=== PATIENT | male | born 1945 | race Caucasian/White ===

== ENCOUNTER 2017-12-14 07:26 | Outpatient (RCR) | payer MEDICARE, SELFPAY ==
[2017-12-14 07:41] LABS: Prothrombin Time Fingerstick 21.5 SEC (11.9-14.4)
== END 2017-12-14 08:00 ==
LOC: LAB 07:26
PROVIDERS: Family Provider Family Medicine; PCP Family Medicine; Visit Provider Internal Medicine Cardiovascular Disease
DX: I48.91 Unspecified atrial fibrillation (principal)
CPT/HCPCS: 36416; 85610

== ENCOUNTER → 2017-12-18 09:00 | Outpatient (CLI) | payer MEDICARE, SELFPAY ==
[2017-11-29 11:27] VITALS: BMI 28.6
[2017-11-29 16:16] VITALS: BP 125/79
--- NOTE | 2017-12-18 09:03 | RAD_ITS ---
STUDY: X-RAY - ABDOMEN/PELVIS REASON FOR EXAM: Male, 72 years old. Calculus of the right kidney. TECHNIQUE: 2 AP images of the abdomen. COMPARISON: November 20, 2017 FINDINGS: Normal visualized lung bases. There is a moderate amount of stool throughout the colon securing anatomic detail. Within the expected region of the right kidney there is a curvilinear approximately 4 mm density noted. There are gallstones again visualized. There are phleboliths within the pelvis. There are degenerative changes of the hips and pubic symphysis. RAD/Abdomen Single View IMPRESSION: Moderate amount of stool throughout the colon. Possible residual right renal calculus. Cholelithiasis. Electronically Signed: Carline Escobedo MD at 23:55 EST Tel , Service support ,
== END ==
PROVIDERS: Family Provider Family Medicine; PCP Family Medicine; Visit Provider Urology
DX: N20.0 Calculus of kidney (principal)
CPT/HCPCS: 74018

== ENCOUNTER → 2017-12-25 08:08 | Outpatient (CLI) | payer MEDICARE, SELFPAY ==
[2017-12-25 09:05] LABS: International Normalized Ratio 2.6; Prothrombin Time (Protime)PT. 27.2 SECONDS (11.7-14.9)
[2017-12-25 09:27] LABS: Anion Gap 7 (5-15); BUN 26 mg/dL (7-18); BUN/Creat Ratio 27.5 RATIO (10-20); Calcium,Total 8.9 mg/dL (8.5-10.1); Chloride 107 mmol/L (98-107); Creatinine, Serum 0.94 mg/dL (0.70-1.30); EST Glomerular Filtration Rate 83 mL/min (>60); Est Glom Filt Rate - Afr Amer 101 mL/min (>60); Glucose 161 mg/dL (74-106); Potassium 4.1 mmol/L (3.5-5.1); Sodium Level 138 mmol/L (136-145)
== END ==
PROVIDERS: Family Provider Family Medicine; PCP Family Medicine; Visit Provider Urology
DX: N20.0 Calculus of kidney (principal); I48.0 Paroxysmal atrial fibrillation; Z79.899 Other long term (current) drug therapy
CPT/HCPCS: 36415; 80048; 85610

== ENCOUNTER 2018-01-15 08:11 | Outpatient (RCR) | payer MEDICARE, SELFPAY ==
[2018-01-15 08:36] LABS: Prothrombin Time Fingerstick 28.1 SEC (11.9-14.4)
== END 2018-01-15 09:00 | disposition home or self-care (01) ==
LOC: LAB 08:11
PROVIDERS: Family Provider Family Medicine; PCP Family Medicine; Visit Provider Internal Medicine Cardiovascular Disease
DX: I48.0 Paroxysmal atrial fibrillation (principal); Z79.899 Other long term (current) drug therapy
CPT/HCPCS: 36416; 85610

== ENCOUNTER 2018-02-15 08:10 | Outpatient (RCR) | payer MEDICARE, SELFPAY ==
[2018-02-15 08:20] LABS: Prothrombin Time Fingerstick 30.3 SEC (11.9-14.4)
== END 2018-02-15 09:00 | disposition home or self-care (01) ==
LOC: LAB 08:10
PROVIDERS: Family Provider Family Medicine; PCP Family Medicine; Visit Provider Internal Medicine Cardiovascular Disease
DX: I48.0 Paroxysmal atrial fibrillation (principal); Z79.899 Other long term (current) drug therapy
CPT/HCPCS: 36416; 85610

== ENCOUNTER 2018-03-16 08:00 | Outpatient (RCR) | payer MEDICARE, SELFPAY ==
[2018-03-16 08:11] LABS: Prothrombin Time Fingerstick 25.1 SEC (11.9-14.4)
== END 2018-03-16 09:00 | disposition home or self-care (01) ==
LOC: LAB 08:00
PROVIDERS: Family Provider Family Medicine; PCP Family Medicine; Visit Provider Internal Medicine Cardiovascular Disease
DX: I48.0 Paroxysmal atrial fibrillation (principal); Z79.899 Other long term (current) drug therapy
CPT/HCPCS: 36416; 85610

== ENCOUNTER 2018-05-11 07:56 | Outpatient (RCR) | payer MEDICARE, SELFPAY ==
[2018-04-27 08:40] LABS: Prothrombin Time Fingerstick 24.6 SEC (11.9-14.4)
[2018-05-11 08:11] LABS: Prothrombin Time Fingerstick 28.6 SEC (11.9-14.4)
== END 2018-05-11 08:00 | disposition home or self-care (01) ==
LOC: LAB 07:56
PROVIDERS: Family Provider Family Medicine; PCP Family Medicine; Visit Provider Internal Medicine Cardiovascular Disease
DX: I48.0 Paroxysmal atrial fibrillation (principal); Z79.899 Other long term (current) drug therapy
CPT/HCPCS: 36416; 85610

== ENCOUNTER 2018-06-08 07:50 | Outpatient (RCR) | payer MEDICARE, SELFPAY | END 2018-06-08 09:00 | disposition home or self-care (01) | LOC: LAB 07:50 | PROVIDERS: Family Provider Family Medicine; PCP Family Medicine; Visit Provider Internal Medicine Cardiovascular Disease | DX: I48.0 Paroxysmal atrial fibrillation (principal); Z79.899 Other long term (current) drug therapy; E78.5 Hyperlipidemia, unspecified; I10 Essential (primary) hypertension; I25.10 Atherosclerotic heart disease of native coronary artery without angina pectoris | CPT/HCPCS: 36416; 85610 ==

== ENCOUNTER 2018-07-05 10:37 | Outpatient (RCR) | payer MEDICARE, SELFPAY ==
[2018-07-05 10:51] LABS: Prothrombin Time Fingerstick 28.7 SEC (11.9-14.4)
== END 2018-07-05 12:00 | disposition home or self-care (01) ==
LOC: LAB 10:37
PROVIDERS: Family Provider Family Medicine; PCP Family Medicine; Visit Provider Internal Medicine Cardiovascular Disease
DX: I48.0 Paroxysmal atrial fibrillation (principal); E78.5 Hyperlipidemia, unspecified; I25.10 Atherosclerotic heart disease of native coronary artery without angina pectoris; I10 Essential (primary) hypertension; Z79.01 Long term (current) use of anticoagulants
CPT/HCPCS: 36416; 85610

== ENCOUNTER → 2018-07-05 12:26 | Outpatient (CLI) | payer MEDICARE, SELFPAY | PROVIDERS: Family Provider Family Medicine; PCP Family Medicine; Visit Provider Family Medicine | DX: M54.5 Low back pain (principal); I48.0 Paroxysmal atrial fibrillation; I10 Essential (primary) hypertension; I25.10 Atherosclerotic heart disease of native coronary artery without angina pectoris; E78.5 Hyperlipidemia, unspecified; Z79.899 Other long term (current) drug therapy | CPT/HCPCS: 36416; 72110; 85610 ==

== ENCOUNTER 2018-08-09 07:47 | Outpatient (RCR) | payer MEDICARE, SELFPAY ==
[2018-08-01 08:21] LABS: Prothrombin Time Fingerstick 38.6 SEC (11.9-14.4)
[2018-08-09 08:11] LABS: Prothrombin Time Fingerstick 29.9 SEC (11.9-14.4)
== END 2018-08-09 09:00 | disposition home or self-care (01) ==
LOC: LAB 07:47
PROVIDERS: Family Provider Family Medicine; PCP Family Medicine; Visit Provider Internal Medicine Cardiovascular Disease
DX: I48.0 Paroxysmal atrial fibrillation (principal); E78.5 Hyperlipidemia, unspecified; I25.10 Atherosclerotic heart disease of native coronary artery without angina pectoris; I10 Essential (primary) hypertension; Z79.01 Long term (current) use of anticoagulants; M54.9 Dorsalgia, unspecified
CPT/HCPCS: 36416; 85610; 97110

== ENCOUNTER 2018-08-14 15:30 | Outpatient (RCR) | payer MEDICARE, SELFPAY ==
--- NOTE | 2018-07-12 11:27 | HP.PTEVAL_ITS ---
Patient's Visit Information MICHAELA MARTIN is a 73 year old M referred to Physical Therapy by Seth Aguila with a diagnosis of BACK PAIN. Date of Evaluation: 07/12/18 Physical Therapist: Moy Ford PT, - Visit Plan Frequency: 2x /Week Duration: 4 Weeks Plan: modalities for pain releive,DLS,flexion ex's,postural ex's - Subjective Subjective: This 73 y/o male presents to physical therapy with back pain for about month. Patient located aross lumbar symmtrical to right posterior hip and radicular hams-calf. Symptoms worse with walking ,standing,lifting. Symtoms better sitting,resting. Seen DR recommended PT and did x-rays. Tried chirpractor didn't help. Patient has h/o back pain with radicular symptoms right lower leg. Coughing/sneezing can increase symtoms. Bowel/bladder good. No trauma/accidents. Difficulty to elevate from chair. Denies parathesia/tingling. Patient pain affect QOL and job demands /housework tasks. SOCIAL: . VOCATION: retired, but works [employer] - Pain Right Hip Pain Intensity (Out of 10): 4 Pain Intensity Range: 10 Right Lower Extremity Pain Intensity (Out of 10): 4 Pain Intensity Range: 10 Bilateral Back Pain Intensity (Out of 10): 0 Pain Intensity Range: 10 - Objective POSTURE: mild foward posture. GAIT: ambulates with foward posture antalgic gait. NEURO: denies parathesia/tingling,reflexes L3-4,L4-5,L5-S1. SYMMRTIES: align. FLEXABLITY: hams mod tight,piriformis mod tight. MMT: QUADS/HAMS 4/5, HIP FLEXION 4/5,ANKLE 4/5. LUMBAR ROM: flexion mod loss,extension mod loss, side glides min/mod loss - Special Tests L/S Slump test left side: Negative L/S Slump test right side: Negative L/S Left Straight Leg Raise: Negative L/S Right Straight Leg Raise: Negative Lumbar Standing: Flexion - Mechanical Response: No effect Lumbar Standing: Flexion - Symptoms During Testing: No effect Lumbar Standing: Flexion - Symptoms After Testing: No effect Lumbar Standing: Extension - Mechanical Response: No effect Lumbar Standing: Extension - Symptoms During Testing: No effect Lumbar Standing: Extension - Symptoms After Testing: No effect Lumbar Standing: Right Side Glides - Mechanical Response: No effect Lumbar Standing: Right Side [place] - Symptoms During Testing: No effect Lumbar Standing: Right Side [place] - Symptoms After Testing: No effect Lumbar Standing: Left Side [place] - Symptoms During Testing: No effect Lumbar Standing: Left Side [place] - Symptoms After Testing: No effect Lumbar Lying: Flexion - Mechanical Response: No effect Lumbar Lying: Flexion - Symptoms During Testing: Increases Lumbar Lying: Flexion - Symptoms After Testing: No worse Comments:: LEGS TO RTURN - Goals Goal 1:: Independant with HEP Goal Time Frame: 4-6 Weeks Goal 2:: Independant with posture/body mechanics Goal Time Frame: 4-6 Weeks Goal 3:: Patient to decrease lumbar pain and radicular symptoms by 50 % with walking and standing Goal Time Frame: 4-6 Weeks Goal 4:: Patient improve lumbar ROM for function of recovery. Goal Time Frame: 4-6 Weeks Goal 5:: Patient be able to walk and perform ADL'S and job demands with min limiations Goal Time Frame: 4-6 Weeks Goal 6:: Patient to improve BACK owestary sore by 5 points to improve QOL. Goal Time Frame: 4-6 Weeks - Rehabilitation Potential Physical Therapy Diagnosis: This patient appears to have possiple stenosis vs derranagement symptoms worse with walking standing in leg better with sitting impairs ablility to perform housework tasks ADL'S Rehabilitation Potential: Good - Anticipated Interventions Patient/Client Instruction: Educate patient on: Condition, Plan of Care For the Purpose of:: To decrease pain, To increase ROM, To improve muscle performance and motor function, To increase tolerance to activity/condition/ position, To decrease level of supervision to perform tasks, To improve health of tissue, To decrease soft tissue restriction, To increase flexibility/ROM, To improve balance, To reduce risk of recurrence, To improve ability to perform tasks related to life management Therapeutic Exercise to Include: Strength training, Postural training, Flexibilty training, Dynamic Lumbar Stabilization For the Purpose of:: To decrease pain, To increase ROM, To improve muscle performance and motor function, To increase tolerance to activity/condition/ position, To improve ability of physical actions for home/community/work/leisure , To improve health of tissue, To decrease soft tissue restriction, To increase flexibility/ROM, To improve ability to perform tasks related to life management TENS: Yes IF ES: Yes Cryotherapy (ice pack, ice massage): Yes Thermo therapy (hot pack): Yes Ultrasound (thermal/non thermal): Yes For the Purpose of:: To decrease pain, To decrease swelling/inflammation, To improve nutrient delivery to tissue, To increase oxygenation perfusion, To improve health of tissue, To decrease soft tissue restriction Thank you for the opportunity to evaluate your patient. For Medicare and Medicare HMO plans, please review the plan of care and approve it. It will need to be FAXED BACK to us at [phone] for Medicare purposes. Please let me know if there are questions or concerns regarding this plan of care. Physician Signature: Date:
--- NOTE | 2018-08-14 16:15 | HP.PTEVAL_ITS ---
Patient's Visit Information MICHAELA MARTIN is a 73 year old M referred to Physical Therapy by Seth Aguila with a diagnosis of BACK PAIN. Date of Evaluation: 07/12/18 Physical Therapist: Moy Ford PT, - Visit Plan Frequency: 2x /Week Duration: 4 Weeks Plan: D/C TO HEP - Subjective Subjective: This 73 y/o male presents to physical therapy with back pain for about month. Patient located aross lumbar symmtrical to right posterior hip and radicular hams-calf. Symptoms worse with walking ,standing,lifting. Symtoms better sitting,resting. Seen DR abdirashid PT and did x-rays. Tried chirpractor didn't help. Patient has h/o back pain with radicular symptoms right lower leg. Coughing/sneezing can increase symtoms. Bowel/bladder good. No trauma/accidents. Difficulty to elevate from chair. Denies parathesia/tingling. Patient pain affect QOL and job demands /housework tasks. SOCIAL: . VOCATION: retired, but works [employer] - Pain Right Hip Pain Intensity (Out of 10): 1 Pain Intensity Range: 10 Right Lower Extremity Pain Intensity (Out of 10): 0 Pain Intensity Range: 10 Comment: calf Bilateral Back Pain Intensity (Out of 10): 0 Pain Intensity Range: 10 - Objective POSTURE: mild foward posture. GAIT: ambulates with foward posture antalgic gait. NEURO: denies parathesia/tingling,reflexes L3-4,L4-5,L5-S1. SYMMRTIES: align. FLEXABLITY: hams mod tight,piriformis mod tight. MMT: QUADS/HAMS 4/5,HIP FLEXION 4/5,ANKLE 4/5. LUMBAR ROM: flexion mod loss,extension mod loss,side glides min/mod loss - Special Tests L/S Slump test left side: Negative L/S Slump test right side: Negative L/S Left Straight Leg Raise: Negative L/S Right Straight Leg Raise: Negative Lumbar Standing: Flexion - Mechanical Response: No effect Lumbar Standing: Flexion - Symptoms During Testing: No effect Lumbar Standing: Flexion - Symptoms After Testing: No effect Lumbar Standing: Extension - Mechanical Response: No effect Lumbar Standing: Extension - Symptoms During Testing: No effect Lumbar Standing: Extension - Symptoms After Testing: No effect Lumbar Standing: Right Side Glides - Mechanical Response: No effect Lumbar Standing: Right Side [place] - Symptoms During Testing: No effect Lumbar Standing: Right Side [place] - Symptoms After Testing: No effect Lumbar Standing: Left Side [place] - Symptoms During Testing: No effect Lumbar Standing: Left Side [place] - Symptoms After Testing: No effect Lumbar Lying: Flexion - Mechanical Response: No effect Lumbar Lying: Flexion - Symptoms During Testing: Increases Lumbar Lying: Flexion - Symptoms After Testing: No worse Comments:: LEGS TO RTURN - Goals Goal 1:: Independant with HEP Goal Time Frame: 4-6 Weeks Goal 2:: Independant with posture/body mechanics Goal Time Frame: 4-6 Weeks Goal 3:: Patient to decrease lumbar pain and radicular symptoms by 50 % with walking and standing Goal Time Frame: 4-6 Weeks Goal 4:: Patient improve lumbar ROM for function of recovery. Goal Time Frame: 4-6 Weeks Goal 5:: Patient be able to walk and perform ADL'S and job demands with min limi ations Goal Time Frame: 4-6 Weeks Goal 6:: Patient to improve BACK owestary sore by 5 points to improve QOL. Goal Time Frame: 4-6 Weeks - Rehabilitation Potential Physical Therapy Diagnosis: This patient appears to have possiple stenosis vs derranagement symptoms worse with walking standing in leg better with sitting impairs ablility to perform housework tasks ADL'S Rehabilitation Potential: Good - Anticipated Interventions Patient/Client Instruction: Educate patient on: Condition, Plan of Care For the Purpose of:: To decrease pain, To increase ROM, To improve muscle performance and motor function, To increase tolerance to activity/condition/position, To decrease level of supervision to perform tasks, To improve health of tissue, To decrease soft tissue restriction, To increase flexibility/ROM, To improve balance, To reduce risk of recurrence, To improve ability to perform tasks related to life management Therapeutic Exercise to Include: Strength training, Postural training, Flexibilty training, Dynamic Lumbar Stabilization For the Purpose of:: To decrease pain, To increase ROM, To improve muscle performance and motor function, To increase tolerance to activity/condition/position, To improve ability of physical actions for home/community/work/leisure, To improve health of tissue, To decrease soft tissue restriction, To increase flexibility/ROM, To improve ability to perform tasks related to life management TENS: Yes IF ES: Yes Cryotherapy (ice pack, ice massage): Yes Thermo therapy (hot pack): Yes Ultrasound (thermal/non thermal): Yes For the Purpose of:: To decrease pain, To decrease swelling/inflammation, To improve nutrient delivery to tissue, To increase oxygenation perfusion, To improve health of tissue, To decrease soft tissue restriction Thank you for the opportunity to evaluate your patient. For Medicare and Medicare HMO plans, please review the plan of care and approve it. It will need to be FAXED BACK to us at [phone] for Medicare purposes. Please let me know if there are questions or concerns regarding this plan of care. Physician Signature: Da te:
--- NOTE | 2018-08-15 09:50 | HP.PTDCSUM ---
HP - PT D/C Summary It has been my pleasure to treat MICHAELA MARTIN under orders from Seth Aguila, for the diagnosis of BACK PAIN for a total of 7 visit(s). Discharge Date: Please see the following information for a summary of their discharge status. - Subjective Subjective: Doing good no back pain. Able to do all activities at home - Pain Right Hip Pain Intensity (Out of 10): 1 Right Lower Extremity Pain Intensity (Out of 10): 0 Bilateral Back Pain Intensity (Out of 10): 0 - Overall Improvement % Improvement: 80 - Objective Objective/Function: POSTURE: mild foward posture. GAIT: normal [place]. MMT: quads/hams 4/5 ,hip flexion 4-/5. LUMBAR ROM: lumbar ROM min loss,extension min loss extension mi/mod. -SLR - Goals Goal 1:: Independant with HEP Goal Progress: Goal Met Goal 2:: Independant with posture/body mechanics Goal Progress: Goal Met Goal 3:: Patient to decrease lumbar pain and radicular symptoms by 50 % with walking and standing Goal Progress: Goal Met Goal 4:: Patient improve lumbar ROM for function of recovery. Goal Progress: Goal Met Goal 5:: Patient be able to walk and perform ADL'S and job demands with min limiations Goal Progress: Goal Met Goal 6:: Patient to improve BACK owestary sore by 5 points to improve QOL. Goal Progress: Goal Met - Plan Plan: D/C TO HEP - D/C Information If there are questions or concerns regarding this patient's physical therapy, please feel free to call me at [phone]. Thank you for the referral of this patient. Sincerely, Moy Ford, PT,
== END 2018-08-14 19:00 | disposition home or self-care (01) ==
LOC: PT 15:30
PROVIDERS: Family Provider Family Medicine; PCP Family Medicine; Visit Provider Family Medicine
DX: M54.9 Dorsalgia, unspecified (principal)
CPT/HCPCS: 97110; 97162; 97530

== ENCOUNTER 2018-08-24 07:59 | Outpatient (RCR) | payer MEDICARE, SELFPAY ==
[2018-08-24 08:45] LABS: AST(SGOT) 16 U/L (15-37); Alanine Aminotransfer ALT/SGPT 16 U/L (16-61); Albumin, Serum 3.6 g/dL (3.2-5.0); Alkaline Phosphatase 75 U/L (45-117); Globulin 3.2 g/dL (2.2-4.2); International Normalized Ratio 2.1; Protein, Total 6.8 g/dL (6.4-8.2); Prothrombin Time (Protime)PT. 23.2 SECONDS (11.7-14.9)
[2018-08-24 08:48] LABS: ALB/GLOB Ratio 1.1 RATIO (0.9-2.4); AST(SGOT) 16 U/L (15-37); Alanine Aminotransfer ALT/SGPT 15 U/L (16-61); Albumin, Serum 3.5 g/dL (3.2-5.0); Alkaline Phosphatase 74 U/L (45-117); Anion Gap 6 (5-15); BUN 26 mg/dL (7-18); BUN/Creat Ratio 23.2 RATIO (10-20); Calcium,Total 8.6 mg/dL (8.5-10.1); Chloride 108 mmol/L (98-107); Cholesterol 107 mg/dL (200); Creatinine, Serum 1.12 mg/dL (0.70-1.30); EST Glomerular Filtration Rate 69 mL/min (>60); Est Glom Filt Rate - Afr Amer 83 mL/min (>60); Globulin 3.3 g/dL (2.2-4.2); Glucose 160 mg/dL (74-106); High Density Lipoprotein 37 mg/dL; Potassium 4.2 mmol/L (3.5-5.1); Protein, Total 6.8 g/dL (6.4-8.2); Sodium Level 140 mmol/L (136-145); Thyroid Stim Hormone (TSH) 1.15 uIU/mL (0.358-3.74); Triglycerides 126 mg/dL; Very Low Density Lipoprotein 25 mg/dL (5-40)
== END 2018-08-24 09:00 | disposition home or self-care (01) ==
LOC: LAB 07:59
PROVIDERS: Family Provider Family Medicine; PCP Family Medicine; Referring Provider Internal Medicine Cardiovascular Disease; Visit Provider Internal Medicine Cardiovascular Disease
DX: I48.0 Paroxysmal atrial fibrillation (principal); E11.9 Type 2 diabetes mellitus without complications; E78.5 Hyperlipidemia, unspecified; I10 Essential (primary) hypertension; I25.10 Atherosclerotic heart disease of native coronary artery without angina pectoris; Z79.899 Other long term (current) drug therapy; Z79.01 Long term (current) use of anticoagulants
CPT/HCPCS: 36415; 80053; 80061; 80076; 84443; 85610

== ENCOUNTER 2018-10-09 08:08 | Outpatient (RCR) | payer MEDICARE, SELFPAY ==
[2018-09-28 07:56] LABS: Prothrombin Time Fingerstick 19.6 SEC (11.9-14.4)
[2018-10-09 08:20] LABS: Prothrombin Time Fingerstick 27.4 SEC (11.9-14.4)
== END 2018-10-15 10:53 | disposition home or self-care (01) ==
LOC: LAB 08:08
PROVIDERS: Family Provider Family Medicine; PCP Family Medicine; Referring Provider Internal Medicine Cardiovascular Disease; Visit Provider Internal Medicine Cardiovascular Disease
DX: I48.0 Paroxysmal atrial fibrillation (principal); E78.5 Hyperlipidemia, unspecified; I10 Essential (primary) hypertension; I25.10 Atherosclerotic heart disease of native coronary artery without angina pectoris; Z79.01 Long term (current) use of anticoagulants
CPT/HCPCS: 36416; 85610

== ENCOUNTER 2018-11-02 07:24 | Outpatient (RCR) | payer MEDICARE, SELFPAY ==
[2018-11-02 07:41] LABS: Prothrombin Time Fingerstick 22.6 SEC (11.9-14.4)
== END 2018-11-02 08:00 | disposition home or self-care (01) ==
LOC: LAB 07:24
PROVIDERS: Family Provider Family Medicine; PCP Family Medicine; Referring Provider Internal Medicine Cardiovascular Disease; Visit Provider Internal Medicine Cardiovascular Disease
DX: I48.0 Paroxysmal atrial fibrillation (principal); E78.5 Hyperlipidemia, unspecified; I10 Essential (primary) hypertension; I25.10 Atherosclerotic heart disease of native coronary artery without angina pectoris; Z79.01 Long term (current) use of anticoagulants
CPT/HCPCS: 36416; 85610

== ENCOUNTER 2018-11-29 07:46 | Outpatient (RCR) | payer MEDICARE, SELFPAY ==
[2018-11-29 08:00] LABS: Prothrombin Time Fingerstick 23.4 SEC (11.9-14.4)
--- OUTSIDE RECORDS SUMMARY | 2019-02-02 20:05 | XMS RPT_ITS ---
:1945 Author Organization OHIP Support Name Relationship Address Phone MARCY MARTINBIE Unavailable [address] + [place] [address] R Unavailable Unavailable Unavailable FORDENWALT, JUAN ALBERTO Unavailable [address] + [place] [address] R Unavailable Unavailable Unavailable FORDENWALT, JUAN ALBERTO Unavailable [address] + [place] [address] R Unavailable Unavailable Unavailable FORDENWALT, JUAN ALBERTO Unavailable [address] + [place] [address] R Unavailable Unavailable Unavailable FORDENWALT, JUAN ALBERTO Unavailable [address] + [place] [address] R Unavailable Unavailable Unavailable FORDENWALT, JUAN ALBERTO Unavailable [address] + [place] [address] R Unavailable Unavailable Unavailable FORDENWALT, JUAN ALBERTO Unavailable [address] + [place] [address] R Unavailable Unavailable Unavailable FORDENWALT, JUAN ALBERTO Unavailable [address] + [place] [address] R Unavailable Unavailable Unavailable FORDENWALT, JUAN ALBERTO Unavailable [address] + [place] [address] R Unavailable Unavailable Unavailable FORDENWALT, JUAN ALBERTO Unavailable [address] + [place] [address] R Unavailable Unavailable Unavailable FORDENWALT, JUAN ALBERTO Unavailable [address] + [place] [address] R Unavailable Unavailable Unavailable FORDENWALT, JUAN ALBERTO Unavailable [address] + [place] [address] R Unavailable Unavailable Unavailable R Unavailable Unavailable Unavailable BEBOUT, DENISE Unavailable [address] + [place] [address] FORDENWALT, JAUN ALBERTO Unavailable [address] + [place] [address] R Unavailable Unavailable Unavailable BEBOUT, DENISE Unavailable [address] + [place] [address] FORDENWALT, JUAN ALBERTO Unavailable [address] + [place] [address] R Unavailable Unavailable Unavailable BEBOUT, DENISE Unavailable [address] + [place] [address] FORDENWALT, JUAN ALBERTO Unavailable [address] + [place] [address] R Unavailable Unavailable Unavailable BEBOUT, DENISE Unavailable [address] + [place] [address] FORDENWALT, JUAN ALBERTO Unavailable [address] + [place] [address] R Unavailable Unavailable Unavailable FORDENWALT, JUAN ALBERTO Unavailable [address] + [place] [address] R Unavailable Unavailable Unavailable R Unavailable Unavailable Unavailable BEBOUT, DENISE Unavailable [address] + [place] [address] FORDENWALT, JUAN ALBERTO Unavailable [address] + [place] [address] R Unavailable Unavailable Unavailable BEBOUT, DENISE Unavailable [address] + [place] [address] FORDENWALT, JUAN ALBERTO Unavailable [address] + [place] [address] R Unavailable Unavailable Unavailable BEBOUT, DENISE Unavailable [address] + [place] [address] FORDENWALT, JUAN ALBERTO Unavailable [address] + [place] [address] R Unavailable Unavailable Unavailable Care Team Providers Name Role Phone Jerman Zarate Attending Unavailable Jerman Zarate Referring Unavailable Seth Aguila Primary Care Unavailable Moodisjudah, Jerman Attending Unavailable Ranney, Hewitt Primary Care Unavailable Moodisjudah, Jerman Referring Unavailable Moodispaw, Jerman Attending Unavailable Moodispaw, Jerman Referring [facility] Unavailable Moodispamia, Jerman Attending Unavailable Ranney, Hewitt Primary Care Unavailable Clementine, Regan España Attending Unavailable Clementine, Regan España Referring Unavailable [facility] Unavailable MoodJerman ojeda Consulting Unavailable Moodispamia, Jerman Attending Unavailable [facility] Referring Unavailable Clementine, Regan España Attending Unavailable Clementine, Regan España Referring Unavailable Ransherrill, Hewitt Primary Care Unavailable Moodispamia, Jerman Attending Unavailable Ranney, Hewitt Primary Care Unavailable Moodisjudah, Jerman Attending Unavailable Moodispamia, Jerman Referring Unavailable Ranney, Hewitt Primary Care Unavailable Moodisjudah, Jerman Attending Unavailable MoodispaJerman bellamy Referring Unavailable [facility] Unavailable Ransherrill, Seth Attending Unavailable [facility] Unavailable Ransherrill, Hewitt Referring Unavailable Ranney, Seth Attending Unavailable Ransherrill, Hewitt Referring Unavailable [facility], Hewitt Primary Care Unavailable Moodisjudah, Jerman Attending Unavailable Moodisjudah, Jerman Referring Unavailable Ransherrill, Hewitt Primary Care Unavailable Moodisjudah, Jerman Attending Unavailable Moodispamia, Jerman Referring [facility]available [facility] Unavailable Moodrusty, Jerman Attending Unavailable MoodisJerman so Referring Unavailable [facility] Primary Care Unavailable Sushila Mckeon Attending Unavailable Ransherrill, Hewitt Referring Unavailable [facility] Primary Care Unavailable Malini Kurtz Attending Unavailable Aury Berry Attending Unavailable MoodispaJerman bellamy Attending Unavailable MoodisJerman so Referring Unavailable [facility] Unavailable Jerman Zarate Attending Unavailable AdeolaisJerman so Referring Unavailable [facility] Primary Care Unavailable PROBLEMS PROBLEMS DATE TYPE CONDITION / CODE ATTENDING STATUS SOURCE 11/12/2018 Unknown I48.0 - Paroxysmal Jerman Zarate Active [facility] atrial fibrillation Community / I48.0(ICD-10) Hospital Repository 09/13/2018 Unknown 250.00 - Diabetes Jerman Zarate Active [facility] mellitus without Community mention of Hospital complication, type Repository II or unspecified type, not stated as uncontrolled / 250.00(ICD-9) 09/13/2018 Unknown E11.9 - Type 2 Jerman Zarate diabetes mellitus Community without Hospital complications / Repository E11.9(ICD-10) 09/13/2018 Unknown E78.5 - Jerman Zarate Active [facility] Hyperlipidemia, Community unspecified / Hospital E78.5(ICD-10) Repository 09/13/2018 Unknown Z79.899 - Other long MoodisJerman so Active [facility] term (current) drug Community therapy / Hospital Z79.899(ICD-10) Repository 09/13/2018 Unknown I10 - Essential MoodisJerman so Active [place] (primary) [facility] hypertension / Hospital I10(ICD-10) Repository 09/13/2018 Unknown 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 / I25.10(ICD-10) 09/13/2018 Unknown Z79.01 - custodial Jerman Zarate Active [facility] (current) use of [facility] anticoagulants / Hospital Z79.01(ICD-10) Repository 08/23/2018 Unknown M54.9 - Dorsalgia, Ranselma, Active [facility] unspecified / [facility] M54.9(ICD-10) Hospital Repository 07/05/2018 Unknown M54.5 - Low back Ranselma, Active [facility] pain / M54.5(ICD-10) [facility] Hospital Repository 12/18/2017 Unknown N20.0 - Calculus of Clementine, Regan Active [facility] kidney / [facility] N20.0(ICD-10) Hospital Repository 02/12/2018 Unknown I48.91 - Unspecified MoodisJerman so Active [facility] atrial fibrillation [facility] / I48.91(ICD-10) Hospital Repository PROCEDURES PROCEDURES No Procedure Records FoundRESULTS RESULTS PROTIME W/INR Collected: 11/29/2018 Status: F Source: [place] 7:56 AM [facility] REPOSITORY TYPE CODE TESTS RESULT OUT OF REFERENCE UNITS RANGE LAB L9200.1001 11.9-14.4 SEC High PROTIME ISTAT 23.4 Result Comment: Reference Range 11.9 - 14.4 LAB L9200.2000 Normal INR ISTAT 2.00 Result Comment: Critical Value > 3.5 Performed By: #### L9200.0000 #### [facility] Point of Care [address] [place] [address] PROTIME W/INR Collected: 11/02/2018 Status: F Source: [place] 7:34 AM [facility] REPOSITORY TYPE CODE TESTS RESULT OUT OF REFERENCE UNITS RANGE LAB L9200.1001 11.9-14.4 SEC High PROTIME ISTAT 22.6 Result Comment: Reference Range 11.9 - 14.4 LAB L9200.2000 Normal INR ISTAT 1.90 Result Comment: Critical Value > 3.5 Performed By: #### L9200.0000 #### [facility] Point of Care [address] [place] [address] PROTIME W/INR Collected: 10/09/2018 Status: F Source: [place] 8:13 AM [facility] REPOSITORY TYPE CODE TESTS RESULT OUT OF REFERENCE UNITS RANGE LAB L9200.1001 11.9-14.4 SEC High PROTIME ISTAT 27.4 Result Comment: Reference Range 11.9 - 14.4 LAB L9200.2000 Normal INR ISTAT 2.40 Result Comment: Critical Value > 3.5 Performed By: #### L9200.0000 #### [facility] Point of Care [address] [place] [address] PROTIME W/INR Collected: 09/28/2018 Status: F Source: [place] 7:32 AM [facility] REPOSITORY TYPE CODE TESTS RESULT OUT OF REFERENCE UNITS RANGE LAB L9200.1001 11.9-14.4 SEC High PROTIME ISTAT 19.6 Result Comment: Reference Range 11.9 - 14.4 LAB L9200.2000 Normal INR ISTAT 1.70 Result Comment: Critical Value > 3.5 Performed By: #### L9200.0000 #### [facility] Point of Care [address] [place], [place] [id number] LIVER PROFILE Collected: 08/24/2018 Status: F Source: [place] 8:08 AM [facility] REPOSITORY TYPE CODE TESTS RESULT OUT OF RANGE REFERENCE UNITS LAB L501.1500 6.4-8.2 g/dL Normal T PROT 6.8 LAB L501.1800 3.2-5.0 g/dL Normal ALB 3.6 LAB L501.1950 2.2-4.2 g/dL Normal GLOB 3.2 LAB L501.4100 15-37 U/L Normal AST 16 LAB L501.4305 45-117 U/L Normal ALK P 75 LAB L501.4405 16-61 U/L Normal ALT 16 LAB L501.4600 0.20-1.00 mg/dL Normal T BILI 0.70 LAB L501.4700 0.00-0.30 mg/dL Normal D BILI 0.20 Performed By: #### L500.3400 #### [facility] [address] [place], [address] PROTHROMBIN TIME W/INR Collected: 08/24/2018 Status: F Source: [place] 8:08 AM [facility] REPOSITORY Order Comment: Comments: STANDING ORDER/FINGER STICK Comments: STANDING ORDER/FINGER STICK TYPE CODE TESTS RESULT OUT OF RANGE REFERENCE UNITS LAB L300.4150 11.7-14.9 SECONDS High PROTIME 23.2 LAB L300.4200 Normal INR 2.1 Performed By: #### L300.3900 #### [facility] [address] [place], [address] COMPREHENSIVE METABOLIC Collected: 08/24/2018 Status: F Source: [place] [facility] 8:07 AM [facility] REPOSITORY Order Comment: Order Date: 02/19/18 Order Info: [id number] - CMP Order Info: [id number] - LIPID Order Info: 3016-3 - TSH SEND RESULT OF LIPID TO ALSO. TYPE CODE TESTS RESULT OUT OF RANGE REFERENCE UNITS LAB L501.0100 74-106 mg/dL High GLU 160 Result Comment: Fasting Glucose result greater than or equal to 126 mg/dL suggests DIABETES MELLITUS per A.D.A. criteria. Please note revised GLUCOSE reference range effective 2017. LAB L501.1000 7-18 mg/dL High BUN 26 LAB L501.1100 0.70-1.30 mg/dL Normal CREAT,SERUM 1.12 Result Comment: The validity of the calculated GFR AND GFRAA in patients over 70 years has not been determined. Clinical correlation is essential. LAB L501.1110 >60 mL/min Normal EST GFR 69 Result Comment: Non- GFR Calc LAB L501.1115 >60 mL/min Normal EST GFR - AA 83 Result Comment: GFR Calc LAB L501.1300 10-20 RATIO High BUN/CRE 23.2 LAB L501.1500 6.4-8.2 g/dL T Normal PROT 6.8 LAB L501.1800 3.2-5.0 g/dL Normal ALB 3.5 LAB L501.1950 2.2-4.2 g/dL Normal GLOB 3.3 LAB L501.2000 0.9-2.4 RATIO Normal A/G 1.1 LAB L501.2200 8.5-10.1 mg/dL CA Normal 8.6 LAB L501.4100 15-37 U/L Normal AST 16 LAB L501.4305 45-117 U/L Normal ALK P 74 LAB L501.4405 16-61 U/L Low ALT 15 LAB L501.4600 0.20-1.00 mg/dL T Normal BILI 0.70 LAB L501.5300 136-145 mmol/L NA Normal 140 LAB L501.5600 3.5-5.1 mmol/L K Normal 4.2 LAB L501.5900 98-107 mmol/L High CL 108 LAB L501.6100 21.0-32.0 mmol/L Normal CO2 26.0 LAB L501.6200 5-15 Normal GAP 6 Performed By: #### L500.4050, L500.4100, L501.9520 #### [facility] [address] [place], [place], [address] LIPID PROFILE Collected: 08/24/2018 Status: F Source: [place] 8:07 AM [facility] REPOSITORY Order Comment: Order Date: 02/19/18 Order Info: [id number] - CMP Order Info: [id number] - LIPID Order Info: [id number] - TSH SEND RESULT OF LIPID TO ALSO. TYPE CODE TESTS RESULT OUT OF RANGE REFERENCE UNITS LAB L501.4900 200 mg/dL Normal CHOL 107 Result Comment: <200 mg/dL Desirable 200-240 mg/dL Borderline >240 mg/dL High Risk LAB L501.5000 mg/dL Normal TRIG 126 Result Comment: The drugs N-Acetylcysteine and Metamizole may falsely depress this assay. Serum Triglycerides Reference Interval Normal <150 mg/dL Borderline high 150 - 199 mg/dL High 200 - 499 mg/dL Very High > or = 500 mg/dL LAB L501.6400 mg/dL Low HDL 37 Result Comment: The drugs N-Acetylcysteine and Metamizole may falsely depress this assay. Reference Range HDL <40 mg/dL Low HDL Cholesterol HDL >or= 60 mg/dL High HDL Cholesterol LAB L501.6500 0-130 mg/dL Normal LDL 45 LAB L501.6600 5-40 mg/dL Normal VLDL 25 Performed By: #### L500.4050, L500.4100, L501.9520 #### [facility] [address] [place], [address] THYROID STIM HORMONE Collected: 08/24/2018 Status: F Source: [place] (TSH) 8:07 AM [facility] REPOSITORY Order Comment: Order Date: 02/19/18 Order Info: [id number] - CMP Order Info: [id number] - LIPID Order Info: [id number] - TSH SEND RESULT OF LIPID TO ALSO. TYPE CODE TESTS RESULT OUT OF RANGE REFERENCE UNITS LAB L501.9520 0.358-3.74 uIU/mL Normal TSH 1.15 Performed By: #### L500.4050, L500.4100, L501.9520 #### [facility] [address] [place], [address] PT D/C SUMMARY (1) Observed: 08/17/2018 Status: F Source: [place] 7:58 AM [facility] REPOSITORY [facility] [address] [place] [address]. [address] [place] [address] Fax REHABILITATION SERVICES DISCHARGE SUMMARY MR#: [id number] Acct: [id number] Name: MICHAELA MARTIN Rep #: [id number] : 1945 73 From: Cert. ZELDA Barrientos PT, OCS Referring Dr.: Seth Aguila MD Status: REG RCR Insurance: [employer] MEDICARE PPO SELF PAY INSURANCE HP - PT D/C Summary It has been my pleasure to treat MICHAELA MARTIN under orders from Seth Aguila, for the diagnosis of BACK PAIN for a total of 7 visit(s). Discharge Date: Please see the following information for a summary of their discharge status. - Subjective Subjective: Doing good no back pain. Able to do all activities at home - Pain Right Hip Pain Intensity (Out of 10): 1 Right Lower Extremity Pain Intensity (Out of 10): 0 Bilateral Back Pain Intensity (Out of 10): 0 - Overall Improvement % Improvement: 80 - Objective Objective/Function: POSTURE: mild foward posture. GAIT: normal carol. MMT: quads/hams 4/5 ,hip flexion 4-/5. LUMBAR ROM: lumbar ROM min loss,extension min loss extension mi/mod. -SLR - Goals Goal 1:: Independant with HEP Goal Progress: Goal Met Goal 2:: Independant with posture/body mechanics Goal Progress: Goal Met Goal 3:: Patient to decrease lumbar pain and radicular symptoms by 50 % with walking and standing Goal Progress: Goal Met Goal 4:: Patient improve lumbar ROM for function of recovery. Goal Progress: Goal Met Goal 5:: Patient be able to walk and perform ADL'S and job demands with min limiations Goal Progress: Goal Met Goal 6:: Patient to improve BACK owestary sore by 5 points to improve QOL. Goal Progress: Goal Met - Plan Plan: D/C TO HEP - D/C Information If there are questions or concerns regarding this patient's physical therapy, please feel free to call me at [phone]. Thank you for the referral of this patient. Sincerely, Moy Ford PT, <Electronically signed by Moy Ford PT Cert. ZELDA, OCS> 08/17/18 0758 CC: Seth Aguila MD JLA Signed PROTIME W/INR Collected: 08/09/2018 Status: F Source: [place] 8:03 AM [facility] REPOSITORY TYPE CODE TESTS RESULT OUT OF REFERENCE UNITS RANGE LAB L9200.1001 11.9-14.4 SEC High PROTIME ISTAT 29.9 Result Comment: Reference Range 11.9 - 14.4 LAB L9200.2000 Normal INR ISTAT 2.60 Result Comment: Critical Value > 3.5 Performed By: #### L9200.0000 #### [facility] Point of Care [address] [place] [address] PROTIME W/INR Collected: 08/01/2018 Status: F Source: [place] 8:10 AM [facility] REPOSITORY TYPE CODE TESTS RESULT OUT OF REFERENCE UNITS RANGE LAB L9200.1001 11.9-14.4 SEC High PROTIME ISTAT 38.6 Result Comment: Reference Range 11.9 - 14.4 LAB L9200.2000 Normal INR ISTAT 3.40 Result Comment: Critical Value > 3.5 Performed By: #### L9200.0000 #### [facility] Point of Care [address] [place] [address] INITAL EVALUATION (1) Observed: 07/13/2018 Status: F Source: [place] - PT 7:24 AM [facility] REPOSITORY [facility] [address] [place] [address]. [address] [place] [address] Fax REHABILITATION SERVICES INITIAL EVALUATION MR#: [id number] Acct: [id number] Name: MICHAELA MARTIN Rep #: [id number] : 1945 73 From: Moy Ford PT, Cert. MDT, OCS Referring Dr.: Seth Aguila MD Status: REG RCR Insurance: [employer] MEDICARE PPO SELF PAY INSURANCE Patient's Visit Information MICHAELA MARTIN is a 73 year old M referred to Physical Therapy by Seth Aguila with a diagnosis of BACK PAIN. Date of Evaluation: 07/12/18 Physical Therapist: Moy Ford PT, - Visit Plan Frequency: 2x /Week Duration: 4 Weeks Plan: modalities for pain releive,DLS,flexion ex's,postural ex's - Subjective Subjective: This 73 y/o male presents to physical therapy with back pain for about month. Patient located aross lumbar symmtrical to right posterior hip and radicular hams-calf. Symptoms worse with walking ,standing,lifting. Symtoms better sitting,resting. Seen DR recommended PT and did x-rays. Tried chirpractor didn't help. Patient has h/o back pain with radicular symptoms right lower leg. Coughing/sneezing can increase symtoms. Bowel/bladder good. No trauma/accidents. Difficulty to elevate from chair. Denies parathesia/tingling. Patient pain affect QOL and job demands /housework tasks. SOCIAL: . VOCATION: retired, but works [employer] - Pain Right Hip Pain Intensity (Out of 10): 4 Pain Intensity Range: 10 Right Lower Extremity Pain Intensity (Out of 10): 4 Pain Intensity Range: 10 Bilateral Back Pain Intensity (Out of 10): 0 Pain Intensity Range: 10 - Objective POSTURE: mild foward posture. GAIT: ambulates with foward posture antalgic gait. NEURO: denies parathesia/tingling,reflexes L3-4,L4-5,L5-S1. SYMMRTIES: align. FLEXABLITY: hams mod tight,piriformis mod tight. MMT: QUADS/HAMS 4/5,HIP FLEXION 4/5,ANKLE 4/5. LUMBAR ROM: flexion mod loss,extension mod loss,side glides min/mod loss - Special Tests L/S Slump test left side: Negative L/S Slump test right side: Negative L/S Left Straight Leg Raise: Negative L/S Right Straight Leg Raise: Negative Lumbar Standing: Flexion - Mechanical Response: No effect Lumbar Standing: Flexion - Symptoms During Testing: No effect Lumbar Standing: Flexion - Symptoms After Testing: No effect Lumbar Standing: Extension - Mechanical Response: No effect Lumbar Standing: Extension - Symptoms During Testing: No effect Lumbar Standing: Extension - Symptoms After Testing: No effect Lumbar Standing: Right Side Glides - Mechanical Response: No effect Lumbar Standing: Right Side Republic - Symptoms During Testing: No effect Lumbar Standing: Right Side Republic - Symptoms After Testing: No effect Lumbar Standing: Left Side Republic - Symptoms During Testing: No effect Lumbar Standing: Left Side Republic - Symptoms After Testing: No effect Lumbar Lying: Flexion - Mechanical Response: No effect Lumbar Lying: Flexion - Symptoms During Testing: Increases Lumbar Lying: Flexion - Symptoms After Testing: No worse Comments:: LEGS TO RTURN - Goals Goal 1:: Independant with HEP Goal Time Frame: 4-6 Weeks Goal 2:: Independant with posture/body mechanics Goal Time Frame: 4-6 Weeks Goal 3:: Patient to decrease lumbar pain and radicular symptoms by 50 % with walking and standing Goal Time Frame: 4-6 Weeks Goal 4:: Patient improve lumbar ROM for function of recovery. Goal Time Frame: 4-6 Weeks Goal 5:: Patient be able to walk and perform ADL'S and job demands with min limiations Goal Time Frame: 4-6 Weeks Goal 6:: Patient to improve BACK owestary sore by 5 points to improve QOL. Goal Time Frame: 4-6 Weeks - Rehabilitation Potential Physical Therapy Diagnosis: This patient appears to have possiple stenosis vs derranagement symptoms worse with walking standing in leg better with sitting impairs ablility to perform housework tasks ADL'S Rehabilitation Potential: Good - Anticipated Interventions Patient/Client Instruction: Educate patient on: Condition, Plan of Care For the Purpose of:: To decrease pain, To increase ROM, To improve muscle performance and motor function, To increase tolerance to activity/condition/position, To decrease level of supervision to perform tasks, To improve health of tissue, To decrease soft tissue restriction, To increase flexibility/ROM, To improve balance, To reduce risk of recurrence, To improve ability to perform tasks related to life management Therapeutic Exercise to Include: Strength training, Postural training, Flexibilty training, Dynamic Lumbar Stabilization For the Purpose of:: To decrease pain, To increase ROM, To improve muscle performance and motor function, To increase tolerance to activity/condition/position, To improve ability of physical actions for home/community/work/leisure, To improve health of tissue, To decrease soft tissue restriction, To increase flexibility/ROM, To improve ability to perform tasks related to life management TENS: Yes IF ES: Yes Cryotherapy (ice pack, ice massage): Yes Thermo therapy (hot pack): Yes Ultrasound (thermal/non thermal): Yes For the Purpose of:: To decrease pain, To decrease swelling/inflammation, To improve nutrient delivery to tissue, To increase oxygenation perfusion, To improve health of tissue, To decrease soft tissue restriction Thank you for the opportunity to evaluate your patient. For Medicare and Medicare HMO plans, please review the plan of care and approve it. It will need to be FAXED BACK to us at [phone] for Medicare purposes. Please let me know if there are questions or concerns regarding this plan of care. Physician Signature: Date: <Electronically signed by Moy Ford PT, Cert. T, OCS> 07/13/18 0724 CC: Seth Aguila MD JLA Signed For Medicare only, by signing this I certify the plan of care. Physicians Signature Date L/S SPINE MIN 4 Observed: 07/05/2018 Status: F Source: [place] VIEWS 12:29 PM [facility] REPOSITORY [facility] Services [address] [place] [address] L/S Spine Min 4 Views MR#: [id number] Acct: [id number] Name: MICHAELA MARTIN Rep #: [id number] : 1945 M 73 From: Steffany Langley MD PCP: Seth Aguila MD Status: REG CLI Study: L/S Spine Min 4 Views Date of Exam: 07/05/18 Exam# [id number] Ordering Dr: Sal Aguila MD STUDY: X-RAY - LUMBAR SPINE REASON FOR EXAM: Male, 73 years old. Hip pain, no known injury TECHNIQUE: 5 view(s) of the lumbar spine were obtained. COMPARISON: Prior abdominal examination 12/[address] abdomen pelvis 10/2017 are not available for direct visual comparison but were requested. Once they become available an addendum report will be generated. FINDINGS: Normal lumbar lordosis. There is no substantial scoliosis. There is a normal alignment of the vertebrae. Sclerosis of endplates with minor mostly anterior small spurring. Mild depression of the sclerosed L1 superior endplate. Mild decreased disc space heights T12-L1, L1-L2 and L5-S1. Mild facet arthropathy L3-S1. Mild narrowing of the neural foramina L3-4, L4-5, L5-S1. Degenerative changes of the bilateral sacroiliac joints. The soft tissue structures are unremarkable. RAD/L/S Spine Min 4 Views IMPRESSION: Degenerative changes as above. Depression superior endplate L1 vertebral body of unclear age Electronically Signed: Steffany Langley MD at 5:09 EDT , Service support , CC: Seth Aguila MD Net Front End Developer: Signed PROTIME W/INR Collected: 07/05/2018 Status: F Source: [place] FINGERSTICK 10:44 AM [facility] REPOSITORY TYPE CODE TESTS RESULT OUT OF REFERENCE UNITS RANGE LAB L9200.1001 11.9-14.4 SEC High PROTIME ISTAT 28.7 Result Comment: Reference Range 11.9 - 14.4 LAB L9200.2000 Normal INR ISTAT 2.50 Result Comment: Critical Value > 3.5 Performed By: #### L9200.0000 #### [facility] Point of Care [address] [place], [place] [address] PROTIME W/INR Collected: 06/08/2018 Status: F Source: [employer] FINGERSTICK 7:56 AM [facility] REPOSITORY TYPE CODE TESTS RESULT OUT OF REFERENCE UNITS RANGE LAB L9200.1001 11.9-14.4 SEC High PROTIME ISTAT 29.0 Result Comment: Reference Range 11.9 - 14.4 LAB L9200.2000 Normal INR ISTAT 2.50 Result Comment: Critical Value > 3.5 Performed By: #### L9200.0000 #### [facility] Point of Care [address] [address] [place] [address] PROTIME W/INR Collected: 05/11/2018 Status: F Source: MIGUEL FINGERSTICK 8:03 AM [facility] REPOSITORY TYPE CODE TESTS RESULT OUT OF REFERENCE UNITS RANGE LAB L9200.1001 11.9-14.4 SEC High PROTIME ISTAT 28.6 Result Comment: Reference Range 11.9 - 14.4 LAB L9200.2000 Normal INR ISTAT 2.50 Result Comment: Critical Value > 3.5 Performed By: #### L9200.0000 #### [facility] Point of Care [address] [place] [address] PROTIME W/INR Collected: 04/27/2018 Status: F Source: MIGUEL FINGERSTICK 8:34 AM [facility] REPOSITORY TYPE CODE TESTS RESULT OUT OF REFERENCE UNITS RANGE LAB L9200.1001 11.9-14.4 SEC High PROTIME ISTAT 24.6 Result Comment: Reference Range 11.9 - 14.4 LAB L9200.2000 Normal INR ISTAT 2.10 Result Comment: Critical Value > 3.5 Performed By: #### L9200.0000 #### [facility] Point of Care [address] [place] [address] PROTIME W/INR Collected: 04/13/2018 Status: F Source: MIGUEL FINGERSTICK 7:59 AM [facility] REPOSITORY TYPE CODE TESTS RESULT OUT OF REFERENCE UNITS RANGE LAB L9200.1001 11.9-14.4 SEC High PROTIME ISTAT 36.0 Result Comment: Reference Range 11.9 - 14.4 LAB L9200.2000 Normal INR ISTAT 3.20 Result Comment: Critical Value > 3.5 Performed By: #### L9200.0000 #### [facility] Point of Care [address] [place] [address] PROTIME W/INR Collected: 03/16/2018 Status: F Source: MIGUEL FINGERSTICK 8:05 AM [facility] REPOSITORY TYPE CODE TESTS RESULT OUT OF REFERENCE UNITS RANGE LAB L9200.1001 11.9-14.4 SEC High PROTIME ISTAT 25.1 Result Comment: Reference Range 11.9 - 14.4 LAB L9200.2000 Normal INR ISTAT 2.20 Result Comment: Critical Value > 3.5 Performed By: #### L9200.0000 #### [facility] Point [place] [address] CARDIOLOGY VISIT Observed: 02/17/2018 Status: F Source: [place] REPORT 3:44 PM [facility] REPOSITORY [facility] [address] [place] [address] OFFICE VISIT Date of Service: 02/15/18 MR#: [id number] Acct: [id number] Name: MICHAELA MARTIN Rep #: [id number] : 1945 Provider: Sushila Mckeon Age/Sex: 72/M Location[place] [facility] [place]: Signed HPI HPI Details: MICHAELA MARTIN, is a 72 M who presents to the office today for A cardiovascular follow-up. He has a history of paroxysmal atrial fibrillation with pulmonary vein isolation that was complicated by a microperforation. He also has a history of mild diffuse coronary artery disease, hypertension and hyperlipidemia. He recently underwent surgery for kidney stones. He did not have any difficulty with this. From a cardiac standpoint, patient is doing well. He does not have any chest discomfort/heaviness/tightness. His exercise tolerance is stable for his age. He does not have any worsening symptoms of shortness of breath. He denies any PND. He does not have any orthopnea. He does not have any symptoms of congestive heart failure. He does not have any palpitations that he is aware of. He does not have any lightheadedness or dizziness. He does not have any near-syncope or syncope. He does not have any lower extremity edema. He does not have any symptoms of claudication. 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 Accompanied by: None Is patient in pain?: No Allergies dabigatran etexilate [From Pradaxa] Adverse Reaction (Severe, Verified 02/15/18 11:05) GI Bleed niacin [From Niaspan Extended-Release] Adverse Reaction (Severe, Verified 02/15/18 11:05) Hot flashes Iodinated Contrast- Oral and IV Dye [CT] Adverse Reaction (Verified 02/15/18 11:05) Nausea Medications Aspirin [Aspirin, Baby] 81 mg PO DAILY@0800 10/18/13 [History Confirmed 02/15/18] Atorvastatin Calcium [Lipitor] 40 mg PO QHS 10/18/13 [History Confirmed 02/15/18] Lisinopril [Lisinopril] 20 mg PO DAILY 10/18/13 [History Confirmed 02/15/18] Metformin HCl [Glucophage Xr] 750 mg PO DAILY 10/18/13 [History Confirmed 02/15/18] Metoprolol Tartrate [Lopressor] 50 mg PO BID 10/18/13 [History Confirmed 02/15/18] Terazosin HCl [Hytrin] 5 mg PO DAILY 10/18/13 [History Confirmed 02/15/18] Warfarin [Coumadin] 5 mg PO DAILY 10/18/13 [History Confirmed 02/15/18] warfarin 1 mg tablet 1 mg PO .COMPLEX 12/14/17 [History Confirmed 02/15/18] amlodipine 10 mg tablet 10 mg PO QDAY 02/13/18 [History Confirmed 02/13/18] nitroglycerin 0.4 mg sublingual tablet 0.4 mg SUBLINGUAL Q5M PRN 02/13/18 [History Confirmed 02/15/18] Ejection fraction %: 55 to 59 PFSH Medical History Hyperlipidemia (Chronic) Hypertension (Chronic) Coronary arteriosclerosis in [place] artery (Chronic) 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) Paroxysmal atrial fibrillation (Chronic) Surgical History History of tonsillectomy (Resolved) H/O release of tendon (Resolved) History of esophagogastroduodenoscopy (EGD) (Resolved) History of endoscopy (Resolved) History of cardiac radiofrequency ablation (RFA) (Resolved) History of left heart catheterization (Resolved) Family History Father Myocardial infarction Hypertension Mother Hina Gehrigs disease Brother MVA (motor vehicle accident) Hypertension Kidney stones Hypercholesterolemia Social History Smoking Status: Never smoker alcohol intake: never substance use type: does not use caffeine: Yes Type: coffee, tea, carbonated beverages what type of physical activity do you participate in: none seatbelt use: always do you feel safe at home: Yes ROS Const Const: Negative for weakness, fatigue, fever(s) or headache(s) Eyes Eyes: Negative for blind spots, loss of peripheral vision or transient loss of vision ENT ENT: Negative for headache(s), dizziness, tinnitus or Nosebleed/epistaxis Cardio Chest Pain: No Palpitations: No Edema: None Muscle aches with walking: None Resp Respiratory: Negative for SOB with activity, SOB at rest, SOB orthopnea\SOB lying down or Cough GI GI: Negative nausea, vomiting, heartburn or vomiting blood/hematemesis : Negative for hematuria Musc Musc: Negative for muscle aches/ myalgia Neuro Neuro: Negative for weakness, headache(s), dizziness, near syncope, syncope, lightheadedness or orthostatic symptoms Steven Hematologic/Lymphatic: Negative for easy bleeding Endo Endo: Negative for fatigue Cardiology Exam Const Appearance: cooperative, no acute distress and well developed Orientation: alert, awake and oriented x3 Head Head: normocephalic and atraumatic Mouth: moist mucous membranes Eyes General: appearance normal, both eyes and all related structures Conjunctivae: conjunctivae normal Pupils: PERRL EOM: EOM intact bilaterally Neck Neck: normal visual inspection, no lymphadenopathy and no JVD Carotids: Negative bruit Neck Mass: Negative Neck mass Chest Chest inspection: normal inspection of the chest and symmetric chest movement Auscultation: Bilateral: Clear to Auscultation Cardio Palpation: normal PMI Rate: regular rate Rhythm: regular rhythm Heart sounds: S1 normal and S2 normal; negative rub, gallop or murmur GI GI: normal to inspection, soft, no hepatosplenomegaly and bowel sounds present; negative tender Neuro General: alert, awake, oriented x3, CN's II-XI intact bilaterally and moves all extremities Extremities Pulses: Normal: Right Posterior Tibial Pulse, Left Posterior Tibial Pulse, Right Radial Pulse, Left Radial Pulse Lower Extremity Edema: None: Bilateral Psych Psychological: normal affect Supplemental Info Echocardiogram in 2011 demonstrates moderate concentric LVH with an estimated ejection fraction of 55%. Left atrium mildly enlarged. Trivial mitral tricuspid and pulmonic insufficiency. Mild aortic insufficiency. Assessment AND Plan 1. Paroxysmal atrial fibrillation I48.0 Plan - CHARIS Lainez Patient does not have any paroxysms of atrial fibrillation that he is aware of. His rate is controlled. He is anticoagulated with therapeutic INR goal of 2-3. 2. Essential hypertension I10 Plan - CHARIS Lainez Blood pressure is well controlled on current medications, we do not recommend any changes at this time. 3. Pure hypercholesterolemia E78.00; E78.0 Plan - CHARSI Lainez Recent lipid profile demonstrates total cholesterol 127, HDL 47, LDL 60. Will not make any adjustments. Plan Detail Additional Comments - CHARIS Lainez The above patient was discussed with Dr. Noriega in Dr. Zarate's absence, he agrees with plan of care. Thank you for allowing us to participate in patient's plan of care, if you have any questions please do not hesitate to call. This note was generated using a voice recognition system and there may be incorrect words, spelling or punctuation errors that were not noted when reviewing the office note prior to saving. Follow Up 9 Months (PFM) Coding Level of Care Code Off vis,est,level 3 Diagnoses Paroxysmal atrial fibrillation I48.0 Essential hypertension I10 Hypertension type: essential hypertension Pure hypercholesterolemia E78.00; E78.0 Hyperlipidemia type: pure hypercholesterolemia Coding Level of Care Code Off vis,est,level 3 Diagnoses Paroxysmal atrial fibrillation I48.0 Essential hypertension I10 Hypertension type: essential hypertension Pure hypercholesterolemia E78.00; E78.0 Hyperlipidemia type: pure hypercholesterolemia 02/15/18 1131 <Electronically signed by Sushila VIZCAINO> Date Sushila VIZCAINO 02/17/18 1544<Electronically signed by Erick Noriega MD> Cosigner Signature: Date (if applicable) Erick Noriega MD CC: Seth Aguila MD PROTIME W/INR Collected: 02/15/2018 Status: F Source: MIGUEL FINGERSTICK 8:14 AM [facility] REPOSITORY TYPE CODE TESTS RESULT OUT OF REFERENCE UNITS RANGE LAB L9200.1001 11.9-14.4 SEC High PROTIME ISTAT 30.3 Result Comment: Reference Range 11.9 - 14.4 LAB L9200.2000 Normal INR ISTAT 2.60 Result Comment: Critical Value > 3.5 Performed By: #### L9200.0000 #### [facility] Point of Care [address] [place] [address] PROTIME W/INR Collected: 01/15/2018 Status: F Source: MIGUEL FINGERSTICK 8:23 AM [facility] REPOSITORY TYPE CODE TESTS RESULT OUT OF REFERENCE UNITS RANGE LAB L9200.1001 11.9-14.4 SEC High PROTIME ISTAT 28.1 Result Comment: Reference Range 11.9 - 14.4 LAB L9200.2000 Normal INR ISTAT 2.40 Result Comment: Critical Value > 3.5 Performed By: #### L9200.0000 #### [facility] Point of Care [address] [place] [address] PROTHROMBIN TIME W/INR Collected: 12/25/2017 Status: F Source: MIGUEL 8:17 AM [facility] REPOSITORY Order Comment: INR FOR DR ZARATE TYPE CODE TESTS RESULT OUT OF RANGE REFERENCE UNITS LAB L300.4150 11.7-14.9 SECONDS High PROTIME 27.2 LAB L300.4200 Normal INR 2.6 Performed By: #### L300.3900 #### [facility] [address] [place], [address] BASIC METABOLIC Collected: 12/25/2017 Status: F Source: MIGUEL PROFILE (BMP) 8:15 AM [facility] REPOSITORY TYPE CODE TESTS RESULT OUT OF RANGE REFERENCE UNITS LAB L501.0100 74-106 mg/dL High GLU 161 Result Comment: Fasting Glucose result greater than or equal to 126 mg/dL suggests DIABETES MELLITUS per A.D.A. criteria. Please note revised GLUCOSE reference range effective 2017. LAB L501.1000 7-18 mg/dL High BUN 26 LAB L501.1100 0.70-1.30 mg/dL Normal CREAT,SERUM 0.94 Result Comment: The validity of the calculated GFR AND GFRAA in patients over 70 years has not been determined. Clinical correlation is essential. LAB L501.1110 >60 mL/min Normal EST GFR 83 Result Comment: Non- GFR Calc LAB L501.1115 >60 mL/min Normal EST GFR - AA 101 Result Comment: GFR Calc LAB L501.1300 10-20 RATIO High BUN/CRE 27.5 LAB L501.2200 8.5-10.1 mg/dL CA Normal 8.9 LAB L501.5300 136-145 mmol/L NA Normal 138 LAB L501.5600 3.5-5.1 mmol/L K Normal 4.1 LAB L501.5900 98-107 mmol/L CL Normal 107 LAB L501.6100 21.0-32.0 mmol/L Normal CO2 24.0 LAB L501.6200 5-15 Normal GAP 7 Performed By: #### L500.2500 #### [facility] [address] [place], [address] ABDOMEN SINGLE VIEW Observed: 12/18/2017 Status: F Source: [place] 9:03 AM [facility] REPOSITORY [facility] Imaging Services [address] [place] [address] Abdomen Single View MR#: [id number] Acct: [id number] Name: MICHAELA MARTIN Rep #: [id number] : 1945 M 72 From: Carline Escobedo MD PCP: Seth Aguila MD Status: REG CLI Study: Abdomen Single View Date of Exam: 12/18/17 Exam# [id number] Ordering Dr: Regan Spring MD STUDY: X-RAY - ABDOMEN/PELVIS REASON FOR EXAM: Male, 72 years old. Calculus of the right kidney. TECHNIQUE: 2 AP images of the abdomen. COMPARISON: November 20, 2017 FINDINGS: Normal visualized lung bases. There is a moderate amount of stool throughout the colon securing anatomic detail. Within the expected region of the right kidney there is a curvilinear approximately 4 mm density noted. There are gallstones again visualized. There are phleboliths within the pelvis. There are degenerative changes of the hips and pubic symphysis. RAD/Abdomen Single View IMPRESSION: Moderate amount of stool throughout the colon. Possible residual right renal calculus. Cholelithiasis. Electronically Signed: Carline Escobedo MD at 23:55 EST Tel , Service support , CC: Seth Aguila MD; Regan Spring MD Net Front End Developer: Signed PROTIME W/INR Collected: 12/14/2017 Status: F Source: [place] FINGERSTICK 7:34 AM [facility] REPOSITORY TYPE CODE TESTS RESULT OUT OF REFERENCE UNITS RANGE LAB L9200.1001 11.9-14.4 SEC High PROTIME ISTAT 21.5 Result Comment: Reference Range 11.9 - 14.4 LAB L9200.2000 Normal INR ISTAT 1.80 Result Comment: Critical Value > 3.5 Performed By: #### L9200.0000 #### [facility] Point of Care [address] [place] [address] ALLERGIES ALLERGIES DATE TYPE / CODE NAME / CODE REACTION SEVERITY SOURCE 02/15/2018 Drug Iodinated Nausea Unknown [place] Allergy/416 Contrast- Oral Community 085819([facility] ED CT) Dye/[id number](RX Repository NORM) 02/15/2018 Drug niacin/[id number] HOT FLASHES SV [place] Allergy/416 (RXNORM) Community 602595([facility] ED [facility]) Repository 02/15/2018 Drug dabigatran GI BLEED SV [place] Allergy/416 etexilate/L588072 Community 464927([facility] 668(RXNORM) [facility] ED CT) Repository ENCOUNTERS ENCOUNTERS ADMIT/DISCHARGE ACCOUNT ADMITTING ENCOUNTER LOCATION SOURCE NUMBER CLASS 11/29/2018 [id number] Ambulatory [place] 0 [facility] ing:LAB Repository 11/02/2018/ [id number] Ambulatory [place] 8 6 [facility] ing:LAB Repository 10/09/2018/ [id number] Ambulatory [place] 8 5 [facility] ing:LAB Repository 08/24/2018/ [id number] Ambulatory [place] 8 0 [facility] ing:LAB Repository 08/14/2018/ [id number] Ambulatory [place] 8 7 [facility] ing:PT Repository 08/09/2018/ [id number] Ambulatory [place] 8 9 [facility] ing:LAB Repository 07/05/2018 [id number] Ambulatory [place] 9 [facility] ing:MTRAD Repository 07/05/2018/ [id number] Ambulatory [place] 8 7 [facility] ing:LAB Repository 06/08/2018/ [id number] Ambulatory [place] 8 8 [facility] ing:LAB Repository 05/11/2018/ [id number] Ambulatory [place] 8 4 [facility] ing:LAB Repository 03/16/2018/ [id number] Ambulatory [place] 8 3 [facility] ing:LAB Repository 02/15/2018/ [id number] Ambulatory BMSBuilding:B [place] 8 7 [facility] Repository 02/15/2018/ [id number] Ambulatory [place] 8 5 [facility] ing:LAB Repository 02/14/2018 [id number] Ambulatory B[facility]:B [place] 7 [facility] Repository 02/13/2018 [id number] Ambulatory BMS [place] 8 [facility] Repository 02/05/2018 [id number] Ambulatory BMSBuilding:B [place] 0 [place] Repository 01/15/2018/ [id number] Ambulatory [place] 8 0 [facility] ing:LAB Repository 12/25/2017 [id number] Ambulatory [place] 7 [facility] ing:LAB Repository 12/18/2017 [id number] Ambulatory [place] 8 [facility] ing:RAD Repository 12/14/2017/ [id number] Ambulatory [place] 8 8 [facility] ing:LAB Repository PAYERS PAYERS ENCOUNTER GUARANTOR PAYER SUBSCRIBER SOURCE 11/29/2018 MICHAELA W Primary MICHAELA W [place] [id number] Insurance:HUMANA FORDENWALTDOB: Community [place] [employer] [place]olicy [id number] Number: Repository [address]Xtm: 330 [id number] [phone] () Date:4724-96-17GX [address] [place] [address]NO: 11/29/2018 Secondary NOT GIVENUNK [place] Insurance:SELF PAY [facility] Number: Effective Repository Date:2018-11-12 11/02/2018 MICHAELA W Primary MICHAELA W [place] [id number] Insurance:HUMANA FORDENWALTDOB: Community [place] [employer] PPOPolicy [id number] Number: Repository [address]Svn: 330 [id number] [phone] (HP) Date:9240-44-28CR [address] [place] [address]YM: 11/02/2018 Secondary NOT GIVENUNK [place] Insurance:SELF PAY [facility] Number: Effective Repository Date:2018-10-15 10/09/2018 MICHAELA W Primary MICHAELA W [place] [id number] Insurance:HUMANA FORDENWALTDOB: Community [place] [employer] PPOPolicy [id number] Number: Repository [address]Bzz: 330 [id number] [phone] (HP) Date:3327-06-37QG [address] [place] [address]HC: 10/09/2018 Secondary NOT GIVENUNK [place] Insurance:SELF PAY [facility] Number: Effective Repository Date:2018-09-13 08/24/2018 MICHAELA W Primary MICHAELA W [place] [id number] Insurance:HUMANA FORDENWALTDOB: Community [place] [employer] PPOPolicy [id number] Number: Repository [address]Dgv: 330 [id number] [phone] () Date:6511-26-00CE [address] [address]DL: 08/24/2018 Secondary NOT GIVENUNK [place] Insurance:SELF PAY [facility] Number: Effective Repository Date:2018-08-15 08/14/2018 MICHAELA W Primary MICHAELA W [place] [id number] Insurance:HUMANA FORDENWALTDOB: Community [place] [employer] PP[place]olicy [id number] [facility] [place] Number: Repository [address]Iqe: (330 [id number] [phone] () Date:8021-56-88LX [address] [address]PA: 08/14/2018 Secondary NOT GIVENUNK [place] Insurance:SELF PAY [facility] Number: Effective Repository Date:2018-07-09 08/09/2018 MICHAELA W Primary MICHAELA W [place] [id number] Insurance:HUMANA FORDENWALTDOB: Community [place] [employer] PPOPolicy [id number] [place] Number: Repository [address]Kem: (330 [id number] [phone] () Date:5690-67-94LH [address] [address]VT: 08/09/2018 Secondary NOT GIVENUNK [place] Insurance:SELF PAY [facility] Number: Effective Repository Date:2018-07-17 07/05/2018 MICHAELA W Primary MICHAELA W [place] [id number] Insurance:HUMANA FORDENWALTDOB: Community [place] [employer] PPOPolicy [id number], [place] Number: Repository [address]Xuz: (330 [id number] [phone] (HP) Date:6139-90-65AA [address] [address]UQ: 07/05/2018 Secondary NOT GIVENUNK [place] Insurance:SELF PAY [facility] Number: Effective Repository Date:2018-07-05 07/05/2018 MICHAELA W Primary MICHAELA W [place] [id number] Insurance:HUMANA FORDENWALTDOB: Community [place] [employer] [facility] [id number] Jewish Health [place] Number: Repository [address]Xqz: (330) [id number] [phone] (HP) Date:9789-88-77EP [address] [address]CA: 07/05/2018 Secondary NOT GIVENUNK [place] Insurance:SELF PAY [facility] Number: Effective Repository Date:2018-06-14 06/08/2018 MICHAELA W Primary MICHAELA W [place] [id number] Insurance:HUMANA FORDENWALTDOB: Community [place] [employer] PP[place]olicy [id number] Number: Repository [address]Bhf: (330) [id number] [phone] (HP) Date:8676-83-29KZ [address] [address]YX: 06/08/2018 Secondary NOT GIVENUNK [place] Insurance:SELF PAY [facility] Number: Effective Repository Date:2018-05-11 05/11/2018 MICHAELA W Primary MICHAELA W [place] [id number] Insurance:HUMANA FORDENWALTDOB: Community [place] [employer] PP[place]icy [id number] [facility] Health [place] Number: Repository [address]Cgt: (330) [id number] [phone] (HP) Date:0387-21-83OJ [address] [address]BR: 05/11/2018 Secondary NOT GIVENUNK [place] Insurance:SELF PAY [facility] Number: Effective Repository Date:2018-04-12 03/16/2018 MICHAELA W Primary MICHAELA W [place] [id number] Insurance:HUMANA FORDENWALTDOB: Community [place] [employer] PPOPolicy [id number] [facility] Health [place] Number: Repository [address]Oax: 330 [id number] [phone] (HP) Date:7667-91-53SB [address]46[address]WP: 03/16/2018 Secondary NOT GIVENUNK [place] Insurance:SELF PAY [facility] Number: Effective Repository Date:2018-03-13 02/15/2018 MICHAELA W Primary MICHAELA W [place] [id number] Insurance:HUMANA FORDENWALTDOB: Community [place] [employer] PPOPolicy [id number] Jewish Health [place] Number: Repository [address]Wno: 330 [id number] [phone] (HP) Date:5601-39-13LH [address]46[address]WP: 02/15/2018 Secondary NOT GIVENUNK [place] Insurance:SELF PAY [facility] Number: Effective Repository Date:2018-02-15 02/15/2018 MICHAELA W Primary MICHAELA W [place] [id number] Insurance:HUMANA FORDENWALTDOB: Community [place] [employer] PPOPolicy [id number] [place], [place] Number: Repository [address]Ytt: (330 [id number] [phone] (HP) Date:2643-94-25SC [address] [address]OA: 02/15/2018 Secondary NOT GIVENUNK [place] Insurance:SELF PAY [facility] Number: Effective Repository Date:2018-02-12 02/14/2018 MICHAELA W Primary MICHAELA W [place] [id number] Insurance:HUMANA FORDENWALTDOB: Community [place] [employer] PPOPolicy [id number] [place], [place] Number: Repository [address]Hkf: (330 [id number] [phone] (HP) Date:7513-22-10QJ [address] [address]SC: 02/14/2018 Secondary NOT GIVENUNK [place] Insurance:SELF PAY [facility] Number: Effective Repository Date:2018-02-14 02/13/2018 MICHAELA W Primary MICHAELA W [place] [id number] Insurance:HUMANA FORDENWALTDOB: Community [place] [employer] PPOPolicy [id number] Jewish Health [place] Number: Repository [address]Wvo: (330 [id number] [phone] (HP) Date:6578-18-66JE [address] [address]HG: 02/13/2018 Secondary NOT GIVENUNK [place] Insurance:SELF PAY [facility] Number: Effective Repository Date:2018-02-13 02/05/2018 MICHAELA W Primary MICHAELA W Miguel [id number] Insurance:HUMANA FORDENWALTDOB: Community [place] [employer] PPOPolicy [id number] [place] Number: Repository [id number]: (330 [id number] [phone] (HP) Date:7021-92-16LE [address] [address]CQ: 02/05/2018 Secondary NOT GIVENUNK Miguel Insurance:SELF PAY [facility] Number: Effective Repository Date:2017-10-25 01/15/2018 MICHAELA W Primary MICHAELA W Miguel [id number] Insurance:HUMANA FORDENWALTDOB: Community [place] [employer] PPOPolicy [id number] [facility] [place] Number: Repository [id number]: ([phone] [id number] [phone] (HP) Date:0634-87-80AO [address] [address]DX: 01/15/2018 Secondary NOT GIVENUNK Miguel Insurance:SELF PAY [facility] Number: Effective Repository Date:2018-01-15 12/25/2017 MICHAELA W Primary MICHAELA W [place] [id number] Insurance:HUMANA FORDENWALTDOB: Community [place] [employer] PPOPolicy [id number] [place] Number: Repository [id number]: [phone] [id number] [phone] (HP) Date:[id number] [address] [address]XP: 12/25/2017 Secondary NOT GIVENUNK Miguel Insurance:SELF PAY [facility] Number: Effective Repository Date:2017-12-25 12/18/2017 MICHAELA W Primary MICHAELA W Miguel [id number] Insurance:HUMANA FORDENWALTDOB: Community [place] [employer] PPOPolicy [id number] [place] Number: Repository [id number]: ([phone] [id number] [phone] (HP) Date:0785-82-69MR [address] [address]QX: 12/18/2017 Secondary NOT GIVENUNK Miguel Insurance:SELF PAY [facility] Number: Effective Repository Date:2017-12-15 12/14/2017 MICHAELA W Primary MICHAELA W Miguel [id number] Insurance:HUMANA FORDENWALTDOB: Community [place] PP[place]olicy [id number] Number[place] Repository [id number]: 330 [id number] [phone] (HP) Date:[id number] [address] [address]FB: 12/14/2017 Secondary NOT GIVENUNK Miguel Insurance:SELF PAY [facility] Number: Effective Repository Date:2017-10-15
== END 2018-11-29 08:00 | disposition home or self-care (01) ==
LOC: LAB 07:46
PROVIDERS: Family Provider Family Medicine; PCP Family Medicine; Referring Provider Internal Medicine Cardiovascular Disease; Visit Provider Internal Medicine Cardiovascular Disease
DX: I48.0 Paroxysmal atrial fibrillation (principal); E78.5 Hyperlipidemia, unspecified; I10 Essential (primary) hypertension; I25.10 Atherosclerotic heart disease of native coronary artery without angina pectoris; Z79.01 Long term (current) use of anticoagulants
CPT/HCPCS: 36416; 85610

== ENCOUNTER 2019-01-04 06:54 | Outpatient (RCR) | payer MEDICARE, SELFPAY ==
[2019-01-04 07:10] LABS: Prothrombin Time Fingerstick 29.9 SEC (11.9-14.4)
== END 2019-01-10 14:37 | disposition home or self-care (01) ==
LOC: LAB 06:54
PROVIDERS: Family Provider Family Medicine; PCP Family Medicine; Referring Provider Internal Medicine Cardiovascular Disease; Visit Provider Internal Medicine Cardiovascular Disease
DX: I48.0 Paroxysmal atrial fibrillation (principal); E78.5 Hyperlipidemia, unspecified; I10 Essential (primary) hypertension; I25.10 Atherosclerotic heart disease of native coronary artery without angina pectoris; Z79.01 Long term (current) use of anticoagulants
CPT/HCPCS: 36416; 85610

== ENCOUNTER → 2019-01-28 15:46 | Outpatient (CLI) | payer MEDICARE, SELFPAY ==
[2019-01-28 17:32] LABS: Absolute Lymphocyte Count 2.18 X10^3/ul (0.83-4.51); Absolute Neutrophil Count 4.8 X10^3/uL (2.0-7.7); Basophil# 0.02 X10^3/uL; Basophil% 0.3 % (0-1); Eosinophil# 0.07 X10^3/uL; Eosinophils% 0.9 % (0-5); Hematocrit 43.1 % (40-54); Hemoglobin 14.2 g/dl (13.0-16.5); Lymphocyte # 2.18 X10^3/ul (4.0); Lymphocyte % 28.6 % (19-41); Mean Corp Hgb Conc 32.9 g/gl (32-36); Mean Corpuscular Hgb 29.3 pg (27.0-32.0); Mean Platelet Vol. 11.3 fl (6.2-12.0); Monocyte# 0.52 X10^3/uL; Monocyte% 6.8 % (0-10); Neutrophil # 4.81 X10^3/uL (2.7-7.7); Neutrophil % 63.3 % (47-70); Platelet Count 196 K/mm3 (150-450); Red Blood Count 4.84 M/mm3 (4.6-6.2); White Blood Count 7.6 K/mm3 (4.4-11.0)
[2019-01-28 17:33] LABS: POSITIVE COUNT NO; POSITIVE DIFFERENTIAL NO; POSITIVE MORPHOLOGY NO
[2019-01-28 18:17] LABS: ALB/GLOB Ratio 1.1 RATIO (0.9-2.4); AST(SGOT) 15 U/L (15-37); Alanine Aminotransfer ALT/SGPT 21 U/L (16-61); Albumin, Serum 4.1 g/dL (3.2-5.0); Alkaline Phosphatase 75 U/L (45-117); Anion Gap 9 (5-15); BUN 40 mg/dL (7-18); BUN/Creat Ratio 32.3 RATIO (10-20); Chloride 108 mmol/L (98-107); Cholesterol 127 mg/dL (200); Creatinine, Serum 1.24 mg/dL (0.70-1.30); EST Glomerular Filtration Rate 61 mL/min (>60); Est Glom Filt Rate - Afr Amer 74 mL/min (>60); Globulin 3.9 g/dL (2.2-4.2); Glucose 119 mg/dL (74-106); High Density Lipoprotein 40 mg/dL; Potassium 4.4 mmol/L (3.5-5.1); Sodium Level 138 mmol/L (136-145); Thyroid Stim Hormone (TSH) 1.09 uIU/mL (0.358-3.74); Triglycerides 121 mg/dL; Very Low Density Lipoprotein 24 mg/dL (5-40)
[2019-01-28 18:51] LABS: Bilirubin, Direct 0.29 mg/dL (0.00-0.30)
== END ==
PROVIDERS: Internal Medicine Cardiovascular Disease; Nurse Practitioner Adult Health; Family Provider Family Medicine; PCP Family Medicine; Visit Provider Family Medicine
DX: E11.9 Type 2 diabetes mellitus without complications (principal); A08.4 Viral intestinal infection, unspecified
CPT/HCPCS: 80053; 80061; 80076; 82248; 84443; 85025

== ENCOUNTER 2019-02-08 06:48 | Outpatient (RCR) | payer MEDICARE, SELFPAY ==
[2019-02-04 09:23] VITALS: BMI 30.2
[2019-02-08 07:10] LABS: Prothrombin Time Fingerstick 29.5 SEC (11.9-14.4)
== END 2019-02-08 07:45 | disposition home or self-care (01) ==
LOC: LAB 06:48
PROVIDERS: Family Provider Family Medicine; PCP Family Medicine; Referring Provider Internal Medicine Cardiovascular Disease; Visit Provider Internal Medicine Cardiovascular Disease
DX: I48.0 Paroxysmal atrial fibrillation (principal); E78.5 Hyperlipidemia, unspecified; I10 Essential (primary) hypertension; I25.10 Atherosclerotic heart disease of native coronary artery without angina pectoris; Z79.01 Long term (current) use of anticoagulants
CPT/HCPCS: 36416; 85610

== ENCOUNTER 2019-04-01 08:04 | Outpatient (RCR) | payer MEDICARE, SELFPAY ==
[2019-02-04 09:23] VITALS: BMI 30.2
[2019-04-01 08:21] LABS: Prothrombin Time Fingerstick 28.3 SEC (11.9-14.4)
== END 2019-04-01 09:04 | disposition home or self-care (01) ==
LOC: LAB 08:04
PROVIDERS: Family Provider Family Medicine; PCP Family Medicine; Referring Provider Internal Medicine Cardiovascular Disease; Visit Provider Internal Medicine Cardiovascular Disease
DX: I48.0 Paroxysmal atrial fibrillation (principal); E78.5 Hyperlipidemia, unspecified; I10 Essential (primary) hypertension; I25.10 Atherosclerotic heart disease of native coronary artery without angina pectoris; Z79.01 Long term (current) use of anticoagulants
CPT/HCPCS: 36416; 85610

== ENCOUNTER 2019-05-02 08:35 | Outpatient (RCR) | payer MEDICARE, SELFPAY ==
[2019-02-04 09:23] VITALS: BMI 30.2
[2019-05-02 08:51] LABS: Prothrombin Time Fingerstick 26.9 SEC (11.9-14.4)
== END 2019-05-02 09:00 | disposition home or self-care (01) ==
LOC: LAB 08:35
PROVIDERS: Family Provider Family Medicine; PCP Family Medicine; Referring Provider Internal Medicine Cardiovascular Disease; Visit Provider Internal Medicine Cardiovascular Disease
DX: I48.0 Paroxysmal atrial fibrillation (principal); E78.5 Hyperlipidemia, unspecified; I10 Essential (primary) hypertension; I25.10 Atherosclerotic heart disease of native coronary artery without angina pectoris; Z79.01 Long term (current) use of anticoagulants
CPT/HCPCS: 36416; 85610

== ENCOUNTER 2019-06-06 06:49 | Outpatient (RCR) | payer MEDICARE, SELFPAY ==
[2019-02-04 09:23] VITALS: BMI 30.2
[2019-06-06 07:00] LABS: Prothrombin Time Fingerstick 25.6 SEC (11.9-14.4)
== END 2019-06-12 16:01 | disposition home or self-care (01) ==
LOC: LAB 06:49
PROVIDERS: Family Provider Family Medicine; PCP Family Medicine; Referring Provider Internal Medicine Cardiovascular Disease; Visit Provider Internal Medicine Cardiovascular Disease
DX: I48.0 Paroxysmal atrial fibrillation (principal); Z79.01 Long term (current) use of anticoagulants
CPT/HCPCS: 36416; 85610

== ENCOUNTER 2019-07-09 07:54 | Outpatient (RCR) | payer MEDICARE, SELFPAY ==
[2019-02-04 09:23] VITALS: BMI 30.2
[2019-07-09 11:40] LABS: Prothrombin Time Fingerstick 28.3 SEC (11.9-14.4)
== END 2019-07-09 10:00 | disposition home or self-care (01) ==
LOC: LAB 07:54
PROVIDERS: Family Provider Family Medicine; PCP Family Medicine; Referring Provider Internal Medicine Cardiovascular Disease; Visit Provider Internal Medicine Cardiovascular Disease
DX: I48.0 Paroxysmal atrial fibrillation (principal); Z79.01 Long term (current) use of anticoagulants
CPT/HCPCS: 36416; 85610

== ENCOUNTER 2019-08-21 01:58 | Inpatient (IN) | payer MEDICARE, SELFPAY ==
[2019-02-04 09:23] VITALS: BMI 30.2
[2019-08-21] VITALS (52 sets, daily range): BP systolic 95–160; BP diastolic 51–110; PULSE 62–134; RESP 13–25; TEMP 36–37.4; O2SAT 94–100; BMI 31.4
--- NOTE | 2019-08-21 01:59 | ED.RN ---
CALLED FOR EKG PER RN REQUEST, PULLED OLD EKGS FOR
--- NOTE | 2019-08-21 02:07 | RAD_ITS ---
STUDY: X-RAY CHEST REASON FOR EXAM: Male, 74 years old. Chest pain TECHNIQUE: Single AP portable view of the chest. COMPARISON: None. FINDINGS: The lungs are clear and expanded. There is no demonstrated pleural abnormality. There is mild cardiac enlargement. Normal mediastinum and igor. Normal visualized pulmonary arteries. There is atherosclerotic calcification of the aortic arch . There are diffuse degenerative changes of the visualized thoracic spine. Normal visualized ribs, clavicles, and shoulders. There is no demonstrated abnormality of the visualized soft tissue structures of the upper abdomen. RAD/Chest 1 View (Portable) IMPRESSION: No acute cardiopulmonary disease Electronically Signed: Rico Mullins MD at 3:38 EDT Tel , Service support ,
--- NOTE | 2019-08-21 02:07 | ED.VIS.GEN ---
History of Present Illness Chief Complaint: Chest Pain Narrative: This patient is a 74-year-old male who presents with chest pain. It began about 1-1/2 hours ago. He describes it as a feeling of indigestion or pressure. It is not really painful. He would rate this as a 2 out of 10. He denies associated symptoms such as nausea, diaphoresis, shortness of breath. No radiation to the neck or arms. No history of prior similar symptoms. He does not have a history of coronary disease. He is treated for diabetes, hypertension, hyperlipidemia, atrial fibrillation on warfarin. He denies any recent illness and has been in his usual state of health recently. Past Medical History - Allergies and Home Meds Allergies/Adverse Reactions: Allergies dabigatran etexilate [From Pradaxa] Adverse Reaction (Severe, Verified 02/04/19 09:23) GI Bleed niacin [From Niaspan Extended-Release] Adverse Reaction (Severe, Verified 02/04/19 09:23) Hot flashes Iodinated Contrast Media [CT] Adverse Reaction (Verified 02/04/19 09:23) Nausea Primary Care Physician: Sal Aguila MD [Primary Care Provider] - Past Medical History: - - Diabetes, hypertension, hyperlipidemia, atrial fibrillation Smoking Status: Never smoker Review of Systems All systems negative except as indicated Cardiovascular: Reports: Chest pain Respiratory: Denies: Dyspnea Gastrointestinal: Denies: Nausea, Vomiting, Diarrhea Physical Exam Vital Signs/Narrative: Vital Signs Temp Pulse Resp BP Pulse Ox 08/21/19 02:02 129 H 15 156/93 H 97 08/21/19 01:59 98.1 F 134 H 18 160/110 H 97 Inital Vital Signs reviewed: Yes General: - - Ill appearance Eyes: EOMI ENT: Moist mucous membranes Neck: Supple Cardiovascular: - - Heart is regular tachycardia I do not appreciate murmur, gallop, rub Respiratory: No distress, CTA bilaterally, Chest nontender. Negative for: Chest tenderness Abdomen: Soft, Nontender Extremities: Nontender, No edema Skin: Pallor Neurological: Alert Psychological: Normal affect Diagnostic/Tx/Re-eval 08/21/19 02:07 Chest 1 View (Portable) [RAD] Stat Laboratory Results 08/21/19 08/21/19 08/21/19 02:00 02:00 02:00 WBC 8.1 RBC 4.21 L Hgb 11.9 L Hct 37.1 L MCV 88.1 MCH 28.3 MCHC 32.1 RDW Std Deviation 43.0 RDW Coeff of Katarzyna 13.2 Plt Count 158 MPV 9.9 Immature Gran % (Auto) 0.200 Neut % (Auto) 61.1 Lymph % (Auto) 30.4 [place] % (Auto) 6.3 Eos % (Auto) 1.6 Baso % (Auto) 0.4 Absolute Neuts (auto) 4.9 Absolute Lymphs (auto) 2.45 Nucleated RBC % 0 PT 22.3 H INR 2.0 Sodium 140 Potassium 3.4 L Chloride 108 H Carbon Dioxide 25.0 Anion Gap 7 BUN 22 H Creatinine 1.06 Estim Creat Clear Calc 62.07 Est GFR (MDRD) Af Amer 88 Est GFR (MDRD) Non-Af 73 BUN/Creatinine Ratio 20.8 H Glucose 142 H Calcium 8.7 Troponin I 0.043 - Medical Decision Making I was called immediately to the room on the patient's arrival. While I was taking a history the patient's symptoms actually resolved. EKG shows sinus tachycardia at a rate of [address] abnormalities there is T wave flattening in leads II and aVF as well as inversions in lead III. There is subtle elevation in lead III alone. There is ST depression in [address] segment changes are new. Repeat EKG obtained about 20 minutes later shows improvement with resolution of ST segment changes in 1 and aVL. There is subtle depression in leads II and aVF. Labs returned as notable for INR 2.0 and troponin of 0.04, upper limit of normal. Chest x-ray on my review shows no acute process although radiology read is pending. Patient's presentation is concerning for acute coronary syndrome. Patient was given aspirin here. I discussed the case with cardiology on-call Dr. Aviles. Cardiology recommended Brilinta and keeping the patient n.p.o. for possible cardiac catheterization today. He also requested that we recheck the troponin and INR 4 hours after the initial. Patient was discussed with the hospitalist who agrees to admit. - Critical Care Time Critical care time (excluding procedures): 30-74 minutes, Discussing w/Patient &/or Family/Material Processor, Discussing w/Consultants ED Disposition - Plan for ED Patient: Disposition: Acute Care Hospital [facility] Diagnosis: Acute coronary syndrome Referrals: Sal Aguila MD [Primary Care Provider] -
[2019-08-21] MEDS: Aspirin 81 MG TAB.CHEW 324 MG PO (02:11)
[2019-08-21 02:16] LABS: Absolute Lymphocyte Count 2.45 X10^3/uL (0.83-4.51); Absolute Neutrophil Count 4.9 X10^3/uL (2.0-7.7); Basophil# 0.03 X10^3/uL; Basophil% 0.4 % (0-1); Eosinophil# 0.13 X10^3/uL; Eosinophils% 1.6 % (0-5); Hematocrit 37.1 % (40-54); Hemoglobin 11.9 g/dL (13.0-16.5); Lymphocyte # 2.45 X10^3/ul (4.0); Lymphocyte % 30.4 % (19-41); Mean Corp Hgb Conc 32.1 g/dL (32-36); Mean Corpuscular Hgb 28.3 pg (27.0-32.0); Mean Corpuscular Volume 88.1 fL (80-94); Mean Platelet Vol. 9.9 fl (6.2-12.0); Monocyte# 0.51 X10^3/uL; Monocyte% 6.3 % (0-10); NRBC Flagged by Analyzer 0 % (0-5); Neutrophil # 4.91 X10^3/uL (2.7-7.7); Neutrophil % 61.1 % (47-70); Platelet Count 158 K/mm3 (150-450); RBC Distribution Width CV 13.2 % (11.6-14.6); Red Blood Count 4.21 M/mm3 (4.6-6.2); White Blood Count 8.1 K/mm3 (4.4-11.0)
[2019-08-21 02:20] LABS: Prothrombin Time (Protime)PT. 22.3 SECONDS (11.7-14.9)
[2019-08-21 02:31] LABS: Anion Gap 7 (5-15); BUN 22 mg/dL (7-18); BUN/Creat Ratio 20.8 RATIO (10-20); Calcium,Total 8.7 mg/dL (8.5-10.1); Chloride 108 mmol/L (98-107); Creatinine, Serum 1.06 mg/dL (0.70-1.30); EST Glomerular Filtration Rate 73 mL/min (>60); Est Glom Filt Rate - Afr Amer 88 mL/min (>60); Estimated Creatinine Clearance 62.07 ml/min; Glucose 142 mg/dL (74-106); Potassium 3.4 mmol/L (3.5-5.1); Sodium Level 140 mmol/L (136-145)
[2019-08-21] MEDS: TICAGRELOR 90 MG TABLET 180 MG PO (03:07)
[2019-08-21] MEDS: Metoprolol Tartrate 5 MG/5 ML Vial IV (04:01)
--- NOTE | 2019-08-21 04:44 | PCM.HP.STD ---
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 fib on Coumadin, diabetes mellitus type 2 came to ED with chest pain. Patient felt like indigestion/chest pressure about 12:30 AM on day of admission and but felt improved/almost resolved by the time he came to ER. Chest pressure described as localized, started at rest without associated symptom of shortness of breath, diaphoresis, palpitation with no aggravating or relieving factor. He noticed mild weakness/tiredness for last 1 week. He denies previous history of coronary artery disease/NE/heart cath. He follows Dr. Aviles In ED, first EKG shows sinus tachycardia at 132 bpm with subtle 0.[address] elevation in lead III with T inversion and slight depression with upright T waves in lead I, aVL, V5, and V6. Second EKG after 20 minutes did not show the change. While I was interviewing the patient, he felt similar pressure but denies palpitation. On the monitor his heart rate went up from 120s sinus tachycardia to PSVT and then paroxysmal A. fib with heart rate about 250s. This lasted for about 1 or 2 minutes and by the time EKG was done and shows transition back to sinus tachycardia. Metoprolol 5 mg IV ordered. This was discussed with Dr. Aviles and advised to start on amiodarone infusion after 150 mg bolus. First troponin negative. Past Medical History Past Medical History (Chronic Problems): Chronic Problems (Last Reviewed 02/04/19 @ 09:24 by Sushila Maldonado) Atherosclerotic heart disease of [place] coronary artery without angina pectoris (Chronic) MILD Pure hypercholesterolemia (Chronic) Essential hypertension (Chronic) [facility] current use of anticoagulant (Chronic) Paroxysmal atrial fibrillation (Chronic) Medical History: Medical History (Last Reviewed 02/04/19 @ 09:24 by Sushila Maldonado) Atherosclerotic heart disease of [place] coronary artery without angina pectoris (Chronic) I25.10 MILD Pure hypercholesterolemia (Chronic) E78.00 Essential hypertension (Chronic) I10 [facility] current use of anticoagulant (Chronic) Z79.01 Paroxysmal atrial fibrillation (Chronic) I48.0 Coronary arteriosclerosis in [place] artery (Inactive) I25.10 Hyperlipidemia (Inactive) E78.5 Hypertension (Inactive) I10 Allergies dabigatran etexilate [From Pradaxa] Adverse Reaction (Severe, Verified 08/21/19 04:32) GI Bleed niacin [From Niaspan Extended-Release] Adverse Reaction (Severe, Verified 08/21/19 04:32) Hot flashes Iodinated Contrast Media [CT] Adverse Reaction (Verified 08/21/19 04:32) Nausea Home Medications: Ambulatory Orders Medication Instructions Recorded Aspirin [Aspirin, Baby] 81 mg PO DAILY@0800 10/18/13 Lisinopril 20 mg PO DAILY 10/18/13 Metformin HCl [Glucophage Xr] 750 mg PO DAILY 10/18/13 Terazosin HCl [Hytrin] 5 mg PO DAILY 10/18/13 Atorvastatin Calcium [Lipitor] 40 mg PO QHS 08/21/19 Glimepiride 2 mg PO DAILY 08/21/19 Metoprolol Tartrate [Lopressor 50 mg PO BID 08/21/19 (beta destiny)] Warfarin Sodium 5 mg PO DAILY 08/21/19 Surgical History: Surgical History (Last Reviewed 02/04/19 @ 09:24 by Sushila Maldonado) History of cardiac radiofrequency ablation (RFA) Onset Date: ~09/21/11 Z98.890 1997, 09/21/11 followed by pericardial effusion History of endoscopy Z98.890 History of esophagogastroduodenoscopy (EGD) Z98.890 History of left heart catheterization Onset Date: ~1997 Z98.890 left 08/1998 History of release of tendon Z98.890 History of tonsillectomy Z90.89 Smoking Status: Never smoker - *Family History Paternal Family History: Family History (Last Reviewed 02/04/19 @ 09:24 by Sushila Maldonado) Father Myocardial infarction Hypertension Mother Hina Gehrigs disease Brother MVA (motor vehicle accident) Hypertension Kidney stones Hypercholesterolemia History Items: Heart Disease - NE/coronary artery disease, first NE at age of 59 Review of Systems Constitutional: Reports: Malaise, Weakness. Denies: Chills, Fever, Weight Change HEENT: Denies: Head Aches, Sinus Congestion, Sinus Drainage Cardiovascular: Reports: Chest Pain, Chest Pressure. Denies: Claudication, Edema, Palpitations Respiratory: Denies: Cough, Shortness of breath at rest, Sputum production Gastrointestinal: Denies: Abdominal Pain, Nausea, Vomiting Genitourinary: Denies: Dysuria Musculoskeletal: Denies: Joint Pain, Joint Tenderness Skin: Denies: Rash, Wounds Neurological: Denies: Numbness, Tingling, Focal weakness Psychiatric: Denies: Anxiety, Depression, Homicidal Ideations, Suicidal Ideations Hematologic/ Lymphatic: Denies: Easy Bruising, Easy Bleeding VTE Information - Inpt Only VTE Present on Admission: No VTE Mechan Device Prophylaxis: None VTE Pharm Prophylaxis ordered?: No Reason prophylaxis not ordered:: Procedure Not Indicated - Already on Coumadin, INR therapeutic Patient Problems: Active and Suspected Problems (Last Reviewed 02/04/19 @ 09:24 by Sushila Maldonado) Acute coronary syndrome (Acute) Diabetes mellitus type 2 in obese (Acute) Chest pain (Acute) PSVT (paroxysmal supraventricular tachycardia) (Acute) - Physical Exam General: Alert, Oriented x3, Cooperative HEENT: Atraumatic, PERRLA, EOMI, Normocephalic Neck: Supple, No JVD, Negative Carotid Bruits Lungs: Clear to auscultation, Normal air movement, No rhonchi, No wheeze, No rales Cardiovascular: Normal S1, Normal S2, No murmurs, Irregular Rate - EKG shows supraventricular complexes. Sinus tachycardia, Tachycardic Abdomen: Bowel Sounds Present, Soft, Non Tender, Non-Distended Extremities: No edema, Capillary Refill Less than 3 Seconds Skin: No rashes, No breakdown Musculoskeletal: No Tenderness to Palpation of Joints or Extremities, Arthritic Changes Neurological: Cranial nerves II-XII grossly intact, Deep Tendon Reflexes 2+/4 and Symmetrical, Neuro grossly intact Psych/Mental Status: Normal Affect, Appropriate Vital Signs Temp Pulse Resp BP Pulse Ox 98.5 F 125 H 16 111/80 97 08/21/19 04:40 08/21/19 04:40 08/21/19 04:40 08/21/19 04:40 08/21/19 04:40 Oxygen Flow Rate (L/min) 2 Oxygen Delivery Method Room Air Weight: 203 lb 11.314 oz Body Mass Index (BMI) 30.0 Laboratory Tests Past 24 Hrs 08/21/19 08/21/19 08/21/19 02:00 02:00 02:00 WBC 8.1 RBC 4.21 L Hgb 11.9 L Hct 37.1 L MCV 88.1 MCH 28.3 MCHC 32.1 RDW Std Deviation 43.0 RDW Coeff of Katarzyna 13.2 Plt Count 158 MPV 9.9 Immature Gran % (Auto) 0.200 Neut % (Auto) 61.1 Lymph % (Auto) 30.4 [place] % (Auto) 6.3 Eos % (Auto) 1.6 Baso % (Auto) 0.4 Absolute Neuts (auto) 4.9 Absolute Lymphs (auto) 2.45 Nucleated RBC % 0 PT 22.3 H INR 2.0 Sodium 140 Potassium 3.4 L Chloride 108 H Carbon Dioxide 25.0 Anion Gap 7 BUN 22 H Creatinine 1.06 Estim Creat Clear Calc 62.07 Est GFR (MDRD) Af Amer 88 Est GFR (MDRD) Non-Af 73 BUN/Creatinine Ratio 20.8 H Glucose 142 H Calcium 8.7 Troponin I 0.043 Assessment/Plan All Active Problems (Last Reviewed 02/04/19 @ 09:24 by Sushila Maldonado) Acute coronary syndrome (Acute) Diabetes mellitus type 2 in obese (Acute) Chest pain (Acute) PSVT (paroxysmal supraventricular tachycardia) (Acute) Kidney stone on right side (Acute) The patient is a 74 year old M with history of paroxysmal A. fib on Coumadin, diabetes mellitus type 2 came to ED with chest pain. In ED further developed arrhythmia with EKG rhythm showing sinus tachycardia with supraventricular complexes, PSVT and PAF In ED, first EKG shows sinus tachycardia at 132 bpm with subtle 0.[address] elevation in lead III with T inversion and slight depression with upright T waves in lead I, aVL, V5, and V6. Second EKG after 20 minutes did not show the change. First troponin negative. 1. Atypical chest pain with subtle EKG change and arrhythmia suggestive of acute coronary syndrome: Patient is being admitted in PCU. After initial metoprolol 5 mg IV started on amiodarone drip. Alarm Operator Traci has been consulted. Serial troponin enzymes, next one at 6 AM. 2D echo ordered. 2. Arrhythmia: Sinus tachycardia with supraventricular complexes, paroxysmal A. fib on Coumadin/PSVT: Patient had narrow complex tachycardia. Started on amiodarone drip after 150 mg IV bolus. Continue patient home dose of metoprolol. Hold the Coumadin if patient needs cardiac cath and repeat INR about 6 AM. Magnesium and phosphorus ordered. Mild hypokalemia, K3.4. 1 dose K. Dur 40 M EQ ordered. On IV fluid half-normal saline with 20 mEq of KCl at 100 mL/h for 1 L. 3. Hypertension, dyslipidemia and diabetes mellitus type 2: Glucose 142. Continue glimepiride but hold metformin. Accu-Chek before meals and at bedtime and cover with Humalog sliding scale. Atorvastatin 40 mg nightly daily. Fasting profile a.m. Continue home medication of lisinopril and metoprolol. DVT prophylaxis: Patient is on Coumadin. INR 2.0 therapeutic. Coumadin on hold. Code Visit Inpatient E&M: 77891 Init Hosp L3
--- NOTE | 2019-08-21 04:51 | EKG12_ITS ---
Test Reason : CP REPEAT Blood Pressure : / mmHG Vent. Rate : 126 BPM Atrial Rate : 129 BPM P-R Int : 152 ms QRS Dur : 090 ms QT Int : 328 ms P-R-T Axes : 000 -22 037 degrees QTc Int : 475 ms Sinus tachycardia Nonspecific ST abnormality Abnormal ECG Confirmed by BALDEMAR FIELDS ([id number]), greeting card editor JOSÉ MANUEL FRY ([id number]) on 08/26/2019 3:33:27 PM Referred By: Jerman Aviles Confirmed By:BALDEMAR FIELDS
--- NOTE | 2019-08-21 04:53 | EKG12_ITS ---
Test Reason : SVT Blood Pressure : / mmHG Vent. Rate : 131 BPM Atrial Rate : 131 BPM P-R Int : 136 ms QRS Dur : 088 ms QT Int : 302 ms P-R-T Axes : -03 -29 065 degrees QTc Int : 445 ms Sinus tachycardia with Premature supraventricular complexes Nonspecific ST and T wave abnormality Abnormal ECG Confirmed by BALDEMAR FIELDS ([id number]), features editor JOSÉ MANUEL FRY ([id number]) on 08/26/2019 3:32:30 PM Referred By: Jerman Aviles Confirmed By:BALDEMAR FIELDS
--- NOTE | 2019-08-21 05:55 | ECHOD_ITS ---
Reason For Study: ARRYTHYMIA Procedure This was a 2D Doppler, Color Flow transthoracic echocardiogram. The study was technically difficult. Exam performed portable in patient room. Left Ventricle Normal LV size. Severe concentric left ventricular hypertrophy. Left ventricular systolic function is normal. The estimated ejection fraction is 55 %. No regional wall motion abnormalities noted. Right Ventricle Normal RV size. Normal systolic function. Atria The left atrium is mildly enlarged. The right atrium is mildly enlarged. No doppler evidence for ASD. Mitral Valve There is no mitral annular calcification. Normal mitral valve. Trivial mitral valve insufficiency. Tricuspid Valve Normal tricuspid valve. Trivial tricuspid valve insufficiency. Right ventricular systolic pressure estimated to be 31 mmHg. Aortic Valve Trisinus/trileaflet aortic valve. Mild diffuse aortic valve thickening. Trivial aortic valve insufficiency. Pulmonic Valve The pulmonic valve is not well visualized. Great Vessels Normal sized aortic root. Pericardium/Pleural No pericardial effusion. MMode/2D Measurements & Calculations LVIDd: 4.0 cm IVSd: 1.8 cm Ao root diam: 3.5 cm LVIDs: 2.8 cm LVPWd: 1.8 cm RVDd: 4.3 cm FS: 29.0 % LAV(MOD-bp): 60.0 ml LVAd ap4: 33.2 cm2 SV(MOD-sp4): 55.1 ml LAV(MOD-bp) Indexed: 28.8 ml/m2 EDV(MOD-sp4): 101.6 ml LAV(MOD-sp2): 67.4 ml EDV(sp4-el): 107.2 ml LAV(MOD-sp4): 53.7 ml LVAs ap4: 21.2 cm2 ESV(MOD-sp4): 46.5 ml ESV(sp4-el): 47.3 ml EF(MOD-sp4): 54.2 % EF(sp4-el): 55.9 % SV(sp4-el): 60.0 ml LA A4 area: 20.1 cm2 LA dimension(2D): 4.5 cm RA A4 area: 18.6 cm2 Time Measurements MV dec time: 0.26 sec Doppler Measurements & Calculations MV E max derrick: 76.4 cm/sec Lat Peak E' Derrick: 5.9 cm/sec Med Peak E' Derrick: 5.2 cm/sec MV A max derrick: 44.7 cm/sec E/E' lat: 12.9 E/E' med: 14.8 MV E/A: 1.7 Ao V2 max: 126.9 cm/sec LV V1 max: 91.5 cm/sec PA V2 max: 86.3 cm/sec Ao max P.4 mmHg LV V1 max P.3 mmHg TR max derrcik: 265.0 cm/sec TR max P.3 mmHg Interpretation Summary The study was technically difficult. Left ventricular systolic function is normal. The estimated ejection fraction is 55 %. Severe concentric left ventricular hypertrophy. The left atrium is mildly enlarged. The right atrium is mildly enlarged. Trivial mitral valve insufficiency. Trivial tricuspid valve insufficiency. Mild diffuse aortic valve thickening. Trivial aortic valve insufficiency. Right ventricular systolic pressure estimated to be 31 mmHg. Transmitral diastolic flow velocities suggest diastolic dysfunction (pseudonormal pattern). Ordering Physician: Byron De Leon Referring Physician: JULIETTE DE SANTIAGO Performed By: Shereen Aguilera RDCS
[2019-08-21 06:18] LABS: International Normalized Ratio 2.1; Prothrombin Time (Protime)PT. 23.2 SECONDS (11.7-14.9)
[2019-08-21 06:53] LABS: Anion Gap 8 (5-15); BUN 22 mg/dL (7-18); BUN/Creat Ratio 23.5 RATIO (10-20); Calcium,Total 8.4 mg/dL (8.5-10.1); Chloride 110 mmol/L (98-107); Cholesterol 89 mg/dL (200); Creatinine, Serum 0.94 mg/dL (0.70-1.30); EST Glomerular Filtration Rate 84 mL/min (>60); Est Glom Filt Rate - Afr Amer 102 mL/min (>60); Estimated Creatinine Clearance 69.99 ml/min; Glucose 163 mg/dL (74-106); High Density Lipoprotein 30 mg/dL; Magnesium 1.8 mg/dL (1.6-2.6); Phosphorus 1.7 mg/dL (2.5-4.9); Potassium 4.2 mmol/L (3.5-5.1); Sodium Level 140 mmol/L (136-145); Thyroid Stim Hormone (TSH) 1.61 uIU/mL (0.358-3.74); Triglycerides 82 mg/dL; Very Low Density Lipoprotein 16 mg/dL (5-40)
[2019-08-21 07:12] LABS: Bedside Glucose 170 mg/dL (70-110)
[2019-08-21] MEDS: Metoprolol Tartrate 50 MG Tablet PO ×2 (08:15→21:57)
[2019-08-21] MEDS: Lisinopril 20 MG Tablet PO (08:15)
[2019-08-21] MEDS: Aspirin E.C. 81 MG Tablet PO (08:15)
[2019-08-21] MEDS: TICAGRELOR 90 MG TABLET PO (08:15)
[2019-08-21] MEDS: Doxazosin 4 MG Tablet PO (08:16)
--- NOTE | 2019-08-21 08:34 | CON.PCM_ITS ---
Problem List (1) Chest pain Status: Acute (2) Acute coronary syndrome Status: Acute (3) CAD (coronary artery disease) Status: Chronic (4) Atrial fibrillation and flutter Status: Chronic (5) H/O prior ablation treatment Status: Chronic (6) Pure hypercholesterolemia Status: Chronic (7) Essential hypertension Status: Chronic (8) Diabetes mellitus type 2 in obese Status: Acute (9) [facility] current use of anticoagulant Status: Chronic Reason for Consult Date of Consultation: 08/21/19 History of Present Illness: The patient is a 74 year old white male with a past medical history which is included hyperlipidemia, hypertension, diabetes mellitus, cardiac dysrhythmia status post ablation, CAD, who presents for evaluation of chest discomfort concerning for unstable angina pectoris and an abnormal ECG concerning for an underlying atrial flutter (atypical) and abnormal ST/T wave changes. The patient states he had been doing well, other than feeling more tired and fatigued recently, until yesterday evening/night. He developed indigestion and gas . He states that he could not get relief in any position. He eventually presented to the emergency department for further evaluation. He denied additional concerns of shortness of breath/dyspnea, nausea, or emesis. However he states he was very sweaty . He was described as being diaphoretic and mottled appearing. He underwent evaluation with an initial troponin I level with that was negative. His initial ECG was obtained and reported by the emergency department staff is demonstrating concerns of an underlying sinus rhythm with ST segment abnormalities concerning for the possibility of an acute coronary syndrome/early STEMI-inferior. During the patient's emergency department evaluation he abruptly stated that he had relief of his symptoms. He was reassessed. A follow-up ECG was performed. His aforementioned electrocardiographic changes with respect to the ST changes appeared to be resolved toward baseline. He was subsequently recommended for further inpatient evaluation care including diagnostic cardiac catheterization. During his e valuation by internal medicine he was reported to have evidence of an underlying narrow complex tachycardia concerning for atrial fibrillation. He had spontaneous improvement. He eventually received additional medical management with IV beta-blockers and IV amiodarone. He was admitted to the ICU for further evaluation and care. He has remained without recurrent symptoms. His follow-up troponin I level has remained negative. His follow-up cardiac rhythm continues to demonstrate a narrow complex tachycardia. Based upon his follow-up ECG is there is still concern of an underlying atypical flutter. His aforementioned electrocardiographic changes with respect to the ST segments have subsequently demonstrated the appearance of subtle ST segment depression/T wave abnormality- especially laterally. He has denied any orthopnea or PND or peripheral pitting edema. He has denied any near syncope. He states he has been taking his medications appropriately. His INR level was reported at 2.0 on admission. [] Past Medical History Allergies/Adverse Reactions: Allergies dabigatran etexilate [From Pradaxa] Adverse Reaction (Severe, Verified 08/21/19 04:32) GI Bleed niacin [From Niaspan Extended-Release] Adverse Reaction (Severe, Verified 08/21/19 04:32) Hot flashes Iodinated Contrast Media [CT] Adverse Reaction (Verified 08/21/19 04:32) Nausea Home Medications: Ambulatory Orders Medication Instructions Recorded Aspirin [Aspirin, Baby] 81 mg PO DAILY@0800 10/18/13 Lisinopril 20 mg PO DAILY 10/18/13 Metformin HCl [Glucophage Xr] 750 mg PO DAILY 10/18/13 Terazosin HCl [Hytrin] 5 mg PO DAILY 10/18/13 Atorvastatin Calcium [Lipitor] 40 mg PO QHS 08/21/19 Glimepiride 2 mg PO DAILY 08/21/19 Metoprolol Tartrate [Lopressor 50 mg PO BID 08/21/19 (beta destiny)] Warfarin Sodium 5 mg PO DAILY 08/21/19 Past Medical History (Chronic Problems): Chronic Problems (Last Reviewed 02/04/19 @ 09:24 by Sushila Maldonado) CAD (coronary artery disease) (Chronic) Atrial fibrillation and flutter (Chronic) H/O prior ablation treatment (Chronic) Atherosclerotic heart disease of [place] coronary artery without angina pectoris (Chronic) MILD Pure hypercholesterolemia (Chronic) Essential hypertension (Chronic) [facility] current use of anticoagulant (Chronic) Paroxysmal atrial fibrillation (Chronic) - *Family History Paternal Family History: Family History (Last Reviewed 02/04/19 @ 09:24 by Sushila Maldonado) Father Myocardial infarction Hypertension Mother Hina Gehrigs disease Brother MVA (motor vehicle accident) Hypertension Kidney stones Hypercholesterolemia History Items: Heart Disease - ID/coronary artery disease, first ID at age of 59 Lives: Spouse/ Significant Other Smoking Status: Never smoker Alcohol: None Drugs: None Review of Systems - Review of Systems General: Denies: Fever, Night Sweats, Fatigue Cardiovascular: Reports: Chest Discomfort, Chest Discomfort at Rest, - - Diaphoresis. Denies: Shortness of Breath, Orthopnea, PND, Peripheral Edema, Palpitations, Lightheadedness, Dizziness, Near Syncope, Syncope Respiratory: Reports: Shortness of Breath Gastrointestinal: Reports: Indigestion Genitourinary: Denies: Dysuria, Hematuria Skin: Denies: Rash Subjectve: This is a 74-year-old white male who appears to be resting reasonably comfortably at the moment in no acute distress. Objective: Vital Signs Temp Pulse Resp BP Pulse Ox 98.5 F 124 H 23 H 123/74 H 94 08/21/19 06:30 08/21/19 08:15 08/21/19 07:05 08/21/19 08:15 08/21/19 07:20 Oxygen Flow Rate (L/min) 2 Oxygen Delivery Method Room Air Weight: 203 lb 11.314 oz Body Mass Index (BMI) 30.0 Intake and Output for Last 24 Hours 08/19/19 08/20/19 08/21/19 23:59 23:59 23:59 Intake Total 139.63 / 139.63 Balance 139.63 / 139.63 General: Awake, Alert, Oriented x 3, Cooperative HEENT: Atraumatic, Normocephalic, PERRL, EOMI, Sclera Non Icteric Oral: Moist Mucosa Neck: Supple, Good ROM, No JVD Lungs: Clear to auscultation Cardiovascular: Irregular Rhythm, Normal S1, Normal S2 Vascular: No Carotid Bruits Abdomen: Bowel Sounds Present, Soft, Non Tender Extremities: No Cyanosis, No Clubbing, No edema Neurological: No Focal Motor or Sensory Deficit Psych/Mental Status: Appropriate 08/21/19 02:00: WBC 8.1, RBC 4.21 L, Hgb 11.9 L, Hct 37.1 L, MCV 88.1, MCH 28.3, MCHC 32.1, Plt Count 158, MPV 9.9, Immature Gran % (Auto) 0.200, Neut % (Auto) 61.1, Lymph % (Auto) 30.4, [place] % (Auto) 6.3, Eos % (Auto) 1.6, Baso % (Auto) 0.4, Absolute Neuts (auto) 4.9, Nucleated RBC % 0 10/09/19 02:00: Sodium 140, Potassium 3.4 L, Chloride 108 H, Carbon Dioxide 25.0, Anion Gap 7, BUN 22 H, Creatinine 1.06, Est GFR (MDRD) Af Amer 88, Est GFR (MDRD) Non-Af 73, BUN/Creatinine Ratio 20.8 H, Glucose 142 H, Calcium 8.7, Troponin I 0.043 08/21/19 02:00: PT 22.3 H, INR 2.0 08/21/19 06:00: PT 23.2 H, INR 2.1 08/21/19 06:00: Troponin I 0.045 08/21/19 06:00: Sodium 140, Potassium 4.2, Chloride 110 H, Carbon Dioxide 22.0, Anion Gap 8, BUN 22 H, Creatinine 0.94, Est GFR (MDRD) Af Amer 102, Est GFR (MDRD) Non-Af 84, BUN/Creatinine Ratio 23.5 H, Glucose 163 H, Calcium 8.4 L, Phosphorus 1.7 L, Magnesium 1.8, Triglycerides 82, Cholesterol 89, LDL Cholesterol 43, VLDL Cholesterol 16, HDL Cholesterol 30 L Rhythm: Narrow complex tachycardia appearing compatible with an underlying atypical atrial flutter EKG: As noted above ECHO: Transthoracic echocardiogram: 11?16?11 Interpretation Summary Moderate concentric left ventricular hypertrophy. Left ventricular systolic function is normal. The estimated ejection fraction is 55 %. No pericardial effusion. There is no pericardial constriction. The left atrium is mildly enlarged. Trivial mitral valve insufficiency. Trivial tricuspid valve insufficiency. Mild (1+) aortic valve insufficiency. Trivial pulmomc valve insufficiency. Right ventricular systolic pressure estimated to be 30 mmHg. Stress test: 9?7?11 CONCLUSION I Moderate exercise tolerance achieving a work load of 7 METs limited by leg fatigue. 2. No chest discomfort to suggest angina. 3. Resting electrocardiogram demonstrating sinus bradycardia otherwise normal. 4, Electrocardiogram with stress demonstrating sinus tachycardia. no arrhythmias or ST changes to suggest ischemia at the heart rate and level of exercise achieved Cardiac catheterization: 12-09-2010 CONCLUSION 1. Normal left ventricular systolic function, ejection fraction 55%. 2. I.eft anterior descending with 20-30%: proximal stenosis, long tubular 30-40% mid slenosis. 3. First diagonal small with 40-50% ostial stenosis. 4. Second diagonal with 10-20% ostial stenosis. 5. Circumflex coronary with 10.20% proximal stenosis, 20-30% distal stenosis. 6. First obtuse marginal with 10-20% ostial stenosis. 7. Left posterior descending with 20-30% proximal stenosis and 40-50% terminal stenosis. 8. Right coronary artery with 20-30% serial proximal and proximal to mid stenosi s. Electrophysiology study: 11-21-10 Conclusion 1. Baseline SR with occasional PACs arid runs on non-sustained atrial tachycardia. 2. Transeptal puncture x 2 via ICE guidance: Thin effusion noted at baseline. 3. Initial attempt at PV isolation with cryp balloon successfully isolated the left superior PV. However, there was a gas line obstruction that did not resolve with changing the balloon catheter and we switched to CARTO guided WACA with irrigated catheter and LASSO approach. 4. Encircling lesions created around all four PVs with resolution of bursting atrial tachycardia which represented RSPV activity. 5. No inducible AF with isuprel challenge. 6. Catheters withdrawn to RAIRV where he had sinus rhythm with normal intracardiac intervals. 7. Normal sinus and AV node conduction. 8. No dual physiology or AP evident. 9. Decremental VA conduction is present. 10 No other inducible PSVT, VT evident. 11. Shortly after completion of procedure and extubation, patient complained of pleuritic chest pain arid reduced blood pressure to 69 mm Hg observed. Fluoroscopy showed no pericardial movement and percutaneous drain placed with recovery of blood pressure. Patient given IVF, epinephrine and protamine. 620cc effusion drained. 2 units of FFP ordered. Recommendations: 1. Resume warfarin anti-coagulation in one week. 2. Follow-up with Dr Diggs for echo in one week.. 3. Follow-up with Dr Hernandez per AF ablation protocol. Consent CXR: Preliminary evaluation: No acute cardiopulmonary disease process appreciated Assessment/Plan 1. Chest pain The patient presents with chest pain. The concern is that this may be related to underlying progression of CAD and myocardial ischemia based upon his presentation, his appearance, and his initial elective cardiographic changes. However, at the same time, contribution from his cardiac dysrhythmia and/or noncardiovascular issues such as potential gastrointestinal issues cannot neces sarily be excluded. From a cardiac standpoint based on the aforementioned concerns the patient has been undergoing evaluation with cardiac enzymes and follow-up ECG. It would not be unreasonable to consider the patient for further evaluation with diagnostic cardiac catheterization to evaluate for progression of CAD leading to his symptoms and elective cardiographic findings. The procedure and risks were discussed with the patient, especially noting the patient is on anticoagulant therapy, and the patient grants consent. In the meantime he will continue medical management as deemed appropriate. 2. Acute coronary syndrome Again there is concern the patient has demonstrated an acute coronary syndrome based upon his history, physical appearance at the time of presentation, and his initial echocardiographic changes despite lack of abrupt cardiac enzyme changes. The patient does have an underlying history of CAD previously described as noted above. He has not required previous revascularization therapy. At the present time he will continue his monitoring. He will continue medical management. He will proceed with further evaluation and care as noted above. If the patient is not found to have angiographically significant CAD to explain his clinical course and he may need to be considered for other etiologies of his presentation. 3. CAD Again the patient does have a history of CAD. He has been treated with risk factor evaluation care in the past. Based on his clinical presentation he will undergo further evaluation as described above. 4. Cardiac dysrhythmia with history of atrial fibrillation/flutter status post previous EPS/RFA The patient has been on medical management. He has undergone previous EPS/RFA as described above. His underlying rhythm at this time, status post evaluation of his elective cardiographic findings, appears compatible with an underlying atypical atrial flutter. At the moment the patient will continue rate control therapy and antiarrhythmic therapy. He has been on anticoagulant therapy. Following his evaluation for the possibility of his chest discomfort being related to an acute coronary syndrome related to his underlying CAD he will need to be considered for further evaluation care of his cardiac dysrhythmia. If his cardiac dysrhythmia does not respond to medical management he may need to be considered for future attempt at synchronized biphasic DC cardioversion as deemed appropriate. 5. Hyperlipidemia He will continue medical management and follow-up. 6. Hypertension He will continue medical management with adjustment as needed. 7. Diabetes mellitus He will continue under the care of internal medicine for this. 8. Anticoagulant therapy He has been on his anticoagulant therapy. Again, based upon his overall presentation there is concern about the possibility of unstable angina pectoris and an acute coronary syndrome. Thus, it was felt appropriate that the patient be further evaluated in the cardiac catheterization laboratory. Based upon his clinical presentation it was felt that this should be proceed with sooner than later. His anticoagulation history was reviewed. His case was discussed with interventional cardiology. It was felt at this time the patient could proceed with diagnostic cardiac catheterization with close follow-up. Again the procedure and risks and benefits, especially in his state of anticoagulation, was discussed with the patient with his family members present. The patient and his family members were agreeable to this approach. Comment: The above case has also been previously discussed and reviewed with the [facility] emergency department staff and the [facility] staff. This note was generated using a voice recognition system and there may be incorrect words, spelling or punctuation that were not noted when reviewing the office note prior to saving.
[2019-08-21] MEDS: Digoxin 250 MCG/ML Ampul 500 MCG IV (08:48)
--- NOTE | 2019-08-21 09:06 | CASEMGMT ---
[facility], the following are in-network tertiary facilties: [facility], [place], [facility], [facility], [facility], [facility], [place], [facility], and . [facility] CM
--- NOTE | 2019-08-21 09:50 | EKG12_ITS ---
Test Reason : SVT Blood Pressure : / mmHG Vent. Rate : 129 BPM Atrial Rate : 129 BPM P-R Int : 136 ms QRS Dur : 086 ms QT Int : 318 ms P-R-T Axes : 000 -29 070 degrees QTc Int : 465 ms Sinus tachycardia Nonspecific ST and T wave abnormality Abnormal ECG Confirmed by BALDEMAR FIELDS ([id number]), news copy editor JOSÉ MANUEL FRY ([id number]) on 08/26/2019 3:32:51 PM Referred By: Jerman Aviles Confirmed By:BALDEMAR FIELDS
--- NOTE | 2019-08-21 09:51 | US_ITS ---
STUDY: ABDOMINAL ULTRASOUND REASON FOR EXAM: Male, 74 years old. Abdominal pain TECHNIQUE: Transabdominal ultrasound was performed with real-time and static valdes scale imaging. TECHNICAL QUALITY: Adequate. COMPARISON: Previous abdomen x-ray obtained on 12/18/2017 FINDINGS: The liver is normal in size measuring 15.4 cm in size. Hepatopedal portal venous flow is identified which is normal. No intrahepatic biliary ductal dilatation is seen. The left lobe of the liver was difficult to visualize due to overlying intestinal bowel gas. Cholelithiasis is identified. The common bile duct measures 6.8 mm in size. The spleen is mildly enlarged measuring 13.4 x 7.6 x 5.4 cm in size. Because is overlying intestinal bowel gas the pancreas cannot be seen. The right and left kidneys were examined and have the following measurements: Right Kidney: 10.1 cm. x 5.2 cm. x 5.6 cm. in size with a cortex measuring 1.5 cm in thickness. A small 1.5 cm cyst seen in the right kidney. Left Kidney: 10.5 cm. x 5.7 cm. x 5.8 cm. in size with a cortex measuring 1.6 cm in thickness. No fluid is noted in Morison's pouch. Only a small portion of the abdominal aorta and inferior vena cava was identified. The limited views of these vascular structures is normal. US/Abdomen Complete IMPRESSION: Cholelithiasis Electronically Signed: Devon Jiménez, at 12:32 EDT Tel , Service support ,
--- NOTE | 2019-08-21 10:02 | CL.D_ITS ---
Patient Name: MICHAELA MARTIN Study Date: 08/21/2019 Performing: Jerman Aviles MD Ht: 69 inches 175 cm : 1945 Wt: 203.1 lbs 92 kg Age: 74 Gender: male BSA: 2.08 PROCEDURE(S) PERFORMED EI89-EIC/COR/LV CLINICAL PROFILE AND INDICATIONS Indications: Worsening Angina, Cardiac Arrythmia, ACS <= 24 hrs Heart Failure: None Stress/Imaging Stress/Image Study Performed: No Angina Classification Anginal Classification w/in 2 Weeks: CCS III CAD Presentations: Unstable angina. CONCLUSIONS Normal Left Ventricular End Diastolic Pressure Normal LV size, wall motion,and systolic function LVEF: by LV gram 55 % [place] Multivessel CAD RECOMMENDATIONS Risk factor modification Medical therapy DESCRIPTION OF PROCEDURE The patient arrived to the procedure lab. The risks and benefits of the procedure as well as a full d escription of our services here and current unavailability of surgical backup were fully explained to the patient and/or their significant other prior to the catheterization. The Timeout was completed, verifying the correct patient and procedure. The patient's procedural site was prepped and draped in the usual fashion. Local anesthetic was given subcutaneously to right radial region with Lidocaine 2% . Using a modified Seldinger technique, arterial access was obtained via the right radial artery, a 6 Fr sheath was inserted. Left Coronary Artery selective angiography was performed in multiple views u sing a 5 Fr. 4.0 [place] catheter. Right Coronary Artery selective angiography was then performed in mu ltiple views using a 5 Fr. 4.0 [place] catheter.The arterial sheath was pulled and a TR Band was applie d for hemostasis CORONARY ANGIOGRAPHY DOMINANCE: Left Dominant LEFT HEART ASSESSMENT Left Ventricular Ejection Fraction: by LV Gram 55 % Normal LV wall motion Normal Left Ventricular End Diastolic Pressure LVEDP: 6 mmHg LEFT MAIN: Angiographically normal LEFT ANTERIOR DESCENDING ARTERY: Mild luminal irregularities MID LAD: s/p DX: conentric: 25 % Stenosis DIAGONAL 1: Proximal - Mild luminal irregularities CIRCUMFLEX ARTERY: Mild luminal irregularities OM 1: Proximal - Mild luminal irregularities 1ST LEFT PLV: diffuse: 10 - 25 % Stenosis RIGHT CORONARY ARTERY: PROX RCA: eccentric: 25 % Stenosis VALVE FINDINGS: Normal Aortic Valve function Normal Mitral Valve function AORTIC ROOT: Angiographically normal COMPLICATIONS No Complications PROCEDURE MEDICATIONS Versed 1 mg IV Fentanyl 50 mcg IV Oxygen: 2 L/min via nasal cannula Benadryl 50 mg IV @ 08/21/2019 09:16:13 Heparin given IA 08/21/2019 09:21:58 Pepcid 20 mg IV 08/21/2019 09:18:50 Solu-medrol 125 mg IV 08/21/2019 09:18:39 Verapamil 2.5mg, Ntg 100mcgs, 2000 units of Heparin given IA 08/21/2019 09:21:58 SUMMARY OF HEMODYNAMIC DATA Time AIR REST AO 88/70 (79) SA 09:25:39 LV 124/-4, 9 09:32:16 LV 120/-9, 6 09:32:23 LV 118/-6, 14 09:33:15 LV 113/-6, 7 09:33:22 LVp 114/-7, 5 09:33:27 AOp 120/38 (88) 09:33:32 AO 118/72 (90) 09:33:48 ECG 09:34:09 Signed By Jerman Aviles MD On 08/21/2019 10:02:03 Jerman Aviles MD
--- NOTE | 2019-08-21 10:17 | CASEMGMT ---
MADHAVI FLORENTINO assessment: Face to Face with patient for initial transition planning/care coordination assessment. MADHAVI FLORENTINO introduced self and role at [facility], pt voices understanding and consents to assessment at this time. Pt is lying in bed in no distress at this time. Pt is A/Ox4 at this time and answers all questions appropriately at this time. Pt's family at bedside at this time. Care providers, pharmacy, and demographics verified at this time. PCP: Ayla Specialists: Traci, cardio; Rachel Mahajan ortho for hand [facility] Prescription Benefit[facility] Living Will/HPOA: Pt states does not have LW/HPOA and declines info at this time. Pt is aware that AD's can be completed by [facility] SW. LNOK: Juli Lopes, Living Arrangements: Pt states lives with in tri-level home and states no concerns at home at this time. Pt states is independent with ADL's. Transportation: Pt states drives self and states no transportation concerns at this time. DME/HHC: Pt states no current DME or need for any at this time. Pt states no hx of HHC or SNF in the past. Pt states no concerns with going home at time of discharge. Pt states is retired. Pt states does not smoke or drink ETOH. Pt states no further concerns/needs at this time. CM to follow for any further discharge planning/needs. Advised pt to ask for CM if any further questions/concerns/needs arise, voices understanding. Pt Goal: Home [place] MADHAVI FLORENTINO
[2019-08-21] MEDS: Famotidine 20mg IV Push Syringe Q24 300 MG IV (10:26)
--- NOTE | 2019-08-21 10:40 | EKG12_ITS ---
Test Reason : CP Blood Pressure : / mmHG Vent. Rate : 132 BPM Atrial Rate : 132 BPM P-R Int : 120 ms QRS Dur : 088 ms QT Int : 312 ms P-R-T Axes : 000 085 007 degrees QTc Int : 462 ms Sinus tachycardia Nonspecific ST abnormality Abnormal ECG Confirmed by BALDEMAR FIELDS ([id number]), editor city JOSÉ MANUEL FRY ([id number]) on 08/26/2019 3:33:41 PM Referred By: Jerman Aviles Confirmed By:BALDEMAR FIELDS
[2019-08-21] MEDS: 0.9% Normal Saline 1,000 ML 75 ML IV (11:46)
[2019-08-21 12:26] LABS: Bedside Glucose 165 mg/dL (70-110)
[2019-08-21] MEDS: Propofol 200 MG/20 ML Vial 100 MG IV BOLUS (12:28)
--- NOTE | 2019-08-21 12:39 | PCM.OP.PRO ---
Procedure Report Date of Procedure: 08/21/19 CONSCIOUS SEDATION REPORT DATE OF SERVICE: August 21, 2019 BRIEF HISTORY OF PRESENT ILLNESS: The patient is a 74-year-old male who initially presented to the emergency department on August 21 with complaints of chest pain. The patient was noted to be in atrial flutter on EKG. He was subsequently evaluated by cardiology and underwent a catheterization earlier today. The patient does have a known history of cardiac dysrhythmia for which he is status post ablation. The patient denies any previous anesthetic complications. He has no known history of COPD, asthma or obstructive sleep apnea. He had an approximate ejection fraction of 55% on cardiac catheterization. PHYSICAL EXAMINATION: VITAL SIGNS: Reviewed and were acceptable. GENERAL: The patient is a male, in no apparent distress, speaking in full sentences. HEENT: Normocephalic, atraumatic. Mucous membranes are moist and pink. Good mouth opening noted. Trachea is midline. Good neck mobility. CHEST: S1, S2 irregularly irregular. No murmurs, rubs or gallops were noted. LUNGS: Clear to auscultation bilaterally without appreciable wheezes, rales or rhonchi. ABDOMEN: Soft, nontender, nondistended. Positive bowel sounds. EXTREMITIES: There is no clubbing, cyanosis or edema. ASA Class: II DESCRIPTION OF PROCEDURE: After confirmation of informed consent, the patient's anesthesia plan was reviewed in detail. Propofol was chosen. Risks and benefits were reviewed and the patient agreed to proceed. At 1230, the patient was given 60 mg of propofol. The patient achieved an appropriate level of sedation and was given a 200 joule synchronized cardioversion by Dr. Aviles at the bedside. This was successful in achieving normal sinus rhythm. The patient was monitored until 1241, at which time he reached his baseline mental status and function. The patient tolerated the procedure well. COMPLICATIONS: None ESTIMATED BLOOD LOSS: None RECOMMENDATIONS: Okay to recover in usual fashion. Code Visit [id number]: Other Procedure See Report - [id number]
--- NOTE | 2019-08-21 13:07 | EKG12_ITS ---
Test Reason : POST MED GIVEN Blood Pressure : / mmHG Vent. Rate : 111 BPM Atrial Rate : 111 BPM P-R Int : 168 ms QRS Dur : 088 ms QT Int : 336 ms P-R-T Axes : 000 -24 -12 degrees QTc Int : 456 ms Sinus tachycardia Otherwise normal ECG When compared with ECG of 21-AUG-2019 03:56, MANUAL COMPARISON REQUIRED, DATA IS UNCONFIRMED Confirmed by HILARIO JANG, JAILENE ([id number]), features editor JOSÉ MANUEL FRY ([id number]) on 08/28/2019 10:29:08 AM Referred By: Jerman Aviles Confirmed By:MARVEL RICH MD
--- NOTE | 2019-08-21 13:08 | CARDIOVERS_ITS ---
Cardioversion Cardioversion: Date: 08-21-19 Procedure: Synchronized Biphasic DC Cardioversion Indications: Atrial flutter Consent: Per the Patient Anesthesia: per Dr. Bliss of pulmonology and critical care medicine with performed 60 mg IV push total Procedure: Synchronized Biphasic DC Cardioversion: 200 J x1: Result: Sinus rhythm Complications: no apparent complications This note was generated with [employer] software. It may contain incorrect words, spelling, and punctuation that were not noted in checking the note before signing.
[2019-08-21 14:42] LABS: AST(SGOT) 15 U/L (15-37); Alanine Aminotransfer ALT/SGPT 15 U/L (16-61); Albumin, Serum 3.1 g/dL (3.2-5.0); Alkaline Phosphatase 79 U/L (45-117); Globulin 3.3 g/dL (2.2-4.2); Protein, Total 6.4 g/dL (6.4-8.2)
[2019-08-21] MEDS: Insulin Lispro 100 UNIT/ML INSULN.PEN SC ×2 (17:06→21:58)
[2019-08-21 17:15] LABS: Bedside Glucose 267 mg/dL (70-110)
[2019-08-21] MEDS: Atorvastatin Calcium 40 MG Tablet PO (21:58)
[2019-08-21 22:00] LABS: Bedside Glucose 196 mg/dL (70-110)
[2019-08-22] VITALS (23 sets, daily range): BP systolic 86–132; BP diastolic 37–82; PULSE 59–105; RESP 12–23; TEMP 36.1–37.6; O2SAT 94–100
[2019-08-22] MEDS: 0.9% Normal Saline 1,000 ML 75 ML IV ×2 (00:08→13:49)
--- NOTE | 2019-08-22 05:55 | EKG12_ITS ---
Test Reason : AM EKG Blood Pressure : / mmHG Vent. Rate : 063 BPM Atrial Rate : 063 BPM P-R Int : 170 ms QRS Dur : 094 ms QT Int : 450 ms P-R-T Axes : 042 -17 167 degrees QTc Int : 460 ms Normal sinus rhythm Nonspecific T wave abnormality Prolonged QT Abnormal ECG When compared with ECG of 21-AUG-2019 10:38, MANUAL COMPARISON REQUIRED, DATA IS UNCONFIRMED Confirmed by HILARIO JANG, JAILENE ([id number]), production editor JOSÉ MANUEL FRY ([id number]) on 08/28/2019 10:12:09 AM Referred By: Jerman Aviles Confirmed By:MARVEL RICH MD
[2019-08-22 06:06] LABS: Hematocrit 33.3 % (40-54); Hemoglobin 10.8 g/dL (13.0-16.5)
[2019-08-22 06:19] LABS: Anion Gap 8 (5-15); BUN 23 mg/dL (7-18); BUN/Creat Ratio 23.4 RATIO (10-20); Calcium,Total 8.1 mg/dL (8.5-10.1); Chloride 113 mmol/L (98-107); Creatinine, Serum 0.98 mg/dL (0.70-1.30); EST Glomerular Filtration Rate 79 mL/min (>60); Est Glom Filt Rate - Afr Amer 96 mL/min (>60); Estimated Creatinine Clearance 67.13 ml/min; Glucose 153 mg/dL (74-106); International Normalized Ratio 2.1; Potassium 4.2 mmol/L (3.5-5.1); Prothrombin Time (Protime)PT. 23.7 SECONDS (11.7-14.9); Sodium Level 143 mmol/L (136-145)
[2019-08-22 06:40] LABS: Bedside Glucose 146 mg/dL (70-110)
[2019-08-22] MEDS: Doxazosin 4 MG Tablet PO (08:50)
[2019-08-22] MEDS: Metoprolol Tartrate 50 MG Tablet PO (08:50)
[2019-08-22] MEDS: Lisinopril 20 MG Tablet PO (08:51)
[2019-08-22] MEDS: Glimepiride 2 MG Tablet PO (08:51)
[2019-08-22] MEDS: Aspirin E.C. 81 MG Tablet PO (08:51)
--- NOTE | 2019-08-22 08:51 | PCM.PROGNOTE ---
Patient Problems: Active and Suspected Problems (Last Updated 08/22/19 @ 15:57 by Kiana Law, DO) Sleep-disordered breathing (Acute) Atrial fibrillation with RVR (Acute) Chest pain (Acute) PSVT (paroxysmal supraventricular tachycardia) (Acute) Subjective: All events the past 24 hours of been reviewed Patient has remained in normal sinus rhythm since cardioversion on 08/21/2019. There were many alarms for low respiratory rate overnight. He has never had a sleep study. When he had surgery on his right hand the anesthesiologist told him that he thinks he might have sleep apnea because he stops breathing. He is agreeable to a sleep study as an outpatient. He denies RLS, feels rested in the AM when he gets up, denies daytime somnolence. He does complain of cramps in his legs at night that awaken him and he has to stand up. He has had this since he was young. He is still working every day. Afebrile since admission Vital signs are stable. He is maintaining an oxygen saturation of 97-98% on room air while awake He has a N/N anemia? Hemoglobin is 10.8 today, down from 11.9 at admission. Hemoglobin has been intermittently low since 2017. Pt had no complaints this AM. About 1 PM he developed a mildly runny nose and a dry cough. He seems very distressed about this. He is c/o severe fatigue. CXR shows no infiltrates. He is AF and the WBC is normal. He is afraid to go home and I agreed to let him stay tonight. He feels tired and his is making him anxious.....she is saying he is confused and I find him to be appropriate and oriented X 3. He just wants to go to sleep. - Physical Exam General: Alert, Oriented x3, Cooperative HEENT: PERRLA, EOMI, - - no pharyngeal exudate, posterior pharynx is a little erythematous Oral: Dry Mucosa Neck: Supple, No JVD, No Nodes, Trachea Midline Lungs: Clear to auscultation, No rhonchi, No wheeze, No rales Cardiovascular: Regular rate, Regular Rhythm, Normal S1, Normal S2, No Gallop, - - telemetry is showing NSR with frequent PAC's and some PVC's and couplets Abdomen: Bowel Sounds Present, Soft, Non Tender, Non-Distended Extremities: No edema Skin: No rashes, - - his face is a little erythematous Neurological: Cranial nerves II-XII grossly intact, Neuro grossly intact Psych/Mental Status: Normal Affect, Appropriate Vital Signs Temp Pulse Resp BP Pulse Ox 98.5 F 61 12 113/75 97 08/22/19 07:00 08/22/19 07:13 08/22/19 07:00 08/22/19 07:00 08/22/19 07:00 Oxygen Flow Rate (L/min) 2 Oxygen Delivery Method Room Air Weight: 203 lb 11.314 oz Body Mass Index (BMI) 30.0 Intake and Output for Last 24 Hours 08/20/19 08/21/19 08/22/19 23:59 23:59 23:59 Intake Total 1469.67 / 1909.67 1723.85 / 1723.85 Output Total 1825 / 2125 1225 / 1225 Balance -355.33 / -215.33 498.85 / 498.85 Laboratory Tests Past 24 Hrs 08/21/19 08/21/19 08/22/19 10:08 10:08 05:25 Hgb 10.8 L Hct 33.3 L PT INR Sodium Potassium Chloride Carbon Dioxide Anion Gap BUN Creatinine Estim Creat Clear Calc Est GFR (MDRD) Af Amer Est GFR (MDRD) Non-Af BUN/Creatinine Ratio Glucose Calcium Total Bilirubin 0.80 Direct Bilirubin 0.20 AST 15 ALT 15 L Alkaline Phosphatase 79 Troponin I 0.059 H Total Protein 6.4 Albumin 3.1 L Globulin 3.3 08/22/19 08/22/19 05:25 05:25 Hgb Hct PT 23.7 H INR 2.1 Sodium 143 Potassium 4.2 Chloride 113 H Carbon Dioxide 22.0 Anion Gap 8 BUN 23 H Creatinine 0.98 Estim Creat Clear Calc 67.13 Est GFR (MDRD) Af Amer 96 Est GFR (MDRD) Non-Af 79 BUN/Creatinine Ratio 23.4 H Glucose 153 H Calcium 8.1 L Total Bilirubin Direct Bilirubin AST ALT Alkaline Phosphatase Troponin I Total Protein Albumin Globulin POC Glucose 08/22/19 08/21/19 08/21/19 06:29 21:54 17:04 POC Glucose 146 H 196 H 267 H 08/21/19 11:50 POC Glucose 165 H Medical Necessity - Tobacco Use Smoking Status: Never smoker Assessment/Plan All Active Problems (Last Updated 08/22/19 @ 15:57 by Kiana Law DO) Sleep-disordered breathing (Acute) Atrial fibrillation with RVR (Acute) Acute coronary syndrome (Ruled-out) Chest pain (Acute) PSVT (paroxysmal supraventricular tachycardia) (Acute) Kidney stone on right side (Resolved) Impressions 1. AF with RVR and atypical CP in a 74 YO with known CAD - ACS ruled out. Cath with no need for any intervention. Echocardiogram shows severe concentric left ventricular hypertrophy, mild biatrial enlargement, no significant valvular heart disease and a right ventricular systolic pressure estimated to be approximately 31. Transmitral diastolic flow velocities suggest diastolic dysfunction. Cardioversion was performed on 08/21/2019 and he is remained in sinus rhythm. Amiodarone has been converted to oral. 2. New cough associated with extreme fatigue, slight rhinorrhea - CXR without infiltrates. Lungs are CTA. No fever but, he looks flushed and he is coughing and he looks distressed. Will keep in the hospital tonight and check lab in the AM and re-evaluate. Cough suppressant ordered for dry cough. 3. N/N anemia - heme negative. Why anemic? 4. Chronic conditions-diabetes mellitus type 2/chronic anticoagulation with warfarin/lithiasis/hyperlipidemia/hypertension/PAF Code Visit Inpatient E&M: 25718 Subs Hosp L2
--- NOTE | 2019-08-22 09:09 | PCM.PN.CARD ---
Subjectve: The patient states he is feeling well. He denies any ongoing chest discomfort or difficulty breathing at this time. There has been no sensation of ongoing palpitations. Objective: Vital Signs Temp Pulse Resp BP Pulse Ox 98.5 F 75 14 118/80 100 08/22/19 09:00 08/22/19 09:00 08/22/19 09:00 08/22/19 09:00 08/22/19 09:00 Oxygen Flow Rate (L/min) 2 Oxygen Delivery Method Room Air Weight: 203 lb 11.314 oz Body Mass Index (BMI) 30.0 Intake and Output for Last 24 Hours 08/20/19 08/21/19 08/22/19 23:59 23:59 23:59 Intake Total 1469.67 / 1909.67 1757.25 / 1757.25 Output Total 1825 / 2125 1225 / 1225 Balance -355.33 / -215.33 532.25 / 532.25 General: Awake, Alert, Oriented x 3, Cooperative, No Acute Distress HEENT: Atraumatic, Normocephalic, PERRL, EOMI, Sclera Non Icteric Oral: Moist Mucosa Neck: Supple, Good ROM, No JVD Lungs: Clear to auscultation Cardiovascular: Regular Rhythm, Normal S1, Normal S2 Vascular: Normal Radial Pulses Abdomen: Bowel Sounds Present, Soft, Non Tender Extremities: No edema Neurological: No Focal Motor or Sensory Deficit Psych/Mental Status: Appropriate 08/21/19 10:08: Troponin I 0.059 H 08/21/19 10:08: Total Bilirubin 0.80, Direct Bilirubin 0.20 08/22/19 05:25: Hgb 10.8 L, Hct 33.3 L 08/22/19 05:25: Sodium 143, Potassium 4.2, Chloride 113 H, Carbon Dioxide 22.0, Anion Gap 8, BUN 23 H, Creatinine 0.98, Est GFR (MDRD) Af Amer 96, Est GFR (MDRD) Non-Af 79, BUN/Creatinine Ratio 23.4 H, Glucose 153 H, Calcium 8.1 L 08/22/19 05:25: PT 23.7 H, INR 2.1 Rhythm: Sinus rhythm EKG: This rhythm; nonspecific T wave abnormality ECHO: Interpretation Summary The study was technically difficult. Left ventricular systolic function is normal. The estimated ejection fraction is 55 %. Severe concentric left ventricular hypertrophy. The left atrium is mildly enlarged. The right atrium is mildly enlarged. Trivial mitral valve insufficiency. Trivial tricuspid valve insufficiency. Mild diffuse aortic valve thickening. Trivial aortic valve insufficiency. Right ventricular systolic pressure estimated to be 31 mmHg. Transmitral diastolic flow velocities suggest diastolic dysfunction (pseudonormal pattern). Cardiac Cath: CORONARY ANGIOGRAPHY DOMINANCE: Left Dominant LEFT HEART ASSESSMENT Left Ventricular Ejection Fraction: by LV Gram 55 % Normal LV wall motion Normal Left Ventricular End Diastolic Pressure LVEDP: 6 mmHg LEFT MAIN: Angiographically normal LEFT ANTERIOR DESCENDING ARTERY: Mild luminal irregularities MID LAD: s/p DX: conentric: 25 % Stenosis DIAGONAL 1: Proximal - Mild luminal irregularities CIRCUMFLEX ARTERY: Mild luminal irregularities OM 1: Proximal - Mild luminal irregularities 1ST LEFT PLV: diffuse: 10 - 25 % Stenosis RIGHT CORONARY ARTERY: PROX RCA: eccentric: 25 % Stenosis VALVE FINDINGS: Normal Aortic Valve function Normal Mitral Valve function AORTIC ROOT: Angiographically normal Cardioversion: Date: 08-21-19 Procedure: Synchronized Biphasic DC Cardioversion Indications: Atrial flutter Consent: Per the Patient Anesthesia: per Dr. Bliss of pulmonology and critical care medicine with performed 60 mg IV push total Procedure: Synchronized Biphasic DC Cardioversion: 200 J x1: Result: Sinus rhythm Complications: no apparent complications Medical Necessity - Tobacco Use Smoking Status: Never smoker Assessment/Plan 1. Chest pain The patient has undergone extensive cardiovascular evaluation for his chest discomfort. At the present time it does not appear to be related to progression of CAD requiring revascularization therapy. He has also undergone noncardiovascular evaluation with abdominal ultrasound. He has been found to have cholelithiasis. This need to be considered as a potential etiology for his chest discomfort. He will need to have continued evaluation and care by his PCP and/or other physicians as deemed appropriate. 2. Acute coronary syndrome The patient underwent extensive cardiovascular evaluation including diagnostic cardiac catheterization. He did not have progression of CAD requiring revascularization therapy. His symptoms and elective cardiographic changes appear not to be related to progression of underlying CAD. Thus consideration will have to be given to noncardiovascular issues that may be contributing to his symptoms and findings consideration to his underlying noncardiac issues such as his gallbladder disease. 3. CAD He will need to continue risk factor evaluation care as deemed appropriate. 4. Cardiac dysrhythmia with history of atrial fibrillation/flutter status post previous EPS/RFA He subsequent he underwent synchronized biphasic DC cardioversion based upon his findings of ongoing atrial flutter-atypical not responding to medical management. He returned to sinus rhythm. He will continue rate control therapy, antiarrhythmic therapy, and anticoagulant therapy. 5. Hyperlipidemia He will continue medical management and follow-up. 6. Hypertension He will continue medical management with adjustment as needed. 7. Diabetes mellitus He will continue under the care of internal medicine for this. 8. Anticoagulant therapy He will need to continue anticoagulant therapy based on his underlying cardiac dysrhythmia. He will need continued outpatient cardiovascular follow-up to monitor his cardiovascular disease process. We will continue to follow with his PCP and other physicians as deemed appropriate for his noncardiovascular issues. Comment: The above case has also been previously discussed and reviewed with patient. This note was generated using a voice recognition system and there may be incorrect words, spelling or punctuation that were not noted when reviewing the office note prior to saving.
[2019-08-22] MEDS: Amiodarone 200 MG Tablet PO ×2 (10:04→23:32)
[2019-08-22] MEDS: 0.9% NaCl Peripheral Flush Adult/Peds IV (10:05)
[2019-08-22 12:16] LABS: Bedside Glucose 146 mg/dL (70-110)
--- NOTE | 2019-08-22 15:53 | PCM.DC ---
- Discharge Diagnoses Current Active Problems: Current Active and Chronic Problems (Last Updated 08/21/19 @ 16:08 by Sushila Maldonado) Acute coronary syndrome (Acute) Diabetes mellitus type 2 in obese (Acute) Chest pain (Acute) PSVT (paroxysmal supraventricular tachycardia) (Acute) CAD (coronary artery disease) (Chronic) Atrial fibrillation and flutter (Chronic) H/O prior ablation treatment (Chronic) You will use the following diet at home:: Calorie/Carbohydrate Controlled (specify 1200, 1400, etc), Cardiac Your food should be the consistency of: Regular Your liquids should be the consistency of: Regular/Thin, Honey Thick Discharge Activity: Return to Normal Activity May resume sexual activity in: No Restrictions Call your doctor if your incision/area has: Continuous Slow Oozing, Sudden Increased Bleeding, Increased Pain/ Swelling, Increased Redness, Foul Smelling Discharge, Swelling at the incision site Call your doctor if you observe: Fever of 101 or Higher, Shortness of breath, Dizziness, Fainting spells, Swelling in the ankles, Chest pain Instructions: Visiting a Sleep Clinic, What Are Snoring and Sleep Apnea? Additional Instructions: I think you may have sleep apnea. People with untreated sleep apnea tend to have AF more frequently than the general population. Your respiratory rate decreased many times throughout the night while you were sleeping. It keep triggering the heart monitor. I am referring you to the pulmonary dept so you can be scheduled for a sleep study. Don't not take any over the counter cold preparations that continue decongestants....they can put you into AFIB because they are stimulants. If you are unsure about a medication ask the pharmacist. Limit caffeine intake....caffeine is a stimulant and can causes early beats and put you into AFIB. I am giving you a prescription for Folic acid to see if this helps with the leg cramps you have at night. Folic acid is a B vitamin and it helps to prevent cramps. Tonic water also helps because it contains quinine......drink a glass at bedtime. Allergies/Adverse Reactions: Allergies dabigatran etexilate [From Pradaxa] Adverse Reaction (Severe, Verified 08/21/19 04:32) GI Bleed niacin [From Niaspan Extended-Release] Adverse Reaction (Severe, Verified 08/21/19 04:32) Hot flashes Iodinated Contrast Media [CT] Adverse Reaction (Verified 08/21/19 04:32) Nausea Medications to take at Discharge Aspirin [Aspirin, Baby] 81 mg PO DAILY@0800 10/18/13 Lisinopril 20 mg PO DAILY 10/18/13 Metformin HCl [Glucophage Xr] 750 mg PO DAILY 10/18/13 Terazosin HCl [Hytrin] 5 mg PO DAILY 10/18/13 Atorvastatin Calcium [Lipitor] 40 mg PO QHS 08/21/19 Glimepiride 2 mg PO DAILY 08/21/19 Metoprolol Tartrate [Lopressor (beta destiny)] 50 mg PO BID 08/21/19 Warfarin Sodium 5 mg PO DAILY 08/21/19 Amiodarone HCl 200 mg PO DAILY #30 tab 08/22/19 Amiodarone HCl [Cordarone] 200 mg PO TID #72 tab 08/22/19 Folic Acid 2 mg PO QHS #30 tab 08/22/19 The following prescriptions were given: Amiodarone HCl 200 mg PO DAILY #30 tab Prescription Printed Amiodarone HCl [Cordarone] 200 mg PO TID #72 tab Transmission Status: Pending to [facility] Folic Acid 2 mg PO QHS #30 tab Transmission Status: Pending to [facility] Primary Care Physician: Sal Aguila MD [Primary Care Provider] - Please follow up with your Primary Care Physician in: 1 week Test Results: Test results from this visit will be discussed in further detail at your follow-up appointment, if applicable. Please Follow Up With: Pulmonary clinic When: with Jesenia Nickerson in 2 weeks to arrange for a sleep study Please Follow Up With: Jerman Aviles MD When: call the office for an appointment Proposed Discharge Date: 08/22/19
--- NOTE | 2019-08-22 16:09 | PCM.DC.SUM ---
Discharge Date and Diagnosis - Problem List Patient Problems: Active and Suspected Problems (Last Updated 08/22/19 @ 15:57 by Kiana Law DO) URI (upper respiratory infection) (Suspected) FUO (fever of unknown origin) (Acute) Encounter for cardioversion procedure (Acute) Chest pain (Acute) PSVT (paroxysmal supraventricular tachycardia) (Acute) Date of Admission: 08/21/19 Date of Discharge: 08/24/19 - Primary Discharge Diagnosis Active and Suspected Problems (Last Updated 08/21/19 @ 16:05 by Sushila Maldonado) Atrial fibrillation with RVR (Acute) Chest pain (Acute) - not due to ACS PSVT (paroxysmal supraventricular tachycardia) (Acute) S/P cardioversion FUO - suspect URI Sleep-disordered breathing Heme + stool - Secondary Discharge Diagnosis Chronic Problems (Last Updated 08/21/19 @ 16:05 by Sushila Maldonado) Leg cramps, sleep related (Chronic) Diabetes mellitus type 2 in obese (Chronic) CAD (coronary artery disease) (Chronic) H/O prior ablation treatment (Chronic) Pure hypercholesterolemia (Chronic) Essential hypertension (Chronic) intermediate frame tender current use of anticoagulant (Chronic) Paroxysmal atrial fibrillation (Chronic) Cholelithiasis - asymptomatic N/N anemia - unknown certain of etiology Hospital Course and Treatment Imaging Results: Clinical Impression(s) from Imaging Studies Chest X-Ray 08/21/19 02:07 IMPRESSION: No acute cardiopulmonary disease Electronically Signed: Rico Mullins MD at 3:38 EDT Tel , Service support , Abdomen Ultrasound 08/21/19 09:51 IMPRESSION: Cholelithiasis Electronically Signed: Devon Jiménez at 12:32 EDT Tel , Service support , Laboratory Results - last 24 hr 08/21/19 08/21/19 08/22/19 17:04 21:54 05:25 Hgb 10.8 L Hct 33.3 L PT INR Sodium Potassium Chloride Carbon Dioxide Anion Gap BUN Creatinine Estim Creat Clear Calc Est GFR (MDRD) Af Amer Est GFR (MDRD) Non-Af BUN/Creatinine Ratio Glucose Calcium POC Glucose 267 H 196 H 08/22/19 08/22/19 08/22/19 05:25 05:25 06:29 Hgb Hct PT 23.7 H INR 2.1 Sodium 143 Potassium 4.2 Chloride 113 H Carbon Dioxide 22.0 Anion Gap 8 BUN 23 H Creatinine 0.98 Estim Creat Clear Calc 67.13 Est GFR (MDRD) Af Amer 96 Est GFR (MDRD) Non-Af 79 BUN/Creatinine Ratio 23.4 H Glucose 153 H Calcium 8.1 L POC Glucose 146 H 08/22/19 12:11 Hgb Hct PT INR Sodium Potassium Chloride Carbon Dioxide Anion Gap BUN Creatinine Estim Creat Clear Calc Est GFR (MDRD) Af Amer Est GFR (MDRD) Non-Af BUN/Creatinine Ratio Glucose Calcium POC Glucose 146 H Microbiology 08/22/19 11:30 Stool Stool Occult Blood (HERB) - Final negative Clinical Impression(s) from Imaging Studies Chest X-Ray 08/21/19 02:07 IMPRESSION: No acute cardiopulmonary disease Electronically Signed: Rico Mullins MD at 3:38 EDT Tel , Service support , Abdomen Ultrasound 08/21/19 09:51 IMPRESSION: Cholelithiasis Electronically Signed: Devon Jiménez, at 12:32 EDT Tel , Service support , Chest X-Ray 08/22/19 17:25 IMPRESSION: Congestion with features described above. Electronically Signed: James Hemphill, at 17:40 EDT Tel , Service support , Microbiology 08/23/19 07:25 Urine, Random Urine Culture - Preliminary Culture exhibits no growth. 08/23/19 07:25 Urine, Random Legionella Antigen - Final 08/23/19 07:25 Urine, Random Streptococcus pneumoniae Antigen (M - Final 08/22/19 23:30 Mucosa - Nasopharyngeal Respiratory Panel (PCR) - Final 08/22/19 11:30 Stool Stool Occult Blood (HERB) - Final Dr. Jerman Aviles-[facility] Dr. Mark Bliss- for conscious sedation for cardioversion Operations: None Procedures: Cardiac catheterization - LEFT HEART ASSESSMENT Left Ventricular Ejection Fraction: by LV Gram 55 % Normal LV wall motion Normal Left Ventricular End Diastolic Pressure LVEDP: 6 mmHg LEFT MAIN: Angiographically normal LEFT ANTERIOR DESCENDING ARTERY: Mild luminal irregularities MID LAD: s/p DX: conentric: 25 % Stenosis DIAGONAL 1: Proximal - Mild luminal irregularities CIRCUMFLEX ARTERY: Mild luminal irregularities OM 1: Proximal - Mild luminal irregularities 1ST LEFT PLV: diffuse: 10 - 25 % Stenosis RIGHT CORONARY ARTERY: PROX RCA: eccentric: 25 % Stenosis VALVE FINDINGS: Normal Aortic Valve function Normal Mitral Valve function AORTIC ROOT: Angiographically normal, Cardioversion Summary of Care Provided: The pt is a 74 YOM with a PMH of CAD, diabetes mellitus type 2, hypertension, paroxysmal atrial fibrillation, nephrolithiasis, long-term anticoagulation with warfarin and HLD who presented to the Ed at [facility] on 08/21/19 c/o indigestion/chest pressure with no diaphoresis, shortness of breath or palpitations. He stated that he had felt more tired than usual over the preceding week. Vital signs at presentation to the emergency room were temperature 98.1, pulse rate 134, blood pressure 160/110, respiratory rate 18 and he was 97% saturated on room air. CBC was remarkable for a decreased hemoglobin at 11.9 with normochromic normocytic indices and a normal RDW. BMP was remarkable for a decreased potassium at 3.4 and a BUN of 22 with a creatinine of 1.06. Random glucose was 142. Troponin was 0.043 and the third troponin increased to 0.059. INR was therapeutic at 2.0. Chest x-ray showed no infiltrates, pleural effusions or pulmonary vascular congestion. The initial EKG showed sinus tachycardia at [address] and T wave changes. He later transition to atrial fibrillation with rapid ventricular response. He was given IV metoprolol in the emergency department and admitted to a monitored bed on PCU. Dr. Aviles was consulted and an amiodarone infusion was begun. Dr. Aviles recommended cardiac catheterization and the patient was agreeable. Cardiac cath was done on 08/21/2019 and showed mild multivessel coronary artery disease with a 25% stenosis in the mid LAD, mild luminal irregularities in the diagonal #1, mild luminal irregularities of the circumflex and mild luminal irregularities of the OM1. The first left PLV had 10 to 25% stenosis and was diffusely diseased. The proximal RCA had a 25% stenosis. Left ventriculogram showed a 55% left ventricular ejection fraction with normal wall motion. No intervention was indicated. Since he was adequately anticoagulated the decision was made to cardiovert and this was successfully performed on 08/21/2019. He had no recurrent atrial fibrillation but with fever had frequent PACs. On 08/22/2019 he had sudden onset of mild rhinorrhea and a harsh dry cough associated with extreme fatigue and sweats. He was afebrile and the white blood cell count was within normal limits. A chest x-ray was obtained which revealed no infiltrates, effusions or pulmonary vascular congestion. The posterior pharynx was mildly erythematous. He felt too sick to go home and he was kept overnight. He developed a temperature to 102.5 and sputum culture, blood cultures and a urine culture were ordered. He was started on vancomycin and Zosyn and vancomycin was discontinued when the nasal swab was negative for MRSA. Legionella and streptococcal antigens in the urine were negative. The urine culture had no growth. Respiratory panel was negative. At the time of discharge blood cultures were negative for approximately 36 hours. On 08/24/2019 he was afebrile with stable vital signs. Pulse ox was 96 to 97% on room air. Telemetry revealed normal sinus rhythm with occasional PACs. He told me he felt much better and other than feeling tired he was back to baseline. White blood cell count was 7.2 with 75% neutrophils. Hemoglobin is stable at 10.4 and platelets were normal. BMP was remarkable for an elevated BUN at 23 with a creatinine of 0.98. He was discharged home with a prescription for Augmentin to finish 7 days of antibiotics. He was instructed to f/U with Dr. Aguila in about 1 week and he will follow up with Jesenia Nickerson in the pulmonary clinic to arrange for a sleep study since he has a very low RR at times while he is sleeping and he also has PAF which is more common in people with untreated sleep apnea. He will follow up with Dr. Aviles in 2-4 weeks. He was given RX's for amiodarone 200 mg 3 times daily x2 weeks, 200 mg twice daily x2 weeks and then 200 mg daily. He was also given a prescription for Augmentin and Robitussin with codeine cough syrup to be used for a dry cough. He has a N/N anemia and we have no prior labs to compare. A Hemoccult stool was obtained in the hospital and was positive for blood. If he has not had endoscopy in the recent past he may need to be referred for endoscopy to determine the source of the bleed. UA had only 0-5 RBCs per high-power field. PHYSICAL EXAM: GENERAL: alert, oriented X 3, Cooperative, NAD ORAL: moist mucosa, no mucosal lesions NECK: No JVD, supple, trachea midline LUNGS: CTA, symmetric chest expansion, not tachypnea, no conversational dyspnea, no accessory muscle use HEART: RRR, Normal S1 and S2, no rub, no gallop ABDOMEN: soft, NT, ND, BS present, no guarding with palpation EXTREMITIES: no edema, no cyanosis, no calf tenderness SKIN: No rashes, no breakdown NEUROLOGIC: no focal neurologic deficits PSYCH: appropriate, normal affect, pleasant This note was generated with [employer] dictation software. It may contain incorrect words, spelling, and punctuation that were not noted in checking the note before signing. Patient Problems: Active and Suspected Problems (Last Updated 08/22/19 @ 15:57 by Kiana Law DO) URI (upper respiratory infection) (Suspected) FUO (fever of unknown origin) (Acute) Encounter for cardioversion procedure (Acute) Chest pain (Acute) PSVT (paroxysmal supraventricular tachycardia) (Acute) - Physical Exam Vital Signs Temp Pulse Resp BP Pulse Ox 98.3 F 96 14 117/82 H 98 08/22/19 10:05 08/22/19 15:31 08/22/19 10:05 08/22/19 10:05 08/22/19 10:05 Oxygen Flow Rate (L/min) 2 Oxygen Delivery Method Room Air Weight: 212 lb 11.937 oz Body Mass Index (BMI) 30.0 Intake and Output for Last 24 Hours 08/20/19 08/21/19 08/22/19 23:59 23:59 23:59 Intake Total 1469.67 / 1909.67 3015.06 / 3015.06 Output Total 1825 / 2125 1225 / 1225 Balance -355.33 / -215.33 1790.06 / 1790.06 Microbiology Past 72 Hours 08/22/19 11:30 Stool Occult Blood (HERB) - Final Stool Laboratory Tests Past 24 Hrs 08/22/19 08/22/19 08/22/19 05:25 05:25 05:25 Hgb 10.8 L Hct 33.3 L PT 23.7 H INR 2.1 Sodium 143 Potassium 4.2 Chloride 113 H Carbon Dioxide 22.0 Anion Gap 8 BUN 23 H Creatinine 0.98 Estim Creat Clear Calc 67.13 Est GFR (MDRD) Af Amer 96 Est GFR (MDRD) Non-Af 79 BUN/Creatinine Ratio 23.4 H Glucose 153 H Calcium 8.1 L POC Glucose 08/22/19 08/22/19 08/21/19 12:11 06:29 21:54 POC Glucose 146 H 146 H 196 H 08/21/19 17:04 POC Glucose 267 H Discharge Activity: Return to Normal Activity May resume sexual activity in: No Restrictions Call your doctor if you observe: Fever of 101 or Higher, Shortness of breath, Dizziness, Fainting spells, Swelling in the ankles, Chest pain Home Medications: Medications to take at Discharge Aspirin [Aspirin, Baby] 81 mg PO DAILY@0800 10/18/13 Lisinopril 20 mg PO DAILY 10/18/13 Metformin HCl [Glucophage Xr] 750 mg PO DAILY 10/18/13 Terazosin HCl [Hytrin] 5 mg PO DAILY 10/18/13 Atorvastatin Calcium [Lipitor] 40 mg PO QHS 08/21/19 Glimepiride 2 mg PO DAILY 08/21/19 Metoprolol Tartrate [Lopressor (beta destiny)] 50 mg PO BID 08/21/19 Warfarin Sodium 5 mg PO DAILY 08/21/19 Amiodarone HCl 200 mg PO DAILY #30 tab 08/22/19 Amiodarone HCl [Cordarone] 200 mg PO TID #72 tab 08/22/19 Amox/Clavulanate Tablet [Augmentin Tablet] 875 mg PO Q12H #12 tab 08/24/19 Folic Acid 2 mg PO QHS #60 tab 08/24/19 Guaifenesin/Codeine [Robitussin AC] 10 ml PO Q6H PRN PRN 7 Days #100 ml 08/24/19 Following Prescrptions Were Given to Patient: Amiodarone HCl 200 mg PO DAILY #30 tab Prescription Printed Amox/Clavulanate Tablet [Augmentin Tablet] 875 mg PO Q12H #12 tab Transmission Status: Pending to [facility] Amiodarone HCl [Cordarone] 200 mg PO TID #72 tab Transmission Status: Received by [facility] Folic Acid 2 mg PO QHS #60 tab Transmission Status: Pending to [facility] Guaifenesin/Codeine [Robitussin AC] 10 ml PO Q6H PRN PRN 7 Days #100 ml PRN Reason: COUGH Transmission Status: Sent to [facility] Primary Care Physician: Sal Aguila MD [Primary Care Provider] - Please follow up with your Primary Care Physician in: 1 week Please Follow Up With: Pulmonary clinic When: with Jesenia Nickerson in 2 weeks to arrange for a sleep study Please Follow Up With: Jerman Aviles MD When: call the office for an appointment Patient Instructions: What Are Snoring and Sleep Apnea?, Visiting a Sleep Clinic Disposition: Home Minutes spent on discharge:: 30 Patient Condition:: Good Medical Necessity - Tobacco Use Smoking Status: Never smoker Tobacco Use: Non-smoker Meaningful Use Info Meaningful Use Diagnoses (Choose all that apply): None applicable Code Visit Inpatient E&M: 32492 [facility] Hosp
[2019-08-22] MEDS: BENZOCAINE/MENTHOL 1 LOZENGE 2 LOZENGE MUCOUS MEM (16:23)
[2019-08-22 17:25] LABS: Bedside Glucose 115 mg/dL (70-110)
--- NOTE | 2019-08-22 17:25 | RAD_ITS ---
STUDY: X-RAY CHEST REASON FOR EXAM: Male, 74 years old. Chest pain TECHNIQUE: PA and lateral views of the chest COMPARISON: X-ray chest August 21, 2019 FINDINGS: There is mild bilateral perihilar edema. There is no consolidation. There are no pleural effusions. There is no pneumothorax. The heart is enlarged. The visualized osseous structures are within normal limits. RAD/Chest PA and Lateral IMPRESSION: Congestion with features described above. Electronically Signed: James Hemphill, at 17:40 EDT Tel , Service support ,
[2019-08-22] MEDS: guaiFENesin/Codeine 5 ML UDC 10 ML PO (19:43)
[2019-08-22] MEDS: Acetaminophen 325 MG Tablet 650 MG PO (19:43)
[2019-08-22] MEDS: Atorvastatin Calcium 40 MG Tablet PO (21:27)
[2019-08-22] MEDS: Folic Acid 1 MG Tablet 2 MG PO (21:27)
[2019-08-23] VITALS (17 sets, daily range): BP systolic 92–127; BP diastolic 37–71; PULSE 59–117; RESP 16–18; TEMP 36.8–39.2; O2SAT 91–98
[2019-08-23 00:46] LABS: Bedside Glucose 127 mg/dL (70-110)
[2019-08-23] MEDS: guaiFENesin/Codeine 5 ML UDC 10 ML PO ×2 (03:31→21:14)
[2019-08-23] MEDS: Acetaminophen 325 MG Tablet 650 MG PO ×2 (03:39→20:00)
[2019-08-23 04:46] LABS: Hematocrit 31.7 % (40-54); Hemoglobin 10.3 g/dL (13.0-16.5); Mean Corp Hgb Conc 32.5 g/dL (32-36); Mean Corpuscular Hgb 28.9 pg (27.0-32.0); Mean Corpuscular Volume 88.8 fL (80-94); Mean Platelet Vol. 9.7 fl (6.2-12.0); Platelet Count 157 K/mm3 (150-450); RBC Distribution Width CV 13.4 % (11.6-14.6); RBC Distribution Width SD 43.6 fl (35.1-43.9); Red Blood Count 3.57 M/mm3 (4.6-6.2); White Blood Count 10.6 K/mm3 (4.4-11.0)
[2019-08-23 04:55] LABS: International Normalized Ratio 2.4; Prothrombin Time (Protime)PT. 26.2 SECONDS (11.7-14.9)
[2019-08-23 04:56] LABS: Partial Thromboplast Time 41.8 Seconds (24.1-36.2)
[2019-08-23 05:02] LABS: AST(SGOT) 16 U/L (15-37); Alanine Aminotransfer ALT/SGPT 15 U/L (16-61); Albumin, Serum 3.1 g/dL (3.2-5.0); Alkaline Phosphatase 61 U/L (45-117); Anion Gap 7 (5-15); BUN 26 mg/dL (7-18); Calcium,Total 7.8 mg/dL (8.5-10.1); Chloride 107 mmol/L (98-107); Creatinine, Serum 1.13 mg/dL (0.70-1.30); EST Glomerular Filtration Rate 68 mL/min (>60); Est Glom Filt Rate - Afr Amer 82 mL/min (>60); Estimated Creatinine Clearance 58.22 ml/min; Glucose 115 mg/dL (74-106); Potassium 3.4 mmol/L (3.5-5.1); Protein, Total 6.1 g/dL (6.4-8.2); Sodium Level 139 mmol/L (136-145)
[2019-08-23] MEDS: Amiodarone 200 MG Tablet PO ×3 (05:06→21:13)
[2019-08-23 05:09] LABS: Lactic Acid 0.9 mmol/L (0.4-2.0)
[2019-08-23 06:45] LABS: Bedside Glucose 118 mg/dL (70-110)
--- NOTE | 2019-08-23 07:46 | PCM.PROGNOTE ---
Patient Problems: Active and Suspected Problems (Last Updated 08/22/19 @ 15:57 by Kiana Law DO) Sleep-disordered breathing (Acute) Atrial fibrillation with RVR (Acute) Chest pain (Acute) PSVT (paroxysmal supraventricular tachycardia) (Acute) Subjective: Day # 1 Zosyn and VAnco All events of the past 24 hours of been reviewed. Temperature spiked to 102.5 at approximately 3:30 AM. Blood cultures x2 were drawn and a UA with culture has been ordered. Respiratory panel is negative. Tells me that he is feeling better today. He slept well last night. Cough has improved and he denies rhinorrhea, sore throat, CP. He gets a GUSMAN when he coughs.Tells me that he is very thirsty. Pulse ox this a.m. was 91-93 while he was sleeping and he was placed on 2 L nasal cannula with a pulse ox of 96 to 98%. BP was mildly decreased last night at bedtime but today the pressure is 120/69. White blood cell count is high normal today at 10.6, differential is pending. Hemoglobin is 10.3 and once again with normochromic normocytic indices. Platelets are within normal limits. INR is 2.4 today. Potassium is low at 3.4 and the BUN is 26 with a creatinine of 1.13, up from 0.98 on 08/22/2019. Total bili is mildly increased at 1.1 but the transaminases and alkaline phosphatase are within normal limits. Blood sugars are well controlled. - Physical Exam General: Alert, Oriented x3, Cooperative, No apparent distress, - - he was sleeping when I entered the room. When he was awake he was calm and not coughing. He looked better than last night when I left. He is a little diaphoretic. with wet sheets and gown in the back. HEENT: Normocephalic Oral: Dry Mucosa Neck: Supple, No JVD, No Nodes, Trachea Midline Lungs: Clear to auscultation, - - Tachypneic, no conversational dyspnea, no accessory muscle use Cardiovascular: Regular rate, Regular Rhythm, Normal S1, Normal S2, No rub noted, No Gallop, - - Telemetry shows normal sinus rhythm with increased PACs today and occasional PVCs with occasional couplet. No atrial fibrillation. Abdomen: Bowel Sounds Present, Soft, Non Tender, Non-Distended Extremities: No edema Skin: No rashes Neurological: Cranial nerves II-XII grossly intact, Neuro grossly intact Psych/Mental Status: Normal Affect, Appropriate Vital Signs Temp Pulse Resp BP Pulse Ox 99.3 F H 117 H 18 120/69 98 08/23/19 06:15 08/23/19 07:22 08/23/19 06:15 08/23/19 06:15 08/23/19 06:15 Oxygen Flow Rate (L/min) 2 Oxygen Delivery Method Nasal Cannula Weight: 212 lb 11.937 oz Body Mass Index (BMI) 30.0 Intake and Output for Last 24 Hours 08/21/19 08/22/19 08/23/19 23:59 23:59 23:59 Intake Total 1469.67 / 1909.67 3970.06 / 3970.06 860 / 860 Output Total 1825 / 2125 1450 / 1450 275 / 275 Balance -355.33 / -215.33 2520.06 / 2520.06 585 / 585 Microbiology Past 72 Hours 08/22/19 23:30 Respiratory Panel (PCR) - Final Mucosa - Nasopharyngeal 08/22/19 11:30 Stool Occult Blood (HERB) - Final Stool Laboratory Tests Past 24 Hrs 08/23/19 08/23/19 08/23/19 04:28 04:28 04:28 WBC 10.6 RBC 3.57 L Hgb 10.3 L Hct 31.7 L MCV 88.8 MCH 28.9 MCHC 32.5 RDW Std Deviation 43.6 RDW Coeff of Katarzyna 13.4 Plt Count 157 MPV 9.7 PT 26.2 H INR 2.4 APTT 41.8 H Sodium 139 Potassium 3.4 L Chloride 107 Carbon Dioxide 25.0 Anion Gap 7 BUN 26 H Creatinine 1.13 Estim Creat Clear Calc 58.22 Est GFR (MDRD) Af Amer 82 Est GFR (MDRD) Non-Af 68 BUN/Creatinine Ratio 23.0 H Glucose 115 H Lactic Acid Calcium 7.8 L Total Bilirubin 1.10 H AST 16 ALT 15 L Alkaline Phosphatase 61 Total Protein 6.1 L Albumin 3.1 L Globulin 3.0 Albumin/Globulin Ratio 1.0 08/23/19 04:28 WBC RBC Hgb Hct MCV MCH MCHC RDW Std Deviation RDW Coeff of Ktaarzyna Plt Count MPV PT INR APTT Sodium Potassium Chloride Carbon Dioxide Anion Gap BUN Creatinine Estim Creat Clear Calc Est GFR (MDRD) Af Amer Est GFR (MDRD) Non-Af BUN/Creatinine Ratio Glucose Lactic Acid 0.9 Calcium Total Bilirubin AST ALT Alkaline Phosphatase Total Protein Albumin Globulin Albumin/Globulin Ratio POC Glucose 08/23/19 08/22/19 08/22/19 06:29 21:29 16:38 POC Glucose 118 H 127 H 115 H 08/22/19 12:11 POC Glucose 146 H Medical Necessity - Tobacco Use Smoking Status: Never smoker Assessment/Plan All Active Problems (Last Updated 08/22/19 @ 15:57 by Kiana Law, DO) Sleep-disordered breathing (Acute) Atrial fibrillation with RVR (Acute) Acute coronary syndrome (Ruled-out) Chest pain (Acute) PSVT (paroxysmal supraventricular tachycardia) (Acute) Kidney stone on right side (Resolved) Impressions 1. AF with RVR and atypical CP in a 74 YO with known CAD - ACS ruled out. Cath with no need for any intervention. Echocardiogram shows severe concentric left ventricular hypertrophy, mild biatrial enlargement, no significant valvular heart disease and a right ventricular systolic pressure estimated to be approximately 31. Transmitral diastolic flow velocities suggest diastolic dysfunction. Cardioversion was performed on 08/21/2019 and he is remained in sinus rhythm. Amiodarone has been converted to oral. 2. New cough associated with extreme fatigue, slight rhinorrhea - CXR without infiltrates. Lungs are CTA. No fever but, he looks flushed and he is coughing and he looks distressed. Will keep in the hospital tonight and check lab in the AM and re-evaluate. Cough suppressant ordered for dry cough. 3. N/N anemia - heme negative. Why anemic? 4. FUO with SIRS and with cough. With the cough and rhinorrhea yesterday I suspect a pulmonary source/possible PNA. Has been in the hospital for 3 days now. Will start empiric broad spectrum antibiotics and await the results of the cultures. Check an MRSA swab and if it is negative will DC the Vacno. 5. Chronic conditions-diabetes mellitus type 2/chronic anticoagulation with warfarin/lithiasis/hyperlipidemia/hypertension/PAF Code Visit Inpatient E&M: 14590 Subs Hosp L3
[2019-08-23 08:03] LABS: Mucous, Urine 0 SEEN /hpf (<or=2+)
[2019-08-23 08:07] LABS: Color, Urine Yellow (Yellow); Glucose, Dipstick Normal (Normal); Ketone-Dipstick Negative (Negative); Leukocyte Esterase-Dipstick 25 /ul (Negative); Nitrite-Dipstick Negative (Negative); Occult Blood-Urine 10 /ul (Negative); Protein-Dipstick 30 mg/dl (Negative); Urine Bilirubin Dipstick Negative (Negative); Urine Clarity Sl. Cloudy (Clear); Urine Urobilinogen Normal (Normal)
--- NOTE | 2019-08-23 08:07 | PCM.RX.CS ---
Consult Pharmacy has been consulted to manage selected antiobiotic: Vancomycin Type of Consult: New start Suspected Infection: Other Prior Doses of Antibiotics Received/Current Regimen: NONE Labs: Sodium 139 mmol/L (136-145) 08/23/19 04:28 Potassium 3.4 mmol/L (3.5-5.1) L 08/23/19 04:28 Chloride 107 mmol/L (98-107) 08/23/19 04:28 Carbon Dioxide 25.0 mmol/L (21.0-32.0) 08/23/19 04:28 Anion Gap 7 (5-15) 08/23/19 04:28 BUN 26 mg/dL (7-18) H 08/23/19 04:28 Creatinine 1.13 mg/dL (0.70-1.30) 08/23/19 04:28 Est GFR (MDRD) Af Amer 82 mL/min (>60) 08/23/19 04:28 Est GFR (MDRD) Non-Af 68 mL/min (>60) 08/23/19 04:28 BUN/Creatinine Ratio 23.0 RATIO (10-20) H 08/23/19 04:28 Glucose 115 mg/dL (74-106) H 08/23/19 04:28 Microbiology: Microbiology 08/22/19 23:30 Mucosa - Nasopharyngeal Respiratory Panel (PCR) - Final 08/22/19 11:30 Stool Stool Occult Blood (HERB) - Final Weight used for dosin.5 kg Estimated Creatinine Clearance: 58 ML/MIN Goal Trough: 15-20 mcg/mL Pharmacy Plan for Drug Dosing: PLAN/RECOMMENDATIONS 1. Vancomycin 1500mg IV x1 08/23/19 @0900 2. Vancomycin 1000mg IV Q12hrs to start 08/23/19 @2100 3. Trough scheduled prior to 4th total dose per protocol 08/24/19 @2030 4. Pharmacy Service will continue to monitor and adjust dosing as required.
[2019-08-23 08:08] LABS: Magnesium 1.6 mg/dL (1.6-2.6)
[2019-08-23 08:14] LABS: Bacteria 1+ /hpf (None Seen); Red Blood Cells-Urine 0-5 SEEN /hpf (0-5); Squamous Epithelial Cells - UA 0-5 SEEN /hpf (0-5); White Blood Cells 0-5 SEEN /hpf (0-5)
[2019-08-23 08:14] LABS: Absolute Lymphocyte Count 0.72 X10^3/uL (0.83-4.51); Absolute Neutrophil Count 9.2 X10^3/uL (2.0-7.7); Basophil# 0.05 X10^3/uL; Basophil% 0.5 % (0-1); Eosinophil# 0.25 X10^3/uL; Eosinophils% 2.3 % (0-5); Lymphocyte # 0.72 X10^3/ul (4.0); Lymphocyte % 6.6 % (19-41); Monocyte# 0.62 X10^3/uL; Monocyte% 5.7 % (0-10); NRBC Flagged by Analyzer 0 % (0-5); Neutrophil # 9.21 X10^3/uL (2.7-7.7); Neutrophil % 84.5 % (47-70)
[2019-08-23] MEDS: 0.9% Normal Saline 1,000 ML 150 ML IV ×2 (08:34→15:30)
[2019-08-23] MEDS: Doxazosin 4 MG Tablet PO (10:32)
[2019-08-23] MEDS: Glimepiride 2 MG Tablet PO (10:32)
[2019-08-23] MEDS: Aspirin E.C. 81 MG Tablet PO (10:32)
[2019-08-23] MEDS: guaiFENesin 600 MG Tablet PO (10:37)
[2019-08-23] MEDS: Metoprolol Tartrate 50 MG Tablet PO (10:38)
[2019-08-23 11:50] LABS: Bedside Glucose 104 mg/dL (70-110)
[2019-08-23 15:46] LABS: Bedside Glucose 98 mg/dL (70-110)
[2019-08-23] MEDS: Vancomycin IV 1,000 MG/200 ML BAG 200 MG IV (21:03)
[2019-08-23] MEDS: Folic Acid 1 MG Tablet 2 MG PO (21:13)
[2019-08-23] MEDS: Atorvastatin Calcium 40 MG Tablet PO (21:13)
[2019-08-23 21:45] LABS: Bedside Glucose 87 mg/dL (70-110)
[2019-08-24 03:00] VITALS: PULSE 67
[2019-08-24 03:05] VITALS: BP 108/54; PULSE 78; RESP 18; TEMP 37.2; O2SAT 97
[2019-08-24 05:24] LABS: M R Staph aureus DNA By PCR Negative (Negative); Probe Check PASS; Specimen Processing Control PASS
[2019-08-24 06:23] LABS: Absolute Lymphocyte Count 1.14 X10^3/uL (0.83-4.51); Absolute Neutrophil Count 5.4 X10^3/uL (2.0-7.7); Basophil# 0.04 X10^3/uL; Basophil% 0.6 % (0-1); Eosinophils% 1.4 % (0-5); Hematocrit 32.6 % (40-54); Hemoglobin 10.4 g/dL (13.0-16.5); Lymphocyte # 1.14 X10^3/ul (4.0); Lymphocyte % 15.9 % (19-41); Mean Corp Hgb Conc 31.9 g/dL (32-36); Mean Corpuscular Hgb 28.5 pg (27.0-32.0); Mean Corpuscular Volume 89.3 fL (80-94); Mean Platelet Vol. 9.9 fl (6.2-12.0); Monocyte# 0.47 X10^3/uL; Monocyte% 6.6 % (0-10); NRBC Flagged by Analyzer 0 % (0-5); Neutrophil # 5.39 X10^3/uL (2.7-7.7); Neutrophil % 75.1 % (47-70); POSITIVE MORPHOLOGY YES; Platelet Count 154 K/mm3 (150-450); RBC Distribution Width CV 13.4 % (11.6-14.6); RBC Distribution Width SD 43.9 fl (35.1-43.9); Red Blood Count 3.65 M/mm3 (4.6-6.2); White Blood Count 7.2 K/mm3 (4.4-11.0)
[2019-08-24 06:29] LABS: Differential Indicated SCAN CRITERIA MET
[2019-08-24] MEDS: Amiodarone 200 MG Tablet PO (06:39)
[2019-08-24 06:43] LABS: Anion Gap 8 (5-15); BUN 22 mg/dL (7-18); BUN/Creat Ratio 22.2 RATIO (10-20); Calcium,Total 7.8 mg/dL (8.5-10.1); Chloride 111 mmol/L (98-107); Creatinine, Serum 0.99 mg/dL (0.70-1.30); EST Glomerular Filtration Rate 78 mL/min (>60); Est Glom Filt Rate - Afr Amer 95 mL/min (>60); Estimated Creatinine Clearance 66.45 ml/min; Glucose 83 mg/dL (74-106); Magnesium 1.9 mg/dL (1.6-2.6); Potassium 3.7 mmol/L (3.5-5.1); Sodium Level 142 mmol/L (136-145)
[2019-08-24 06:46] LABS: Bedside Glucose 91 mg/dL (70-110)
[2019-08-24 07:10] VITALS: PULSE 69
[2019-08-24 08:04] VITALS: O2SAT 96
[2019-08-24 08:10] VITALS: BP 134/79; PULSE 84; RESP 16; TEMP 36.9; O2SAT 97
[2019-08-24] MEDS: Vancomycin IV 1,000 MG/200 ML BAG 200 MG IV (08:56)
[2019-08-24] MEDS: Aspirin E.C. 81 MG Tablet PO (08:57)
[2019-08-24] MEDS: Glimepiride 2 MG Tablet PO (08:57)
[2019-08-24] MEDS: Lisinopril 10 MG Tablet PO (09:08)
[2019-08-24 09:10] VITALS: BP 134/79; PULSE 84
[2019-08-24] MEDS: Metoprolol Tartrate 50 MG Tablet PO (09:10)
[2019-08-24] MEDS: guaiFENesin 600 MG Tablet PO (09:11)
[2019-08-24] MEDS: Doxazosin 4 MG Tablet PO (09:11)
--- NOTE | 2019-08-24 11:13 | NURSING ---
Attempted to start IV in right forearm d/t failure of IV in right AC d/t occlusion. New IV successfully placed in right hand. IV started d/t Vancomycin and Zosyn incompatibility.
--- NOTE | 2019-08-24 12:27 | DCINST_ITS ---
- Discharge Diagnoses Current Active Problems: Current Active and Chronic Problems (Last Updated 08/21/19 @ 16:08 by Sushila Maldonado) Diabetes mellitus type 2 in obese (Chronic) Chest pain (Acute) PSVT (paroxysmal supraventricular tachycardia) (Acute) CAD (coronary artery disease) (Chronic) H/O prior ablation treatment (Chronic) You will use the following diet at home:: Other - Resume previous diet Your food should be the consistency of: Regular Your liquids should be the consistency of: Regular/Thin Discharge Activity: - - Take it easy for a few days....allow your body to heal. May resume sexual activity in: No Restrictions Call your doctor if you observe: Fever of 101 or Higher, Shortness of breath, Dizziness, Fainting spells, Swelling in the ankles, Chest pain, - - Call your PCP if severe diarrhea ( > 5 stools a day), painful sores in the mouth, painful swallowing, rash or itching. Taking a probiotic such as Lactobacillus or Kefir can help with loose stools while taking antibiotics. Instructions: What Are Snoring and Sleep Apnea?, Visiting a Sleep Clinic Additional Instructions: I do not know what caused the fever and the chills and the cough. Your symptoms were impressive so I am sending you home on an antibiotic called Augmentin. It is a penicillin. you will take it twice a day until it is all gone. Augmentin can cause some loose stool and some stomach upset so take it with food. I gave you a prescription for folic acid to help with the leg cramps at night. There are some other things that could be tried if the Folic acid does not work. You could also try drinking a glass of tonic water at bedtime...this helps a lot of people. Take care of yourself....it was a pleasure taking care of you and meeting you. Allergies/Adverse Reactions: Allergies dabigatran etexilate [From Pradaxa] Adverse Reaction (Severe, Verified 08/21/19 04:32) GI Bleed niacin [From Niaspan Extended-Release] Adverse Reaction (Severe, Verified 08/21/19 04:32) Hot flashes Iodinated Contrast Media [CT] Adverse Reaction (Verified 08/21/19 04:32) Nausea Medications to take at Discharge Aspirin [Aspirin, Baby] 81 mg PO DAILY@0800 10/18/13 Lisinopril 20 mg PO DAILY 10/18/13 Metformin HCl [Glucophage Xr] 750 mg PO DAILY 10/18/13 Terazosin HCl [Hytrin] 5 mg PO DAILY 10/18/13 Atorvastatin Calcium [Lipitor] 40 mg PO QHS 08/21/19 Glimepiride 2 mg PO DAILY 08/21/19 Metoprolol Tartrate [Lopressor (beta destiny)] 50 mg PO BID 08/21/19 Warfarin Sodium 5 mg PO DAILY 08/21/19 Amiodarone HCl 200 mg PO DAILY #30 tab 08/22/19 Amiodarone HCl [Cordarone] 200 mg PO TID #72 tab 08/22/19 Amox/Clavulanate Tablet [Augmentin Tablet] 875 mg PO Q12H #12 tab 08/24/19 Folic Acid 2 mg PO QHS #60 tab 08/24/19 Guaifenesin/Codeine [Robitussin AC] 10 ml PO Q6H PRN PRN 7 Days #100 ml 08/24/19 The following prescriptions were given: Amiodarone HCl 200 mg PO DAILY #30 tab Prescription Printed Amox/Clavulanate Tablet [Augmentin Tablet] 875 mg PO Q12H #12 tab Transmission Status: Pending to [facility] Amiodarone HCl [Cordarone] 200 mg PO TID #72 tab Transmission Status: Received by [facility] Folic Acid 2 mg PO QHS #60 tab Transmission Status: Pending to [facility] Guaifenesin/Codeine [Robitussin AC] 10 ml PO Q6H PRN PRN 7 Days #100 ml PRN Reason: COUGH Transmission Status: Sent to [facility] Primary Care Physician: Sal Aguila MD [Primary Care Provider] - Please follow up with your Primary Care Physician in: 1 week Test Results: Test results from this visit will be discussed in further detail at your follow- up appointment, if applicable. Please Follow Up With: Pulmonary clinic When: with Jesenia Nickerson in 2 weeks to arrange for a sleep study Please Follow Up With: Jerman Aviles MD When: call the office for an appointment Proposed Discharge Date: 08/22/19
[2019-08-24] MEDS: Insulin Lispro 100 UNIT/ML INSULN.PEN SC (12:36)
[2019-08-25 07:00] LABS: Bedside Glucose 207 mg/dL (70-110)
[2019-08-25 07:00] LABS: Bedside Glucose 220 mg/dL (70-110)
== END 2019-08-24 13:06 | disposition home or self-care (01) | DRG 287 ==
LOC: ED 03:14 → PCU 03:33
PROVIDERS: Admitting Provider Internal Medicine; Emergency Provider Emergency Medicine; Family Provider Family Medicine; PCP Family Medicine; Referring Provider Internal Medicine Cardiovascular Disease; Visit Provider Internal Medicine
DX: I48.4 Atypical atrial flutter (principal); I25.110 Atherosclerotic heart disease of native coronary artery with unstable angina pectoris; I47.1 Supraventricular tachycardia; R50.9 Fever, unspecified; R07.9 Chest pain, unspecified; I48.0 Paroxysmal atrial fibrillation; Z79.01 Long term (current) use of anticoagulants; E78.5 Hyperlipidemia, unspecified; E11.9 Type 2 diabetes mellitus without complications; I10 Essential (primary) hypertension; Z79.84 Long term (current) use of oral hypoglycemic drugs; Z79.899 Other long term (current) drug therapy; E66.9 Obesity, unspecified; Z68.30 Body mass index [BMI] 30.0-30.9, adult; E87.6 Hypokalemia; D64.9 Anemia, unspecified; K80.20 Calculus of gallbladder without cholecystitis without obstruction; R05 Cough; R53.83 Other fatigue; Z87.442 Personal history of urinary calculi; R19.5 Other fecal abnormalities
CPT/HCPCS: 36415; 71045; 71046; 76700; 80048; 80053; 80061; 80076; 81001; 82274; 82962; 83605; 83735; 84100; 84443; 84484; 85014; 85018; 85025; 85610; 85730; 87040; 87086; 87449; 87633; 87641; 92960; 93005; 93306; 93458; 94762; 97110; 97161; 97166; 97530; 99152; 99153; 99285; J7030; J7040; Q9957; Q9967; A4216; C1769; C1894; J0153; J3490

== ENCOUNTER 2019-09-09 07:48 | Emergency (ER) | payer MEDICARE, SELFPAY ==
[2019-09-09 07:49] VITALS: BP 162/80; PULSE 65; RESP 20; TEMP 36.3; O2SAT 98; BMI 32.8
--- NOTE | 2019-09-09 07:57 | CT_ITS ---
STUDY: CT BRAIN WITHOUT CONTRAST REASON FOR EXAM: Male, 74 years old. Dizziness. Nausea and vomiting. RADIATION DOSAGE (If Supplied By Facility): CTDIvol = ( 44.99 ) mGy, DLP = ( 779.24 ) mGycm TECHNIQUE: Transaxial CT imaging of the brain was performed without administration of intravenous contrast material. Individualized dose optimization techniques were used for this CT. COMPARISON: No relevant priors. FINDINGS: Normal soft tissue structures. Normal calvarium. There is mild cerebral atrophy with widening of the extra-axial spaces and ventricular dilatation. Normal white matter tracts of the cerebral hemispheres. Old tiny lacunae within the basal ganglia bilaterally slightly more prominent on the left side. Normal brainstem. Normal cerebellum. There is no intracranial hemorrhage. There are no findings of an acute ischemic infarction. Partial opacification of the right maxillary sinus and mucosal thickening of the ethmoid sinuses. CT/Brain/Head without Contrast IMPRESSION: Chronic involutional changes of the brain. Electronically Signed: Efrain Bardales, at 9:21 EDT , Service support ,
--- NOTE | 2019-09-09 07:57 | EKG12_ITS ---
Test Reason : DIZZINESS Blood Pressure : / mmHG Vent. Rate : 061 BPM Atrial Rate : 061 BPM P-R Int : 204 ms QRS Dur : 098 ms QT Int : 482 ms P-R-T Axes : 061 -21 030 degrees QTc Int : 485 ms Normal sinus rhythm Prolonged QT Abnormal ECG Confirmed by SALBADOR JANG, LEATHA ([id number]), production editor DANNY SOLO ([id number]) on 09/10/2019 10:59:55 AM Referred By: ELIDA Confirmed By:LEATHA SIU MD
--- NOTE | 2019-09-09 08:04 | ED.DCSUM_ITS ---
History of Present Illness Chief Complaint: Dizziness Onset: Today Maximum Severity: Mild Narrative: Patient has a history of A. fib recently admitted for A. fib RVR switched amiodarone he has had a cardiac catheter that time everything was stable, he is on Coumadin, he did well over the weekend, he was not ill in any way, went to bed feeling fine, then around 3:00 in the morning he sat up in bed and felt this intense sense of spinning sensation he tried to go back to bed he woke this morning with the same sense of spinning sensation he came to the emergency department. He is had vertigo with spinning sensations in the past, he has no history of PR PE or DVT. He has the A. fib again has been stable, he indicates he is Coumadin therapy INRs have been within normal range, he has had no headache, no nausea vomiting fever cough he did not injure his body anyway, he prefers to sit in the bed with his eyes closed as it helps a spinning sensation Past Medical History - Allergies and Home Meds Allergies/Adverse Reactions: Allergies dabigatran etexilate [From Pradaxa] Adverse Reaction (Severe, Verified 09/09/19 07:48) GI Bleed niacin [From Niaspan Extended-Release] Adverse Reaction (Severe, Verified 09/09/19 07:48) Hot flashes Iodinated Contrast Media [CT] Adverse Reaction (Verified 09/09/19 07:48) Nausea Primary Care Physician: Sal Aguila MD [Primary Care Provider] - Past Medical History: - - As above Smoking Status: Never smoker - Family History Paternal Family History: Family History (Last Reviewed 02/04/19 @ 09:24 by Sushila Maldonado) Father Myocardial infarction Hypertension Mother Hina Gehrigs disease Brother MVA (motor vehicle accident) Hypertension Kidney stones Hypercholesterolemia Family History: Reports: Heart Disease - PR/coronary artery disease, first PR at age of 58 Review of Systems General: Reports: - - Generalized spinning sensation otherwise negative. Denies: Chills, Fever, Sweats Eyes: Denies: Visual changes - bilaterally, Diplopia ENT: Denies: Rhinorrhea, Sore throat Cardiovascular: Denies: Chest pain, Palpitations Respiratory: Denies: Dyspnea, Cough, Dyspnea on exertion Gastrointestinal: Denies: Abdominal pain, Nausea, Vomiting, Diarrhea, Melena, Hematochezia Genitourinary: Denies: Dysuria, Hematuria, Frequency Musculoskeletal: Denies: Back pain, Extremity Pain Skin: Denies: Rash, Wounds Neurological: Denies: Headache, Weakness, Numbness Physical Exam Vital Signs/Narrative: Vital Signs Temp Pulse Resp BP Pulse Ox 09/09/19 07:49 97.3 F L 65 20 H 162/80 H 98 General: Well nourished, Well developed, No Acute Distress Head: Normocephalic, Atraumatic Eyes: Perrl, EOMI ENT: Moist mucous membranes, No rhinorrhea, - - No nystagmus indicates his vision is normal his cranial nerves are normal normal, motor Neck: Supple, Nontender Cardiovascular: Regular rate, Regular rhythm, No murmurs Respiratory: No distress, CTA bilaterally, Chest nontender Abdomen: Soft, Nontender, Nondistended, Normal bowel sounds Back: Nontender, Normal Inspection Extremities: Nontender, No edema Skin: Normal color, No rash Neurological: Alert, Oriented x3, Cranial nerves II-XII grossly intact, Normal Strength, Normal Sensation Psychological: Normal affect, Normal Mood Diagnostic/Tx/Re-eval - Medical Decision Making Given all the above evaluation and differential extensive including IV fluids screening labs EKG head CT INR Antivert Ativan Reevaluation patient is resting company the bed, screening labs are all generally unremarkable as is head CT showed nothing acute, chest x-ray shows pulmonary congestion, EKG shows a sinus rhythm rate 60 no acute injury pattern intervals appropriate INR did return around 9 indicates he has not taken his Coumadin yet he has had no bleeding he has had recent frequent checks of INR the been therapeutic States his symptoms are resolved we discussed inpatient versus outpatient management, we discussed differential, indicates he is feeling better he does not wish to be admitted he wants to go home I have asked him to hold the INR until he has a repeated on Monday and to discuss resuming Coumadin with his image archivist office after INR check on Monday he will be discharged on Antivert and he will follow with his outpatient providers for further management of this intermittent dizzy sensation He feels back to baseline wants to go home Home stable declined admission Impression final Transient dizziness spinning sensation resolved, elevated INR ED Disposition - Plan for ED Patient: Diagnosis: Paroxysmal atrial fibrillation, Dizziness Instructions: DIZZINESS, Unk Cause Prescriptions: Meclizine HCl [Antivert] 25 mg PO BID PRN PRN #10 tab PRN Reason: Dizziness Prescription Printed Referrals: Sal Aguila MD [Primary Care Provider] - Additional Instructions: Have your INR checked on Monday and then discuss when to resume Coumadin with your image archivist, follow-up with your outpatient providers for your symptoms
--- NOTE | 2019-09-09 08:14 | RAD_ITS ---
STUDY: X-RAY CHEST REASON FOR EXAM: Male, 74 years old. Chest pain. TECHNIQUE: Single AP portable view of the chest. COMPARISON: Comparison is made with prior study August 22, 2019. FINDINGS: Vascular congestion and CHF. There is no demonstrated pleural abnormality. There is borderline cardiomegaly. Normal mediastinum and igor. Normal visualized pulmonary arteries. There is atherosclerotic calcification of the aortic arch with tortuosity. Normal visualized thoracic spine. Normal visualized ribs, clavicles, and shoulders. There is no demonstrated abnormality of the visualized soft tissue structures of the upper abdomen. RAD/Chest 1 View (Portable) IMPRESSION: Vascular congestion and CHF. Electronically Signed: Efrain Bardales, at 8:31 EDT , Service support ,
[2019-09-09 08:23] VITALS: O2SAT 94
[2019-09-09] MEDS: Meclizine HCl 25 MG Tablet PO (08:23)
[2019-09-09] MEDS: LORazepam 0.5 MG Tablet PO (08:24)
[2019-09-09 08:25] LABS: Absolute Lymphocyte Count 1.32 X10^3/uL (0.83-4.51); Absolute Neutrophil Count 4.5 X10^3/uL (2.0-7.7); Basophil# 0.04 X10^3/uL; Basophil% 0.6 % (0-1); Eosinophil# 0.04 X10^3/uL; Eosinophils% 0.6 % (0-5); Hematocrit 34.2 % (40-54); Hemoglobin 10.9 g/dL (13.0-16.5); Lymphocyte # 1.32 X10^3/ul (4.0); Lymphocyte % 21.3 % (19-41); Mean Corp Hgb Conc 31.9 g/dL (32-36); Mean Corpuscular Hgb 28.3 pg (27.0-32.0); Mean Corpuscular Volume 88.8 fL (80-94); Monocyte# 0.31 X10^3/uL; NRBC Flagged by Analyzer 0 % (0-5); Neutrophil # 4.47 X10^3/uL (2.7-7.7); Neutrophil % 72.2 % (47-70); Platelet Count 167 K/mm3 (150-450); RBC Distribution Width CV 13.9 % (11.6-14.6); RBC Distribution Width SD 44.2 fl (35.1-43.9); Red Blood Count 3.85 M/mm3 (4.6-6.2); White Blood Count 6.2 K/mm3 (4.4-11.0)
[2019-09-09 08:31] LABS: Prothrombin Time (Protime)PT. 80.5 SECONDS (11.7-14.9)
[2019-09-09 08:38] LABS: Anion Gap 5 (5-15); BUN 21 mg/dL (7-18); BUN/Creat Ratio 18.4 RATIO (10-20); Calcium,Total 8.5 mg/dL (8.5-10.1); Chloride 108 mmol/L (98-107); Creatinine, Serum 1.14 mg/dL (0.70-1.30); EST Glomerular Filtration Rate 67 mL/min (>60); Est Glom Filt Rate - Afr Amer 81 mL/min (>60); Estimated Creatinine Clearance 53.96 ml/min; Glucose 191 mg/dL (74-106); Potassium 3.8 mmol/L (3.5-5.1); Sodium Level 138 mmol/L (136-145)
[2019-09-09 08:39] LABS: International Normalized Ratio 9.8
--- NOTE | 2019-09-09 08:39 | ED.RN ---
INR 9.8. AWARE.
[2019-09-09 09:09] VITALS: BP 128/77; PULSE 59; RESP 14; O2SAT 95
[2019-09-09 10:51] VITALS: BP 137/81; PULSE 56; RESP 14
== END 2019-09-09 11:01 | disposition home or self-care (01) ==
PROVIDERS: Emergency Provider Emergency Medicine; Family Provider Family Medicine; PCP Family Medicine
DX: R42 Dizziness and giddiness (principal); I48.0 Paroxysmal atrial fibrillation; Z79.899 Other long term (current) drug therapy; Z79.01 Long term (current) use of anticoagulants
CPT/HCPCS: 70450; 71045; 80048; 84484; 85025; 85610; 93005; 99284; A4216

== ENCOUNTER 2019-09-11 14:07 | Outpatient (RCR) | payer MEDICARE, SELFPAY ==
[2019-02-04 09:23] VITALS: BMI 30.2
[2019-08-15 08:34] LABS: International Normalized Ratio 2.4; Prothrombin Time (Protime)PT. 26.5 SECONDS (11.7-14.9)
[2019-08-15 09:07] LABS: ALB/GLOB Ratio 1.1 RATIO (0.9-2.4); AST(SGOT) 18 U/L (15-37); Alanine Aminotransfer ALT/SGPT 20 U/L (16-61); Albumin, Serum 3.5 g/dL (3.2-5.0); Alkaline Phosphatase 65 U/L (45-117); Anion Gap 7 (5-15); BUN 25 mg/dL (7-18); BUN/Creat Ratio 25.5 RATIO (10-20); Calcium,Total 8.3 mg/dL (8.5-10.1); Chloride 112 mmol/L (98-107); Cholesterol 99 mg/dL (200); Creatinine, Serum 0.98 mg/dL (0.70-1.30); EST Glomerular Filtration Rate 80 mL/min (>60); Est Glom Filt Rate - Afr Amer 96 mL/min (>60); Globulin 3.2 g/dL (2.2-4.2); Glucose 117 mg/dL (74-106); High Density Lipoprotein 37 mg/dL; Potassium 3.9 mmol/L (3.5-5.1); Protein, Total 6.7 g/dL (6.4-8.2); Sodium Level 143 mmol/L (136-145); Thyroid Stim Hormone (TSH) 1.19 uIU/mL (0.358-3.74); Triglycerides 79 mg/dL; Very Low Density Lipoprotein 16 mg/dL (5-40)
[2019-09-11 15:01] LABS: Absolute Lymphocyte Count 2.15 X10^3/uL (0.83-4.51); Absolute Neutrophil Count 3.1 X10^3/uL (2.0-7.7); Basophil# 0.05 X10^3/uL; Basophil% 0.9 % (0-1); Eosinophil# 0.09 X10^3/uL; Eosinophils% 1.6 % (0-5); Hematocrit 35.6 % (40-54); Hemoglobin 11.3 g/dL (13.0-16.5); Lymphocyte # 2.15 X10^3/ul (4.0); Lymphocyte % 37.1 % (19-41); Mean Corp Hgb Conc 31.7 g/dL (32-36); Mean Corpuscular Hgb 28.3 pg (27.0-32.0); Mean Platelet Vol. 10.3 fl (6.2-12.0); Monocyte# 0.44 X10^3/uL; Monocyte% 7.6 % (0-10); NRBC Flagged by Analyzer 0 % (0-5); Neutrophil # 3.06 X10^3/uL (2.7-7.7); Neutrophil % 52.6 % (47-70); Platelet Count 189 K/mm3 (150-450); RBC Distribution Width CV 14.2 % (11.6-14.6); RBC Distribution Width SD 45.8 fl (35.1-43.9); White Blood Count 5.8 K/mm3 (4.4-11.0)
[2019-09-11 15:09] LABS: Prothrombin Time (Protime)PT. 46.3 SECONDS (11.7-14.9)
[2019-09-11 15:23] LABS: International Normalized Ratio 4.9
[2019-09-11 15:30] LABS: Vitamin B12 377 pg/mL (211-911)
[2019-09-11 16:09] LABS: Ferritin 40 ng/mL (26-388); Iron 39 ug/dL (65-175); Iron Binding Capacity,Total 280 ug/dL (250-450); PERCENT IRON SATURATION 13.9 % (15.0-55.0); Thyroid Stim Hormone (TSH) 2.94 uIU/mL (0.358-3.74)
== END 2019-09-11 18:00 | disposition home or self-care (01) ==
LOC: LAB 14:07
PROVIDERS: Nurse Practitioner Family; Family Provider Family Medicine; PCP Family Medicine; Referring Provider Internal Medicine Cardiovascular Disease; Visit Provider Internal Medicine Cardiovascular Disease
DX: I48.0 Paroxysmal atrial fibrillation (principal); Z79.01 Long term (current) use of anticoagulants; E11.9 Type 2 diabetes mellitus without complications
CPT/HCPCS: 36415; 80053; 80061; 82607; 82728; 82746; 83540; 83550; 84443; 85025; 85610

== ENCOUNTER 2019-10-02 08:13 | Outpatient (RCR) | payer MEDICARE, SELFPAY ==
[2019-09-11 13:12] VITALS: BMI 31.1
[2019-09-16 09:29] LABS: International Normalized Ratio 1.8; Prothrombin Time (Protime)PT. 20.3 SECONDS (11.7-14.9)
[2019-09-23 10:21] LABS: Prothrombin Time Fingerstick 19.6 SEC (11.9-14.4)
[2019-10-02 08:26] LABS: Prothrombin Time Fingerstick 28.9 SEC (11.9-14.4)
== END 2019-10-02 18:00 | disposition home or self-care (01) ==
LOC: LAB 08:13
PROVIDERS: Family Provider Family Medicine; PCP Family Medicine; Referring Provider Internal Medicine Cardiovascular Disease; Visit Provider Internal Medicine Cardiovascular Disease
DX: I48.0 Paroxysmal atrial fibrillation (principal); Z79.01 Long term (current) use of anticoagulants
CPT/HCPCS: 36415; 36416; 85610

== ENCOUNTER → 2019-10-23 10:32 | Outpatient (CLI) | payer MEDICARE, SELFPAY ==
[2019-09-11 13:12] VITALS: BMI 31.1
--- NOTE | 2019-10-23 10:35 | ART_ITS ---
Reason For Study: Claudication Procedure A bilateral lower extremity continuous wave Doppler with analog waveform analysis,segmental pressures,and ankle brachial indexes with exercise. Left Segmental Pressures Left brachial= 126mmHg. Left posterior tibial artery = 182mmHg. Left dorsalis pedis artery = 187mmHg. Left digit = 105 mmHg. The left posterior tibial artery waveforms are triphasic. The left dorsalis pedis waveforms are triphasic. Right Segmental Pressures Right brachial= 121mmHg. Right posterior tibial artery = 194mmHg. Right dorsalis pedis artery = 192mmHg. Right digit = 124 mmHg. The right posterior tibial artery waveforms are triphasic. The right dorsalis pedis waveforms are triphasic. Indices The right ankle brachial index by the posterior tibial artery is 1.54. The right ankle brachial index by the dorsalis pedis is 1.52. The right digital-brachial index is 0.98. The right post exercise ankle brachial index is 1.26. The left ankle brachial index by the posterior tibial artery is 1.44. The left ankle brachial index by the dorsalis pedis is 1.48. The left digital-brachial index is 0.83. The left post exercise ankle brachial index is 1.37. Interpretation Summary Triphasic Doppler waveforms are noted at ankle level bilaterally. Pulse-volume recordings appear satisfactory at ankle and digital level bilaterally. Resting ankle-brachial indices are supra-normal bilaterally. Digital-brachial indices are normal bilaterally. Following a period of exercise, abbreviated due to shortness of breath, ankle pressures are noted to augment bilaterally. Arterial flow appears to be normal at ankle and digital level bilaterally. There is no evidence of arterial occlusive disease on either side. However, there is evidence of arterial calcification at ankle level bilaterally. Ordering Physician: Sal Aguila Referring Physician: Sal Aguila Performed By: Nany Green RDCS/RVT
== END ==
PROVIDERS: Family Provider Family Medicine; PCP Family Medicine; Referring Provider Family Medicine; Visit Provider Family Medicine
DX: I73.9 Peripheral vascular disease, unspecified (principal); I48.91 Unspecified atrial fibrillation; Z79.01 Long term (current) use of anticoagulants
CPT/HCPCS: 36416; 85610; 93924

== ENCOUNTER 2019-10-31 08:06 | Outpatient (RCR) | payer MEDICARE, SELFPAY ==
[2019-09-11 13:12] VITALS: BMI 31.1
[2019-10-23 11:10] LABS: Prothrombin Time Fingerstick 19.8 SEC (11.9-14.4)
[2019-10-31 10:56] LABS: Prothrombin Time Fingerstick 28.9 SEC (11.9-14.4)
== END 2019-10-31 18:00 | disposition home or self-care (01) ==
LOC: LAB 08:06
PROVIDERS: Family Provider Family Medicine; PCP Family Medicine; Referring Provider Internal Medicine Cardiovascular Disease; Visit Provider Internal Medicine Cardiovascular Disease
DX: I48.91 Unspecified atrial fibrillation (principal); Z79.01 Long term (current) use of anticoagulants
CPT/HCPCS: 36416; 85610

== ENCOUNTER 2019-12-19 08:11 | Outpatient (RCR) | payer MEDICARE, SELFPAY ==
[2019-09-11 13:12] VITALS: BMI 31.1
[2019-12-19 08:25] LABS: Prothrombin Time Fingerstick 27.7 SEC (11.9-14.4)
== END 2019-12-19 18:00 | disposition home or self-care (01) ==
LOC: LAB 08:11
PROVIDERS: Family Provider Family Medicine; PCP Family Medicine; Referring Provider Internal Medicine Cardiovascular Disease; Visit Provider Internal Medicine Cardiovascular Disease
DX: I48.91 Unspecified atrial fibrillation (principal); Z79.01 Long term (current) use of anticoagulants
CPT/HCPCS: 36416; 85610

== ENCOUNTER 2019-12-29 07:36 | Observation (INO) | payer MEDICARE, SELFPAY ==
[2019-09-11 13:12] VITALS: BMI 31.1
[2019-12-29] VITALS (9 sets, daily range): BP systolic 113–158; BP diastolic 62–90; PULSE 75–92; RESP 16–24; TEMP 37–37.9; O2SAT 93–99; BMI 31.0; BMI 30.1
--- NOTE | 2019-12-29 07:55 | CT_ITS ---
STUDY: CT BRAIN WITHOUT CONTRAST REASON FOR EXAM: Male, 74 years old. NUMBNESS AND ATAXIA RADIATION DOSAGE (If Supplied By Facility): CTDIvol = ( 44.99 ) mGy, DLP = ( 829.85 ) mGycm TECHNIQUE: Transaxial CT imaging of the brain was performed without administration of intravenous contrast material. Individualized dose optimization techniques were used for this CT. COMPARISON: 01/[address] head FINDINGS: Normal soft tissue structures. Normal calvarium. There is mild cerebral atrophy with widening of the extra-axial spaces and ventricular dilatation. There are minimal areas of decreased attenuation within the white matter tracts of the supratentorial brain, consistent with microvascular disease changes. Normal basal ganglia and thalami. Normal brainstem. There is mild cerebellar atrophy. There is no intracranial hemorrhage. There are no findings of an acute ischemic infarction. There is persistent mucosal thickening of the right maxillary sinus. There is mild ethmoid sinus mucosal thickening. The mastoid air cells are clear. CT/Brain/Head without Contrast IMPRESSION: Atrophy no evidence of acute hemorrhage infarct or edema. Electronically Signed: Misty Luna MD at 8:53 EST Tel , Service support ,
--- NOTE | 2019-12-29 07:55 | EKG12_ITS ---
Test Reason : GEN ILLNESS Blood Pressure : / mmHG Vent. Rate : 090 BPM Atrial Rate : 090 BPM P-R Int : 238 ms QRS Dur : 104 ms QT Int : 388 ms P-R-T Axes : 075 -31 042 degrees QTc Int : 474 ms Sinus rhythm with 1st degree A-V block Left axis deviation Poor R wave progression Abnormal ECG Confirmed by TESSA JANG, CAMERON ([id number]), food editor DANNY SOLO ([id number]) on 01/01/2020 8:56:57 AM Referred By: LAYNE Confirmed By:CAMERON ZARATE MD
[2019-12-29] MEDS: Ondansetron 4 MG/2 ML Vial IV (08:02)
[2019-12-29 08:04] LABS: Absolute Lymphocyte Count 1.53 X10^3/uL (0.83-4.51); Absolute Neutrophil Count 14.3 X10^3/uL (2.0-7.7); Basophil# 0.03 X10^3/uL; Basophil% 0.2 % (0-1); Eosinophil# 0.02 X10^3/uL; Eosinophils% 0.1 % (0-5); Hematocrit 38.5 % (40-54); Hemoglobin 12.4 g/dL (13.0-16.5); Lymphocyte # 1.53 X10^3/ul (4.0); Lymphocyte % 9.3 % (19-41); Mean Corp Hgb Conc 32.2 g/dL (32-36); Mean Corpuscular Hgb 27.9 pg (27.0-32.0); Mean Corpuscular Volume 86.7 fL (80-94); Monocyte# 0.46 X10^3/uL; Monocyte% 2.8 % (0-10); NRBC Flagged by Analyzer 0 % (0-5); Neutrophil # 14.29 X10^3/uL (2.7-7.7); Neutrophil % 86.9 % (47-70); Platelet Count 161 K/mm3 (150-450); RBC Distribution Width CV 14.6 % (11.6-14.6); RBC Distribution Width SD 46.7 fl (35.1-43.9); Red Blood Count 4.44 M/mm3 (4.6-6.2); White Blood Count 16.5 K/mm3 (4.4-11.0)
--- NOTE | 2019-12-29 08:11 | ED.DCSUM_ITS ---
- ER Visit Summary Date of Service: 12/29/19 Chief Complaint: Off balance History of Present Illness: The patient is a 74 M presenting stating that he just does not feel right. He states he woke up around 1 AM to use the bathroom and felt unsteady and staggering when he tried to walk to the bathroom. Denies fall. He has had urinary frequency and mild dysuria. He has nausea with no vomiting. He denies headache. Denies chest pain or shortness of breath. Denies dizziness or syncope. Denies fever or recent illness. He states that he just does not feel right. Physical Examination: Vitals are stable. Patient is afebrile. Alert no acute distress. HEENT exam is unremarkable. Neck is supple. Lungs are clear and equal bilaterally. Heart is regular rate and rhythm. Abdomen is soft nontender nondistended. Extremities are unremarkable. Skin is warm and dry. No focal neurologic deficit. NIH 0 Remainder of exam is unremarkable. Emergency Department Course and Treatment: Patient was given IV fluids, Zofran. EKG is sinus rate of 90 with no acute ischemic changes. CBC shows white count 16.5. Chemistries show glucose 188, BUN 31, creatinine 1.35. INR 3.8. Troponin 0.022. CT head shows atrophy no evidence of acute hemorrhage infarct or edema. Chest xray shows moderate cardiac enlargement. Minimal lower lobe atelectasis. Urinalysis shows over 100 white blood cells. Urine culture was sent. He was given Rocephin IV. Discussed with the hospitalist for admission. Disposition: Admission Impression: UTI, unsteady gait This note was generated with [employer] dictation software. It may contain incorrect words, spelling, and punctuation that were not noted in review of the chart prior to signing ED Disposition - Plan for ED Patient: Disposition: Acute Care Hospital [facility]
[2019-12-29 08:13] LABS: International Normalized Ratio 3.8; Prothrombin Time (Protime)PT. 37.6 SECONDS (11.7-14.9)
[2019-12-29 08:25] LABS: Anion Gap 8 (5-15); BUN 31 mg/dL (7-18); Chloride 107 mmol/L (98-107); Creatinine, Serum 1.35 mg/dL (0.70-1.30); EST Glomerular Filtration Rate 55 mL/min (>60); Est Glom Filt Rate - Afr Amer 67 mL/min (>60); Estimated Creatinine Clearance 48.73 ml/min; Glucose 188 mg/dL (74-106); Potassium 4.2 mmol/L (3.5-5.1); Sodium Level 137 mmol/L (136-145)
--- NOTE | 2019-12-29 08:35 | RAD_ITS ---
STUDY: X-RAY CHEST REASON FOR EXAM: Male, 74 years old. SOB -- DIFFICULTY BALANCING TECHNIQUE: Single AP portable view of the chest. COMPARISON: September 09, 2019 chest x-ray FINDINGS: The lungs are underexpanded. There is elevation of the right hemidiaphragm. There is no demonstrated pleural abnormality. There is moderate cardiac enlargement. Normal mediastinum and igor. Normal visualized pulmonary arteries. There is atherosclerotic tortuosity of the aortic arch and descending thoracic aorta. There are diffuse degenerative changes of the visualized thoracic spine. Normal visualized ribs, clavicles, and shoulders. There is no demonstrated abnormality of the visualized soft tissue structures of the upper abdomen. RAD/Chest 1 View (Portable) IMPRESSION: Moderate cardiac enlargement. Minimal lower lobe atelectasis. Electronically Signed: Misty Luna MD at 9:20 EST Tel , Service support ,
[2019-12-29 09:33] LABS: Bacteria 0 SEEN /hpf (None Seen); Mucous, Urine 0 SEEN /hpf (<or=2+)
[2019-12-29 09:35] LABS: Color, Urine Straw (Yellow); Glucose, Dipstick Normal (Normal); Ketone-Dipstick 5 mg/dl (Negative); Leukocyte Esterase-Dipstick 500 /ul (Negative); Nitrite-Dipstick Positive (Negative); Occult Blood-Urine 150 /ul (Negative); Protein-Dipstick 30 mg/dl (Negative); Specific Gravity, Urine 1.025 (1.002-1.030); Urine Bilirubin Dipstick Negative (Negative); Urine Clarity Sl. Cloudy (Clear); Urine Urobilinogen Normal (Normal)
[2019-12-29 09:41] LABS: Red Blood Cells-Urine 0-5 SEEN /hpf (0-5); Squamous Epithelial Cells - UA 0-5 SEEN /hpf (0-5); White Blood Cells >100 SEEN /hpf (0-5)
--- NOTE | 2019-12-29 10:00 | HP.PCM_ITS ---
History of Present Illness Date of Admission: 12/29/19 Chief Complaint: Frequency of urination, generalized malaise. The patient is a 74 year old M with a past medical history as outlined. He was admitted through the ED on 12/29/2019 with a complaint of generalized malaise and frequency of urination. He says he thinks symptoms have been going on for a while but could not say exactly how long. Symptoms however worsened on day of admission when he started feeling weak and unsteady on his feet. He denied any headache or blurred vision, fever or chills, any focal weakness, any chest pain, he admitted to nausea but denied any vomiting and he denied any diarrhea. Review systems was otherwise negative. In the ED, vitals were significant for respiratory rate of 23. Chemistry showed creatinine of 1.35 but was otherwise unremarkable. CBC showed WBC of 16.5 and hemoglobin of 12.4 and initial troponin was negative. CT of the brain showed atrophy, and no evidence of acute hemorrhage or infarct or edema. Chest x-ray showed moderate cardiac enlargement with minimal lower lobe atelectasis. He has been admitted to be managed for sepsis due to UTI. [] Past Medical History Past Medical History (Chronic Problems): Chronic Problems (Last Updated 08/22/19 @ 15:57 by Kiana Law DO) Leg cramps, sleep related (Chronic) Diabetes mellitus type 2 in obese (Chronic) CAD (coronary artery disease) (Chronic) H/O prior ablation treatment (Chronic) Pure hypercholesterolemia (Chronic) Essential hypertension (Chronic) correction current use of anticoagulant (Chronic) Paroxysmal atrial fibrillation (Chronic) DCCV on 08/21/2019; Medical History: Medical History (Last Updated 08/22/19 @ 15:57 by Kiana Law DO) Pure hypercholesterolemia (Chronic) E78.00 Essential hypertension (Chronic) I10 correction current use of anticoagulant (Chronic) Z79.01 Paroxysmal atrial fibrillation (Chronic) I48.0 DCCV on 08/21/2019; History of cardioversion Onset Date: ~08/21/19 Z98.890 Coronary arteriosclerosis in nondal[place] artery (Inactive) I25.10 Hyperlipidemia (Inactive) E78.5 Hypertension (Inactive) I10 Allergies dabigatran etexilate [From Pradaxa] Adverse Reaction (Severe, Verified 12/29/19 07:38) GI Bleed niacin [From Niaspan Extended-Release] Adverse Reaction (Severe, Verified 12/29/19 07:38) Hot flashes Iodinated Contrast Media [CT] Adverse Reaction (Verified 12/29/19 07:38) Nausea Home Medications: Ambulatory Orders Medication Instructions Recorded Aspirin [Aspirin, Baby] 81 mg PO DAILY@0800 10/18/13 Lisinopril 20 mg PO DAILY 10/18/13 Metformin HCl [Glucophage Xr] 750 mg PO DAILY 10/18/13 Terazosin HCl [Hytrin] 5 mg PO DAILY 10/18/13 Atorvastatin Calcium [Lipitor] 40 mg PO QHS 08/21/19 Glimepiride 2 mg PO DAILY 08/21/19 Metoprolol Tartrate [Lopressor 50 mg PO BID 08/21/19 (beta destiny)] Warfarin Sodium 5 mg PO MOWE 08/21/19 Folic Acid 2 mg PO QHS #60 tab 08/24/19 Meclizine HCl [Antivert] 25 mg PO BID PRN PRN #10 tab 09/09/19 amiodarone 200 mg tablet 200 mg PO DAILY #90 tab 10/16/19 Warfarin [Coumadin (PBKC)] 2.5 mg PO SUTUTHFRSA 12/29/19 Surgical History: Surgical History (Last Updated 08/21/19 @ 16:08 by Sushila Maldonado) History of cardiac radiofrequency ablation (RFA) Onset Date: ~09/21/11 Z98.1997, 09/21/11 followed by pericardial effusion History of endoscopy Z98. History of esophagogastroduodenoscopy (EGD) Z98. History of left heart catheterization Onset Date: ~08/21/19 Z98.89 left 08/1998; LEFT MAIN: Angiographically normal; LEFT ANTERIOR DESCENDING ARTERY: Mild luminal irregularities MID LAD: s/p DX: conentric: 25 % Stenosis, DIAGONAL 1: Proximal - Mild luminal irregularities; CIRCUMFLEX ARTERY: Mild luminal irregularities; OM 1: Proximal - Mild luminal irregularities; 1ST LEFT PLV: diffuse: 10 - 25 % Stenosis per cath 08/21/19 RIGHT CORONARY ARTERY: PROX RCA: eccentric: 25 % Stenosis History of release of tendon Z. History of tonsillectomy Z. Lives: Spouse/ Significant Other Smoking Status: Never smoker Tobacco Use: Non-smoker - *Family History Paternal Family History: Family History (Last Reviewed 02/04/19 @ 09:24 by Sushila Maldonado) Father Myocardial infarction Hypertension Mother Hina Gehrigs disease Brother MVA (motor vehicle accident) Hypertension Kidney stones Hypercholesterolemia History Items: Heart Disease - [place]/coronary artery disease, first [place] at age of 59 Review of Systems Constitutional: Reports: Malaise, Weakness, Fatigue. Denies: Anorexia, Chills, Fever Eyes: Denies: Blurred vision HEENT: Denies: Head Aches, Sinus Congestion, Sinus Drainage Cardiovascular: Denies: Chest Pain, Palpitations Respiratory: Denies: Cough, Shortness of Breath, Shortness of breath at rest, Shortness of breath upon exertion, Sputum production Gastrointestinal: Reports: Nausea. Denies: Abdominal Pain, Hematemesis, Vomiting Genitourinary: Reports: Frequency. Denies: Dysuria, Incontinence, Nocturia, Urgency Musculoskeletal: Denies: Joint Pain, Joint Tenderness Skin: Denies: Rash, Wounds Neurological: Denies: Numbness, Tingling, Focal weakness Psychiatric: Denies: Anxiety, Depression, Homicidal Ideations, Suicidal Ideations Hematologic/ Lymphatic: Denies: Easy Bruising, Easy Bleeding VTE Information - Inpt Only VTE Present on Admission: No VTE Pharm Prophylaxis ordered?: Yes - Physical Exam Vitals/I&O's: Vital Signs Temp Pulse Resp BP Pulse Ox 98.7 F 89 24 H 130/63 H 93 12/29/19 08:52 12/29/19 08:52 12/29/19 08:52 12/29/19 08:52 12/29/19 08:52 Oxygen Delivery Method Room Air Weight: 210 lb Body Mass Index (BMI) 31.0 Intake and Output for Last 24 Hours 12/27/19 12/28/19 12/29/19 23:59 23:59 23:59 Intake Total 500 / 500 Balance 500 / 500 General: Alert, Oriented x3, Cooperative, No apparent distress HEENT: Atraumatic, PERRLA, EOMI, Normocephalic Oral: Dry Mucosa Neck: Supple, No JVD, Negative Carotid Bruits Lungs: Clear to auscultation, Normal air movement, No rhonchi, No wheeze, Tachypneic Cardiovascular: Regular rate, Regular Rhythm, Normal S1, Normal S2, No murmurs Abdomen: Bowel Sounds Present, Soft, Non Tender, Non-Distended, No Hepato- splenomegaly, Passing Flatus Extremities: No clubbing, No cyanosis, No edema, Capillary Refill Less than 3 Seconds Skin: No rashes, No breakdown Musculoskeletal: No Tenderness to Palpation of Joints or Extremities Lymphatic: No Cervical, Supraclavicular, or Inguinal Adenopathy Neurological: Cranial nerves II-XII grossly intact, Neuro grossly intact, Motor Exam 5/5 strength throughout Psych/Mental Status: Normal Affect, Appropriate, Alert and oriented to time, place, person, mood and affect Laboratory Results 12/29/19 07:48: WBC 16.5 H, RBC 4.44 L, Hgb 12.4 L, Hct 38.5 L, MCV 86.7, MCH 27.9, MCHC 32.2, RDW Std Deviation 46.7 H, RDW Coeff of Katarzyna 14.6, Plt Count 161, MPV 10.0, Immature Gran % (Auto) 0.700, Neut % (Auto) 86.9 H, Lymph % (Auto) 9.3 L, [place] % (Auto) 2.8, Eos % (Auto) 0.1, Baso % (Auto) 0.2, Absolute Neuts (auto) 14.3 H, Absolute Lymphs (auto) 1.53, Nucleated RBC % 0 12/29/19 07:48: PT 37.6 H, INR 3.8 H* 12/29/19 07:48: Sodium 137, Potassium 4.2, Chloride 107, Carbon Dioxide 22.0, Anion Gap 8, BUN 31 H, Creatinine 1.35 H, Estim Creat Clear Calc 48.73, Est GFR (MDRD) Af Amer 67, Est GFR (MDRD) Non-Af 55 L, BUN/Creatinine Ratio 23.0 H, Glucose 188 H, Calcium 9.0, Troponin I 0.022 12/29/19 09:29: Urine Color Straw, Urine Clarity Sl. Cloudy, Urine pH 5.0, Ur Specific [place] 1.025, Urine Protein 30 H, Urine Glucose (UA) Normal, Urine Ketones 5 H, Urine Occult Blood 150 H, Urine Nitrite Positive H, Urine Bilirubin Negative, Urine Urobilinogen Normal, Ur Leukocyte Esterase 500 H, Urine RBC 0-5 SEEN, Urine WBC >100 SEEN, Ur Squamous Epith Cells 0-5 SEEN, Urine Bacteria 0 SEEN, Urine Mucus 0 SEEN Diagnostic Data Brain CT 12/29/19 07:55 IMPRESSION: Atrophy no evidence of acute hemorrhage infarct or edema. Electronically Signed: Misty Luna MD at 8:53 EST Tel , Service support , Chest X-Ray 12/29/19 08:35 IMPRESSION: Moderate cardiac enlargement. Minimal lower lobe atelectasis. Electronically Signed: Misty Luna MD at 9:20 EST Tel , Service support , Current Medications Ceftriaxone Sodium (Rocephin) 1 gm in 50 mls @ 100 mls/hr IV X1 ONE Stop: 12/29/19 10:20 Assessment/Plan All Active Problems (Last Updated 08/22/19 @ 15:57 by Kiana Law DO) FUO (fever of unknown origin) (Acute) Encounter for cardioversion procedure (Acute) Sleep-disordered breathing (Acute) Atrial fibrillation with RVR (Acute) Acute coronary syndrome (Ruled-out) Chest pain (Acute) PSVT (paroxysmal supraventricular tachycardia) (Acute) Kidney stone on right side (Resolved) 74 y/o male admitted with a complaint of generalised malaise and weakness 1. UTI * SIRS criteria is 2/4- tachypnea and leucocytosis * will admit to Med surg * UA showed >500 wbc, though no bacteria * get blood and urine cultures. * started on IV ceftriazone in the ED; will continue * previous urine cultures grew Enterobacter and Strep agalactiae, both sensitive to ceftriaxone * hydrate gently with IVF NS @ 125cc/hr * 2. Afib: rate controlled. had DC cardioversion on 10/21/2019. On amiodarone and metoprolol. on coumadin. INR is 3. Type 2 diabetes mellitus: on metformin. ISS. Accuchecks ACHS 4. Hypertension: on lisinopril and metoprolol 5. CAD: on aspirin and statin as well as metoprolol DVT prophylaxis: on coumadin; INR is 3.8. Will hold coumadin for tonight Code status; full code * Patient counseled extensively about different types of CODE STATUS including full code, DNR CCA and DNR CCA. Patient elects to be full code. * Total [id number] time 16 minutes. Code Visit OBSV E&M: 30846 Initial observation care L3 Procedures: 73644 Advncd Care Plan 30 Min
[2019-12-29] MEDS: Ceftriaxone 1 GM/50 ML BAG IV (10:12)
[2019-12-29] MEDS: 0.9% Normal Saline 1,000 ML 125 ML IV ×2 (11:30→21:07)
[2019-12-29 12:35] LABS: Bedside Glucose 135 mg/dL (70-110)
[2019-12-29] MEDS: Acetaminophen 325 MG Tablet 650 MG PO (14:55)
[2019-12-29 16:16] LABS: Bedside Glucose 121 mg/dL (70-110)
[2019-12-29] MEDS: Atorvastatin Calcium 40 MG Tablet PO (21:06)
[2019-12-29] MEDS: Metoprolol Tartrate 50 MG Tablet PO (21:07)
[2019-12-29] MEDS: Folic Acid 1 MG Tablet 2 MG PO (21:07)
[2019-12-29 21:21] LABS: Bedside Glucose 118 mg/dL (70-110)
[2019-12-30] VITALS (10 sets, daily range): BP systolic 101–138; BP diastolic 58–84; PULSE 66–81; RESP 16–18; TEMP 36.3–37.8; O2SAT 94–99
[2019-12-30 06:30] LABS: Anion Gap 3 (5-15); BUN 22 mg/dL (7-18); Calcium,Total 8.2 mg/dL (8.5-10.1); Chloride 111 mmol/L (98-107); EST Glomerular Filtration Rate 70 mL/min (>60); Est Glom Filt Rate - Afr Amer 84 mL/min (>60); Estimated Creatinine Clearance 59.81 ml/min; Glucose 87 mg/dL (74-106); Potassium 3.9 mmol/L (3.5-5.1); Sodium Level 139 mmol/L (136-145)
[2019-12-30 06:50] LABS: Bedside Glucose 87 mg/dL (70-110)
[2019-12-30 06:57] LABS: Absolute Lymphocyte Count 1.79 X10^3/uL (0.83-4.51); Absolute Neutrophil Count 12.2 X10^3/uL (2.0-7.7); Basophil# 0.04 X10^3/uL; Basophil% 0.3 % (0-1); Eosinophil# 0.03 X10^3/uL; Eosinophils% 0.2 % (0-5); Hemoglobin 10.4 g/dL (13.0-16.5); Lymphocyte # 1.79 X10^3/ul (4.0); Lymphocyte % 11.8 % (19-41); Mean Corp Hgb Conc 31.5 g/dL (32-36); Mean Corpuscular Hgb 27.2 pg (27.0-32.0); Mean Corpuscular Volume 86.2 fL (80-94); Mean Platelet Vol. 10.4 fl (6.2-12.0); Monocyte# 1.02 X10^3/uL; Monocyte% 6.8 % (0-10); NRBC Flagged by Analyzer 0 % (0-5); Neutrophil # 12.15 X10^3/uL (2.7-7.7); Neutrophil % 80.4 % (47-70); Platelet Count 132 K/mm3 (150-450); RBC Distribution Width CV 15.2 % (11.6-14.6); RBC Distribution Width SD 48.2 fl (35.1-43.9); Red Blood Count 3.83 M/mm3 (4.6-6.2); White Blood Count 15.1 K/mm3 (4.4-11.0)
[2019-12-30] MEDS: Amiodarone 200 MG Tablet PO (08:29)
[2019-12-30] MEDS: Doxazosin 4 MG Tablet PO (08:29)
[2019-12-30] MEDS: Metoprolol Tartrate 50 MG Tablet PO ×2 (08:29→21:42)
[2019-12-30] MEDS: Aspirin 81 MG TAB.CHEW PO (08:29)
[2019-12-30] MEDS: Lisinopril 20 MG Tablet PO (08:29)
[2019-12-30] MEDS: Glimepiride 2 MG Tablet PO (08:34)
[2019-12-30] MEDS: Ceftriaxone 1 GM/50 ML BAG IV (10:14)
[2019-12-30] MEDS: METFORMIN HCL 750 MG TAB.ER.24H PO (10:15)
--- NOTE | 2019-12-30 10:22 | PN_ITS ---
Reason for Visit: Follow-up on UTI Subjective: Patient was seen and examined. No acute events overnight. Denied any new complaint. He states that he feels improved. No fevers or chills. T-max was 100.3F Objective: Physical exam: Vitals/I&O's: Vital Signs Temp Pulse Resp BP Pulse Ox 100.0 F H 66 16 101/58 L 94 12/30/19 02:20 12/30/19 08:29 12/30/19 02:20 12/30/19 02:20 12/30/19 02:20 Oxygen Delivery Method Room Air Weight: 92.306 kg Body Mass Index (BMI) 30.0 Intake and Output for Last 24 Hours 12/28/19 12/29/19 12/30/19 23:59 23:59 23:59 Intake Total 1800 / 2100 500 / 500 Output Total 650 / 900 650 / 650 Balance 1150 / 1200 -150 / -150 General: Alert, Oriented x3, Cooperative, No apparent distress HEENT: Atraumatic, PERRLA, EOMI, Normocephalic Oral: Moist Mucosa Neck: Supple Lungs: Clear to auscultation, Normal air movement Cardiovascular: Regular rate, Regular Rhythm, Normal S1, Normal S2, No murmurs Abdomen: Bowel Sounds Present, Soft, Non Tender, Non-Distended, No Hepato- splenomegaly Extremities: No edema Skin: No rashes Musculoskeletal: No Tenderness to Palpation of Joints or Extremities Lymphatic: No Cervical, Supraclavicular, or Inguinal Adenopathy Neurological: Cranial nerves II-XII grossly intact, Neuro grossly intact Psych/Mental Status: Normal Affect, Appropriate Laboratory Results 12/29/19 12:26: POC Glucose 135 H 12/29/19 16:13: POC Glucose 121 H 12/29/19 21:09: POC Glucose 118 H 12/30/19 05:20: WBC 15.1 H, RBC 3.83 L, Hgb 10.4 L, Hct 33.0 L, MCV 86.2, MCH 27.2, MCHC 31.5 L, RDW Std Deviation 48.2 H, RDW Coeff of Katarzyna 15.2 H, Plt Count 132 L, MPV 10.4, Immature Gran % (Auto) 0.500, Neut % (Auto) 80.4 H, Lymph % (Auto) 11.8 L, [place] % (Auto) 6.8, Eos % (Auto) 0.2, Baso % (Auto) 0.3, Absolute Neuts (auto) 12.2 H, Absolute Lymphs (auto) 1.79, Nucleated RBC % 0 12/30/19 05:20: Sodium 139, Potassium 3.9, Chloride 111 H, Carbon Dioxide 25.0, Anion Gap 3 L, BUN 22 H, Creatinine 1.10, Estim Creat Clear Calc 59.81, Est GFR (MDRD) Af Amer 84, Est GFR (MDRD) Non-Af 70, BUN/Creatinine Ratio 20.0, Glucose 87, Calcium 8.2 L 12/30/19 06:27: POC Glucose 87 Current Medications Acetaminophen (Tylenol) 650 mg PO Q6H PRN PRN PRN Reason: Pain Score 1-10/Temp > 100.7 F Last Admin: 12/29/19 14:55 Dose: 650 mg Documented by: Amiodarone HCl (Cordarone) 200 mg PO DAILY [facility] Last Admin: 12/30/19 08:29 Dose: 200 mg Documented by: Aspirin (Aspirin, Baby) 81 mg PO DAILY@0800 [facility] Last Admin: 12/30/19 08:29 Dose: 81 mg Documented by: Atorvastatin Calcium (Lipitor) 40 mg PO QHS [facility] Last Admin: 12/29/19 21:06 Dose: 40 mg Documented by: Doxazosin Mesylate (Cardura) 4 mg PO DAILY [facility] Last Admin: 12/30/19 08:29 Dose: 4 mg Documented by: Folic Acid (Folic Acid) 2 mg PO QHS [facility] Last Admin: 12/29/19 21:07 Dose: 2 mg Documented by: Glimepiride (Amaryl) 2 mg PO DAILY@0800 [facility] Last Admin: 12/30/19 08:34 Dose: 2 mg Documented by: Glucagon () 1 mg IM .X1 PRN PRN Reason: Hypoglycemia Ceftriaxone Sodium (Rocephin) 1 gm in 50 mls @ 100 mls/hr IV Q24 [facility] Last Admin: 12/30/19 10:14 Dose: 100 mls/hr Documented by: Sodium Chloride () 250 mls @ 15 mls/hr IV .[id number] PRN PRN Reason: Saline Flush Sodium Chloride () 250 mls @ 15 mls/hr IV .[id number] PRN PRN Reason: Additional IVPB Infusion Dextrose (Dextrose 10%-Water) 250 mls @ 999 mls/hr IV .Q16M PRN; Protocol PRN Reason: HYPOGLYCEMIA Insulin Human Lispro (Humalog Kwikpen (Bkc)) 0 unit SC ACHS [facility]; Protocol Last Admin: 12/30/19 06:44 Dose: Not Given Documented by: Lisinopril (Zestril) 20 mg PO DAILY [facility] Last Admin: 12/30/19 08:29 Dose: 20 mg Documented by: Meclizine HCl (Antivert) 25 mg PO BID PRN PRN PRN Reason: DIZZINESS Metformin HCl (Glucophage Xr) 750 mg PO DAILYCM [facility] Last Admin: 12/30/19 10:15 Dose: 750 mg Documented by: Metoprolol Tartrate (Lopressor (Beta [place])) 50 mg PO BID [facility] Last Admin: 12/30/19 08:29 Dose: 50 mg Documented by: Ondansetron HCl (Zofran) 4 mg IV Q8H PRN PRN PRN Reason: NAUSEA/VOMITING Sodium Chloride () 10 - 40 ml IV UD PRN PRN Reason: SALINE FLUSH STROKE Vital Signs/Narrative: Vital Signs Pulse 12/30/19 08:29 67 Medical Necessity - Tobacco Use Smoking Status: Never smoker Tobacco Use: Non-smoker Assessment/Plan All Active Problems (Last Updated 08/22/19 @ 15:57 by Kiana Law DO) FUO (fever of unknown origin) (Acute) Encounter for cardioversion procedure (Acute) Sleep-disordered breathing (Acute) Atrial fibrillation with RVR (Acute) Acute coronary syndrome (Ruled-out) Chest pain (Acute) PSVT (paroxysmal supraventricular tachycardia) (Acute) Kidney stone on right side (Resolved) 74-year-old male with past medical history of chronic atrial fibrillation who presents with generalized malaise and weakness and has been managed as acute UTI 1. Acute GNR UTI, unclear etiology, history of nephrolithiasis Leukocytosis improved, patient clinically improved On IV ceftriaxone, will continue on same antibiotics Ultrasound of the kidneys and bladder 2. Type II DM, blood sugars are controlled, continue on metformin, glimepiride with insulin sliding scale with blood glucose checks 3. Hypertension, controlled, continue on lisinopril, metoprolol, doxazosin 4. Paroxysmal atrial fibrillation, normal sinus rhythm, rate controlled, continue on amiodarone, metoprolol, Coumadin, INR is therapeutic at 3.4 5. DVT prophylaxis -INR was supratherapeutic, currently 3.4 from 3.8 Would hold Coumadin tonight, repeat INR in a.m., may likely resume Coumadin Code Visit Inpatient E&M: 81276 Subs Hosp L2
[2019-12-30 10:46] LABS: International Normalized Ratio 3.4; Prothrombin Time (Protime)PT. 34.4 SECONDS (11.7-14.9)
--- NOTE | 2019-12-30 11:44 | CASEMGMT ---
Intro role of CM to patient and BECK form explained re: Observation status for treatment of UTI. Explained hospitalization will be paid per insurance policy for Outpatient billing and condition will continue to be evaluated for Inpt necessity. Also let pt know that [facility] sends paper in the billing packet with their phone number if questions arise. Discussed Pharmacy section of BECK form and self administered medication guideline. Pt verbalizes understanding and does not have further questions. Form signed and placed in chart, copy to pt. ARTHUR HENDRICKSON BSN CM
[2019-12-30 11:46] LABS: Bedside Glucose 139 mg/dL (70-110)
--- NOTE | 2019-12-30 15:20 | US_ITS ---
STUDY: RENAL ULTRASOUND - COMPLETE REASON FOR EXAM: Male, 74 years old. UTI TECHNIQUE: Ultrasound evaluation of the kidneys was performed with real-time and static herbert-scale imaging. COMPARISON: None. FINDINGS: RIGHT KIDNEY: Normal location of the right kidney, which is normal in size. The right kidney measures 12.6 x 5.7 x 6.1 cm. There is a normal cortex of the right kidney. The renal cortex measures 1.8 cm. There is no right renal mass or cyst. There is a nonobstructing 5 mm stone. There is no right hydronephrosis. DISTAL RIGHT URETER: There is non-visualization of the distal right ureter. There is no demonstrated right ureterovesical junction calculus. There is a visualized right ureteral jet. LEFT KIDNEY: Normal location of the left kidney, which is normal in size. The left kidney measures 11.3 x 5.6 x 5.8 cm. There is a normal cortex of the left kidney. The renal cortex measures 1.6 cm. There is no left renal mass or cyst. There are no left renal calculi. There is no left hydronephrosis. DISTAL LEFT URETER: There is non-visualization of the distal left ureter. There is no demonstrated left ureterovesical junction calculus. There is a visualized left ureteral jet. AORTA: There is no elongation or tortuosity of the abdominal aorta. I.V.C.: The IVC is patent. BLADDER: The bladder is sonographically normal US/Kidney and Bladder IMPRESSION: Nonobstructing right nephrolithiasis, otherwise unremarkable study Electronically Signed: Av Velazquez MD at 19:49 EST , Service support ,
[2019-12-30 16:30] LABS: Bedside Glucose 108 mg/dL (70-110)
[2019-12-30] MEDS: Folic Acid 1 MG Tablet 2 MG PO (21:42)
[2019-12-30] MEDS: Atorvastatin Calcium 40 MG Tablet PO (21:43)
[2019-12-30 22:30] LABS: Bedside Glucose 81 mg/dL (70-110)
[2019-12-31 02:25] VITALS: BP 117/71; PULSE 72; RESP 16; TEMP 37.1; O2SAT 96
[2019-12-31 03:40] VITALS: PULSE 61
[2019-12-31 05:26] LABS: Absolute Lymphocyte Count 1.59 X10^3/uL (0.83-4.51); Absolute Neutrophil Count 8.4 X10^3/uL (2.0-7.7); Basophil# 0.04 X10^3/uL; Basophil% 0.4 % (0-1); Eosinophil# 0.09 X10^3/uL; Eosinophils% 0.8 % (0-5); Hematocrit 33.7 % (40-54); Hemoglobin 10.7 g/dL (13.0-16.5); Lymphocyte # 1.59 X10^3/ul (4.0); Lymphocyte % 14.7 % (19-41); Mean Corp Hgb Conc 31.8 g/dL (32-36); Mean Corpuscular Hgb 27.4 pg (27.0-32.0); Mean Corpuscular Volume 86.2 fL (80-94); Mean Platelet Vol. 10.3 fl (6.2-12.0); Monocyte# 0.69 X10^3/uL; Monocyte% 6.4 % (0-10); NRBC Flagged by Analyzer 0 % (0-5); Neutrophil # 8.35 X10^3/uL (2.7-7.7); Neutrophil % 77.5 % (47-70); Platelet Count 139 K/mm3 (150-450); RBC Distribution Width CV 15.1 % (11.6-14.6); RBC Distribution Width SD 47.6 fl (35.1-43.9); Red Blood Count 3.91 M/mm3 (4.6-6.2); White Blood Count 10.8 K/mm3 (4.4-11.0)
[2019-12-31 05:30] LABS: International Normalized Ratio 2.6; Prothrombin Time (Protime)PT. 27.5 SECONDS (11.7-14.9)
[2019-12-31 05:45] LABS: ALB/GLOB Ratio 0.7 RATIO (0.9-2.4); AST(SGOT) 22 U/L (15-37); Alanine Aminotransfer ALT/SGPT 33 U/L (16-61); Albumin, Serum 2.9 g/dL (3.2-5.0); Alkaline Phosphatase 60 U/L (45-117); Anion Gap 6 (5-15); BUN 20 mg/dL (7-18); BUN/Creat Ratio 18.3 RATIO (10-20); Calcium,Total 8.4 mg/dL (8.5-10.1); Chloride 109 mmol/L (98-107); Creatinine, Serum 1.09 mg/dL (0.70-1.30); EST Glomerular Filtration Rate 70 mL/min (>60); Est Glom Filt Rate - Afr Amer 85 mL/min (>60); Estimated Creatinine Clearance 60.36 ml/min; Globulin 3.9 g/dL (2.2-4.2); Glucose 104 mg/dL (74-106); Protein, Total 6.8 g/dL (6.4-8.2); Sodium Level 139 mmol/L (136-145)
[2019-12-31] MEDS: 0.9% Saline Lock 10 ML Syringe IV ×2 (06:31→09:53)
[2019-12-31 06:41] LABS: Bedside Glucose 104 mg/dL (70-110)
[2019-12-31 07:27] VITALS: BP 124/79; PULSE 65; RESP 16; TEMP 36.7; O2SAT 96
[2019-12-31 07:37] VITALS: PULSE 63
[2019-12-31] MEDS: Aspirin 81 MG TAB.CHEW PO (08:24)
[2019-12-31] MEDS: METFORMIN HCL 750 MG TAB.ER.24H PO (08:24)
[2019-12-31 08:25] VITALS: PULSE 63
[2019-12-31] MEDS: Doxazosin 4 MG Tablet PO (08:25)
[2019-12-31] MEDS: Amiodarone 200 MG Tablet PO (08:25)
[2019-12-31] MEDS: Lisinopril 20 MG Tablet PO (08:25)
[2019-12-31] MEDS: Metoprolol Tartrate 50 MG Tablet PO (08:25)
[2019-12-31] MEDS: Glimepiride 2 MG Tablet PO (08:25)
--- NOTE | 2019-12-31 09:42 | DCINST_ITS ---
- Discharge Diagnoses Reason(s) for Visit for Discharge Instructions: generalised weakness You will use the following diet at home:: Calorie/Carbohydrate Controlled (specify 1200, 1400, etc), Cardiac Your food should be the consistency of: Regular Your liquids should be the consistency of: Regular/Thin Discharge Activity: Return to Normal Activity Call your doctor if you observe: Fever of 101 or Higher Instructions: Understanding Urinary Tract Infections (UTIs) Additional Instructions: Continue to take all your medications as prescribed. Complete your antibiotics. Apply the nystatin powder as directed. Keep ypurself hydrated Allergies/Adverse Reactions: Allergies dabigatran etexilate [From Pradaxa] Adverse Reaction (Severe, Verified 12/29/19 07:38) GI Bleed niacin [From Niaspan Extended-Release] Adverse Reaction (Severe, Verified 12/29/19 07:38) Hot flashes Iodinated Contrast Media [CT] Adverse Reaction (Verified 12/29/19 07:38) Nausea Medications to take at Discharge Aspirin [Aspirin, Baby] 81 mg PO DAILY 10/18/13 Lisinopril 20 mg PO DAILY 10/18/13 Metformin HCl [Glucophage Xr] 750 mg PO DAILY 10/18/13 Terazosin HCl [Hytrin] 5 mg PO DAILY 10/18/13 Atorvastatin Calcium [Lipitor] 40 mg PO QHS 08/21/19 Glimepiride 2 mg PO DAILY 08/21/19 Metoprolol Tartrate [Lopressor (beta destiny)] 50 mg PO BID 08/21/19 Warfarin Sodium 5 mg PO MOWE 08/21/19 Folic Acid 2 mg PO QHS #60 tab 08/24/19 Meclizine HCl [Antivert] 25 mg PO BID PRN PRN #10 tab 09/09/19 amiodarone 200 mg tablet 200 mg PO DAILY #90 tab 10/16/19 Warfarin [Coumadin] 2.5 mg PO SUTUTHFRSA 12/29/19 Acetaminophen [Tylenol Tablet] 650 mg PO Q6H PRN PRN tab 12/31/19 Cefdinir [Omnicef [equiv]] 300 mg PO Q12H 5 Days #10 cap 12/31/19 Nystatin Powder [Mycostatin Powder] 1 applic TOPICAL TID bottle 12/31/19 The following prescriptions were given: Cefdinir [Omnicef [equiv]] 300 mg PO Q12H 5 Days #10 cap Transmission Status: Pending to [facility] Primary Care Physician: Sal Aguila MD [Primary Care Provider] - Please follow up with your Primary Care Physician in: within 1-2 weeks Test Results: Test results from this visit will be discussed in further detail at your follow- up appointment, if applicable. Proposed Discharge Date: 12/31/19
[2019-12-31] MEDS: Ceftriaxone 1 GM/50 ML BAG IV (09:53)
--- NOTE | 2019-12-31 18:18 | PCM.DC.SUM ---
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 Electronically Signed: Misty Luna MD at 8:53 EST Tel , Service support , Chest X-Ray 12/29/19 08:35 IMPRESSION: Moderate cardiac enlargement. Minimal lower lobe atelectasis. Electronically Signed: Misty Luna MD at 9:20 EST Tel , Service support , Renal Ultrasound 12/30/19 15:20 IMPRESSION: Nonobstructing right nephrolithiasis, otherwise unremarkable study Electronically Signed: Av Velazquez MD at 19:49 EST , Service support , None Operations: None Procedures: None Summary of Care Provided: The patient is a 74 year old M past medical history of type II DM, hypertension, who comes in with frequency of urination, generalized malaise and was diagnosed with the secondary to acute UTI. His admitting white cell count was 16.5, chest x-ray was unremarkable. He was started on IV ceftriaxone. Urine cultures came back with Klebsiella oxytoca. Ultrasound of the kidney and bladder showed chronic right nonobstructing calculi. Patient was discharged home on cefdinir to complete 1 week treatment. Subjective: On the day of discharge, patient was seen and examined. He felt much improved. Objective: Physical exam: General: Alert, Oriented x3, Cooperative, No apparent distress HEENT: Atraumatic, PERRLA, EOMI, Normocephalic Oral: Moist Mucosa Neck: Supple Lungs: Clear to auscultation, Normal air movement Cardiovascular: Regular rate, Regular Rhythm, Normal S1, Normal S2, No murmurs Abdomen: Bowel Sounds Present, Soft, Non Tender, Non-Distended, No Hepato-splenomegaly Extremities: No edema Skin: No rashes Musculoskeletal: No Tenderness to Palpation of Joints or Extremities Lymphatic: No Cervical, Supraclavicular, or Inguinal Adenopathy Neurological: Cranial nerves II-XII grossly intact, Neuro grossly intact Psych/Mental Status: Normal Affect, Appropriate - Physical Exam Vitals/I&O's: Vital Signs Temp Pulse Resp BP Pulse Ox 98.1 F 63 16 124/79 H 96 12/31/19 07:27 12/31/19 08:25 12/31/19 07:27 12/31/19 07:27 12/31/19 07:27 Oxygen Delivery Method Room Air Weight: 92.306 kg Body Mass Index (BMI) 30.0 Intake and Output for Last 24 Hours 12/29/19 12/30/19 12/31/19 23:59 23:59 23:59 Intake Total 1800 / 2100 2250 / 2450 350 / 350 Output Total 650 / 900 1300 / 1300 Balance 1150 / 1200 950 / 1150 350 / 350 Microbiology Past 72 Hours 12/29/19 09:25 Urine, Clean Catch Urine Culture - Final Klebsiella oxytoca Laboratory Results 12/30/19 21:41: POC Glucose 81 12/31/19 04:56: PT 27.5 H, INR 2.6 12/31/19 04:56: WBC 10.8, RBC 3.91 L, Hgb 10.7 L, Hct 33.7 L, MCV 86.2, MCH 27.4, MCHC 31.8 L, RDW Std Deviation 47.6 H, RDW Coeff of Katarzyna 15.1 H, Plt Count 139 L, MPV 10.3, Immature Gran % (Auto) 0.200, Neut % (Auto) 77.5 H, Lymph % (Auto) 14.7 L, [place] % (Auto) 6.4, Eos % (Auto) 0.8, Baso % (Auto) 0.4, Absolute Neuts (auto) 8.4 H, Absolute Lymphs (auto) 1.59, Nucleated RBC % 0 12/31/19 04:56: Sodium 139, Potassium 4.0, Chloride 109 H, Carbon Dioxide 24.0, Anion Gap 6, BUN 20 H, Creatinine 1.09, Estim Creat Clear Calc 60.36, Est GFR (MDRD) Af Amer 85, Est GFR (MDRD) Non-Af 70, BUN/Creatinine Ratio 18.3, Glucose 104, Calcium 8.4 L, Total Bilirubin 0.70, AST 22, ALT 33, Alkaline Phosphatase 60, Total Protein 6.8, Albumin 2.9 L, Globulin 3.9, Albumin/Globulin Ratio 0.7 L 12/31/19 06:30: POC Glucose 104 Discharge Diet: Low fat/ Low Cholesterol, 2000 mg Sodium Diet, Carb Control Diet Discharge Activity: Return to Normal Activity Call your doctor if you observe: Fever of 101 or Higher Home Medications: Medications to take at Discharge Aspirin [Aspirin, Baby] 81 mg PO DAILY 10/18/13 Lisinopril 20 mg PO DAILY 10/18/13 Metformin HCl [Glucophage Xr] 750 mg PO DAILY 10/18/13 Terazosin HCl [Hytrin] 5 mg PO DAILY 10/18/13 Atorvastatin Calcium [Lipitor] 40 mg PO QHS 08/21/19 Glimepiride 2 mg PO DAILY 08/21/19 Metoprolol Tartrate [Lopressor (beta destiny)] 50 mg PO BID 08/21/19 Warfarin Sodium 5 mg PO MOWE 08/21/19 Folic Acid 2 mg PO QHS #60 tab 08/24/19 Meclizine HCl [Antivert] 25 mg PO BID PRN PRN #10 tab 09/09/19 amiodarone 200 mg tablet 200 mg PO DAILY #90 tab 10/16/19 Warfarin [Coumadin] 2.5 mg PO SUTUTHFRSA 12/29/19 Acetaminophen [Tylenol Tablet] 650 mg PO Q6H PRN PRN tab 12/31/19 Cefdinir [Omnicef [equiv]] 300 mg PO Q12H 5 Days #10 cap 12/31/19 Nystatin Powder [Mycostatin Powder] 1 applic TOPICAL TID bottle 12/31/19 Following Prescrptions Were Given to Patient: Cefdinir [Omnicef [equiv]] 300 mg PO Q12H 5 Days #10 cap Transmission Status: Received by [id number] [place] Primary Care Physician: Sal Aguila MD [Primary Care Provider] - Please follow up with your Primary Care Physician in: within 1-2 weeks Patient Instructions: Understanding Urinary Tract Infections (UTIs) Disposition: Home Minutes spent on discharge:: 40 Patient Condition:: Stable Medical Necessity - Tobacco Use Smoking Status: Never smoker Tobacco Use: Non-smoker Meaningful Use Info Meaningful Use Diagnoses (Choose all that apply): None applicable Code Visit OBSV E&M: 86450 Observation care discharge
== END 2019-12-31 10:56 | disposition home or self-care (01) ==
LOC: ED 08:38 → MS3 10:28
PROVIDERS: Admitting Provider Student in an Organized Health Care Education/Training Program; Emergency Provider Emergency Medicine; PCP Family Medicine; Visit Provider Internal Medicine
DX: N39.0 Urinary tract infection, site not specified (principal); B96.89 Other specified bacterial agents as the cause of diseases classified elsewhere; E11.9 Type 2 diabetes mellitus without complications; I10 Essential (primary) hypertension; I48.0 Paroxysmal atrial fibrillation; I48.20 Chronic atrial fibrillation, unspecified; E78.00 Pure hypercholesterolemia, unspecified; I25.10 Atherosclerotic heart disease of native coronary artery without angina pectoris; Z79.899 Other long term (current) drug therapy; Z79.84 Long term (current) use of oral hypoglycemic drugs; Z79.82 Long term (current) use of aspirin; Z79.01 Long term (current) use of anticoagulants
CPT/HCPCS: 36415; 70450; 71045; 76770; 80048; 80053; 81001; 82962; 84484; 85025; 85610; 87077; 87086; 87088; 87186; 93005; 96361; 96365; 96366; 96375; 97161; 97165; 99218; 99285; J7030; A4216; G0378; J2405

== ENCOUNTER 2020-01-20 08:09 | Outpatient (RCR) | payer MEDICARE, SELFPAY ==
[2020-01-20 11:15] LABS: Prothrombin Time Fingerstick 27.1 SEC (11.9-14.4)
== END 2020-01-20 18:00 | disposition home or self-care (01) ==
LOC: LAB 08:09
PROVIDERS: Family Provider Family Medicine; PCP Family Medicine; Referring Provider Internal Medicine Cardiovascular Disease; Visit Provider Internal Medicine Cardiovascular Disease
DX: I48.0 Paroxysmal atrial fibrillation (principal); Z79.01 Long term (current) use of anticoagulants
CPT/HCPCS: 36416; 85610

== ENCOUNTER → 2020-03-19 | Outpatient (CLI) | payer MEDICARE, SELFPAY ==
[2020-03-10 15:09] VITALS: BMI 31.3
[2020-03-19 07:21] LABS: AST(SGOT) 21 U/L (15-37); Alanine Aminotransfer ALT/SGPT 28 U/L (16-61); Albumin, Serum 3.6 g/dL (3.2-5.0); Alkaline Phosphatase 69 U/L (45-117); Bilirubin, Direct 0.25 mg/dL (0.00-0.30); Cholesterol 127 mg/dL (200); Globulin 3.3 g/dL (2.2-4.2); High Density Lipoprotein 50 mg/dL; Protein, Total 6.9 g/dL (6.4-8.2); Triglycerides 108 mg/dL; Very Low Density Lipoprotein 22 mg/dL (5-40)
[2020-03-19 07:32] LABS: Prothrombin Time (Protime)PT. 57.4 SECONDS (11.7-14.9)
[2020-03-19 08:56] LABS: International Normalized Ratio 6.5
--- NOTE | 2020-03-20 11:24 | PFT ---
INTRODUCTION: The patient is a 74-year-old male that presents for pulmonary function studies secondary to a diagnosis of high risk medication use. Respiratory therapy reports good patient effort. Bronchodilators were used during testing. INTERPRETATION: Forced expiration spirometry demonstrates no evidence of a large airways obstructive ventilatory defect. There was no significant response to aerosolized bronchodilators. Spirograms are of good quality and plateau normally. Body plethysmography was performed and reveals lung volumes to be within normal limits. Diffusing capacity by single breath CO is also within normal limits. IMPRESSION: Grossly normal pulmonary function studies.
== END | disposition home or self-care (01) ==
PROVIDERS: PCP Family Medicine; Referring Provider Internal Medicine Cardiovascular Disease; Visit Provider Internal Medicine Cardiovascular Disease
DX: E78.00 Pure hypercholesterolemia, unspecified (principal); I48.0 Paroxysmal atrial fibrillation; I10 Essential (primary) hypertension; I25.10 Atherosclerotic heart disease of native coronary artery without angina pectoris; R00.1 Bradycardia, unspecified; Z79.01 Long term (current) use of anticoagulants; Z98.890 Other specified postprocedural states
CPT/HCPCS: 36415; 80061; 80076; 85610; 93225; 93226; 94060; 94726; 94729

== ENCOUNTER 2020-04-06 23:38 | Observation (INO) | payer MEDICARE, SELFPAY ==
[2020-03-10 15:09] VITALS: BMI 31.3
[2020-04-06 23:39] VITALS: BP 107/69; PULSE 72; RESP 15; TEMP 37.1; O2SAT 96; BMI 37.8
[2020-04-07] VITALS (15 sets, daily range): BP systolic 96–136; BP diastolic 50–71; PULSE 54–70; RESP 16–22; TEMP 36.6–37.2; O2SAT 95–99; BMI 29.7
--- NOTE | 2020-04-07 00:19 | EKG12_ITS ---
Test Reason : DYSRHYTHMIA Blood Pressure : / mmHG Vent. Rate : 069 BPM Atrial Rate : 069 BPM P-R Int : 210 ms QRS Dur : 100 ms QT Int : 442 ms P-R-T Axes : 071 -23 048 degrees QTc Int : 473 ms Sinus rhythm with 1st degree A-V block Otherwise normal ECG Confirmed by TESSA JANG, CAMERON ([id number]), video news editor JOSÉ MANUEL FRY ([id number]) on 04/09/2020 2:38:28 PM Referred By: Temo Fabian Confirmed By:CAMERON ZARATE MD
--- NOTE | 2020-04-07 00:20 | CT_ITS ---
STUDY: CTA HEAD AND NECK WITH CONTRAST REASON FOR EXAM: Male, 74 years old. DYSEQUILIBRIUM. Hx of diabetes, HTN and cardiac ablation. Noncontrast brain images included RADIATION DOSAGE (If Supplied By Facility): CTDIvol = ( 30.88 ) mGy, DLP = ( 1496.63 ) mGycm TECHNIQUE: CT angiography was performed with a multi-detector CT scanner. Data acquisition was obtained from the skull base through the vertex following intravenous administration of Isovue 370 100ml. MIP images were reconstructed from the axial data set. Post-processing of the angiographic images was performed, with multiplanar reformation and 3D reconstruction. Individualized dose optimization techniques were used for this CT. COMPARISON: Noncontrast CT scan brain 12/29/2019. FINDINGS: Normal bilateral petrous carotid arteries. Normal right cavernous carotid artery with a normal supraclinoid bifurcation. There is calcified plaque formation of the left cavernous carotid artery, without a cross-sectional luminal stenosis. Normal right A1 segments of the anterior cerebral artery. Normal left A1 segments of the anterior cerebral artery. There is non-visualization of the anterior communicating artery (ACOM). Normal bilateral A2 segments of the anterior cerebral arteries. Normal right M1 and M2 segments of the middle cerebral arteries, with a normal M1 bifurcation. Normal left M1 and M2 segments of the middle cerebral arteries, with a normal M1 bifurcation. There is non-visualization of the right posterior communicating artery (PCOM). There is non-visualization of the left posterior communicating artery (PCOM). There is a relatively small right vertebral artery with a dominant left vertebral artery. Normal basilar artery with a normal basilar bifurcation. The visualized bilateral superior cerebellar (SCA) arteries are normal. Normal bilateral P1, P2 and visualized P3 segments of the posterior cerebral arteries. There is no demonstrated aneurysm of the [place]. There is no demonstrated acute abnormality of the visualized brain. AORTIC ARCH: There is mild atherosclerotic calcific plaque formation of the aortic arch and great vessels arising from the aortic arch, without a hemodynamically significant stenosis. There is a normal origin of the brachiocephalic, left common carotid, and left subclavian arteries RIGHT CAROTID ARTERIES: Normal right common carotid artery (CCA). There is mild atherosclerotic plaque formation, without associated narrowing of the right carotid bulb. Normal origin of the right internal carotid (ICA) artery without a hemodynamically significant stenosis. Normal visualized cervical portion of the right internal carotid artery. Normal origin of the right external carotid artery (ECA). LEFT CAROTID ARTERIES: Normal left common carotid artery (CCA). There is mild atherosclerotic plaque formation, without associated narrowing of the left carotid bulb. Normal origin of the left internal carotid (ICA) artery without a hemodynamically significant stenosis. Normal visualized cervical portion of the left internal carotid artery. Normal origin of the left external carotid artery (ECA). VERTEBRAL ARTERIES: There is enhancement within the bilateral vertebral arteries with a relatively small right vertebral artery, and a dominant left vertebral artery. CT/CTA Head AND Neck W/ Contrast IMPRESSION: Normal CTA Head and neck, with no demonstrated aneurysm, dissection, or stenosis. Electronically Signed: Willie Beaulieu MD at 2:50 EDT , Service support ,
--- NOTE | 2020-04-07 00:22 | ED.VIS.STROK ---
History of Present Illness Chief Complaint: Dizziness Informant: Patient Current Severity: Mild Maximum Severity: Severe Worsened by: Walking Relieved by: Lying down and remaining still Associated Symptoms: Nausea. Negative for: Headache, Vomiting, Chest Pain Narrative: Patient states he has had weakness in his legs for a couple of months. He sometimes is off balance with walking but things became very severe today after 5 PM, he is evaluated just after midnight for the symptoms. He states he has been very off balance and having a difficult time walking, feeling like he is going to fall which she has not. He said he has just felt very bad. He has a hard time describing all of the symptoms. He denies a sensation of movement or spinning, but states he did feel something in his head but cannot explain it. He does not know how long that has been going on. None of the times are definite, but he knows that he felt worse after 5 PM. Unknown exact time of onset of any of the symptoms. 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 (6) Paroxysmal atrial fibrillation Status: Chronic Comment: DCCV on 08/21/2019; (7) Pure hypercholesterolemia Status: Chronic Past Medical History - Allergies and Home Meds Allergies/Adverse Reactions: Allergies dabigatran etexilate [From Pradaxa] Adverse Reaction (Severe, Verified 04/06/20 23:39) GI Bleed niacin [From Niaspan Extended-Release] Adverse Reaction (Severe, Verified 04/06/20 23:39) Hot flashes Primary Care Physician: Sal Aguila MD [Primary Care Provider] - Surgical History: - - Cardiac radiofrequency ablation Smoking Status: Never smoker - Family History Paternal Family History: Family History (Last Reviewed 03/10/20 @ 15:14 by Sushila Maldonado) Father Myocardial infarction Hypertension Mother Hina Gehrigs disease Brother MVA (motor vehicle accident) Hypertension Kidney stones Hypercholesterolemia Family History: Reports: Heart Disease - AK/coronary artery disease, first AK at age of 58 Review of Systems General: Reports: Malaise. Denies: Chills, Fever, Sweats Eyes: Denies: Visual changes - bilaterally, Diplopia ENT: Denies: Rhinorrhea, Sore throat Cardiovascular: Denies: Chest pain, Palpitations Respiratory: Denies: Dyspnea, Cough, Dyspnea on exertion Gastrointestinal: Reports: Nausea. Denies: Abdominal pain, Vomiting, Diarrhea, Melena, Hematochezia Genitourinary: Denies: Dysuria, Hematuria, Frequency Musculoskeletal: Denies: Neck pain, Back pain, Swelling, Extremity Pain Skin: Denies: Rash, Wounds Neurological: Reports: Weakness - Both legs. See HPI., - - Disequilibrium. Denies: Headache, Numbness STROKE Vital Signs/Narrative: Vital Signs Temp Pulse Resp BP Pulse Ox 04/06/20 23:39 98.8 F 72 15 107/69 96 - NIHSS Initial 1a Level of Consciousness: 0 1b LOC Questions (Score 2 if aphasic/stupor): 0 1c LOC Commands (Only score 1st attempt): 0 2 Best Gaze (If aphasic, use reflexive mvmts.): 0 3 Visual: 0 4 Facial Palsy: 0 5 Motor Arm Right (UN = amputation/fusion): 0 5 Motor Arm Left: 0 6 Motor Leg Right: 0 6 Motor Leg Left: 0 7 Limb ataxia (Only + if out of proportion): 1 8 Sensory (Aphasia/stupor=0 or 1, coma=2): 0 9 Best Language: 0 10 Dysarthria (mute, coma=2, intubated=UN): 0 11 Extinction and Inattention (only scored if +): 0 Total Score: 1 General: Well nourished, Well developed Head: Normocephalic, Atraumatic Eyes: Perrl, EOMI, - - No horizontal, rotatory, or vertical nystagmus ENT: Moist mucous membranes, No rhinorrhea, TM's clear Neck: Supple, Nontender Cardiovascular: Regular rate, Regular rhythm, No murmurs. Negative for: Tachycardia Respiratory: No distress, CTA bilaterally, Chest nontender Abdomen: Soft, Nontender, Nondistended, Normal bowel sounds Back: Nontender, Normal Inspection Extremities: Nontender, No edema Skin: Normal color, No rash Neurological: Alert, Oriented x3, Cranial nerves II-XII grossly intact, Normal Strength, Normal Sensation, Normal DTR, - - Abnormal left [id number]. Otherwise normal cerebellar exam. Psychological: Normal affect, Normal Mood Diagnostic/Tx/Re-eval Impressions Head/Neck CTA 04/07/20 00:20 IMPRESSION: Normal CTA Head and neck, with no demonstrated aneurysm, dissection, or stenosis. Electronically Signed: Willie Beaulieu MD at 2:50 EDT , Service support , 04/07/20 00:20 CTA Head AND Neck W/ Contrast [CT] Stat Laboratory Results 04/07/20 04/07/20 04/07/20 01:35 01:35 01:35 WBC 18.1 H RBC 3.99 L Hgb 11.9 L Hct 36.3 L MCV 91.0 MCH 29.8 MCHC 32.8 RDW Std Deviation 49.5 H RDW Coeff of Katarzyna 14.9 H Plt Count 168 MPV 10.1 Immature Gran % (Auto) 0.600 Neut % (Auto) 85.4 H Lymph % (Auto) 8.1 L [place] % (Auto) 5.6 Eos % (Auto) 0.1 Baso % (Auto) 0.2 Absolute Neuts (auto) 15.5 H Absolute Lymphs (auto) 1.47 Nucleated RBC % 0 PT 26.6 H INR 2.5 APTT 36.5 H Sodium 137 Potassium 4.6 Chloride 108 H Carbon Dioxide 25.0 Anion Gap 4 L BUN 34 H Creatinine 1.13 Estim Creat Clear Calc 58.22 Est GFR (MDRD) Af Amer 82 Est GFR (MDRD) Non-Af 67 BUN/Creatinine Ratio 30.1 H Glucose 194 H Calcium 8.9 Troponin I 0.054 H - Rhythm Strip Rhythm Strip: Sinus Rhythm Rate: 69 Ectopy: None - EKG Initial EKG Interpretation: Sinus Rhythm, No Acute Injury Pattern, AV Block - 1st deg; otherwise, normal EKG Prior: Unchanged - Medical Decision Making Stroke Team Activated: No - unk timing Was Patient considered for Endovascular Intervention?: No - neg CTA IV Alteplase (t-PA) Administered: No - timing As patient lied without getting up out of bed, his symptoms gradually improved. He is feeling better. He does not have james vertigo, but I suspect this could be central vertigo and possibly a subacute stroke especially given his objective ataxia of his left leg. For that reason his NIH is 1. He has a leukocytosis of unknown etiology without symptoms of infection and he has had no lightheadedness or presyncopal symptoms. He is a little prerenal, this may be due to being out in high ambient temperatures much of the day and not drinking enough fluids, we replaced his fluids after his CT. CT head and CT angiography of the head and neck were obtained, and shows no LVO or major abnormality, but I think he should be admitted to have MRI and further evaluation. Patient is amenable to that. ED Disposition - Plan for ED Patient: Disposition: [facility] Diagnosis: Ataxia Referrals: Sal Aguila MD [Primary Care Provider] -
[2020-04-07] MEDS: Ondansetron 4 MG/2 ML Vial IV (01:33)
[2020-04-07 01:40] LABS: Absolute Lymphocyte Count 1.47 X10^3/uL (0.83-4.51); Absolute Neutrophil Count 15.5 X10^3/uL (2.0-7.7); Basophil# 0.03 X10^3/uL; Basophil% 0.2 % (0-1); Eosinophil# 0.02 X10^3/uL; Eosinophils% 0.1 % (0-5); Hematocrit 36.3 % (40-54); Hemoglobin 11.9 g/dL (13.0-16.5); Lymphocyte # 1.47 X10^3/ul (4.0); Lymphocyte % 8.1 % (19-41); Mean Corp Hgb Conc 32.8 g/dL (32-36); Mean Corpuscular Hgb 29.8 pg (27.0-32.0); Mean Platelet Vol. 10.1 fl (6.2-12.0); Monocyte# 1.01 X10^3/uL; Monocyte% 5.6 % (0-10); NRBC Flagged by Analyzer 0 % (0-5); Neutrophil # 15.47 X10^3/uL (2.7-7.7); Neutrophil % 85.4 % (47-70); Platelet Count 168 K/mm3 (150-450); RBC Distribution Width CV 14.9 % (11.6-14.6); RBC Distribution Width SD 49.5 fl (35.1-43.9); Red Blood Count 3.99 M/mm3 (4.6-6.2); White Blood Count 18.1 K/mm3 (4.4-11.0)
[2020-04-07 01:51] LABS: International Normalized Ratio 2.5; Prothrombin Time (Protime)PT. 26.6 SECONDS (11.7-14.9)
[2020-04-07 01:52] LABS: Partial Thromboplast Time 36.5 Seconds (24.1-36.2)
[2020-04-07 02:00] LABS: Anion Gap 4 (5-15); BUN 34 mg/dL (7-18); BUN/Creat Ratio 30.1 RATIO (10-20); Calcium,Total 8.9 mg/dL (8.5-10.1); Chloride 108 mmol/L (98-107); Creatinine, Serum 1.13 mg/dL (0.70-1.30); EST Glomerular Filtration Rate 67 mL/min (>60); Est Glom Filt Rate - Afr Amer 82 mL/min (>60); Estimated Creatinine Clearance 58.22 ml/min; Glucose 194 mg/dL (74-106); Potassium 4.6 mmol/L (3.5-5.1); Sodium Level 137 mmol/L (136-145)
--- NOTE | 2020-04-07 03:52 | PCM.HP.STD ---
Problem List (1) Ataxia Status: Acute (2) Atherosclerotic heart disease of [place] coronary artery without angina pectoris Status: Chronic Qualifiers: [place] vs. transplanted heart: [place] heart Qualified Code(s): I25.10 - Atherosclerotic heart disease of [place] coronary artery without angina pectoris (3) Diabetes mellitus type 2 in obese Status: Chronic (4) Pure hypercholesterolemia Status: Chronic (5) Essential hypertension Status: Chronic (6) Paroxysmal atrial fibrillation Status: Chronic Comment: DCCV on 08/21/2019; History of Present Illness Date of Admission: 04/07/20 Chief Complaint: Imbalance. The patient is a 74 year old M with past medical history as mentioned above presented to the emergency room because of imbalance. Patient stated that around 8 PM last night, he stood up, felt very wheeled, and steady, having difficulty maintaining his balance and he was about to fell backwards. He did mention that he felt that his legs are now normal, very strange feeling without focal weakness but he could not stand right on them. Those symptoms lasted for a few minutes and then resolved. He denied headache, blurred vision or slurred speech. He denied focal arm or leg weakness. He denied numbness or tingling. At this time, he has no more symptoms. He had a history of paroxysmal atrial fibrillation, has been on amiodarone for rate control and Coumadin for anticoagulation. He had a history of CAD without prior interventions and he has been doing well with aspirin, statins, lisinopril and metoprolol. History of type 2 diabetes mellitus, has been on metformin and his blood sugar has been under control. In the emergency department, his vital signs were stable. His routine blood work was remarkable for significant leukocytosis, otherwise normal. EKG revealed normal sinus rhythm with first-degree AV block, no acute hemic changes. Troponin was 0.054. Patient denied any chest pain. CTA head and neck done and showed no evidence of significant vascular disease or stenosis. He is being admitted for ataxia to rule out acute stroke and also for abnormal cardiac enzymes. Past Medical History Past Medical History (Chronic Problems): Chronic Problems (Last Reviewed 03/10/20 @ 15:14 by Sushila Maldonado) Atherosclerotic heart disease of [place] coronary artery without angina pectoris (Chronic) History of cardiac radiofrequency ablation (RFA) (Chronic ~09/21/11) 1997, 09/21/11 followed by pericardial effusion Diabetes mellitus type 2 in obese (Chronic) PSVT (paroxysmal supraventricular tachycardia) (Chronic) Pure hypercholesterolemia (Chronic) Essential hypertension (Chronic) prison current use of anticoagulant (Chronic) Paroxysmal atrial fibrillation (Chronic) 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) Z79.01 Paroxysmal atrial fibrillation (Chronic) I48.0 DCCV on 08/21/2019; Atrial fibrillation with RVR I48.91 Sleep-disordered breathing G47.30 Leg cramps, sleep related G47.62 URI (upper respiratory infection) J06.9 Encounter for cardioversion procedure Z01.89 FUO (fever of unknown origin) R50.9 History of cardioversion Onset Date: ~08/21/19 Z98.890 Acute coronary syndrome I24.9 Coronary arteriosclerosis in [place] artery (Inactive) I25.10 Hyperlipidemia (Inactive) E78.5 Hypertension (Inactive) I10 Allergies dabigatran etexilate [From Pradaxa] Adverse Reaction (Severe, Verified 04/06/20 23:39) GI Bleed niacin [From Niaspan Extended-Release] Adverse Reaction (Severe, Verified 04/06/20 23:39) Hot flashes Home Medications: Ambulatory Orders Medication Instructions Recorded Aspirin [Aspirin, Baby] 81 mg PO DAILY 10/18/13 Lisinopril 20 mg PO DAILY 10/18/13 Metformin HCl [Glucophage Xr] 750 mg PO DAILY 10/18/13 Terazosin HCl [Hytrin] 5 mg PO DAILY 10/18/13 Atorvastatin Calcium [Lipitor] 40 mg PO QHS 08/21/19 Metoprolol Tartrate [Lopressor 50 mg PO BID 08/21/19 (beta destiny)] Warfarin Sodium 5 mg PO MOWE 08/21/19 amiodarone 200 mg tablet 200 mg PO DAILY #90 tab 10/16/19 Warfarin [Coumadin] 2.5 mg PO SUTUTHFRSA 12/29/19 Acetaminophen [Tylenol Tablet] 650 mg PO Q6H PRN PRN tab 12/31/19 Surgical History: Surgical History (Last Updated 04/07/20 @ 03:[address] Temo Fabian MD) History of cardiac radiofrequency ablation (RFA) (Chronic) Onset Date: ~09/21/11 Z1997, 09/21/11 followed by pericardial effusion History of endoscopy History of esophagogastroduodenoscopy (EGD) History of left heart catheterization Onset Date: ~08/21/19 Z98.890 left 08/1998; LEFT MAIN: Angiographically normal; LEFT ANTERIOR DESCENDING ARTERY: Mild luminal irregularities MID LAD: s/p DX: conentric: 25 % Stenosis, DIAGONAL 1: Proximal - Mild luminal irregularities; CIRCUMFLEX ARTERY: Mild luminal irregularities; OM 1: Proximal - Mild luminal irregularities; 1ST LEFT PLV: diffuse: 10 - 25 % Stenosis per cath 08/21/19 RIGHT CORONARY ARTERY: PROX RCA: eccentric: 25 % Stenosis History of release of tendon History of tonsillectomy Surgical History: - - Cardiac radiofrequency ablation Lives: Spouse/ Significant Other Smoking Status: Never smoker Alcohol: None Drugs: None - *Family History Paternal Family History: Family History (Last Reviewed 04/07/20 @ 03:[address] Temo Fabian MD) Father Myocardial infarction Hypertension Mother Hina Gehrigs disease Brother MVA (motor vehicle accident) Hypertension Kidney stones Hypercholesterolemia History Items: Heart Disease - NC/coronary artery disease, first NC at age of 59 Review of Systems Constitutional: Denies: Anorexia, Chills, Fever, Weakness, Fatigue Eyes: Denies: Blurred vision, Double vision, Drainage, Redness HEENT: Denies: Difficulty Hearing, Ear Pain, Eye Pain, Nasal Congestion, Sore Throat Cardiovascular: Denies: Chest Pain, Chest Pressure, Chest Tightness, Heaviness, Light Headedness, Palpitations, Syncope Respiratory: Denies: Cough, Pleuritic Pain, Shortness of Breath, Sputum production, Wheezing Gastrointestinal: Denies: Abdominal Pain, Constipation, Diarrhea, Nausea, Vomiting Genitourinary: Denies: Dysuria, Frequency, Hematuria Musculoskeletal: Denies: Arm Pain, Back Pain, Foot Pain Skin: Denies: Dryness, Rash Neurological: Reports: Balance problems, Incoordination. Denies: Change in Speech, Slurred speech, Confusion, Focal weakness, Headaches, Numbness Psychiatric: Denies: Anxiety, Depression Endocrine: Denies: Change in Body Habitus, Polydipsia, Polyuria VTE Information - Inpt Only VTE Present on Admission: No VTE Mechan Device Prophylaxis: None VTE Pharm Prophylaxis ordered?: No Patient Problems: Active and Suspected Problems (Last Reviewed 03/10/20 @ 15:14 by Sushila Maldonado) Ataxia (Acute) - Physical Exam Vitals/I&O's: Vital Signs Temp Pulse Resp BP Pulse Ox 98.6 F 64 16 136/71 H 95 04/07/20 03:51 04/07/20 03:51 04/07/20 03:51 04/07/20 03:51 04/07/20 03:51 Oxygen Delivery Method Room Air Weight: 255 lb 11.779 oz Body Mass Index (BMI) 37.8 Finger Stick Blood Glucose 194 General: Alert, Oriented x3, Cooperative, No apparent distress HEENT: Atraumatic, PERRLA, EOMI, Normocephalic Oral: Moist Mucosa, No Gingival or Mucosal Lesions/ Ulcerations Neck: Supple, No JVD, Negative Carotid Bruits, Trachea Midline, Thyroid Normal Size and Texture Lungs: Clear to auscultation, Normal air movement, No rhonchi, No wheeze, No rales Cardiovascular: Regular rate, Regular Rhythm, Normal S1, Normal S2, PMI Normal Abdomen: Bowel Sounds Present, Soft, Non Tender, Non-Distended, No Hepato-splenomegaly Extremities: No clubbing, No cyanosis, No edema Skin: No rashes, No breakdown Lymphatic: No Cervical, Supraclavicular, or Inguinal Adenopathy Neurological: Cranial nerves II-XII grossly intact, Motor Exam 5/5 strength throughout, - - Normal [id number] test. Psych/Mental Status: Normal Affect, Appropriate, Alert and oriented to time, place, person, mood and affect Laboratory Results 04/07/20 01:35: WBC 18.1 H, RBC 3.99 L, Hgb 11.9 L, Hct 36.3 L, MCV 91.0, MCH 29.8, MCHC 32.8, RDW Std Deviation 49.5 H, RDW Coeff of Katarzyna 14.9 H, Plt Count 168, MPV 10.1, Immature Gran % (Auto) 0.600, Neut % (Auto) 85.4 H, Lymph % (Auto) 8.1 L, [place] % (Auto) 5.6, Eos % (Auto) 0.1, Baso % (Auto) 0.2, Absolute Neuts (auto) 15.5 H, Absolute Lymphs (auto) 1.47, Nucleated RBC % 0 04/07/20 01:35: PT 26.6 H, INR 2.5, APTT 36.5 H 04/07/20 01:35: Sodium 137, Potassium 4.6, Chloride 108 H, Carbon Dioxide 25.0, Anion Gap 4 L, BUN 34 H, Creatinine 1.13, Estim Creat Clear Calc 58.22, Est GFR (MDRD) Af Amer 82, Est GFR (MDRD) Non-Af 67, BUN/Creatinine Ratio 30.1 H, Glucose 194 H, Calcium 8.9, Troponin I 0.054 H Clinical Impression(s) from Imaging Studies Head/Neck CTA 04/07/20 00:20 IMPRESSION: Normal CTA Head and neck, with no demonstrated aneurysm, dissection, or stenosis. Electronically Signed: Willie Beaulieu MD at 2:50 EDT , Service support , Current Medications Sodium Chloride 1,000 ml/ N/A 1,000 mls @ 116 mls/hr IV .Q8H38M ACE Stop: 04/08/20 00:21 Last Admin: 04/07/20 01:33 Dose: 1 ml/kg/hr, 116 mls/hr Documented by: Labetalol HCl (Trandate) 20 mg IV X1 PRN PRN Reason: BLOOD PRESSURE Assessment/Plan All Active Problems (Last Reviewed 03/10/20 @ 15:14 by Sushila Maldonado) Ataxia (Acute) This is a 74 years old male patient presented to the emergency room because of imbalance and he is being admitted for ataxia to rule out acute stroke and also found to have abnormal cardiac enzymes. #1 imbalance/ataxia: May, neurological exam is intact, no evidence of incoordination. No focal weakness. CTA head and neck reviewed as above, unremarkable. EKG revealed normal sinus rhythm with first-degree AV block. Vital signs are stable. Plan: Admit to PCU observation, cardiac monitoring, NIH stroke scale, 2D echocardiogram, MRI brain, continue aspirin and Coumadin, INR is 2.5, PT OT evaluation and treatment. If the MRI brain came back positive for stroke, patient may need teleneurology consultation. #2 abnormal cardiac enzymes: Without chest pain or EKG changes. Patient history of CAD without prior interventions. He is chest pain-free. Plan: Cardiac monitoring, serial cardiac enzymes, 2D echocardiogram. #3 leukocytosis: Could be reactive, no evidence of infection, no symptoms suggestive of infection. He is afebrile. Plan: IV fluids, chest x-ray, urinalysis, repeat CBC later today. #4 paroxysmal atrial fibrillation: He is in sinus rhythm, rate is controlled. Continue amiodarone for rate control, continue Coumadin for anticoagulation. #5 CAD: Plan as above, continue aspirin, statins, lisinopril and metoprolol. #6 hypertension: Blood pressure stable, continue lisinopril and metoprolol. #7 type 2 diabetes mellitus: ADA diet, Accu-Cheks, insulin sliding scale, continue metformin. #8 hyperlipidemia: Continue statins. #9 DVT prophylaxis: INR is 2.5. This note was generated with [employer] dictation software. It may contain incorrect words, spelling, and punctuation that were not noted in checking the note before signing. OBSV E&M: 95118 Initial observation care L3
--- NOTE | 2020-04-07 04:04 | RAD_ITS ---
STUDY: X-RAY CHEST REASON FOR EXAM: Male, 74 years old. LEUKOCYTOSIS -- DENIES ANY COUGH OR SOB TECHNIQUE: Single AP portable view of the chest. COMPARISON: 12/29/2019. FINDINGS: The lungs are mildly underexpanded. There is no demonstrated pulmonary infiltrate.. There is no demonstrated pleural abnormality. There is mild cardiac enlargement. Normal mediastinum and igor. Normal visualized pulmonary arteries. Normal visualized aortic arch and descending thoracic aorta. There are multiple abnormal degenerative changes of the visualized thoracic spine. There is degenerative osteoarthritis of the bilateral shoulders. There is no demonstrated abnormality of the visualized soft tissue structures of the upper abdomen. RAD/Chest 1 View (Portable) IMPRESSION: Mild cardiomegaly. No evidence for acute cardiopulmonary pathology. Electronically Signed: Willie Beaulieu MD at 5:46 EDT , Service support ,
--- NOTE | 2020-04-07 04:04 | ECHOD_ITS ---
Reason For Study: AFIB/FLUTTER Procedure This was a 2D Doppler, Color Flow transthoracic echocardiogram. The exam was of adequate technical quality. Exam performed portable in patient room. Left Ventricle Normal LV size. Severe concentric left ventricular hypertrophy. Apical false tendon noted. Left ventricular systolic function is normal. The estimated ejection fraction is 60 %. No regional wall motion abnormalities noted. Right Ventricle Normal RV size. Normal systolic function. Atria The left atrium is moderately enlarged. The right atrium is mildly enlarged. No doppler evidence for ASD. Mitral Valve There is no mitral annular calcification. Normal mitral valve. Trivial mitral valve insufficiency. Tricuspid Valve Normal tricuspid valve. Trivial tricuspid valve insufficiency. Right ventricular systolic pressure estimated to be 36 mmHg. Aortic Valve Trisinus/trileaflet aortic valve. Mild diffuse aortic valve thickening. Pulmonic Valve The pulmonic valve is not well visualized. Great Vessels Normal sized aortic root. Pericardium/Pleural No pericardial effusion. MMode/2D Measurements & Calculations LVIDd: 4.6 cm IVSd: 1.6 cm Ao root diam: 3.6 cm LVIDs: 3.3 cm LVPWd: 1.5 cm RVDd: 3.4 cm FS: 27.1 % LAV(MOD-bp): 70.1 ml LA A4 area: 22.9 cm2 LA dimension(2D): 5.1 cm LAV(MOD-bp) Indexed: 30.6 ml/m2 LAV(MOD-sp2): 62.4 ml LAV(MOD-sp4): 74.4 ml RA A4 area: 18.2 cm2 Doppler Measurements & Calculations MV E max leticia: 75.6 cm/sec Ao V2 max: 92.1 cm/sec LV V1 max: 78.1 cm/sec MV A max leticia: 31.0 cm/sec Ao max P.4 mmHg LV V1 max P.4 mmHg MV E/A: 2.4 PA V2 max: 82.5 cm/sec TR max leticia: 286.1 cm/sec TR max P.9 mmHg Interpretation Summary Left ventricular systolic function is normal. The estimated ejection fraction is 60 %. Severe concentric left ventricular hypertrophy. Apical false tendon noted. The left atrium is moderately enlarged. The right atrium is mildly enlarged. Trivial mitral valve insufficiency. Trivial tricuspid valve insufficiency. Mild diffuse aortic valve thickening. Right ventricular systolic pressure estimated to be 36 mmHg. Transmitral diastolic flow velocities suggest diastolic dysfunction (pseudonormal pattern). Ordering Physician: Temo Fabian Referring Physician: Seth Aguila Performed By: Ann Marie Sales, JOSE CARLOS, RVT
--- NOTE | 2020-04-07 04:04 | MRI_ITS ---
STUDY: MRI BRAIN WITHOUT CONTRAST REASON FOR EXAM: Male, 74 years old. ataxia, leg weakness, imbalance TECHNIQUE: Standardized multiplanar fat and water weighted pulse sequences were obtained. COMPARISON: 04/07/2020 CT of the head FINDINGS: Normal size of the ventricles and extra-axial spaces for the patient''s age. Normal white matter tracts of the supratentorial brain. Normal bilateral basal ganglia. Normal thalami. There is no extra-axial fluid accumulation. Normal flow voids within the major intracranial circulation suggesting patency by spin echo criteria. Normal sella turcica, pituitary gland, infundibular stalk, optic chiasm and hypothalamus. Normal tectal plate and pineal gland. Normal midbrain, natasha and medulla. Normal cerebellum. Normal basal cisterns. MRI/Brain without Contrast IMPRESSION: No acute intracranial abnormality. Electronically Signed: Sirisha Chamberlain MD at 13:23 EDT Tel , Service support ,
[2020-04-07] MEDS: 0.9% Normal Saline 1,000 ML 75 ML IV (04:54)
[2020-04-07 06:45] LABS: Bedside Glucose 176 mg/dL (70-110)
[2020-04-07] MEDS: Insulin Lispro 100 UNIT/ML INSULN.PEN SC ×2 (06:45→16:13)
[2020-04-07 07:41] LABS: Bacteria 0 SEEN /hpf (None Seen); Mucous, Urine 0 SEEN /hpf (<or=2+); Squamous Epithelial Cells - UA 0 SEEN /hpf (0-5)
[2020-04-07 07:52] LABS: Color, Urine Yellow (Yellow); Glucose, Dipstick Normal (Normal); Ketone-Dipstick Negative (Negative); Leukocyte Esterase-Dipstick 100 /ul (Negative); Nitrite-Dipstick Negative (Negative); Occult Blood-Urine 25 /ul (Negative); Protein-Dipstick 15 mg/dl (Negative); Specific Gravity, Urine 1.015 (1.002-1.030); Urine Bilirubin Dipstick Negative (Negative); Urine Clarity Sl. Cloudy (Clear); Urine Urobilinogen Normal (Normal)
[2020-04-07 08:02] LABS: Red Blood Cells-Urine 0-5 SEEN /hpf (0-5); White Blood Cells 10-25 SEEN /hpf (0-5)
[2020-04-07] MEDS: 0.9% Saline Lock 10 ML Syringe IV (09:48)
[2020-04-07] MEDS: Aspirin 81 MG TAB.CHEW PO (09:50)
[2020-04-07] MEDS: Amiodarone 200 MG Tablet PO (10:57)
[2020-04-07] MEDS: Metoprolol Tartrate 50 MG Tablet PO (10:57)
[2020-04-07] MEDS: Lisinopril 20 MG Tablet PO (10:57)
[2020-04-07] MEDS: Doxazosin 4 MG Tablet PO (10:57)
[2020-04-07 11:16] LABS: Bedside Glucose 149 mg/dL (70-110)
[2020-04-07 12:53] LABS: Absolute Lymphocyte Count 1.47 X10^3/uL (0.83-4.51); Absolute Neutrophil Count 11.8 X10^3/uL (2.0-7.7); Basophil# 0.04 X10^3/uL; Basophil% 0.3 % (0-1); Eosinophil# 0.03 X10^3/uL; Eosinophils% 0.2 % (0-5); Hematocrit 33.7 % (40-54); Hemoglobin 11.1 g/dL (13.0-16.5); Lymphocyte # 1.47 X10^3/ul (4.0); Lymphocyte % 10.4 % (19-41); Mean Corp Hgb Conc 32.9 g/dL (32-36); Mean Corpuscular Hgb 30.2 pg (27.0-32.0); Mean Corpuscular Volume 91.8 fL (80-94); Mean Platelet Vol. 9.9 fl (6.2-12.0); Monocyte# 0.77 X10^3/uL; Monocyte% 5.4 % (0-10); NRBC Flagged by Analyzer 0 % (0-5); Neutrophil # 11.83 X10^3/uL (2.7-7.7); Neutrophil % 83.3 % (47-70); Platelet Count 152 K/mm3 (150-450); RBC Distribution Width CV 15.2 % (11.6-14.6); RBC Distribution Width SD 50.7 fl (35.1-43.9); Red Blood Count 3.67 M/mm3 (4.6-6.2); White Blood Count 14.2 K/mm3 (4.4-11.0)
--- NOTE | 2020-04-07 15:35 | NURSING ---
Report received from Janay Salazar RN. This RN taking over patient care at this time.
[2020-04-07 16:26] LABS: Bedside Glucose 158 mg/dL (70-110)
--- NOTE | 2020-04-07 16:47 | DCINST_ITS ---
- Discharge Diagnoses Current Active Problems: Current Active and Chronic Problems (Last Reviewed 03/10/20 @ 15:14 by Sushila Maldonado) Ataxia (Acute) You will use the following diet at home:: Cardiac Your food should be the consistency of: Regular Your liquids should be the consistency of: Regular/Thin Discharge Activity: Return to Normal Activity Weight Bearing Status: Weight bearing as tolerated Call your doctor if you observe: Fever of 101 or Higher, Numbness or Tingling, Shortness of breath, Dizziness, Fainting spells, Chest pain Instructions: Understanding Dizziness, Balance Problems, and Fainting Allergies/Adverse Reactions: Allergies dabigatran etexilate [From Pradaxa] Adverse Reaction (Severe, Verified 04/06/20 23:39) GI Bleed niacin [From Niaspan Extended-Release] Adverse Reaction (Severe, Verified 04/06/20 23:39) Hot flashes Medications to take at Discharge Aspirin [Aspirin, Baby] 81 mg PO DAILY 10/18/13 Lisinopril 20 mg PO DAILY 10/18/13 Metformin HCl [Glucophage Xr] 750 mg PO DAILY 10/18/13 Terazosin HCl [Hytrin] 5 mg PO DAILY 10/18/13 Atorvastatin Calcium [Lipitor] 40 mg PO QHS 08/21/19 Metoprolol Tartrate [Lopressor (beta destiny)] 50 mg PO BID 08/21/19 Warfarin Sodium 5 mg PO MOWE 08/21/19 amiodarone 200 mg tablet 200 mg PO DAILY #90 tab 10/16/19 Warfarin [Coumadin] 2.5 mg PO SUTUTHFRSA 12/29/19 Acetaminophen [Tylenol Tablet] 650 mg PO Q6H PRN PRN tab 12/31/19 Primary Care Physician: Sal Aguila MD [Primary Care Provider] - Please follow up with your Primary Care Physician in: 1 week Test Results: Test results from this visit will be discussed in further detail at your follow- up appointment, if applicable. Please Follow Up With: Jerman Aviles MD When: 1-2 weeks Proposed Discharge Date: 04/07/20
--- NOTE | 2020-04-07 16:50 | DS.PCM_ITS ---
Discharge Date and Diagnosis - Problem List Patient Problems: Active and Suspected Problems (Last Reviewed 03/10/20 @ 15:14 by Sushila Maldonado) Ataxia (Acute) Date of Admission: 04/07/20 Date of Discharge: 04/07/20 - Primary Discharge Diagnosis Acute Problems: Active Problems (Last Reviewed 03/10/20 @ 15:14 by Sushila Maldonado) Ataxia (Acute) - Secondary Discharge Diagnosis Chronic Problems: Chronic Problems (Last Reviewed 03/10/20 @ 15:14 by Sushila Maldonado) Atherosclerotic heart disease of [place] coronary artery without angina pectoris (Chronic) History of cardiac radiofrequency ablation (RFA) (Chronic ~09/21/11) 1997, 09/21/11 followed by pericardial effusion Diabetes mellitus type 2 in obese (Chronic) PSVT (paroxysmal supraventricular tachycardia) (Chronic) Pure hypercholesterolemia (Chronic) Essential hypertension (Chronic) FPC current use of anticoagulant (Chronic) Paroxysmal atrial fibrillation (Chronic) DCCV on 08/21/2019; Hospital Course and Treatment Imaging Results: Diagnostic Data Head/Neck CTA 04/07/20 00:20 IMPRESSION: Normal CTA Head and neck, with no demonstrated aneurysm, dissection, or stenosis. Electronically Signed: Willie Beaulieu MD at 2:50 EDT , Service support , ADDENDUM: 04/07/20 0732 IMPRESSION: No demonstrated metallic foreign body. Electronically Signed: Willie Beaulieu MD at 7:25 EDT , Service support , Brain MRI 04/07/20 04:04 IMPRESSION: No acute intracranial abnormality. Electronically Signed: Sirisha Chamberlain MD at 13:23 EDT Tel , Service support , Chest X-Ray 04/07/20 04:04 IMPRESSION: Mild cardiomegaly. No evidence for acute cardiopulmonary pathology. Electronically Signed: Willie Beaulieu MD at 5:46 EDT , Service support , Operations: None Procedures: 2-D Echocardiogram Summary of Care Provided: The patient is a 74 year old M with an extensive past medical history as outlined was admitted through the ED because of a brief episode of imbalance. Patient states that on the night before admission, he stood up and felt dizzy and unsteady and was unable to maintain his gait and nearly fell backwards. He had no assisted lightheadedness or palpitations, any numbness or tingling or any weakness in any extremity. He denied any blurred vision or any facial droop. Symptoms lasted for just a few minutes and resolved. Patient has been compliant with his amiodarone and Coumadin for A. fib and INR was therapeutic at 2.5 on admission. In the ED, vitals were stable and CBC showed white cell count of 18 was otherwise unremarkable. BMP was unremarkable and EKG showed normal sinus rhythm with first-degree AV block. Initial troponin was 0.[address] of the head and neck showed no evidence of significant vascular disease or stenosis and CT of the brain was also negative. He was admitted to be managed for ataxia. He had MRI of the brain which showed no acute intracranial abnormality. He was negative for any infection. Troponins trended up from 0.054-0.047 and then was up slightly to 0.051. He had no chest pain whatsoever no shortness of breath. 2D echo was done which showed normal left ventricular systolic function with estimated EF of 60% and severe concentric left ventricular hypertrophy with apical for standard left atrium moderately enlarged with right atrium mildly enlarged. RVSP was 36 mmHg. Patient remained stable and was discharged home on 04/07/2020. He is to follow-up with his primary care doctor and also to follow- up with cardiology. Did discuss patient's presentation with his primary paint specialist Dr. Aviles who is on board with plan. Patient seen and examined prior to discharge. He had no complaints and felt well. Review of systems otherwise negative. Labs and vitals reviewed. Home medication reviewed and reconciled. o/e: Vital Signs Temp Pulse Resp BP Pulse Ox 98.3 F 56 L 16 96/59 L 98 04/07/20 16:17 04/07/20 16:17 04/07/20 16:17 04/07/20 16:17 04/07/20 16:17 [] General: Alert, Oriented x3, Cooperative, No apparent distress HEENT: Atraumatic, PERRLA, EOMI, Normocephalic Oral: Moist Mucosa, No Gingival or Mucosal Lesions/ Ulcerations Neck: Supple, No JVD, Negative Carotid Bruits, Trachea Midline, Lungs: Clear to auscultation, Normal air movement, No rhonchi, No wheeze, No rales Cardiovascular: Regular rate, Regular Rhythm, Normal S1, Normal S2, PMI Normal Abdomen: Bowel Sounds Present, Soft, Non Tender, Non-Distended, No Hepato- splenomegaly Extremities: No clubbing, No cyanosis, No edema Skin: No rashes, No breakdown Lymphatic: No Cervical, Supraclavicular, or Inguinal Adenopathy Neurological: Cranial nerves II-XII grossly intact, Motor Exam 5/5 strength throughout, - Psych/Mental Status: Normal Affect, Appropriate, Alert and oriented to time, place, person, mood and affect Plan is for discharge home today as above. Patient Problems: Active and Suspected Problems (Last Reviewed 03/10/20 @ 15:14 by Sushila Maldonado) Ataxia (Acute) - Physical Exam Vitals/I&O's: Vital Signs Temp Pulse Resp BP Pulse Ox 98.3 F 56 L 16 96/59 L 98 04/07/20 16:17 04/07/20 16:17 04/07/20 16:17 04/07/20 16:17 04/07/20 16:17 Oxygen Delivery Method Room Air Weight: 201 lb 4.513 oz Body Mass Index (BMI) 29.7 Finger Stick Blood Glucose 194 Intake and Output for Last 24 Hours 04/05/20 04/06/20 04/07/20 23:59 23:59 23:59 Intake Total 900 / 900 Balance 900 / 900 Laboratory Results 04/07/20 01:35: WBC 18.1 H, RBC 3.99 L, Hgb 11.9 L, Hct 36.3 L, MCV 91.0, MCH 29.8, MCHC 32.8, RDW Std Deviation 49.5 H, RDW Coeff of Katarzyna 14.9 H, Plt Count 168, MPV 10.1, Immature Gran % (Auto) 0.600, Neut % (Auto) 85.4 H, Lymph % (Auto) 8.1 L, [place] % (Auto) 5.6, Eos % (Auto) 0.1, Baso % (Auto) 0.2, Absolute Neuts (auto) 15.5 H, Absolute Lymphs (auto) 1.47, Nucleated RBC % 0 04/07/20 01:35: PT 26.6 H, INR 2.5, APTT 36.5 H 04/07/20 01:35: Sodium 137, Potassium 4.6, Chloride 108 H, Carbon Dioxide 25.0, Anion Gap 4 L, BUN 34 H, Creatinine 1.13, Estim Creat Clear Calc 58.22, Est GFR (MDRD) Af Amer 82, Est GFR (MDRD) Non-Af 67, BUN/Creatinine Ratio 30.1 H, Glucose 194 H, Calcium 8.9, Troponin I 0.054 H 04/07/20 05:02: Troponin I 0.047 H 04/07/20 06:15: Urine Color Yellow, Urine Clarity Sl. Cloudy, Urine pH 5.0, Ur Specific [place] 1.015, Urine Protein 15 H, Urine Glucose (UA) Normal, Urine Ketones Negative, Urine Occult Blood 25 H, Urine Nitrite Negative, Urine Bilirubin Negative, Urine Urobilinogen Normal, Ur Leukocyte Esterase 100 H, Urine RBC 0-5 SEEN, Urine WBC 10-25 SEEN, Ur Squamous Epith Cells 0 SEEN, Urine Bacteria 0 SEEN, Urine Mucus 0 SEEN 04/07/20 06:38: POC Glucose 176 H 04/07/20 07:32: Troponin I 0.051 H 04/07/20 10:55: POC Glucose 149 H 04/07/20 12:19: WBC 14.2 H, RBC 3.67 L, Hgb 11.1 L, Hct 33.7 L, MCV 91.8, MCH 30.2, MCHC 32.9, RDW Std Deviation 50.7 H, RDW Coeff of Katarzyna 15.2 H, Plt Count 152, MPV 9.9, Immature Gran % (Auto) 0.400, Neut % (Auto) 83.3 H, Lymph % (Auto) 10.4 L, [place] % (Auto) 5.4, Eos % (Auto) 0.2, Baso % (Auto) 0.3, Absolute Neuts (auto) 11.8 H, Absolute Lymphs (auto) 1.47, Nucleated RBC % 0 04/07/20 16:12: POC Glucose 158 H Current Medications Acetaminophen (Tylenol) 650 mg PO Q6H PRN PRN PRN Reason: Pain Score 1-10/Temp > 100.7 F Amiodarone HCl (Cordarone) 200 mg PO DAILY [facility] Last Admin: 04/07/20 10:57 Dose: 200 mg Documented by: [facility], Baby) [facility] Last Admin: 04/07/20 09:50 Dose: 81 mg Documented by: Atorvastatin Calcium (Lipitor) 40 mg PO QHS [facility] Dextrose (D50w Syringe) 0 gm IV X1 PRN; Protocol PRN Reason: Hypoglycemia Doxazosin Mesylate (Cardura) 4 mg PO DAILY [facility] Last Admin: 04/07/20 10:57 Dose: 4 mg Documented by: Glucagon () 1 mg IM .X1 PRN PRN Reason: Hypoglycemia Sodium Chloride () 1,000 mls @ 75 mls/hr IV .[id number] [facility] Stop: 04/07/20 17:23 Last Admin: 04/07/20 04:54 Dose: 75 mls/hr Documented by: Insulin Human Lispro (Humalog Kwikpen (Bkc)) 0 unit SC ACHS [facility]; Protocol Last Admin: 04/07/20 16:13 Dose: 1 u Documented by: Lisinopril (Zestril) 20 mg PO DAILY [facility] Last Admin: 04/07/20 10:57 Dose: 20 mg Documented by: Metformin HCl (Glucophage Xr) [facility] Last Admin: 04/07/20 09:50 Dose: Not Given Documented by: Metoprolol Tartrate (Lopressor (Beta Taurus)) 50 mg PO BID [facility] Last Admin: 04/07/20 10:57 Dose: 50 mg Documented by: Ondansetron HCl (Zofran) 4 mg IV Q8H PRN PRN PRN Reason: NAUSEA/VOMITING Sodium Chloride () 10 - 40 ml IV UD PRN PRN Reason: SALINE FLUSH Last Admin: 04/07/20 09:48 Dose: 10 ml Documented by: Warfarin Sodium (Jantoven) 2.5 mg PO SuTuThFrSa@1700 [facility]; Protocol Last Admin: 04/07/20 16:13 Dose: 2.5 mg Documented by: Warfarin Sodium (Coumadin (Pbkc)) 5 mg PO MoWe@1700 [facility]; Protocol Zolpidem Tartrate (Ambien (Generic)) 5 mg PO QHS PRN PRN PRN Reason: INSOMNIA Discharge Diet: Low fat/ Low Cholesterol Discharge Activity: Return to Normal Activity Weight Bearing Status: Weight bearing as tolerated Call your doctor if you observe: Fever of 101 or Higher, Numbness or Tingling, Shortness of breath, Dizziness, Fainting spells, Chest pain Home Medications: Medications to take at Discharge Aspirin [Aspirin, Baby] 81 mg PO DAILY 10/18/13 Lisinopril 20 mg PO DAILY 10/18/13 Metformin HCl [Glucophage Xr] 750 mg PO DAILY 10/18/13 Terazosin HCl [Hytrin] 5 mg PO DAILY 10/18/13 Atorvastatin Calcium [Lipitor] 40 mg PO QHS 08/21/19 Metoprolol Tartrate [Lopressor (beta taurus)] 50 mg PO BID 08/21/19 Warfarin Sodium 5 mg PO MOWE 08/21/19 amiodarone 200 mg tablet 200 mg PO DAILY #90 tab 10/16/19 Warfarin [Coumadin] 2.5 mg PO SUTUTHFRSA 12/29/19 Acetaminophen [Tylenol Tablet] 650 mg PO Q6H PRN PRN tab 12/31/19 Primary Care Physician: Sal Aguila MD [Primary Care Provider] - Please follow up with your Primary Care Physician in: 1 week Please Follow Up With: Jerman Aviles MD When: 1-2 weeks Patient Instructions: Understanding Dizziness, Balance Problems, and Fainting Disposition: Home Minutes spent on discharge:: 45 Patient Condition:: Stable Medical Necessity - Tobacco Use Smoking Status: Never smoker Tobacco Use: Non-smoker Meaningful Use Info Meaningful Use Diagnoses (Choose all that apply): None applicable Inpatient E&M: 84010 Disch Hosp
== END 2020-04-07 16:48 | disposition home or self-care (01) ==
LOC: ED 04-07 03:31 → PCU 04-07 04:06
PROVIDERS: Admitting Provider Hospitalist; Emergency Provider Emergency Medicine; PCP Family Medicine; Referring Provider Hospitalist; Visit Provider Student in an Organized Health Care Education/Training Program
DX: R27.0 Ataxia, unspecified (principal); I25.10 Atherosclerotic heart disease of native coronary artery without angina pectoris; I10 Essential (primary) hypertension; I48.0 Paroxysmal atrial fibrillation; R53.1 Weakness; R29.701 NIHSS score 1; E11.9 Type 2 diabetes mellitus without complications; I47.1 Supraventricular tachycardia; I44.0 Atrioventricular block, first degree; Z79.899 Other long term (current) drug therapy; Z79.82 Long term (current) use of aspirin; Z79.01 Long term (current) use of anticoagulants; Z79.84 Long term (current) use of oral hypoglycemic drugs; E78.5 Hyperlipidemia, unspecified; D72.829 Elevated white blood cell count, unspecified; R74.8 Abnormal levels of other serum enzymes
CPT/HCPCS: 36415; 70496; 70498; 70551; 71045; 80048; 81001; 82962; 84484; 85025; 85610; 85730; 93005; 93306; 96361; 96374; 97162; 97166; 99218; 99285; J7030; Q9957; Q9967; A4216; G0378; J2405

== ENCOUNTER 2020-04-10 08:29 | Outpatient (RCR) | payer MEDICARE, SELFPAY ==
[2020-03-10 15:09] VITALS: BMI 31.3
[2020-03-23 07:46] LABS: Prothrombin Time Fingerstick 38.9 SEC (11.9-14.4)
[2020-03-26 08:30] LABS: Prothrombin Time Fingerstick 25.2 SEC (11.9-14.4)
[2020-04-10 08:46] LABS: Prothrombin Time Fingerstick 31.1 SEC (11.9-14.4)
== END 2020-04-10 18:00 | disposition home or self-care (01) ==
LOC: LAB 08:29
PROVIDERS: Family Provider Family Medicine; PCP Family Medicine; Referring Provider Internal Medicine Cardiovascular Disease; Visit Provider Internal Medicine Cardiovascular Disease
DX: I48.0 Paroxysmal atrial fibrillation (principal); Z79.01 Long term (current) use of anticoagulants
CPT/HCPCS: 36416; 85610

== ENCOUNTER 2020-05-12 08:43 | Outpatient (RCR) | payer MEDICARE, SELFPAY ==
[2020-04-07 12:59] VITALS: BMI 29.7
[2020-05-12 09:06] LABS: Prothrombin Time Fingerstick 45.3 SEC (11.9-14.4)
[2020-05-12 09:36] LABS: Prothrombin Time (Protime)PT. 46.5 SECONDS (11.7-14.9)
== END 2020-05-12 18:00 | disposition home or self-care (01) ==
LOC: LAB 08:43
PROVIDERS: Family Provider Family Medicine; PCP Family Medicine; Referring Provider Internal Medicine Cardiovascular Disease; Visit Provider Internal Medicine Cardiovascular Disease
DX: I48.0 Paroxysmal atrial fibrillation (principal); Z79.01 Long term (current) use of anticoagulants
CPT/HCPCS: 36415; 36416; 85610

== ENCOUNTER 2020-05-27 15:42 | Outpatient (RCR) | payer MEDICARE, SELFPAY ==
[2020-04-07 12:59] VITALS: BMI 29.7
[2020-05-14 08:21] LABS: Prothrombin Time Fingerstick 37.3 SEC (11.9-14.4)
[2020-05-27 15:51] LABS: Prothrombin Time Fingerstick 31.1 SEC (11.9-14.4)
== END 2020-05-27 18:00 | disposition home or self-care (01) ==
LOC: LAB 15:42
PROVIDERS: Family Provider Family Medicine; PCP Family Medicine; Referring Provider Internal Medicine Cardiovascular Disease; Visit Provider Internal Medicine Cardiovascular Disease
DX: I48.0 Paroxysmal atrial fibrillation (principal); Z79.01 Long term (current) use of anticoagulants
CPT/HCPCS: 36416; 85610

== ENCOUNTER 2020-06-16 09:07 | Outpatient (RCR) | payer MEDICARE, SELFPAY ==
[2020-06-10 14:54] VITALS: BMI 29.8
[2020-06-16 16:11] LABS: Prothrombin Time Fingerstick 32.3 SEC (11.9-14.4)
== END 2020-07-13 18:00 | disposition home or self-care (01) ==
LOC: LAB 09:07
PROVIDERS: Family Provider Family Medicine; PCP Family Medicine; Referring Provider Internal Medicine Cardiovascular Disease; Visit Provider Internal Medicine Cardiovascular Disease
DX: I48.0 Paroxysmal atrial fibrillation (principal); Z79.01 Long term (current) use of anticoagulants
CPT/HCPCS: 36416; 85610

== ENCOUNTER 2020-07-14 06:49 | Outpatient (RCR) | payer MEDICARE, SELFPAY ==
[2020-06-10 14:54] VITALS: BMI 29.8
[2020-07-14 07:00] LABS: Prothrombin Time Fingerstick 32.6 SEC (11.9-14.4)
== END 2020-07-14 18:00 | disposition home or self-care (01) ==
LOC: LAB 06:49
PROVIDERS: Family Provider Family Medicine; PCP Family Medicine; Referring Provider Internal Medicine Cardiovascular Disease; Visit Provider Internal Medicine Cardiovascular Disease
DX: I48.0 Paroxysmal atrial fibrillation (principal); Z79.01 Long term (current) use of anticoagulants
CPT/HCPCS: 36416; 85610

== ENCOUNTER → 2020-07-21 | Outpatient (CLI) | payer MEDICARE, SELFPAY ==
[2020-06-10 14:54] VITALS: BMI 29.8
--- NOTE | 2020-07-21 16:27 | RAD_ITS ---
STUDY: X-RAY - LUMBAR SPINE REASON FOR EXAM: Male, 75 years old. claudication TECHNIQUE: 5 view(s) of the lumbar spine were obtained. COMPARISON: Previous study of 07/05/2018 FINDINGS: Normal lumbar lordosis. There is no substantial scoliosis. There is a normal alignment of the vertebrae. There is mild diffuse endplate spondylosis of the lumbar spine. There is mild old compression deformity of the superior endplate of L1, stable in the interval. There is narrowing of the L1-2 and L2-3 disc spaces. The L2-3 disc space narrowing represents a new interval finding. There is no demonstrated fracture. There is a dysraphism of the posterior elements of L5. There are calcified plaques of the abdominal aorta. RAD/L/S Spine Min 4 Views IMPRESSION: Lumbar degenerative changes as detailed above. Old mild compression deformity of the superior endplate of L1, stable in the interval. 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 Electronically Signed: Matt Sales MD at 21:19 EDT , Service support ,
== END | disposition home or self-care (01) ==
LOC: MTRAD 16:26
PROVIDERS: PCP Family Medicine; Referring Provider Family Medicine; Visit Provider Family Medicine
DX: I73.9 Peripheral vascular disease, unspecified (principal)
CPT/HCPCS: 72110

== ENCOUNTER 2020-09-02 08:16 | Outpatient (RCR) | payer MEDICARE, SELFPAY ==
[2020-06-10 14:54] VITALS: BMI 29.8
[2020-09-02 08:26] LABS: Prothrombin Time Fingerstick 30.7 SEC (11.9-14.4)
== END 2020-09-02 18:00 | disposition home or self-care (01) ==
LOC: LAB 08:16
PROVIDERS: Family Provider Family Medicine; PCP Family Medicine; Referring Provider Internal Medicine Cardiovascular Disease; Visit Provider Internal Medicine Cardiovascular Disease
DX: I48.0 Paroxysmal atrial fibrillation (principal); Z79.01 Long term (current) use of anticoagulants
CPT/HCPCS: 36416; 85610

== ENCOUNTER 2020-09-30 08:54 | Outpatient (RCR) | payer MEDICARE, SELFPAY ==
[2020-06-10 14:54] VITALS: BMI 29.8
[2020-09-30 09:06] LABS: Prothrombin Time Fingerstick 32.4 SEC (11.9-14.4)
== END 2020-09-30 18:00 | disposition home or self-care (01) ==
LOC: LAB 08:54
PROVIDERS: Family Provider Family Medicine; PCP Family Medicine; Referring Provider Internal Medicine Cardiovascular Disease; Visit Provider Internal Medicine Cardiovascular Disease
DX: I48.0 Paroxysmal atrial fibrillation (principal); Z79.01 Long term (current) use of anticoagulants
CPT/HCPCS: 36416; 85610

== ENCOUNTER 2020-11-09 10:39 | Outpatient (RCR) | payer MEDICARE, SELFPAY ==
[2020-06-10 14:54] VITALS: BMI 29.8
[2020-11-03 13:01] LABS: Prothrombin Time Fingerstick 46.5 SEC (11.9-14.4)
[2020-11-03 13:06] LABS: Prothrombin Time Fingerstick 48.1 SEC (11.9-14.4)
[2020-11-03 13:35] LABS: Prothrombin Time (Protime)PT. 41.5 SECONDS (11.7-14.9)
[2020-11-03 13:38] LABS: International Normalized Ratio 4.3
[2020-11-09 11:58] LABS: International Normalized Ratio 2.4; Prothrombin Time (Protime)PT. 25.4 SECONDS (11.7-14.9)
[2020-11-09 12:15] LABS: AST(SGOT) 33 U/L (15-37); Alanine Aminotransfer ALT/SGPT 39 U/L (16-61); Albumin, Serum 3.4 g/dL (3.2-5.0); Alkaline Phosphatase 96 U/L (45-117); Bilirubin, Direct 0.28 mg/dL (0.00-0.30); Cholesterol 127 mg/dL (200); Globulin 3.7 g/dL (2.2-4.2); High Density Lipoprotein 46 mg/dL; Protein, Total 7.1 g/dL (6.4-8.2); Triglycerides 89 mg/dL; Very Low Density Lipoprotein 18 mg/dL (5-40)
== END 2020-11-09 18:00 | disposition home or self-care (01) ==
LOC: LAB 10:39
PROVIDERS: Family Provider Family Medicine; PCP Family Medicine; Referring Provider Internal Medicine Cardiovascular Disease; Visit Provider Internal Medicine Cardiovascular Disease
DX: I48.0 Paroxysmal atrial fibrillation (principal); Z79.01 Long term (current) use of anticoagulants; E78.00 Pure hypercholesterolemia, unspecified
CPT/HCPCS: 36415; 36416; 80061; 80076; 85610

== ENCOUNTER 2020-12-09 13:32 | Outpatient (RCR) | payer OTHER, SELFPAY ==
[2020-06-10 14:54] VITALS: BMI 29.8
[2020-11-27 10:51] LABS: Prothrombin Time Fingerstick 20.5 SEC (11.9-14.4)
[2020-12-09 13:41] LABS: Prothrombin Time Fingerstick 28.1 SEC (11.9-14.4)
== END 2020-12-09 18:00 | disposition home or self-care (01) ==
LOC: LAB 13:32
PROVIDERS: Family Provider Family Medicine; PCP Family Medicine; Referring Provider Internal Medicine Cardiovascular Disease; Visit Provider Internal Medicine Cardiovascular Disease
DX: I48.0 Paroxysmal atrial fibrillation (principal); Z79.01 Long term (current) use of anticoagulants
CPT/HCPCS: 36416; 85610

== ENCOUNTER 2021-01-07 07:36 | Outpatient (RCR) | payer OTHER, SELFPAY ==
[2020-06-10 14:54] VITALS: BMI 29.8
== END 2021-01-07 18:00 | disposition home or self-care (01) ==
LOC: LAB 07:36
PROVIDERS: Family Provider Family Medicine; PCP Family Medicine; Referring Provider Internal Medicine Cardiovascular Disease; Visit Provider Internal Medicine Cardiovascular Disease
DX: I48.0 Paroxysmal atrial fibrillation (principal); Z79.01 Long term (current) use of anticoagulants
CPT/HCPCS: 36416; 85610

== ENCOUNTER 2021-02-03 12:34 | Outpatient (RCR) | payer MEDICARE, SELFPAY ==
[2020-06-10 14:54] VITALS: BMI 29.8
[2021-02-03 12:46] LABS: Prothrombin Time Fingerstick 33.4 SEC (11.9-14.4)
== END 2021-02-03 18:00 | disposition home or self-care (01) ==
LOC: LAB 12:34
PROVIDERS: Family Provider Family Medicine; PCP Family Medicine; Referring Provider Internal Medicine Cardiovascular Disease; Visit Provider Internal Medicine Cardiovascular Disease
DX: I48.0 Paroxysmal atrial fibrillation (principal); Z79.01 Long term (current) use of anticoagulants
CPT/HCPCS: 36416; 85610

== ENCOUNTER → 2021-02-15 12:22 | Outpatient (CLI) | payer MEDICARE, SELFPAY ==
[2020-06-10 14:54] VITALS: BMI 29.8
--- NOTE | 2021-02-15 12:25 | ART_ITS ---
Reason For Study: Claudication Left Segmental Pressures Left brachial= 143mmHg. Left posterior tibial artery = 199mmHg. Left dorsalis pedis artery = 197mmHg. Left digit = 160 mmHg. The left dorsalis pedis waveforms are triphasic. The left posterior tibial artery waveforms are triphasic. Right Segmental Pressures Right brachial= 139mmHg. Right posterior tibial artery = 209mmHg. Right dorsalis pedis artery = 197mmHg. Right digit = 149 mmHg. The right dorsalis pedis waveforms are triphasic. The right posterior tibial artery waveforms are triphasic. Indices The right ankle brachial index by the dorsalis pedis is 1.38. The right ankle brachial index by the posterior tibial artery is 146. The right digital-brachial index is 1.04. The left ankle brachial index by the dorsalis pedis is 1.38. The left ankle brachial index by the posterior tibial artery is 1.39. The left digital-brachial index is 1.12. VL/Ankle Brachial Index Interpretation Summary Triphasic Doppler waveforms are noted at ankle level bilaterally. The resting r ight ankle-brachial index is supra-normal. The resting left ankle-brachial index is normal. Digital -brachial indices are normal bilaterally. There is evidence of arterial calcification at ankle level on the right. There is no evidence of arterial occlusive disease in the lower extremities bilaterally. Ordering Physician: Sal Aguila Referring Physician: Sal Aguila Performed By: Priscilla Ruby RVT
== END ==
PROVIDERS: PCP Family Medicine; Referring Provider Family Medicine; Visit Provider Family Medicine
DX: I73.9 Peripheral vascular disease, unspecified (principal)
CPT/HCPCS: 93922

== ENCOUNTER 2021-02-22 12:13 | Emergency (ER) | payer MEDICARE, SELFPAY ==
[2020-06-10 14:54] VITALS: BMI 29.8
[2021-02-22 12:14] VITALS: BP 132/56; PULSE 56; RESP 22; TEMP 36.3; O2SAT 98; BMI 31.1
[2021-02-22 12:50] VITALS: O2SAT 97
[2021-02-22 12:51] VITALS: BP 147/84; PULSE 55; RESP 15; O2SAT 97
--- NOTE | 2021-02-22 13:37 | EKG12_ITS ---
Test Reason : EDEMA Blood Pressure : / mmHG Vent. Rate : 055 BPM Atrial Rate : 055 BPM P-R Int : 238 ms QRS Dur : 114 ms QT Int : 510 ms P-R-T Axes : 057 -35 120 degrees QTc Int : 487 ms Sinus bradycardia with 1st degree A-V block Left axis deviation Nonspecific T wave abnormality Poor R wave progression Prolonged QT Abnormal ECG Confirmed by TESSA JANG, CAMERON ([id number]), news editor DANNY SOLO ([id number]) on 02/24/2021 11:01:51 AM Referred By: FADI Confirmed By:CAMERON ZARATE MD
--- NOTE | 2021-02-22 13:39 | ED.VIS.GEN ---
History of Present Illness Chief Complaint: Edema Informant: Patient Onset: Today Context: - - Upon waking up this morning Timing: Continuous Quality: Swollen Location: Both legs Current Severity: Moderate Maximum Severity: Moderate Worsened by: Nothing Relieved by: Sitting in waiting room and not being on feet Associated Symptoms: None new Narrative: Patient states he has noticed a line indentation where his socks are for a long time but he has never had swelling up beyond his socks to his shins before like he did today, seem to be getting worse at work so he presents to the emergency department. He has no other acute symptoms. No history of congestive heart failure, liver or kidney problems. He has had dyspnea with exertion for months, states it is grossly unchanged. It is not with light exertion, only when he is actually truly exerting himself. He denies any chest discomfort with this. 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 (6) PSVT (paroxysmal supraventricular tachycardia) Status: Chronic (7) Paroxysmal atrial fibrillation Status: Chronic Comment: [facility] on 08/21/2019; (8) Pure hypercholesterolemia Status: Chronic Past Medical History - Allergies and Home Meds Allergies/Adverse Reactions: Allergies dabigatran etexilate [From Pradaxa] Adverse Reaction (Severe, Verified 02/22/21 12:16) GI Bleed niacin [From Niaspan Extended-Release] Adverse Reaction (Severe, Verified 02/22/21 12:16) Hot flashes Primary Care Physician: Sal Aguila MD [Primary Care Provider] - Surgical History: - - Cardiac radiofrequency ablation Lives: Spouse/ Significant Other Smoking Status: Never smoker - Family History Paternal Family History: Family History (Last Reviewed 04/07/20 @ 03:[address] Temo Fabian MD) Father Myocardial infarction Hypertension Mother Hina Gehrigs disease Brother MVA (motor vehicle accident) Hypertension Kidney stones Hypercholesterolemia Family History: Reports: Heart Disease - [place]/coronary artery disease, first [place] at age of 58 Review of Systems General: Denies: Chills, Fever, Sweats Eyes: Denies: Visual changes - bilaterally, Diplopia ENT: Denies: Bilateral ear pain, Rhinorrhea, Sore throat Cardiovascular: Denies: Chest pain, Palpitations Respiratory: Reports: Dyspnea on exertion. Denies: Dyspnea, Cough, Orthopnea Gastrointestinal: Denies: Abdominal pain, Nausea, Vomiting, Diarrhea, Melena, Hematochezia Genitourinary: Denies: Dysuria, Hematuria, Frequency Musculoskeletal: Reports: Swelling. Denies: Myalgias, Back pain, Extremity Pain Skin: Denies: Rash, Wounds Neurological: Denies: Headache, Weakness, Numbness Physical Exam Vital Signs/Narrative: Vital Signs Temp Pulse Resp BP Pulse Ox 02/22/21 12:51 55 L 15 147/84 H 97 02/22/21 12:14 97.4 F L 56 L 22 H 132/56 H 98 Inital Vital Signs reviewed: Yes General: Well nourished, Well developed, No Acute Distress Head: Normocephalic, Atraumatic Eyes: Perrl, EOMI ENT: Moist mucous membranes, No rhinorrhea Neck: Supple, Nontender, - - possibly mild JVD Cardiovascular: Regular rate, Regular rhythm, No murmurs, Normal S1, Normal S2. Negative for: Tachycardia Respiratory: No distress, CTA bilaterally, Chest nontender Abdomen: Soft, Nontender, Nondistended, Normal bowel sounds Back: Nontender, Normal Inspection Extremities: Nontender, Edema - 1+ symmetric BLE to midshins Skin: Normal color, No rash Neurological: Alert, Oriented x3, Cranial nerves II-XII grossly intact, Normal Strength, Normal Sensation, Normal Gait Psychological: Normal affect, Normal Mood Diagnostic/Tx/Re-eval Impressions Chest X-Ray 02/22/21 14:10 IMPRESSION: Cardiomegaly. Mild degree of vascular congestion and CHF. Electronically Signed: Efrain Bardlaes MD at 14:26 EDT , Service support , 02/22/21 14:10 Chest 1 View (Portable) [RAD] Stat Laboratory Results 02/22/21 02/22/21 02/22/21 13:00 13:00 13:00 WBC 6.4 RBC 4.14 L Hgb 10.3 L Hct 34.1 L MCV 82.4 MCH 24.9 L MCHC 30.2 L RDW Std Deviation 49.5 H RDW Coeff of Katarzyna 16.7 H Plt Count 196 MPV 9.8 Immature Gran % (Auto) 0.300 Neut % (Auto) 72.0 H Lymph % (Auto) 20.3 [place] % (Auto) 5.5 Eos % (Auto) 1.1 Baso % (Auto) 0.8 Absolute Neuts (auto) 4.6 Absolute Lymphs (auto) 1.29 Nucleated RBC % 0 PT 29.7 H INR 2.9 Sodium 140 Potassium 4.4 Chloride 110 H Carbon Dioxide 26.0 Anion Gap 4 L BUN 23 H Creatinine 1.21 Estim Creat Clear Calc 53.56 Est GFR (MDRD) Af Amer 75 Est GFR (MDRD) Non-Af 62 BUN/Creatinine Ratio 19.0 Glucose 146 H Calcium 8.8 Total Bilirubin 1.20 H AST 24 ALT 25 Alkaline Phosphatase 85 Troponin I 0.030 B-Natriuretic Peptide Total Protein 7.4 Albumin 3.8 Globulin 3.6 Albumin/Globulin Ratio 1.1 Urine Color Urine Clarity Urine pH Ur Specific [place] Urine Protein Urine Glucose (UA) Urine Ketones Urine Occult Blood Urine Nitrite Urine Bilirubin Urine Urobilinogen Ur Leukocyte Esterase Urine RBC Urine WBC Ur Squamous Epith Cells Urine Bacteria Urine Mucus 02/22/21 02/22/21 13:00 14:30 WBC RBC Hgb Hct MCV MCH MCHC RDW Std Deviation RDW Coeff of Katarzyna Plt Count MPV Immature Gran % (Auto) Neut % (Auto) Lymph % (Auto) [place] % (Auto) Eos % (Auto) Baso % (Auto) Absolute Neuts (auto) Absolute Lymphs (auto) Nucleated RBC % PT INR Sodium Potassium Chloride Carbon Dioxide Anion Gap BUN Creatinine Estim Creat Clear Calc Est GFR (MDRD) Af Amer Est GFR (MDRD) Non-Af BUN/Creatinine Ratio Glucose Calcium Total Bilirubin AST ALT Alkaline Phosphatase Troponin I B-Natriuretic Peptide 778.8 H Total Protein Albumin Globulin Albumin/Globulin Ratio Urine Color Yellow Urine Clarity Clear Urine pH 6.5 Ur Specific [place] 1.010 Urine Protein Negative Urine Glucose (UA) Normal Urine Ketones Negative Urine Occult Blood Negative Urine Nitrite Negative Urine Bilirubin Negative Urine Urobilinogen Normal Ur Leukocyte Esterase 25 H Urine RBC 0 SEEN Urine WBC 0 SEEN Ur Squamous Epith Cells 0 SEEN Urine Bacteria RARE Urine Mucus 0 SEEN - Rhythm Strip Rhythm Strip: Sinus Rhythm Rate: 55 Ectopy: None - EKG Initial EKG Interpretation: Sinus Rhythm, No Acute Injury Pattern, AV Block - 1st deg, - - prolonged QTc - Medical Decision Making Patient had an echocardiogram last March that showed severe concentric LVH but no signs of failure. He was given Lasix 20 mg IV here in the ER. Patient's work-up is consistent with mild acute congestive heart failure. However, clinically the patient is very well and not hypoxic even with light exertion. His vital signs are stable at rest here in ER. Discussed with cardiology Dr. Noriega -given his stability and after discussing the patient's list of medications, he recommends giving him an additional 20 mg IV furosemide prior to discharge on Lasix 40 mg twice daily and following up at his regularly scheduled visit which is around 2 weeks from now with his engineering inspector Dr. Aviles. Patient is comfortable with that plan. ED Disposition - Plan for ED Patient: Disposition: Home or Assisted Living Diagnosis: Acute congestive heart failure, Warfarin-induced coagulopathy Instructions: ED Heart Failure, Congestive (CHF) Prescriptions: Furosemide [Lasix] 40 mg PO BIDLX #60 tab Transmission Status: Pending to [id number] Referrals: Sal Aguila MD [Primary Care Provider] - Jerman Aviles MD [STAFF PHYSICIAN] - Keep Barbara appointment
[2021-02-22] MEDS: Furosemide 20 MG/2 ML VIAL IV ×2 (13:51→17:00)
[2021-02-22 13:55] LABS: Absolute Lymphocyte Count 1.29 X10^3/uL (0.83-4.51); Absolute Neutrophil Count 4.6 X10^3/uL (2.0-7.7); Basophil# 0.05 X10^3/uL; Basophil% 0.8 % (0-1); Eosinophil# 0.07 X10^3/uL; Eosinophils% 1.1 % (0-5); Hematocrit 34.1 % (40-54); Hemoglobin 10.3 g/dL (13.0-16.5); Lymphocyte # 1.29 X10^3/ul (4.0); Lymphocyte % 20.3 % (19-41); Mean Corp Hgb Conc 30.2 g/dL (32-36); Mean Corpuscular Hgb 24.9 pg (27.0-32.0); Mean Corpuscular Volume 82.4 fL (80-94); Mean Platelet Vol. 9.8 fl (6.2-12.0); Monocyte# 0.35 X10^3/uL; Monocyte% 5.5 % (0-10); NRBC Flagged by Analyzer 0 % (0-5); Neutrophil # 4.57 X10^3/uL (2.7-7.7); Platelet Count 196 K/mm3 (150-450); RBC Distribution Width CV 16.7 % (11.6-14.6); RBC Distribution Width SD 49.5 fl (35.1-43.9); Red Blood Count 4.14 M/mm3 (4.6-6.2); White Blood Count 6.4 K/mm3 (4.4-11.0)
[2021-02-22 14:04] LABS: International Normalized Ratio 2.9; Prothrombin Time (Protime)PT. 29.7 SECONDS (11.7-14.9)
[2021-02-22 14:07] LABS: ALB/GLOB Ratio 1.1 RATIO (0.9-2.4); AST(SGOT) 24 U/L (15-37); Alanine Aminotransfer ALT/SGPT 25 U/L (16-61); Albumin, Serum 3.8 g/dL (3.2-5.0); Alkaline Phosphatase 85 U/L (45-117); Anion Gap 4 (5-15); BUN 23 mg/dL (7-18); Calcium,Total 8.8 mg/dL (8.5-10.1); Chloride 110 mmol/L (98-107); Creatinine, Serum 1.21 mg/dL (0.70-1.30); EST Glomerular Filtration Rate 62 mL/min (>60); Est Glom Filt Rate - Afr Amer 75 mL/min (>60); Estimated Creatinine Clearance 53.56 ml/min; Globulin 3.6 g/dL (2.2-4.2); Glucose 146 mg/dL (74-106); Potassium 4.4 mmol/L (3.5-5.1); Protein, Total 7.4 g/dL (6.4-8.2); Sodium Level 140 mmol/L (136-145)
--- NOTE | 2021-02-22 14:10 | RAD_ITS ---
STUDY: X-RAY CHEST REASON FOR EXAM: Male, 75 years old. Dyspnea on exertion TECHNIQUE: Single AP portable view of the chest. COMPARISON: Comparison is made with prior study dated 04/07/2020. FINDINGS: EKG electrodes are seen. There is a mild degree of vascular congestion. There is no demonstrated pleural abnormality. There is moderate cardiac enlargement. Normal mediastinum and igor. Normal visualized pulmonary arteries. There is atherosclerotic calcification of the aortic arch with tortuosity. Normal visualized thoracic spine. Normal visualized ribs, clavicles, and shoulders. There is no demonstrated abnormality of the visualized soft tissue structures of the upper abdomen. RAD/Chest 1 View (Portable) IMPRESSION: Cardiomegaly. Mild degree of vascular congestion and CHF. Electronically Signed: Efrain Bardales MD at 14:26 EDT , Service support ,
[2021-02-22 14:32] LABS: BNP,B-Type NATRIURETIC PEPTIDE 778.8 pg/mL (0-100)
[2021-02-22 14:48] LABS: Mucous, Urine 0 SEEN /hpf (<or=2+); Red Blood Cells-Urine 0 SEEN /hpf (0-5); Squamous Epithelial Cells - UA 0 SEEN /hpf (0-5); White Blood Cells 0 SEEN /hpf (0-5)
[2021-02-22 15:12] LABS: Color, Urine Yellow (Yellow); Glucose, Dipstick Normal (Normal); Ketone-Dipstick Negative (Negative); Leukocyte Esterase-Dipstick 25 /ul (Negative); Nitrite-Dipstick Negative (Negative); Occult Blood-Urine Negative /ul (Negative); Protein-Dipstick Negative (Negative); Urine Bilirubin Dipstick Negative (Negative); Urine Clarity Clear (Clear); Urine Urobilinogen Normal (Normal); Urine pH 6.5 (5.0 - 8.0)
[2021-02-22 15:18] VITALS: BP 131/92; PULSE 56; RESP 15; O2SAT 97
[2021-02-22 16:33] LABS: Bacteria RARE /hpf (None Seen)
[2021-02-22 17:01] VITALS: BP 152/92; PULSE 60; RESP 18; O2SAT 97
== END 2021-02-22 17:05 | disposition home or self-care (01) ==
PROVIDERS: Emergency Provider Emergency Medicine; PCP Family Medicine
DX: I11.0 Hypertensive heart disease with heart failure (principal); I50.9 Heart failure, unspecified; I25.10 Atherosclerotic heart disease of native coronary artery without angina pectoris; E11.9 Type 2 diabetes mellitus without complications; E66.9 Obesity, unspecified; Z79.01 Long term (current) use of anticoagulants
CPT/HCPCS: 71045; 80053; 81001; 83880; 84484; 85025; 85610; 93005; 96374; 96375; 99283; A4216; J1940

== ENCOUNTER 2021-03-10 15:34 | Outpatient (RCR) | payer MEDICARE, SELFPAY ==
[2020-06-10 14:54] VITALS: BMI 29.8
[2021-02-26 12:59] VITALS: BMI 29.0
[2021-03-04 09:36] LABS: INR Fingerstick 3.8; Prothrombin Time Fingerstick 40.9 SEC (11.9-14.4)
[2021-03-10 15:46] LABS: INR Fingerstick 2.9; Prothrombin Time Fingerstick 32.5 SEC (11.9-14.4)
== END 2021-03-10 18:00 | disposition home or self-care (01) ==
LOC: LAB 15:34
PROVIDERS: Family Provider Family Medicine; PCP Family Medicine; Referring Provider Internal Medicine Cardiovascular Disease; Visit Provider Internal Medicine Cardiovascular Disease
DX: I48.0 Paroxysmal atrial fibrillation (principal); Z79.01 Long term (current) use of anticoagulants
CPT/HCPCS: 36416; 85610

== ENCOUNTER → 2021-03-16 06:48 | Outpatient (CLI) | payer MEDICARE, SELFPAY ==
[2021-02-26 12:59] VITALS: BMI 29.0
--- NOTE | 2021-03-16 06:50 | ECHOD_ITS ---
Reason For Study: Dyspnea/SOB Procedure This was a 2D Doppler, Color Flow transthoracic echocardiogram. The exam was of adequate technical quality. Exam performed in department. Left Ventricle Normal LV size. Moderate concentric left ventricular hypertrophy. Apical false tendon noted. Left ventricular systolic function is normal. The estimated ejection fraction is 55 %. Transmitral diastolic flow velocities suggest moderate (stage 2) diastolic dysfunction (pseudonormal pattern). No regional wall motion abnormalities noted. Right Ventricle Normal RV size. Normal systolic function. Atria The left atrium is moderately enlarged. The right atrium is mildly enlarged. No doppler evidence for ASD. Mitral Valve There is no mitral annular calcification. Normal mitral valve. Mild (1+) mitral valve insufficiency. Tricuspid Valve Normal tricuspid valve. Mild tricuspid valve insufficiency. Right ventricular systolic pressure estimated to be 41 mmHg. Aortic Valve Trisinus/trileaflet aortic valve. Mild diffuse aortic valve thickening. Pulmonic Valve The pulmonic valve is not well visualized. Trivial pulmonic valve insufficiency. Great Vessels The aortic root is not well visualized. Pericardium/Pleural No pericardial effusion. MMode/2D Measurements & Calculations LVIDd: 4.5 cm IVSd: 1.5 cm LA dimension: 4.1 cm LVIDs: 3.0 cm LVPWd: 1.4 cm RVDd: 4.1 cm FS: 32.6 % LAV(MOD-bp): 75.5 ml LA A4 area: 23.1 cm2 RA A4 area: 20.2 cm2 LAV(MOD-bp) Indexed: 36.9 ml/m2 LAV(MOD-sp2): 71.2 ml LAV(MOD-sp4): 75.3 ml Time Measurements MV dec time: 0.36 sec Doppler Measurements & Calculations MV E max derrick: 80.8 cm/sec Lat Peak E' Derrick: 3.5 cm/sec Med Peak E' Derrick: 3.3 cm/sec MV A max derrick: 33.2 cm/sec E/E' lat: 22.8 E/E' med: 24.6 MV E/A: 2.4 MV V2 max: 78.9 cm/sec MV P1/2t max derrick: 78.9 cm/sec Ao V2 max: 87.2 cm/sec MV max P.5 mmHg MV P1/2t: 131.8 msec Ao max P.0 mmHg MV V2 mean: 45.2 cm/sec MV dec slope: 175.3 cm/sec2 MV mean P.96 mmHg MVA(P1/2t): 1.7 cm2 MV V2 VTI: 26.3 cm AI max derrick: 385.0 cm/sec LV V1 max: 66.0 cm/sec PA V2 max: 99.2 cm/sec AI max P.3 mmHg LV V1 max P.7 mmHg AI dec slope: 116.0 cm/sec2 AI P1/2t: 972.5 msec PI end-d derrick: 148.3 cm/sec TR max derrick: 306.7 cm/sec TR max P.6 mmHg ECHO/Echo Complete Interpretation Summary Left ventricular systolic function is normal. The estimated ejection fraction is 55 %. Moderate concentric left ventricular hypertrophy. Apical false tendon noted. The left atrium is moderately enlarged. The right atrium is mildly enlarged. Mild (1+) mitral valve insufficiency. Mild tricuspid valve insufficiency. Mild diffuse aortic valve thickening. Trivial pulmonic valve insufficiency. Right ventricular systolic pressure estimated to be 41 mmHg. Transmitral diastolic flow velocities suggest diastolic dysfunction (pseudonorm al pattern). Ordering Physician: Jerman Aviles Referring Physician: Seth Aguila MD Performed By: Chavez Villalobos RCS
--- NOTE | 2021-03-16 12:28 | STRESSREP ---
Stress Test Report Date: 03-16-2021 Procedure: Pharmacologic stress nuclear imaging study Indications: Shortness of breath/dyspnea on exertion; fatigue; paroxysmal atrial fibrillation; status post EPS/RFA Consent: Per the patient Procedure: The patient underwent pharmacologic (Regadenoson 0.4mg ) evaluation with a peak heart rate of 104 beats per minute (71%predicted maximal heart rate) and a peak blood pressure of 138/82 mmHg. The baseline ECG demonstrated sinus rhythm. The peak pharmacologic ECG demonstrated no obvious ECG changes. There was an isolated PVC during infusion. There was no complaint of chest discomfort during pharmacologic infusion or recovery. The examination was discontinued secondary to completion of protocol. Impression: 1. Pharmacologic (Regadenoson) evaluation 2. Peak pharmacologic ECG with no obvious ECG changes. 3. There was an isolated PVC during infusion. 4. Nuclear images pending Myocardial perfusion imaging study: Technique: The patient was injected with 10.9 millicuries of technetium 99m Cardiolite and subsequently rest SPECT Cardiolite nuclear imaging was obtained in the horizontal long, vertical long, and short axis views. The patient underwent pharmacologic (Regadenoson) evaluation with a peak heart rate of 104 beats per minute (71% percent predicted maximal heart rate) and a peak blood pressure of 138/82 mmHg. The patient was injected with 33.1 millicuries of technetium 99m Cardiolite and subsequently stress SPECT Cardiolite nuclear imaging was obtained in the horizontal long, vertical long, and short axis views. A gated Cardiolite study at peak stress was obtained. Interpretation: Rest and stress SPECT Cardiolite nuclear imaging status post realignment, normalization, and attenuation correction demonstrate at rest the appearance of a small area of subtle diminished tracer uptake in the distal inferior/apical segments which appears to improve and/or normalize following stress. There is end systolic thickening and brightening. The gated Cardiolite study demonstrates myocardial thickening and inward wall motion. The reported LVEF is 54%. Impression: 1. Rest and stress SPECT her nuclear imaging demonstrate myocardial perfusion changes at rest which appear to improve and/or normalize following stress appearing compatible shifting soft tissue attenuation/artifact with no myocardial perfusion changes considered diagnostic for associated stress-induced myocardial ischemia. 2. The gated Cardiolite study reports an LVEF of 54%. This note was generated with [employer] software. It may contain incorrect words, spelling, and punctuation that were not noted in checking the note before signing.
== END ==
PROVIDERS: PCP Family Medicine; Referring Provider Internal Medicine Cardiovascular Disease; Visit Provider Internal Medicine Cardiovascular Disease
DX: I25.10 Atherosclerotic heart disease of native coronary artery without angina pectoris (principal); R06.02 Shortness of breath; R60.9 Edema, unspecified; I73.9 Peripheral vascular disease, unspecified; R06.00 Dyspnea, unspecified; I48.0 Paroxysmal atrial fibrillation; E78.00 Pure hypercholesterolemia, unspecified; I10 Essential (primary) hypertension; Z98.890 Other specified postprocedural states
CPT/HCPCS: 78452; 93017; 93306; A9500; A4216; J2785

== ENCOUNTER 2021-03-25 15:25 | Outpatient (RCR) | payer MEDICARE, SELFPAY ==
[2021-02-26 12:59] VITALS: BMI 29.0
[2021-03-25 15:41] LABS: INR Fingerstick 2.1; Prothrombin Time Fingerstick 23.7 SEC (11.9-14.4)
== END 2021-03-25 18:00 | disposition home or self-care (01) ==
LOC: LAB 15:25
PROVIDERS: Family Provider Family Medicine; PCP Family Medicine; Referring Provider Internal Medicine Cardiovascular Disease; Visit Provider Internal Medicine Cardiovascular Disease
DX: I48.0 Paroxysmal atrial fibrillation (principal); Z79.01 Long term (current) use of anticoagulants
CPT/HCPCS: 36416; 85610

== ENCOUNTER 2021-04-14 11:17 | Outpatient (RCR) | payer MEDICARE, SELFPAY ==
[2021-02-26 12:59] VITALS: BMI 29.0
[2021-04-14 12:44] LABS: International Normalized Ratio 2.1; Prothrombin Time (Protime)PT. 22.4 SECONDS (11.7-14.9)
[2021-04-14 12:59] LABS: BUN 23 mg/dL (7-18); Creatinine, Serum 1.13 mg/dL (0.70-1.30); EST Glomerular Filtration Rate 67 mL/min (>60); Est Glom Filt Rate - Afr Amer 81 mL/min (>60)
== END 2021-04-14 18:00 | disposition home or self-care (01) ==
LOC: LAB 11:17
PROVIDERS: Surgery Vascular Surgery; Family Provider Family Medicine; PCP Family Medicine; Referring Provider Internal Medicine Cardiovascular Disease; Visit Provider Internal Medicine Cardiovascular Disease
DX: I48.0 Paroxysmal atrial fibrillation (principal); Z79.01 Long term (current) use of anticoagulants
CPT/HCPCS: 36415; 82565; 84520; 85610

== ENCOUNTER → 2021-04-23 10:27 | Outpatient (CLI) | payer MEDICARE, SELFPAY ==
[2021-02-26 12:59] VITALS: BMI 29.0
--- NOTE | 2021-04-23 10:30 | ART_ITS ---
Reason For Study: Leg Pain Procedure A bilateral lower extremity continuous wave Doppler with analog waveform analysis,segmental pressures,and ankle brachial indexes with exercise. Left Segmental Pressures Left brachial= 143mmHg. Left posterior tibial artery = 199mmHg. Left dorsalis pedis artery = 199mmHg. Left digit = 128 mmHg. Right Segmental Pressures Right brachial= 145mmHg. Right posterior tibial artery = 221mmHg. Right dorsalis pedis artery = 221mmHg. Right digit = 148 mmHg. Indices The right ankle brachial index by the posterior tibial artery is 1.52. The right ankle brachial index by the dorsalis pedis is 1.52. The right digital-brachial index is 1.02. The right post exercise ankle brachial index is 1.09. The left ankle brachial index by the posterior tibial artery is 1.37. The left ankle brachial index by the dorsalis pedis is 1.37. The left digital-brachial index is 0.88. The left post exercise ankle brachial index is 1.22. VL/Lower Ext Art Exam w/ Exercise Interpretation Summary Bilateral no significant occlusive disease at rest. DOMO 1.52 and 1.37. These ma y be falsely elevated but there is triphasic flow noted bilaterally. The DBI of 1.02 and 0.88. Ordering Physician: David Alarcon Referring Physician: David Alarcon Performed By: Nany Green RDCS/RVT
--- NOTE | 2021-04-23 11:21 | CT_ITS ---
STUDY: CTA OF THE ABDOMINAL AORTA AND BILATERAL LOWER EXTREMITIES REASON FOR EXAM: Male, 75 years old. HYPERCHOLESTEROLEMIA. Bilateral lower extremity weakness with exercise. RADIATION DOSAGE (If Supplied By Facility): CTDIvol = ( 11.46 ) mGy, DLP = ( 1251.00 ) mGycm TECHNIQUE: Axial CT angiography multi-detector data acquisition was obtained from the to the following intravenous administration of IV 100mL Isovue-370. Axial images and MIP images were reconstructed from the axial data set. Post-processing of the angiographic images was performed, with multiplanar reformation and 3D reconstruction. Individualized dose optimization techniques were used for this CT. TECHNICAL QUALITY: Fair COMPARISON: None. Descriptors of Narrowing: None (0%) Mild (< 50%) Moderate (50-70%) Severe (70-90%) Subtotal/Total Occlusion (90-100%) Non-Evaluable (technically non-diagnostic FINDINGS: Mild degree of increased markings at the lung bases suggestive of possible mild scarring. Tiny bilateral pleural effusions slightly more prominent on the left side. Bilateral renal cortical thinning. There is a 5.5 mm nonobstructive calculus in the lower pole of the right kidney. Multiple gallstones. Prostatic calcification. Abdominal aorta: Nonstenotic atherosclerotic plaques. Celiac and superior mesenteric arteries: Atherosclerotic plaques at the origin of the superior mesenteric artery. 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 There is evidence of the calcification of the aneurysm wall. Inferior mesenteric artery: No demonstrated narrowing. Right renal artery(arteries): No demonstrated narrowing. Left renal artery(arteries): No demonstrated narrowing. Right common iliac artery: Nonstenotic calcific plaques. Right external iliac artery: No demonstrated narrowing. Right internal iliac artery: No demonstrated narrowing. Left common iliac artery: Nonstenotic calcific plaques. Left external iliac artery: No demonstrated narrowing. Left internal iliac artery: No demonstrated narrowing. RIGHT LOWER EXTREMITY Right common femoral artery: No demonstrated narrowing. Right profundus femoris: No demonstrated narrowing. Right superficial femoral: No demonstrated narrowing. No visualization of the arteries distal to the popliteal artery. ''''LEFT LOWER EXTREMITY Left common femoral artery: No demonstrated narrowing. Left profundus femoris: No demonstrated narrowing. Left superficial femoral: No demonstrated narrowing. No visualization distal to the popliteal artery. CT/CTA Abd w/Runoff W/WO Contrast IMPRESSION: Atherosclerotic plaques as described. Limited study. No arterial visualization is seen distal to the popliteal artery. Electronically Signed: Efrain Bardales MD at 13:01 EDT , Service support ,
== END ==
PROVIDERS: PCP Family Medicine; Referring Provider Surgery Vascular Surgery; Visit Provider Surgery Vascular Surgery
DX: I77.1 Stricture of artery (principal); I70.213 Atherosclerosis of native arteries of extremities with intermittent claudication, bilateral legs; M79.606 Pain in leg, unspecified; M79.89 Other specified soft tissue disorders; E78.00 Pure hypercholesterolemia, unspecified; I48.91 Unspecified atrial fibrillation; E11.9 Type 2 diabetes mellitus without complications; I11.9 Hypertensive heart disease without heart failure
CPT/HCPCS: 75635; 93924; Q9967

== ENCOUNTER 2021-05-14 11:40 | Outpatient (RCR) | payer MEDICARE, SELFPAY ==
[2021-02-26 12:59] VITALS: BMI 29.0
[2021-05-14 12:40] LABS: INR Fingerstick 2.5; Prothrombin Time Fingerstick 28.2 SEC (11.9-14.4)
== END 2021-05-14 18:00 | disposition home or self-care (01) ==
LOC: LAB 11:40
PROVIDERS: Family Provider Family Medicine; PCP Family Medicine; Referring Provider Internal Medicine Cardiovascular Disease; Visit Provider Internal Medicine Cardiovascular Disease
DX: I48.0 Paroxysmal atrial fibrillation (principal); Z79.01 Long term (current) use of anticoagulants
CPT/HCPCS: 36416; 85610

== ENCOUNTER → 2021-05-31 09:38 | Outpatient (CLI) | payer MEDICARE, SELFPAY ==
[2021-05-31 08:45] VITALS: BMI 29.5
[2021-05-31 11:31] LABS: ALB/GLOB Ratio 0.9 RATIO (0.9-2.4); AST(SGOT) 17 U/L (15-37); Alanine Aminotransfer ALT/SGPT 24 U/L (16-61); Albumin, Serum 3.3 g/dL (3.2-5.0); Alkaline Phosphatase 103 U/L (45-117); Anion Gap 5 (5-15); BUN 30 mg/dL (7-18); Calcium,Total 8.8 mg/dL (8.5-10.1); Chloride 108 mmol/L (98-107); Cholesterol 102 mg/dL (200); Creatinine, Serum 1.07 mg/dL (0.70-1.30); EST Glomerular Filtration Rate 72 mL/min (>60); Est Glom Filt Rate - Afr Amer 87 mL/min (>60); Globulin 3.7 g/dL (2.2-4.2); Glucose 299 mg/dL (74-106); High Density Lipoprotein 42 mg/dL; Potassium 4.1 mmol/L (3.5-5.1); Sodium Level 136 mmol/L (136-145); Thyroid Stim Hormone (TSH) 3.66 uIU/mL (0.358-3.74); Triglycerides 83 mg/dL; Very Low Density Lipoprotein 17 mg/dL (5-40)
== END ==
PROVIDERS: PCP Family Medicine; Referring Provider Physician Assistant Medical; Visit Provider Physician Assistant Medical
DX: I25.10 Atherosclerotic heart disease of native coronary artery without angina pectoris (principal); I48.0 Paroxysmal atrial fibrillation; I10 Essential (primary) hypertension; E78.00 Pure hypercholesterolemia, unspecified; Z79.899 Other long term (current) drug therapy
CPT/HCPCS: 36415; 80053; 80061; 84443

== ENCOUNTER → 2021-06-03 09:25 | Outpatient (CLI) | payer MEDICARE, SELFPAY ==
[2021-05-31 08:45] VITALS: BMI 29.5
--- NOTE | 2021-06-03 14:45 | PFTCOMP ---
COMPLETE PULMONARY FUNCTION TEST INTERPRETATION Brief HPI: Patient is a 76 year old male, currently under the care of Sushila Mckeon, who presents to [facility] for complete pulmonary function tests secondary to diagnosis of dyspnea. Respiratory therapist reports good effort and reproducible results. Interpretation: Forced expiration spirometry shows no large airways obstructive ventilatory defect with an FEV1 of 91% predicted. There is no significant bronchodilator response by strict ATS criteria. Spirograms are of good quality and plateau slowly, indicating slowly emptying areas of the lungs. The respiratory flow volume loop shows decreased expiratory flow rates at high lung volumes consistent with small airways obstruction. Lung volumes by body plethysmography show a normal total lung capacity at 5.3 L, 86% predicted. All other lung volumes are within normal limits. Diffusion capacity by carbon monoxide is normal at 79% predicted. The airway resistance is normal. No previous pulmonary function tests were available for review. Impression: Grossly normal pulmonary function test with some stigmata of possible small airways disease
== END ==
PROVIDERS: PCP Family Medicine; Referring Provider Physician Assistant Medical; Visit Provider Physician Assistant Medical
DX: I25.10 Atherosclerotic heart disease of native coronary artery without angina pectoris (principal); E78.00 Pure hypercholesterolemia, unspecified; I10 Essential (primary) hypertension; I48.0 Paroxysmal atrial fibrillation; Z79.899 Other long term (current) drug therapy
CPT/HCPCS: 94060; 94726; 94729

== ENCOUNTER 2021-07-02 08:17 | Outpatient (RCR) | payer MEDICARE, SELFPAY ==
[2021-05-31 08:45] VITALS: BMI 29.5
[2021-06-16 10:31] LABS: INR Fingerstick 1.9; Prothrombin Time Fingerstick 21.8 SEC (11.9-14.4)
[2021-07-02 08:26] LABS: Prothrombin Time Fingerstick 22.7 SEC (11.9-14.4)
== END 2021-07-02 18:00 | disposition home or self-care (01) ==
LOC: LAB 08:17
PROVIDERS: Family Provider Family Medicine; PCP Family Medicine; Referring Provider Internal Medicine Cardiovascular Disease; Visit Provider Internal Medicine Cardiovascular Disease
DX: I48.0 Paroxysmal atrial fibrillation (principal); Z79.01 Long term (current) use of anticoagulants
CPT/HCPCS: 36416; 85610

== ENCOUNTER 2021-08-02 07:12 | Outpatient (RCR) | payer MEDICARE, SELFPAY ==
[2021-07-13 19:58] VITALS: BMI 29.5
[2021-08-02 07:30] LABS: INR Fingerstick 2.1; Prothrombin Time Fingerstick 24.1 SEC (11.9-14.4)
== END 2021-08-02 18:00 | disposition home or self-care (01) ==
LOC: LAB 07:12
PROVIDERS: Family Provider Family Medicine; PCP Family Medicine; Referring Provider Internal Medicine Cardiovascular Disease; Visit Provider Internal Medicine Cardiovascular Disease
DX: I48.0 Paroxysmal atrial fibrillation (principal); Z79.01 Long term (current) use of anticoagulants
CPT/HCPCS: 36416; 85610

== ENCOUNTER 2021-09-07 08:39 | Outpatient (RCR) | payer MEDICARE, SELFPAY ==
[2021-08-12 20:16] VITALS: BMI 29.5
[2021-09-07 08:50] LABS: INR Fingerstick 2.1; Prothrombin Time Fingerstick 23.4 SEC (11.9-14.4)
== END 2021-09-12 03:30 | disposition home or self-care (01) ==
LOC: LAB 08:39
PROVIDERS: Family Provider Family Medicine; PCP Family Medicine; Referring Provider Internal Medicine Cardiovascular Disease; Visit Provider Internal Medicine Cardiovascular Disease
DX: I48.0 Paroxysmal atrial fibrillation (principal); Z79.01 Long term (current) use of anticoagulants
CPT/HCPCS: 36416; 85610

== ENCOUNTER 2021-10-13 09:23 | Outpatient (RCR) | payer MEDICARE, SELFPAY ==
[2021-09-12 03:31] VITALS: BMI 29.5
[2021-10-13 09:40] LABS: INR Fingerstick 2.1; Prothrombin Time Fingerstick 24.1 SEC (11.9-14.4)
== END 2021-11-13 18:00 | disposition home or self-care (01) ==
LOC: LAB 09:23
PROVIDERS: Family Provider Family Medicine; PCP Family Medicine; Referring Provider Internal Medicine Cardiovascular Disease; Visit Provider Internal Medicine Cardiovascular Disease
DX: I48.0 Paroxysmal atrial fibrillation (principal); Z79.01 Long term (current) use of anticoagulants
CPT/HCPCS: 36416; 85610

== ENCOUNTER 2021-12-28 08:26 | Outpatient (RCR) | payer MEDICARE, SELFPAY ==
[2021-11-14 03:59] VITALS: BMI 29.5
[2021-12-14 15:46] LABS: INR Fingerstick 1.8; Prothrombin Time Fingerstick 21.8 SEC (11.9-14.4)
[2021-12-28 08:36] LABS: INR Fingerstick 1.6; Prothrombin Time Fingerstick 19.5 SEC (11.9-14.4)
== END 2021-12-28 18:00 | disposition home or self-care (01) ==
LOC: LAB 08:26
PROVIDERS: Family Provider Family Medicine; PCP Family Medicine; Referring Provider Internal Medicine Cardiovascular Disease; Visit Provider Internal Medicine Cardiovascular Disease
DX: I48.0 Paroxysmal atrial fibrillation (principal); Z79.01 Long term (current) use of anticoagulants
CPT/HCPCS: 36416; 85610

== ENCOUNTER 2022-01-31 07:30 | Outpatient (RCR) | payer MEDICARE, SELFPAY ==
[2022-01-11 09:30] VITALS: BMI 29.5
[2022-01-17 10:32] LABS: International Normalized Ratio 2.4
[2022-01-17 10:48] LABS: Vitamin B12 567 pg/mL (211-911)
[2022-01-17 10:55] LABS: ALB/GLOB Ratio 0.9 RATIO (0.9-2.4); AST(SGOT) 25 U/L (15-37); Alanine Aminotransfer ALT/SGPT 29 U/L (16-61); Albumin, Serum 3.6 g/dL (3.2-5.0); Alkaline Phosphatase 82 U/L (45-117); Anion Gap 4 (5-15); BUN 33 mg/dL (7-18); BUN/Creat Ratio 22.6 RATIO (10-20); Calcium,Total 8.9 mg/dL (8.5-10.1); Chloride 107 mmol/L (98-107); Cholesterol 148 mg/dL (200); Creatinine, Serum 1.46 mg/dL (0.70-1.30); EST Glomerular Filtration Rate 50 mL/min (>60); Est Glom Filt Rate - Afr Amer 60 mL/min (>60); Glucose 164 mg/dL (74-106); High Density Lipoprotein 48 mg/dL; Potassium 4.6 mmol/L (3.5-5.1); Protein, Total 7.6 g/dL (6.4-8.2); Sodium Level 138 mmol/L (136-145); Triglycerides 148 mg/dL; Very Low Density Lipoprotein 30 mg/dL (5-40)
[2022-01-31 08:09] LABS: International Normalized Ratio 1.9
[2022-01-31 08:40] LABS: Anion Gap 2 (5-15); BUN 22 mg/dL (7-18); BUN/Creat Ratio 16.1 RATIO (10-20); Calcium,Total 9.6 mg/dL (8.5-10.1); Chloride 108 mmol/L (98-107); Creatinine, Serum 1.37 mg/dL (0.70-1.30); EST Glomerular Filtration Rate 54 mL/min (>60); Est Glom Filt Rate - Afr Amer 65 mL/min (>60); Glucose 153 mg/dL (74-106); Potassium 4.6 mmol/L (3.5-5.1); Sodium Level 139 mmol/L (136-145)
== END 2022-02-10 18:00 | disposition home or self-care (01) ==
LOC: LAB 07:30
PROVIDERS: Family Provider Family Medicine; PCP Family Medicine; Referring Provider Internal Medicine Cardiovascular Disease; Visit Provider Internal Medicine Cardiovascular Disease
DX: I48.0 Paroxysmal atrial fibrillation (principal); E11.9 Type 2 diabetes mellitus without complications; Z79.01 Long term (current) use of anticoagulants
CPT/HCPCS: 36415; 80048; 80053; 80061; 82607; 85610

== ENCOUNTER 2022-03-11 08:13 | Outpatient (RCR) | payer MEDICARE, SELFPAY ==
[2022-02-11 01:23] VITALS: BMI 29.5
[2022-02-18 08:21] LABS: INR Fingerstick 1.9; Prothrombin Time Fingerstick 22.4 SEC (11.7-14.9)
[2022-03-11 08:30] LABS: INR Fingerstick 2.7; Prothrombin Time Fingerstick 30.8 SEC (11.7-14.9)
== END 2022-03-11 18:00 | disposition home or self-care (01) ==
LOC: LAB 08:13
PROVIDERS: Family Provider Family Medicine; PCP Family Medicine; Referring Provider Internal Medicine Cardiovascular Disease; Visit Provider Internal Medicine Cardiovascular Disease
DX: I48.0 Paroxysmal atrial fibrillation (principal); Z79.01 Long term (current) use of anticoagulants
CPT/HCPCS: 36416; 85610

== ENCOUNTER 2022-04-01 10:31 | Outpatient (RCR) | payer MEDICARE, SELFPAY ==
[2022-03-13 02:51] VITALS: BMI 29.5
[2022-04-01 10:41] LABS: INR Fingerstick 2.8; Prothrombin Time Fingerstick 32.6 SEC (11.7-14.9)
== END 2022-04-01 18:00 | disposition home or self-care (01) ==
LOC: LAB 10:31
PROVIDERS: Family Provider Family Medicine; PCP Family Medicine; Referring Provider Internal Medicine Cardiovascular Disease; Visit Provider Internal Medicine Cardiovascular Disease
DX: I48.0 Paroxysmal atrial fibrillation (principal); Z79.01 Long term (current) use of anticoagulants
CPT/HCPCS: 36416; 85610

== ENCOUNTER 2022-05-05 08:40 | Outpatient (RCR) | payer MEDICARE, SELFPAY ==
[2022-04-12 20:29] VITALS: BMI 29.5
[2022-04-29 10:36] LABS: Hematocrit 39.4 % (40-54); Hemoglobin 12.9 g/dL (13.0-16.5); Mean Corp Hgb Conc 32.7 g/dL (32-36); Mean Corpuscular Hgb 29.6 pg (27.0-32.0); Mean Corpuscular Volume 90.4 fL (80-94); Mean Platelet Vol. 10.1 fl (6.2-12.0); Platelet Count 165 K/mm3 (150-450); RBC Distribution Width CV 14.4 % (11.6-14.6); RBC Distribution Width SD 48.4 fl (35.1-43.9); Red Blood Count 4.36 M/mm3 (4.6-6.2); White Blood Count 7.2 K/mm3 (4.4-11.0)
[2022-04-29 11:08] LABS: Anion Gap 6 (5-15); BUN 32 mg/dL (7-18); BUN/Creat Ratio 21.2 RATIO (10-20); Calcium,Total 8.9 mg/dL (8.5-10.1); Chloride 109 mmol/L (98-107); Creatinine, Serum 1.51 mg/dL (0.70-1.30); EST Glomerular Filtration Rate 48 mL/min (>60); Est Glom Filt Rate - Afr Amer 58 mL/min (>60); Glucose 146 mg/dL (74-106); Potassium 4.3 mmol/L (3.5-5.1); Sodium Level 139 mmol/L (136-145)
[2022-04-29 11:21] LABS: International Normalized Ratio 4.3; Prothrombin Time (Protime)PT. 40.7 SECONDS (11.7-14.9)
[2022-05-05 08:51] LABS: INR Fingerstick 2.4; Prothrombin Time Fingerstick 28.4 SEC (11.7-14.9)
== END 2022-05-05 23:59 | disposition home or self-care (01) ==
LOC: LAB 08:40
PROVIDERS: Family Provider Family Medicine; PCP Family Medicine; Referring Provider Internal Medicine Cardiovascular Disease; Visit Provider Internal Medicine Cardiovascular Disease
DX: I48.0 Paroxysmal atrial fibrillation (principal); Z79.01 Long term (current) use of anticoagulants; N18.30 Chronic kidney disease, stage 3 unspecified
CPT/HCPCS: 36415; 36416; 80048; 85027; 85610

== ENCOUNTER 2022-05-19 07:36 | Outpatient (RCR) | payer MEDICARE, SELFPAY ==
[2022-05-13 06:49] VITALS: BMI 29.5
[2022-05-19 07:57] LABS: INR Fingerstick 2.8; Prothrombin Time Fingerstick 32.4 SEC (11.7-14.9)
== END 2022-06-12 02:07 | disposition home or self-care (01) ==
LOC: LAB 07:36
PROVIDERS: Family Provider Family Medicine; PCP Family Medicine; Referring Provider Internal Medicine Cardiovascular Disease; Visit Provider Internal Medicine Cardiovascular Disease
DX: I48.0 Paroxysmal atrial fibrillation (principal); Z79.01 Long term (current) use of anticoagulants
CPT/HCPCS: 36416; 85610

== ENCOUNTER → 2022-05-30 | Outpatient (CLI) | payer MEDICARE, SELFPAY ==
--- NOTE | 2022-05-30 12:02 | RAD_ITS ---
STUDY: X-RAY CHEST REASON FOR EXAM: Male, 77 years old. Amiodarone TECHNIQUE: 2 views of the chest were obtained COMPARISON: None. FINDINGS: No consolidation. No pleural effusion or pneumothorax. Elevated right hemidiaphragm. Accentuated thoracic kyphotic curvature with mild anterior wedging of the thoracic vertebrae. RAD/Chest PA and Lateral IMPRESSION: No acute cardiopulmonary pathology. Electronically Signed: Shahbaz Bailey MD at 15:55 EDT ,
[2022-05-30 16:12] LABS: T4 Free Direct 1.33 ng/dL (0.76-1.46); Thyroid Stim Hormone (TSH) 2.53 uIU/mL (0.358-3.74)
== END | disposition home or self-care (01) ==
LOC: RAD 12:00
PROVIDERS: PCP Family Medicine; Referring Provider Nurse Practitioner Gerontology; Visit Provider Nurse Practitioner Gerontology
DX: Z79.899 Other long term (current) drug therapy (principal)
CPT/HCPCS: 36415; 71046; 84439; 84443

== ENCOUNTER 2022-07-12 09:36 | Outpatient (RCR) | payer MEDICARE, SELFPAY ==
[2022-06-12 02:07] VITALS: BMI 29.5
[2022-06-27 07:51] LABS: INR Fingerstick 3.4; Prothrombin Time Fingerstick 38.4 SEC (11.7-14.9)
[2022-07-05 07:20] LABS: INR Fingerstick 3.1; Prothrombin Time Fingerstick 35.6 SEC (11.7-14.9)
[2022-07-12 09:45] LABS: INR Fingerstick 2.7; Prothrombin Time Fingerstick 30.9 SEC (11.7-14.9)
== END 2022-07-12 18:00 | disposition home or self-care (01) ==
LOC: LAB 09:36
PROVIDERS: Family Provider Family Medicine; PCP Family Medicine; Referring Provider Internal Medicine Cardiovascular Disease; Visit Provider Internal Medicine Cardiovascular Disease
DX: I48.0 Paroxysmal atrial fibrillation (principal); Z79.01 Long term (current) use of anticoagulants
CPT/HCPCS: 36416; 85610

== ENCOUNTER 2022-08-10 08:56 | Outpatient (RCR) | payer MEDICARE, SELFPAY ==
[2022-07-13 22:44] VITALS: BMI 29.5
[2022-08-10 09:05] LABS: INR Fingerstick 2.1; Prothrombin Time Fingerstick 24.5 SEC (11.7-14.9)
== END 2022-08-10 18:00 | disposition home or self-care (01) ==
LOC: LAB 08:56
PROVIDERS: Family Provider Family Medicine; PCP Family Medicine; Referring Provider Internal Medicine Cardiovascular Disease; Visit Provider Internal Medicine Cardiovascular Disease
DX: I48.0 Paroxysmal atrial fibrillation (principal); Z79.01 Long term (current) use of anticoagulants
CPT/HCPCS: 36416; 85610

== ENCOUNTER 2022-08-25 11:13 | Outpatient (CLI) | payer MEDICARE, SELFPAY ==
[2022-08-25 15:35] LABS: International Normalized Ratio 2.6; Prothrombin Time (Protime)PT. 27.6 SECONDS (11.7-14.9)
== END 2022-08-25 23:59 | disposition home or self-care (01) ==
LOC: MFPLAB 11:20
PROVIDERS: Internal Medicine Cardiovascular Disease; PCP Family Medicine; Visit Provider Family Medicine
DX: I48.0 Paroxysmal atrial fibrillation (principal); Z79.01 Long term (current) use of anticoagulants
CPT/HCPCS: 36415; 85610

== ENCOUNTER 2022-09-06 14:37 | Outpatient (RCR) | payer MEDICARE, SELFPAY ==
[2022-08-12 20:35] VITALS: BMI 29.5
[2022-09-06 14:46] LABS: INR Fingerstick 3.6; Prothrombin Time Fingerstick 40.8 SEC (11.7-14.9)
== END 2022-09-06 18:00 | disposition home or self-care (01) ==
LOC: LAB 14:37
PROVIDERS: Family Provider Family Medicine; PCP Family Medicine; Referring Provider Internal Medicine Cardiovascular Disease; Visit Provider Internal Medicine Cardiovascular Disease
DX: I48.0 Paroxysmal atrial fibrillation (principal); Z79.01 Long term (current) use of anticoagulants
CPT/HCPCS: 36416; 85610

== ENCOUNTER 2022-09-27 11:37 | Outpatient (RCR) | payer MEDICARE, SELFPAY ==
[2022-09-13 09:26] VITALS: BMI 29.5
[2022-09-14 10:21] LABS: INR Fingerstick 2.2; Prothrombin Time Fingerstick 26.1 SEC (11.7-14.9)
[2022-09-27 11:56] LABS: Prothrombin Time Fingerstick 23.8 SEC (11.7-14.9)
== END 2022-10-12 18:00 | disposition home or self-care (01) ==
LOC: LAB 11:37
PROVIDERS: Family Provider Family Medicine; PCP Family Medicine; Referring Provider Internal Medicine Cardiovascular Disease; Visit Provider Internal Medicine Cardiovascular Disease
DX: I48.0 Paroxysmal atrial fibrillation (principal); Z79.01 Long term (current) use of anticoagulants
CPT/HCPCS: 36416; 85610

== ENCOUNTER 2022-10-25 09:08 | Outpatient (RCR) | payer MEDICARE, SELFPAY ==
[2022-10-12 22:51] VITALS: BMI 29.5
[2022-10-25 09:20] LABS: INR Fingerstick 1.7; Prothrombin Time Fingerstick 20.8 SEC (11.7-14.9)
== END 2022-10-25 18:00 | disposition home or self-care (01) ==
LOC: LAB 09:08
PROVIDERS: Family Provider Family Medicine; PCP Family Medicine; Referring Provider Internal Medicine Cardiovascular Disease; Visit Provider Internal Medicine Cardiovascular Disease
DX: I48.0 Paroxysmal atrial fibrillation (principal); Z79.01 Long term (current) use of anticoagulants
CPT/HCPCS: 36416; 85610

== ENCOUNTER 2022-12-06 09:19 | Outpatient (RCR) | payer MEDICARE, SELFPAY ==
[2022-11-13 00:49] VITALS: BMI 29.5
[2022-11-17 09:16] LABS: INR Fingerstick 1.7; Prothrombin Time Fingerstick 20.3 SEC (11.7-14.9)
[2022-12-06 09:31] LABS: INR Fingerstick 2.1; Prothrombin Time Fingerstick 24.3 SEC (11.7-14.9)
== END 2022-12-06 11:00 | disposition home or self-care (01) ==
LOC: LAB 09:19
PROVIDERS: Family Provider Family Medicine; PCP Family Medicine; Referring Provider Internal Medicine Cardiovascular Disease; Visit Provider Internal Medicine Cardiovascular Disease
DX: I48.0 Paroxysmal atrial fibrillation (principal); Z79.01 Long term (current) use of anticoagulants
CPT/HCPCS: 36416; 85610

== ENCOUNTER 2023-01-17 08:00 | Outpatient (RCR) | payer MEDICARE, SELFPAY ==
[2022-12-14 08:03] VITALS: BMI 29.5
[2023-01-17 08:20] LABS: INR Fingerstick 2.1; Prothrombin Time Fingerstick 24.4 SEC (11.7-14.9)
== END 2023-02-10 21:41 | disposition home or self-care (01) ==
LOC: LAB 08:00
PROVIDERS: Family Provider Family Medicine; PCP Family Medicine; Referring Provider Internal Medicine Cardiovascular Disease; Visit Provider Internal Medicine Cardiovascular Disease
DX: I48.0 Paroxysmal atrial fibrillation (principal); Z79.01 Long term (current) use of anticoagulants
CPT/HCPCS: 36416; 85610

== ENCOUNTER 2023-02-13 08:03 | Outpatient (RCR) | payer MEDICARE, SELFPAY ==
[2023-02-10 21:41] VITALS: BMI 29.5
[2023-02-13 08:15] LABS: INR Fingerstick 2.3; Prothrombin Time Fingerstick 25.5 SEC (11.7-14.9)
== END 2023-03-12 01:07 | disposition home or self-care (01) ==
LOC: LAB 08:03
PROVIDERS: Family Provider Family Medicine; PCP Family Medicine; Referring Provider Internal Medicine Cardiovascular Disease; Visit Provider Internal Medicine Cardiovascular Disease
DX: I48.0 Paroxysmal atrial fibrillation (principal); Z79.01 Long term (current) use of anticoagulants
CPT/HCPCS: 36416; 85610

== ENCOUNTER 2023-03-20 12:05 | Outpatient (RCR) | payer MEDICARE, SELFPAY ==
[2023-03-12 01:07] VITALS: BMI 29.5
[2023-03-20 12:38] LABS: International Normalized Ratio 2.5; Prothrombin Time (Protime)PT. 27.7 SECONDS (11.7-14.9)
[2023-03-20 12:46] LABS: Hemoglobin A1c 7.1 % (3.8-5.6)
[2023-03-20 12:55] LABS: Cholesterol 131 mg/dL (200); High Density Lipoprotein 45 mg/dL; Triglycerides 148 mg/dL; Very Low Density Lipoprotein 30 mg/dL (5-40)
[2023-03-20 12:56] LABS: Microalbumin,Random Urine 36.7 mg/L (NO RANGE EST.)
== END 2023-03-20 14:00 | disposition home or self-care (01) ==
LOC: LAB 12:05
PROVIDERS: Family Medicine; Family Provider Family Medicine; PCP Family Medicine; Referring Provider Internal Medicine Cardiovascular Disease; Visit Provider Internal Medicine Cardiovascular Disease
DX: I48.0 Paroxysmal atrial fibrillation (principal); Z79.01 Long term (current) use of anticoagulants
CPT/HCPCS: 36415; 80061; 82043; 83036; 85610

== ENCOUNTER → 2023-03-24 | Outpatient (CLI) | payer MEDICARE, SELFPAY ==
--- NOTE | 2023-03-24 11:26 | RAD_ITS ---
STUDY: X-RAY CHEST REASON FOR EXAM: Male, 77 years old. Amiodarone TECHNIQUE: PA and lateral views of the chest. COMPARISON: 05/30/2022 FINDINGS: The lungs are clear and expanded. Elevated right hemidiaphragm which is unchanged. Normal size heart. Normal mediastinum and igor. Normal visualized pulmonary arteries. Normal visualized aortic arch and descending thoracic aorta. Normal visualized thoracic spine. Normal visualized ribs, clavicles, and shoulders. There is no demonstrated abnormality of the visualized soft tissue structures of the upper abdomen. RAD/Chest PA and Lateral IMPRESSION: No active disease. Electronically Signed: Jeffery Patel MD at 23:34 EDT ,
[2023-03-24 13:02] LABS: AST(SGOT) 17 U/L (15-37); Alanine Aminotransfer ALT/SGPT 25 U/L (16-61); Albumin, Serum 3.4 g/dL (3.2-5.0); Alkaline Phosphatase 95 U/L (45-117); Anion Gap 5 (5-15); BUN 20 mg/dL (7-18); BUN/Creat Ratio 14.3 RATIO (10-20); Calcium,Total 8.6 mg/dL (8.5-10.1); Chloride 110 mmol/L (98-107); EST Glomerular Filtration Rate 52 mL/min (>60); Est Glom Filt Rate - Afr Amer 63 mL/min (>60); Free T3 1.8 pg/mL (2.18-3.98); Globulin 3.5 g/dL (2.2-4.2); Glucose 194 mg/dL (74-106); Potassium 4.2 mmol/L (3.5-5.1); Protein, Total 6.9 g/dL (6.4-8.2); Sodium Level 140 mmol/L (136-145); Thyroid Stim Hormone (TSH) 4.13 uIU/mL (0.358-3.74)
== END | disposition home or self-care (01) ==
PROVIDERS: PCP Family Medicine; Referring Provider Nurse Practitioner Gerontology; Visit Provider Nurse Practitioner Gerontology
DX: Z79.899 Other long term (current) drug therapy (principal)
CPT/HCPCS: 36415; 71046; 80053; 84439; 84443; 84481

== ENCOUNTER → 2023-03-28 | Outpatient (CLI) | payer MEDICARE, SELFPAY ==
--- NOTE | 2023-03-29 07:46 | PFT ---
INTRODUCTION: The patient is a 77-year-old male that presents for pulmonary function studies secondary to a diagnosis of amiodarone use. Respiratory therapy reported good patient effort. Bronchodilators were used during testing. INTERPRETATION: Forced expiration spirometry demonstrates no evidence of a large airways obstructive ventilatory defect. There was no significant response to aerosolized bronchodilators. Spirograms are of good quality and plateau normally. Body plethysmography was performed and revealed lung volumes to be within normal limits. Diffusing capacity by single breath CO was also within normal limits. IMPRESSION: Grossly normal pulmonary function studies.
== END | disposition home or self-care (01) ==
LOC: PSN 09:14
PROVIDERS: PCP Family Medicine; Referring Provider Nurse Practitioner Gerontology; Visit Provider Nurse Practitioner Gerontology
DX: Z79.899 Other long term (current) drug therapy (principal)
CPT/HCPCS: 94060; 94726; 94729

== ENCOUNTER 2023-05-09 11:02 | Outpatient (RCR) | payer MEDICARE, SELFPAY ==
[2023-04-13 08:13] VITALS: BMI 29.5
[2023-04-17 07:48] LABS: INR Fingerstick 2.6; Prothrombin Time Fingerstick 28.4 SEC (11.7-14.9)
[2023-05-09 12:17] LABS: Free T3 1.8 pg/mL (2.18-3.98); T4 Free Direct 1.33 ng/dL (0.76-1.46); Thyroid Stim Hormone (TSH) 3.33 uIU/mL (0.358-3.74)
== END 2023-05-09 18:00 | disposition home or self-care (01) ==
LOC: LAB 11:02
PROVIDERS: Family Provider Family Medicine; PCP Family Medicine; Referring Provider Nurse Practitioner Gerontology; Visit Provider Nurse Practitioner Gerontology
DX: I48.0 Paroxysmal atrial fibrillation (principal); Z79.01 Long term (current) use of anticoagulants
CPT/HCPCS: 36415; 36416; 84439; 84443; 84481; 85610

== ENCOUNTER 2023-05-17 11:35 | Outpatient (RCR) | payer MEDICARE, SELFPAY ==
[2023-05-12 21:45] VITALS: BMI 29.5
[2023-05-17 11:45] LABS: INR Fingerstick 2.4; Prothrombin Time Fingerstick 26.4 SEC (11.7-14.9)
== END 2023-06-12 18:00 | disposition home or self-care (01) ==
LOC: LAB 11:35
PROVIDERS: Family Provider Family Medicine; PCP Family Medicine; Referring Provider Nurse Practitioner Gerontology; Visit Provider Nurse Practitioner Gerontology
DX: I48.0 Paroxysmal atrial fibrillation (principal); Z79.01 Long term (current) use of anticoagulants
CPT/HCPCS: 36416; 85610

== ENCOUNTER 2023-06-20 10:20 | Outpatient (RCR) | payer MEDICARE, SELFPAY ==
[2023-06-13 00:16] VITALS: BMI 29.5
[2023-06-20 10:31] LABS: INR Fingerstick 2.4; Prothrombin Time Fingerstick 26.5 SEC (11.7-14.9)
== END 2023-06-20 18:00 | disposition home or self-care (01) ==
LOC: LAB 10:20
PROVIDERS: Family Provider Family Medicine; PCP Family Medicine; Referring Provider Nurse Practitioner Gerontology; Visit Provider Nurse Practitioner Gerontology
DX: I48.0 Paroxysmal atrial fibrillation (principal); Z79.01 Long term (current) use of anticoagulants
CPT/HCPCS: 36416; 85610

== ENCOUNTER 2023-07-25 11:19 | Outpatient (RCR) | payer MEDICARE, SELFPAY ==
[2023-07-13 22:08] VITALS: BMI 29.5
[2023-07-25 11:47] LABS: INR Fingerstick 1.8; Prothrombin Time Fingerstick 19.6 SEC (11.7-14.9)
== END 2023-07-25 18:00 | disposition home or self-care (01) ==
LOC: LAB 11:19
PROVIDERS: Family Provider Family Medicine; PCP Family Medicine; Referring Provider Nurse Practitioner Gerontology; Visit Provider Nurse Practitioner Gerontology
DX: I48.0 Paroxysmal atrial fibrillation (principal); Z79.01 Long term (current) use of anticoagulants
CPT/HCPCS: 36416; 85610

== ENCOUNTER 2023-08-21 10:24 | Outpatient (RCR) | payer MEDICARE, SELFPAY ==
[2023-08-13 01:49] VITALS: BMI 29.5
[2023-08-21 10:34] LABS: INR Fingerstick 2.6; Prothrombin Time Fingerstick 27.9 SEC (11.7-14.9)
== END 2023-08-21 18:00 | disposition home or self-care (01) ==
LOC: LAB 10:24
PROVIDERS: Family Provider Family Medicine; PCP Family Medicine; Referring Provider Nurse Practitioner Gerontology; Visit Provider Nurse Practitioner Gerontology
DX: Z79.01 Long term (current) use of anticoagulants
CPT/HCPCS: 36416; 85610

== ENCOUNTER 2023-09-05 02:20 | Emergency (ER) | payer MEDICARE, SELFPAY ==
[2023-09-05 02:21] VITALS: BP 138/79; PULSE 68; RESP 19; TEMP 36.6; O2SAT 98; BMI 29.1
--- NOTE | 2023-09-05 02:47 | CT_ITS ---
STUDY: CT ABDOMEN AND PELVIS WITHOUT CONTRAST REASON FOR EXAM: Male, 78 years old patient with kidney stone. RADIATION DOSAGE (If Supplied By Facility): CTDIvol = ( 9.65 ) mGy, DLP = ( 530.26 ) mGycm TECHNIQUE: Transaxial images were obtained from the dome of the diaphragm to the symphysis pubis without oral contrast, and without intravenous contrast. Sagittal and coronal images were reconstructed. Individualized dose optimization techniques were used for this CT. COMPARISON: CTA of the abdomen and pelvis dated April 23, 2021. FINDINGS: There is mild bilateral basilar dependent atelectasis. The visualized portions of the heart appears enlarged. There are coronary artery calcifications. Normal liver. There are multiple gallstones. Normal spleen. Normal pancreas. Normal bilateral adrenal glands. There is a nonobstructing calculus within the right kidney measuring approximately 9.6 x 5.2 mm. There is multifocal parenchymal loss in the right kidney suggesting sequela of previous infection or ischemia. Normal left kidney. Normal visualized stomach. There appears to be abnormal thickening of the wall of the proximal small bowel. This suggests possible infectious or inflammatory enteritis. There is no evidence for dilated bowel, ascites or pneumoperitoneum. Small bowel has a grossly normal appearance otherwise. There is stool visible throughout the colon with scattered colonic diverticula. The appendix is visualized and appears normal. There is multifocal atherosclerotic calcification of the abdominal aorta without a demonstrated aortic aneurysm. 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 Normal inferior vena cava. There is retroperitoneal lymphadenopathy with enlarged nodes greater than 10-15mm in the short axis. Normal urinary bladder. There are prostatic calcifications. There appear to be multiple enlarged inguinal lymph nodes greater left than the right. There are diffuse degenerative changes of the visualized spine. There appears to be mild old compression of the L1 vertebral body. Remaining thoracic and lumbar vertebral bodies have normal height. There are degenerative changes of the sacroiliac joints. Visualized bony pelvis is otherwise within normal limits. CT/Abdomen/Pelvis without Cont IMPRESSION: 1. Findings suggestive of acute infectious or inflammatory enteritis. 2. Nonobstructing right-sided renal calculus. 3. Cholelithiasis without definite cholecystitis. 4. Colonic diverticulosis without diverticulitis. 5. Fusiform celiac axis aneurysm. 6. Retroperitoneal and inguinal lymphadenopathy. Electronically Signed: Louise Fermin MD at 4:05 EDT ,
--- NOTE | 2023-09-05 02:50 | EX.ED.DYSGE1 ---
HPI History of Present Illness Chief Complaint: Abd Pain Informant: patient and spouse/S.O. Narrative Narrative: Very pleasant 78-year-old male presenting to the emergency room with right flank pain. Patient states that around 1600 hrs. today began to have pain right flank right side of his abdomen and right testicle. It progressively worsened. He notes some occasional nausea but no vomiting. He states he has had kidney stones in the past believes he is always passed them has not had surgery for them. He denies any fevers. No change in bowel habits. He notes he is on warfarin due to A-fib. He denies any hematuria today. He denies dysuria. Patient does report that the pain is improved at the current time he is afraid he is going to come back. [facility] Medical History Atherosclerotic heart disease of [place] coronary artery without angina pectoris Atrial fibrillation with RVR Coronary arteriosclerosis in [place] artery Encounter for cardioversion procedure Essential hypertension History of cardioversion (~08/21/19) Hyperlipidemia Hypertension Leg cramps, sleep related jail current use of anticoagulant Paroxysmal atrial fibrillation Pure hypercholesterolemia Sleep-disordered breathing Home Medications aspirin 81 mg chewable tablet 81 mg PO DAILY prevention 10/18/13 [History Last Taken 04/06/20 09:00 81 mg] lisinopril 20 mg tablet 20 mg PO DAILY BP 10/18/13 [History Last Taken 04/06/20] metformin 750 mg tablet,extended release 24 hr 750 mg PO DAILY DM 10/18/13 [History Last Taken 04/06/20] terazosin 5 mg capsule 5 mg PO DAILY BP 10/18/13 [History Last Taken 04/06/20] acetaminophen 325 mg tablet 650 mg (2 x 325 mg) PO Q6H PRN PRN Pain Score 1-10/Temp > 100.7 F 12/31/19 [Rx Last Taken Unknown] meclizine 25 mg tablet 25 mg PO DAILY PRN 02/26/21 [History Last Taken Unknown] empagliflozin 25 mg tablet (Jardiance) 25 mg PO DAILY 03/24/23 [History Last Taken Unknown] glucosamine sulfate 500 mg tablet (Glucosamine) 500 mg PO BID 03/24/23 [History Last Taken Unknown] amiodarone 200 mg tablet 100 mg (1/2 x 200 mg) PO DAILY #45 tabs 03/28/23 [Rx Last Taken Unknown] atorvastatin 40 mg tablet 40 mg PO QHS HLD #90 tabs 03/28/23 [Rx Last Taken Unknown] metoprolol tartrate 50 mg tablet 50 mg PO BID BP #180 tabs 03/28/23 [Rx Last Taken Unknown] warfarin 2.5 mg tablet 2.5 mg PO .COMPLEX #90 tabs 07/03/23 [Rx Last Taken Unknown] sulfamethoxazole 800 mg-trimethoprim 160 mg tablet (Bactrim DS) 1 tab PO Q12H #14 tabs 09/05/23 [Rx Last Taken Unknown] Allergy/AdvReac Type Severity Reaction Status Date / Time dabigatran etexilate AdvReac Severe GI Bleed Verified 09/05/23 02:21 [From Pradaxa] niacin AdvReac Severe Hot flashes Verified 09/05/23 02:21 [From Niaspan Extended-Release] Family History Father Myocardial infarction Hypertension Mother Hina Gehrigs disease Brother MVA (motor vehicle accident) Hypertension Kidney stones Hypercholesterolemia Surgical History History of bilateral cataract extraction History of cardiac radiofrequency ablation (RFA) (~09/21/11) History of endoscopy History of esophagogastroduodenoscopy (EGD) History of left heart catheterization (~08/21/19) History of release of tendon History of tonsillectomy Social History Smoking Status: Never smoker alcohol intake: never substance use type: does not use caffeine: Yes Type: carbonated beverages, coffee and tea what type of physical activity do you participate in: none seatbelt use: always do you feel safe at home: Yes ROS ROS ED Constitutional Constitutional ED: Denies chills or weight loss Eyes Eyes: Denies change in vision or diplopia ENT ENT ED: Denies ear pain, rhinorrhea or sore throat Cardiovascular Cardiovascular: Denies chest pain, orthopnea, palpitations or racing heartbeat Respiratory/Chest Respiratory/Chest: Denies cough, dyspnea or orthopnea Gastrointestinal Gastrointestinal: Reports abdominal pain and nausea; Denies diarrhea or vomiting Genitourinary Genitourinary ED: Denies dysuria, hematuria or urinary frequency Musculoskeletal Musculoskeletal: Reports back pain; Denies arthralgias or myalgias Integumentary Denies abscess or rash Neurologic Neurologic: Denies headache(s) or weakness Psychiatric Psychiatric: Denies anxiety, depression, suicidal ideation or suicidal thoughts Endocrine Endocrinology: Denies polydipsia, polyphagia or polyuria Allergic/Immunologic Allergic/Immunologic ED: Denies mouth swelling, tongue swelling or urticaria EXAM Physical Exam Const Vital Signs: 09/05/23 02:21 09/05/23 05:21 Temperature 97.9 F Temperature Source Temporal Pulse Rate 68 64 Respiratory Rate 19 H 16 Blood Pressure 138/79 H 108/56 L Blood Pressure Mean 98 73 Pulse Ox 98 97 Oxygen Delivery Method Room Air Room Air Positive well nourished and well developed General Appearance ED: well developed HEENT Reports normocephalic, head/scalp atraumatic and moist mucous membranes Eyes PERRL and EOMs intact bilaterally Neck no lymphadenopathy, supple and no JVD Resp normal respiratory effort and clear to auscultation bilaterally Cardio regular rate, regular rhythm and no murmurs GI normal to inspection, nondistended, normoactive bowel sounds and non-tender Palpation: soft Back/Spine no CVA tenderness and normal ROM Extremity normal to inspection General Extremety ED: Negative for edema General Extremity: Negative for edema Neuro oriented x3 and CN's II-XII intact bilaterally Sensorium / Orientation: alert Motor Exam: strength 5/5 throughout Psych mental status grossly normal Mood & Affect: Negative for depressed or tearful Skin no rashes or lesions noted and no wounds MDM MDM MDM Narrative Medical decision making narrative: White count is 12.2. Creatinine 1.40. Urinalysis is positive for nitrates positive leukocyte Estrace greater than 100 red cells greater than 100 white cells and 3+ bacteria. This was sent for culture. CT of the abdomen pelvis demonstrates stones in the kidneys but I do not identify one along the ureter or in the bladder. He is got cholelithiasis however his symptoms are not consistent with gallbladder disease nor is he tender in the right upper quadrant. He is got sigmoid diverticulosis but again his symptoms are on the right not the left. So I think this is unlikely. He has remained pain-free and I think what we will do is place him on antibiotics and have him return if his pain returns. He is going to follow-up with his doctor to talk about the gallstones and diverticulosis after doing some research on it. He was advised that because he is on Coumadin he will need to have his levels rechecked after being on antibiotic For couple days. History & Record Review Discussion w/independent historian: Patient and Significant other Lab Data Attestation: I reviewed the patient's lab results. Labs: Laboratory Results - last 24 hr 09/05/23 09/05/23 02:30 05:18 WBC 12.2 H RBC 4.42 L Hgb 12.7 L Hct 39.2 L MCV 88.7 MCH 28.7 MCHC 32.4 RDW Std Deviation 48.8 H RDW Coeff of Katarzyna 15.0 H Plt Count 143 L MPV 10.9 Immature Gran % (Auto) 0.200 Neut % (Auto) 81.1 H Lymph % (Auto) 10.7 L Stephenson % (Auto) 7.0 Eos % (Auto) 0.6 Baso % (Auto) 0.4 Absolute Neuts (auto) 9.9 H Absolute Lymphs (auto) 1.31 Nucleated RBC % 0 Sodium 139 Potassium 3.7 Chloride 110 H Carbon Dioxide 25.0 Anion Gap 4 L BUN 20 H Creatinine 1.40 H Estim Creat Clear Calc 44.19 Est GFR (MDRD) Af Amer 63 Est GFR (MDRD) Non-Af 52 L BUN/Creatinine Ratio 14.3 Glucose 182 H Calcium 8.4 L Urine Color Yellow Urine Clarity Turbid Urine pH 5.0 Ur Specific Reyno 1.020 Urine Protein 100 H Urine Glucose (UA) 1000 H Urine Ketones 5 H Urine Occult Blood 250 H Urine Nitrite Positive H Urine Bilirubin Negative Urine Urobilinogen Normal Ur Leukocyte Esterase 500 H Urine RBC > 100 SEEN Urine WBC >100 SEEN Ur Squamous Epith Cells 0 SEEN Urine Bacteria 3+ Urine Mucus 0 SEEN Radiography Diagnostic Testing: Clinical Impression(s) from Imaging Studies Abdomen/Pelvis CT 09/05/23 02:47 IMPRESSION: 1. Findings suggestive of acute infectious or inflammatory enteritis. 2. Nonobstructing right-sided renal calculus. 3. Cholelithiasis without definite cholecystitis. 4. Colonic diverticulosis without diverticulitis. 5. Fusiform celiac axis aneurysm. 6. Retroperitoneal and inguinal lymphadenopathy. Electronically Signed: Louise Fermin MD at 4:05 EDT , Discharge Plan Triage Chief Complaint: Abd Pain ED Provider: Marcello Mcnally Dx/Rx/DC Orders Clinical Impression: Acute flank pain, Kidney stone, Acute UTI Instructions: Treating Gallstones, ED Kidney Stone, Passed, ED Diverticulosis Prescriptions: New sulfamethoxazole-trimethoprim [Bactrim DS] 800-160 mg tablet 1 tab PO Q12H Qty: 14 0RF No Action meclizine 25 mg tablet 25 mg PO DAILY PRN Jardiance 25 mg tablet 25 mg PO DAILY Patient Comments: TAKE 1 TABLET BY MOUTH EVERY MORNING glucosamine sulfate [Glucosamine] 500 mg tablet 500 mg PO BID Rx Instructions: administer with meals terazosin 5 MG capsule 5 mg PO DAILY lisinopril 20 MG tablet 20 mg PO DAILY aspirin 81 MG tablet,chewable 81 mg PO DAILY metformin 750 MG tablet extended release 24 hr 750 mg PO DAILY acetaminophen 325 MG tablet 650 mg PO Q6H PRN PRN (Reason: Pain Score 1-10/Temp > 100.7 F) 0RF atorvastatin 40 mg tablet 40 mg PO QHS Qty: 90 3RF amiodarone 200 mg tablet 100 mg PO DAILY Qty: 45 3RF metoprolol tartrate 50 mg tablet 50 mg PO BID Qty: 180 3RF warfarin 2.5 mg tablet 2.5 mg PO .COMPLEX Qty: 90 4RF Protocol: Dose Management Condition: Monday Dose/Route: 1.25 mg Instruction: 0.5 x 2.5 mg tablets Condition: Monday Dose/Route: 2.5 mg Instruction: 1 x 2.5 mg tablet Condition: Monday Dose/Route: 2.5 mg Instruction: 1 x 2.5 mg tablet Condition: Monday Dose/Route: 2.5 mg Instruction: 1 x 2.5 mg tablet Condition: Dose/Route: 2.5 mg Instruction: 1 x 2.5 mg tablet Condition: Monday Dose/Route: 2.5 mg Instruction: 1 x 2.5 mg tablet Condition: Monday Dose/Route: 2.5 mg Instruction: 1 x 2.5 mg tablet Protocol Text: Adjustment Start Date: Monday08/21/23 INR Value: 2.6 INR Date: 08/21/23 Recheck Date: 09/18/23 Rx Instructions: 2.5 mg PO 1 tab by mouth daily except for mondays take one half tablet or as directed; Primary Care Provider: Sal Aguila Referrals: Sal Aguila MD [Primary Care Provider] - 3-5 Days if not improving Activity Restrictions/Additional Instructions: If you monitor your Coumadin level at home please check it in 48 hours as Bactrim and Coumadin can interact. If however you go to your doctors office to check your Coumadin level please schedule an appointment to have it checked. There appears to be a urinary tract infection at this time. We will send this for culture and call you if you need a different antibiotic. You have a large amount of gallstones and would recommend discussing this with your doctor to see if you should see a surgeon You have sigmoid diverticulosis which may become inflamed and cause rectal bleeding or abdominal pain. Please discuss more with your doctor Disposition Disposition: Home, Self Care
[2023-09-05 02:59] LABS: Absolute Lymphocyte Count 1.31 X10^3/uL (0.83-4.51); Absolute Neutrophil Count 9.9 X10^3/uL (2.0-7.7); Basophil# 0.05 X10^3/uL; Basophil% 0.4 % (0-1); Eosinophil# 0.07 X10^3/uL; Eosinophils% 0.6 % (0-5); Hematocrit 39.2 % (40-54); Hemoglobin 12.7 g/dL (13.0-16.5); Lymphocyte # 1.31 X10^3/ul (0.83-4.51); Lymphocyte % 10.7 % (19-41); Mean Corp Hgb Conc 32.4 g/dL (32-36); Mean Corpuscular Hgb 28.7 pg (27.0-32.0); Mean Corpuscular Volume 88.7 fL (80-94); Mean Platelet Vol. 10.9 fl (6.2-12.0); Monocyte# 0.86 X10^3/uL; NRBC Flagged by Analyzer 0 % (0-5); Neutrophil # 9.88 X10^3/uL (2.7-7.7); Neutrophil % 81.1 % (47-70); Platelet Count 143 K/mm3 (150-450); RBC Distribution Width SD 48.8 fl (35.1-43.9); Red Blood Count 4.42 M/mm3 (4.6-6.2); White Blood Count 12.2 K/mm3 (4.4-11.0)
[2023-09-05] MEDS: Ondansetron 4 MG/2 ML Vial IV (03:06)
[2023-09-05] MEDS: Ketorolac 15 MG/ML Vial IV (03:07)
[2023-09-05] MEDS: Morphine 4 MG/ML Syringe IV (03:08)
[2023-09-05 03:54] LABS: Anion Gap 4 (5-15); BUN 20 mg/dL (7-18); BUN/Creat Ratio 14.3 RATIO (10-20); Calcium,Total 8.4 mg/dL (8.5-10.1); Chloride 110 mmol/L (98-107); EST Glomerular Filtration Rate 52 mL/min (>60); Est Glom Filt Rate - Afr Amer 63 mL/min (>60); Estimated Creatinine Clearance 44.19 ml/min; Glucose 182 mg/dL (74-106); Potassium 3.7 mmol/L (3.5-5.1); Sodium Level 139 mmol/L (136-145)
[2023-09-05 05:21] VITALS: BP 108/56; PULSE 64; RESP 16; O2SAT 97
[2023-09-05 05:25] LABS: Mucous, Urine 0 SEEN /hpf (<or=2+); Squamous Epithelial Cells - UA 0 SEEN /hpf (0-5)
[2023-09-05 05:26] LABS: Color, Urine Yellow (Yellow); Glucose, Dipstick 1000 mg/dl (Normal); Ketone-Dipstick 5 mg/dl (Negative); Leukocyte Esterase-Dipstick 500 /ul (Negative); Nitrite-Dipstick Positive (Negative); Occult Blood-Urine 250 /ul (Negative); Protein-Dipstick 100 mg/dl (Negative); Urine Bilirubin Dipstick Negative (Negative); Urine Clarity Turbid (Clear); Urine Urobilinogen Normal (Normal)
[2023-09-05 05:38] LABS: Bacteria 3+ /hpf (None Seen); Red Blood Cells-Urine > 100 SEEN /hpf (0-5); White Blood Cells >100 SEEN /hpf (0-5)
[2023-09-05] MEDS: Smz/Tmp Ds Tablet 1 TABLET PO (06:18)
[2023-09-05 06:20] VITALS: BP 111/66; PULSE 71; RESP 16; O2SAT 97
== END 2023-09-05 06:24 | disposition home or self-care (01) ==
PROVIDERS: Emergency Provider Emergency Medicine; PCP Family Medicine; Visit Provider Emergency Medicine
DX: R10.9 Unspecified abdominal pain (principal); I48.91 Unspecified atrial fibrillation; N39.0 Urinary tract infection, site not specified; K57.30 Diverticulosis of large intestine without perforation or abscess without bleeding; E78.00 Pure hypercholesterolemia, unspecified; N20.0 Calculus of kidney; I10 Essential (primary) hypertension; E78.5 Hyperlipidemia, unspecified; K80.20 Calculus of gallbladder without cholecystitis without obstruction; I25.10 Atherosclerotic heart disease of native coronary artery without angina pectoris; Z79.01 Long term (current) use of anticoagulants
CPT/HCPCS: 74176; 80048; 81001; 85025; 87077; 87086; 87088; 87186; 96374; 96375; 99283; J7030; A4216; J2405

== ENCOUNTER 2023-10-11 11:23 | Outpatient (RCR) | payer MEDICARE, SELFPAY ==
[2023-09-12 23:24] VITALS: BMI 29.5
[2023-09-25 10:11] LABS: INR Fingerstick 2.7
[2023-10-11 11:30] LABS: INR Fingerstick 2.1; Prothrombin Time Fingerstick 23.5 SEC (11.7-14.9)
== END 2023-10-12 18:00 | disposition home or self-care (01) ==
LOC: LAB 11:23
PROVIDERS: Family Provider Family Medicine; PCP Family Medicine; Referring Provider Nurse Practitioner Gerontology; Visit Provider Nurse Practitioner Gerontology
DX: Z79.01 Long term (current) use of anticoagulants
CPT/HCPCS: 36416; 85610

== ENCOUNTER 2023-11-02 11:25 | Outpatient (RCR) | payer MEDICARE, SELFPAY ==
[2023-10-13 03:09] VITALS: BMI 29.5
[2023-11-02 11:45] LABS: Prothrombin Time Fingerstick 21.6 SEC (11.7-14.9)
== END 2023-11-12 18:00 | disposition home or self-care (01) ==
LOC: LAB 11:25
PROVIDERS: Family Provider Family Medicine; PCP Family Medicine; Referring Provider Nurse Practitioner Gerontology; Visit Provider Nurse Practitioner Gerontology
DX: Z79.01 Long term (current) use of anticoagulants (principal)
CPT/HCPCS: 36416; 85610

== ENCOUNTER → 2023-12-21 | Outpatient (CLI) | payer MEDICARE, SELFPAY ==
--- NOTE | 2023-12-21 13:26 | RAD_ITS ---
INDICATION: Amiodarone EXAMINATION/TECHNIQUE: X-RAY - XR Chest 2 Views COMPARISON: Prior study dated: 03/24/2023 FINDINGS: LINES/DEVICES: None. LUNGS: Mild elevation of right hemidiaphragm. No focal infiltrate is seen. No evidence of pleural effusions. MEDIASTINUM AND CARDIOVASCULAR STRUCTURES: Stable cardiomediastinal silhouette. BONES AND SOFT TISSUES: Unremarkable. RAD/Chest PA and Lateral IMPRESSION: No radiographic evidence of acute cardiopulmonary disease. Electronically Signed: Osiel Junior MD at 14:43 EST ,
[2023-12-21 15:14] LABS: AST(SGOT) 13 U/L (15-37); Alanine Aminotransfer ALT/SGPT 18 U/L (16-61); Albumin, Serum 3.7 g/dL (3.2-5.0); Alkaline Phosphatase 77 U/L (45-117); Free T3 1.8 pg/mL (2.18-3.98); Globulin 3.5 g/dL (2.2-4.2); Protein, Total 7.2 g/dL (6.4-8.2); T4 Free Direct 1.23 ng/dL (0.76-1.46); Thyroid Stim Hormone (TSH) 4.81 uIU/mL (0.358-3.74)
--- OUTSIDE RECORDS SUMMARY | 2023-12-21 15:46 | XMS RPT_ITS | CCD ---
Author Name Unknown Address [address] [place] [address] [facility] Team Providers Care Soaker Helper Name Role Phone Felecia RN, Sandi A Unavailable Unavailable Felecia RN, Sandi A Unavailable Unavailable Felecia RN, Sandi A Unavailable Unavailable Felecia RN, Sandi A Unavailable Unavailable Felecia RN, Sandi A Unavailable Unavailable Nima Hughes Unavailable Unavailable Felecia HENDRICKSON, Sandi A Unavailable Unavailable Jerman Aviles MD Unavailable [phone] Yaima Cedillo Unavailable Unavailable Felecia RN, Sandi A Unavailable Unavailable Felecia RN, Sandi A Unavailable Unavailable Felecia RN, Sandi A Unavailable Unavailable Felecia HENDRICKSON, Sandi A Unavailable Unavailable MADHAVI Martinez, [place] Unavailable Unavailroel Martinez RN, [place] Unavailable Unavailroel Izquierdo RN, Sandi A Unavailable Unavailable Nima Huhges Unavailable Unavailable Allergies Allergy Classification Reported Allergen(s) Allergy Type Date of Onset Reaction(s) Facility (17 sources) dabigatran etexilate drug allergy 12-08-2014 GI bleed [facility] Work Phone: (17 sources) niacin drug allergy 09-30-2011 hot flashes [facility] Work Phone: Medications Completed/Discontinued Medications Medication Drug Class(es) Dates Sig (Normalized) Sig (Original) aspirin 81 mg oral tablet (20 sources) Platelet Aggregation Inhibitor, Nonsteroidal Anti-inflammatory Drug Start: 04-26-2011 take 1 tablet by mouth once daily ASPIRIN 81 MG TABS One tablet by mouth daily ASPIRIN [id number] Sandi Izquierdo RN Problems Active Problems Problem Classification Problem Date Documented Date Episodic/Chronic Cardiac dysrhythmias (20 sources) Permanent atrial fibrillation ; Translations: [Atrial fibrillation] Onset: 04-26-2011 02-22-2016 Chronic Coronary atherosclerosis and other heart disease (20 sources) Coronary arteriosclerosis in [place] artery; Translations: [Coronary arteriosclerosis] Onset: 04-26-2011 08-24-2015 Chronic Disorders of lipid metabolism (17 sources) Hyperlipidemia; Translations: [Hyperlipidemia, unspecified] Onset: 04-26-2011 04-26-2011 Chronic Essential hypertension (17 sources) Hypertensive disorder; Translations: [Essential (primary) hypertension] Onset: 04-26-2011 04-26-2011 Chronic Other nutritional; endocrine; and metabolic disorders (17 sources) Body mass index (BMI) 30.0-30.9, adult; Translations: [Body mass index (BMI) 30.0-30.9, adult] Onset: 11-27-2013 11-27-2013 Chronic Unclassified (2 sources) Long-term drug therapy; Translations: [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 therapy; Translations: [Other 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 operator (current) drug therapy] Onset: 04-26-2011 04-26-2011 Episodic Other disorders of stomach and duodenum (20 sources) Indigestion; Translations: [Functional dyspepsia] Onset: 03-28-2012 Resolved: 08-24-2015 03-28-2012 Episodic Unclassified (20 sources) FH: Hypertension; Translations: [Family history of ischemic heart disease and other diseases of the circulatory system] Resolved: 08-24-2015 12-08-2014 Episodic Results Test Name Value Interpretation Reference Range Facil ity Vital Signs Date Time Vital Sign Value Performing Clinician Cindy xie 05-02-2017 12:09-0400 BMI (Body Mass Index) 30.57 kg/m2 [facility] Work Phone: 05-02-2017 12:09-0400 BP Diastolic 80 mm[Hg] [facility] Work Phone: 05-02-2017 12:09-0400 BP Systolic 120 mm[Hg] [facility] Work Phone: 05-02-2017 12:09-0400 Pulse (Heart Rate) 84 /min [facility] Work Phone: 05-02-2017 12:09-0400 Weight 93.9 kg [facility] Work Phone: 10-21-2016 08:37-0500 BMI (Body Mass Index) 30.27 kg/m2 Sandi Izquierdo RN [facility] Work Phone: 10-21-2016 08:37-0500 BP Diastolic 70 mm[Hg] Sandi Izquierdo RN [facility] Work Phone: 10-21-2016 08:37-0500 BP Systolic 118 mm[Hg] Sandi Izquierdo RN [facility] Work Phone: 10-21-2016 08:37-0500 BSA (Body Surface Area) 2.09 m2 Sandi Izquierdo RN [facility] Work Phone: 10-21-2016 08:37-0500 Pulse (Heart Rate) 64 /min Sandi Izquierdo RN [facility] Work Phone: 10-21-2016 08:37-0500 Respiratory Rate 18 /min Sandi Izquierdo RN [facility] Work Phone: 10-21-2016 08:37-0500 Weight 92.99 kg Sandi Izquierdo RN [facility] Work Phone: 02-22-2016 09:16-0400 Heart rate 57 /min Nima Hughes [facility] Work Phone: 04-25-2012 15:41-0400 Body Temperature 96.5 [degF] Sandi Izquierdo RN [facility] Work Phone: 11-24-2011 13:45-0500 Heart rate 416 ms Nima Hughes [facility] Work Phone: 09-30-2011 09:05-0500 Height 175.26 cm Sandi Izquierdo RN [facility] Work Phone: Procedures Date Procedure Procedure Detail Performing Clinician Start: 11-10-2017 End: 11-10-2017 *Hepatic Function Panel Jerman Aviles MD Start: 11-10-2017 End: 11-10-2017 Lipid panel [AGGREGATE] Jerman Aviles MD Start: 05-11-2017 End: 05-11-2017 *Hepatic Function Panel Jerman Aviles MD Start: 05-11-2017 End: 05-11-2017 Lipid 1996 panel - Serum or Plasma Jerman Aviles MD Start: 05-11-2017 End: 05-11-2017 *Hepatic Function Panel Jerman Aviles MD Start: 05-11-2017 End: 05-11-2017 Lipid panel [AGGREGATE] Jerman Aviles MD Start: 05-02-2017 End: 05-02-2017 Follow Up Appt 9 months Sushila hollingsworth PA-C Work Phone: Start: 05-02-2017 End: 05-02-2017 PF Sushila Mckeon PA-C Work Phone: Start: 05-02-2017 End: 05-02-2017 Follow Up Appt 9 months Sushila hollingsworth PA-C Work Phone: Start: 05-02-2017 End: 05-02-2017 PFM Sushila Mckeon PA-C Work Phone: Start: 10-21-2016 End: 10-21-2016 Follow Up Appt 6 months Jerman Aviles MD Start: 10-21-2016 End: 10-21-2016 MM Jerman Aviles MD Start: 10-21-2016 End: 10-21-2016 Dietary management education, guidance, and counseling Nima Hughes Start: 10-21-2016 End: 10-21-2016 Follow Up Appt 6 months Jerman Aviles MD Start: 10-21-2016 End: 10-21-2016 MM Jerman Aviles MD Start: 05-12-2016 End: 11-24-2016 INR in Platelet poor plasma by Coagulation assay Jerman Aviles MD Start: 05-12-2016 End: 11-24-2016 Coagulation factor induced.INR assay in platelet poor plasma Jerman Aviles MD Start: 04-20-2016 End: 11-24-2016 *Hepatic Function Panel Jerman Aviles MD Start: 04-20-2016 End: 11-24-2016 Lipid 1996 panel - Serum or Plasma Jerman Aviles MD Start: 04-20-2016 End: 11-24-2016 *Hepatic Function Panel Jerman Aviles MD Start: 04-20-2016 End: 11-24-2016 Lipid panel [AGGREGATE] Jerman Aviles MD Start: 02-22-2016 End: 02-22-2016 Ecg routine ecg w/least 12 lds w/i&r Sushila Mckeon PA-C Work Phone: Start: 02-22-2016 End: 02-22-2016 Follow Up Appt 6 months Sushila hollingsworth PA-C Work Phone: Start: 02-22-2016 End: 02-22-2016 PFM Sushila Mckeon PA-C Work Phone: Start: 02-22-2016 End: 02-22-2016 Electrocardiogram, complete Sushila Mckeon PA-C Work Phone: Start: 02-22-2016 End: 02-22-2016 Follow Up Appt 6 months Sushila hollingsworth PA-C Work Phone: Start: 02-22-2016 End: 02-22-2016 PFM Sushila Mckeon PA-C Work Phone: Start: 09-11-2015 End: 10-21-2015 *Hepatic Function Panel Jerman Aviles MD Start: 09-11-2015 End: 10-21-2015 Lipid 1996 panel - Serum or Plasma Jerman Aviles MD Start: 09-11-2015 End: 10-21-2015 *Hepatic Function Panel Jerman Aviles MD Start: 09-11-2015 End: 10-21-2015 Lipid panel [AGGREGATE] Jerman Aviles MD Start: 08-24-2015 End: 08-25-2015 Documentation of current medications Jerman Aviles MD Start: 08-24-2015 End: 08-24-2015 Follow Up Appt 6 months Jerman Aviles MD Start: 08-24-2015 End: 08-24-2015 MMM Jerman Aviles MD Start: 08-24-2015 End: 08-25-2015 Documentation of current medications Jerman Aviles MD Start: 08-24-2015 End: 08-24-2015 Follow Up Appt 6 months Jerman Aviles MD Start: 08-24-2015 End: 08-24-2015 MMM Jerman Aviles MD Start: 03-12-2015 End: 01-27-2016 INR in Platelet poor plasma by Coagulation assay Jerman Aviles MD Start: 03-12-2015 End: 01-27-2016 Coagulation factor induced.INR assay in platelet poor plasma Jerman Aviels MD Start: 12-08-2014 End: 12-09-2014 Documentation of current medications Sushila Mckeon PA-C Work Phone: Start: 12-08-2014 End: 12-08-2014 Ecg routine ecg w/least 12 lds w/i&r Sushila Mckeon PA-C Work Phone: Start: 12-08-2014 End: 12-08-2014 Follow Up Appt 6 months Sushila hollingsworth PA-C Work Phone: Start: 12-08-2014 End: 12-08-2014 PFM Sushila Mckeon PA-C Work Phone: Start: 12-08-2014 End: 12-09-2014 Documentation of current medications Sushila Mckeon PA-C Work Phone: Start: 12-08-2014 End: 12-08-2014 Electrocardiogram, complete Sushila Mckeon PA-C Work Phone: Start: 12-08-2014 End: 12-08-2014 Follow Up Appt 6 months Sushila hollingsworth PA-C Work Phone: Start: 12-08-2014 End: 12-08-2014 PFM Sushila Mckeon PA-C Work Phone: Start: 06-09-2014 End: 06-09-2014 Follow Up Appt 6 months Jerman Aviles MD Start: 06-09-2014 End: 01-27-2016 Follow Up Appt Other Jerman Aviles MD Start: 06-09-2014 End: 06-09-2014 MMM Jerman Aviles MD Start: 06-09-2014 End: 06-09-2014 Follow Up Appt 6 months Jerman Aviles MD Start: 06-09-2014 End: 01-27-2016 Follow Up Appt Other Jerman Aviles MD Start: 06-09-2014 End: 06-09-2014 MMM Jerman Aviles MD Start: 01-11-2014 End: 03-12-2015 *Hepatic Function Panel Jerman Aviles MD Start: 01-11-2014 End: 03-12-2015 Lipid 1996 panel - Serum or Plasma Jerman Aviles MD Start: 01-11-2014 End: 03-12-2015 *Hepatic Function Panel Jerman Aviles MD Start: 01-11-2014 End: 03-12-2015 Lipid panel [AGGREGATE] Jerman Aviles MD Start: 11-27-2013 End: 11-27-2013 Follow Up Appt 6 months Jerman Aviles MD Start: 11-27-2013 End: 11-27-2013 PFM Jerman Aviles MD Start: 11-27-2013 End: 11-27-2013 Follow Up Appt 6 months Jerman Aviles MD Start: 11-27-2013 End: 11-27-2013 PFM Jerman Aviles MD Start: 07-14-2013 End: 07-18-2013 *Hepatic Function Panel Aaron francisco MD Start: 07-14-2013 End: 07-18-2013 Lipid 1996 panel - Serum or Plasma Aaron Diggs MD Start: 07-14-2013 End: 07-18-2013 *Hepatic Function Panel Aaron W Calderon francisco MD Start: 07-14-2013 End: 07-18-2013 Lipid panel [AGGREGATE] Aaron Cancino Calderon francisco MD Start: 01-02-2013 End: 01-11-2013 *Hepatic Function Panel Aaron Cancino Calderon francisco MD Start: 01-02-2013 End: 01-11-2013 Lipid 1996 panel - Serum or Plasma Aaron W Caterina JANG Start: 01-02-2013 End: 01-11-2013 *Hepatic Function Panel Aaron W Calderon francisco MD Start: 01-02-2013 End: 01-11-2013 Lipid panel [AGGREGATE] Aaron W Calderon francisco MD Start: 10-12-2012 End: 10-12-2012 Follow Up Appt 1 year Aaron macdonald MD Start: 10-12-2012 End: 10-12-2012 Follow Up Appt 1 year Aaron macdonald MD Start: 05-10-2012 End: 05-10-2012 *Hepatic Function Panel Aaron Barak Calderon francisco MD Start: 05-10-2012 End: 05-10-2012 Lipid 1996 panel - Serum or Plasma Aaron Diggs MD Start: 05-10-2012 End: 05-10-2012 *Hepatic Function Panel Aaron W Calderon francisco MD Start: 05-10-2012 End: 05-10-2012 Lipid panel [AGGREGATE] Aaron W Calderon francisco MD Start: 05-08-2012 End: 05-08-2012 *Hepatic Function Panel Aaron W Calderon francisco MD Start: 05-08-2012 End: 05-08-2012 Lipid 1996 panel - Serum or Plasma Aaron Diggs MD Start: 05-08-2012 End: 05-08-2012 *Hepatic Function Panel Aaron francisco MD Start: 05-08-2012 End: 05-08-2012 Lipid panel [AGGREGATE] Aaron francisco MD Start: 04-13-2012 End: 05-08-2012 INR in Platelet poor plasma by Coagulation assay Aaron Diggs MD Start: 04-13-2012 End: 05-08-2012 INR in Platelet poor plasma by Coagulation assay Araon Diggs MD Start: 04-13-2012 End: 05-08-2012 Lipid panel [AGGREGATE] Aaron francisco MD Start: 03-08-2012 End: 03-08-2012 Follow Up Appt 6 months Aaron francisco MD Start: 03-08-2012 End: 03-08-2012 Follow Up Appt 6 months Aaron francisco MD Start: 02-15-2012 End: 03-08-2012 *Hepatic Function Panel Aaron francisco MD Start: 02-15-2012 End: 03-08-2012 Lipid 1996 panel - Serum or Plasma Aaron Diggs MD Start: 02-15-2012 End: 03-08-2012 *Hepatic Function Panel Aaron francisco MD Start: 02-15-2012 End: 03-08-2012 Coagulation factor induced.INR assay in platelet poor plasma Aaron Diggs MD Start: 02-15-2012 End: 03-08-2012 Lipid 1996 panel - Serum or Plasma Aaron Diggs MD Start: 11-24-2011 End: 11-24-2011 Ecg routine ecg w/least 12 lds w/i&r Aaron Diggs MD Start: 11-24-2011 End: 11-24-2011 Follow Up Appt 3 months Aaron francisco MD Start: 11-24-2011 End: 11-24-2011 Follow Up Appt 3 months Aaron francisco MD Start: 11-24-2011 End: 11-24-2011 Lipid panel [AGGREGATE] Aaron francisco MD Start: 09-30-2011 End: 09-30-2011 Ecg routine ecg w/least 12 lds w/i&r Aaron Diggs MD Start: 09-30-2011 End: 09-30-2011 Follow Up Appt 6 weeks Aaron trujillo MD Start: 09-30-2011 End: 09-30-2011 Electrocardiogram, complete Aaron Diggs MD Start: 09-30-2011 End: 09-30-2011 Follow Up Appt 6 weeks Aaron trujillo MD Plan of Treatment Date Care Activity Detail Author Start: 02-05-2018 End: 02-05-2018 Appointment Appointment [facility] Work Phone: Start: 11-10-2017 End: 05-12-2017 *Hepatic Function Panel *Hepatic Function Panel [facility] Work Phone: Start: 11-10-2017 End: 05-12-2017 Lipid panel [AGGREGATE] *Lipid Profile CC PCP [facility] Work Phone: Start: 11-10-2017 End: 11-10-2017 *Hepatic Function Panel *Hepatic Function Panel [employer] [facility] Work Phone: Start: 11-10-2017 End: 11-10-2017 Lipid panel [AGGREGATE] *Lipid Profile CC PCP [facility] Work Phone: Start: 06-01-2017 End: 06-01-2017 INR Coag RelTime (PPP) *PT/INR - Standing Order [facility] Work Phone: Start: 06-01-2017 End: 06-01-2017 Coagulation factor induced.INR assay in platelet poor plasma *PT/INR - Standing Order [facility] Work Phone: Start: 05-24-2017 End: 05-11-2017 *Hepatic Function Panel *Hepatic Function Panel [facility] Work Phone: Start: 05-24-2017 End: 05-11-2017 Lipid panel [AGGREGATE] *Lipid Profile CC PCP [facility] Work Phone: Start: 05-24-2017 End: 05-11-2017 *Hepatic Function Panel *Hepatic Function Panel [facility] Work Phone: Start: 05-24-2017 End: 05-11-2017 Lipid panel [AGGREGATE] *Lipid Profile CC PCP [facility] Work Phone: Start: 05-02-2017 End: 05-02-2017 Appointment Appointment [facility] Work Phone: Start: 05-02-2017 End: 05-02-2017 Follow Up Appt 9 months Follow Up Appt 9 months [facility] Work Phone: Start: 05-02-2017 End: 05-02-2017 PFM PFM [facility] Work Phone: Start: 05-02-2017 End: 05-02-2017 Appointment Appointment [facility] Work Phone: Start: 05-02-2017 End: 05-02-2017 Follow Up Appt 9 months Follow Up Appt 9 months [facility] Work Phone: Start: 05-02-2017 End: 05-02-2017 PFM PFM [facility] Work Phone: Start: 10-21-2016 End: 10-21-2016 Follow Up Appt 6 months Follow Up Appt 6 months [facility] Work Phone: Start: 10-21-2016 End: 10-21-2016 Follow Up Appt Other Follow Up Appt Other [facility] Work Phone: Start: 10-21-2016 End: 10-21-2016 MMM MMM [facility] Work Phone: Start: 10-21-2016 End: 10-21-2016 Follow Up Appt 6 months Follow Up Appt 6 months [facility] Work Phone: Start: 10-21-2016 End: 10-21-2016 Follow Up Appt Other Follow Up Appt Other [facility] Work Phone: Start: 10-21-2016 End: 10-21-2016 MMM MMM [facility] Work Phone: Start: 05-12-2016 End: 11-24-2016 INR Coag RelTime (PPP) *PT/INR - Standing Order [employer] [facility] Work Phone: Start: 05-12-2016 End: 11-24-2016 Coagulation factor induced.INR assay in platelet poor plasma *PT/INR - Standing Order [facility] Work Phone: Start: 04-20-2016 End: 11-24-2016 *Hepatic Function Panel *Hepatic Function Panel [facility] Work Phone: Start: 04-20-2016 End: 11-24-2016 Lipid panel [AGGREGATE] *Lipid Profile CC PCP [facility] Work Phone: Start: 04-20-2016 End: 11-24-2016 *Hepatic Function Panel *Hepatic Function Panel [employer] [facility] Work Phone: Start: 04-20-2016 End: 11-24-2016 Lipid panel [AGGREGATE] *Lipid Profile CC PCP [facility] Work Phone: Start: 02-22-2016 End: 02-22-2016 Ecg routine ecg w/least 12 lds w/i&r EKG (In office) [facility] Work Phone: Start: 02-22-2016 End: 02-22-2016 Follow Up Appt 6 months Follow Up Appt 6 months [facility] Work Phone: Start: 02-22-2016 End: 02-22-2016 PFM PFM [facility] Work Phone: Start: 02-22-2016 End: 02-22-2016 Electrocardiogram, complete EKG (In office) [facility] Work Phone: Start: 02-22-2016 End: 02-22-2016 Follow Up Appt 6 months Follow Up Appt 6 months [facility] Work Phone: Start: 02-22-2016 End: 02-22-2016 PFM PFM [facility] Work Phone: Start: 09-11-2015 End: 10-21-2015 *Hepatic Function Panel *Hepatic Function Panel [facility] Work Phone: Start: 09-11-2015 End: 10-21-2015 Lipid panel [AGGREGATE] *Lipid Profile CC PCP [facility] Work Phone: Start: 09-11-2015 End: 10-21-2015 *Hepatic Function Panel *Hepatic Function Panel [facility] Work Phone: Start: 09-11-2015 End: 10-21-2015 Lipid panel [AGGREGATE] *Lipid Profile CC PCP [facility] Work Phone: Start: 08-24-2015 End: 08-24-2015 Follow Up Appt 6 months Follow Up Appt 6 months [facility] Work Phone: Start: 08-24-2015 End: 08-24-2015 MMM MMM [facility] Work Phone: Start: 08-24-2015 End: 08-24-2015 Follow Up Appt 6 months Follow Up Appt 6 months [facility] Work Phone: Start: 08-24-2015 End: 08-24-2015 MMM MMM [facility] Work Phone: Start: 03-12-2015 End: 01-27-2016 INR Coag RelTime (PPP) *PT/INR - Standing Order [facility] Work Phone: Start: 03-12-2015 End: 01-27-2016 Coagulation factor induced.INR assay in platelet poor plasma *PT/INR - Standing Order [facility] Work Phone: Start: 12-08-2014 End: 12-08-2014 Ecg routine ecg w/least 12 lds w/i&r EKG (In office) [facility] Work Phone: Start: 12-08-2014 End: 12-08-2014 Follow Up Appt 6 months Follow Up Appt 6 months [facility] Work Phone: Start: 12-08-2014 End: 12-08-2014 PFM PFM [facility] Work Phone: Start: 12-08-2014 End: 12-08-2014 Electrocardiogram, complete EKG (In office) [facility] Work Phone: Start: 12-08-2014 End: 12-08-2014 Follow Up Appt 6 months Follow Up Appt 6 months [facility] Work Phone: Start: 12-08-2014 End: 12-08-2014 PFM PFM [facility] Work Phone: Start: 06-09-2014 End: 06-09-2014 Follow Up Appt 6 months Follow Up Appt 6 months [facility] Work Phone: Start: 06-09-2014 End: 01-27-2016 Follow Up Appt Other Follow Up Appt Other [facility] Work Phone: Start: 06-09-2014 End: 06-09-2014 MMM MMM [facility] Work Phone: Start: 06-09-2014 End: 06-09-2014 Follow Up Appt 6 months Follow Up Appt 6 months [facility] Work Phone: Start: 06-09-2014 End: 01-27-2016 Follow Up Appt Other Follow Up Appt Other [facility] Work Phone: Start: 06-09-2014 End: 06-09-2014 MMM MMM [facility] Work Phone: Start: 01-11-2014 End: 03-12-2015 *Hepatic Function Panel *Hepatic Function Panel [facility] Work Phone: Start: 01-11-2014 End: 03-12-2015 Lipid panel [AGGREGATE] *Lipid Profile CC PCP [facility] Work Phone: Start: 01-11-2014 End: 03-12-2015 *Hepatic Function Panel *Hepatic Function Panel [facility] Work Phone: Start: 01-11-2014 End: 03-12-2015 Lipid panel [AGGREGATE] *Lipid Profile CC PCP [facility] Work Phone: Start: 11-27-2013 End: 11-27-2013 Follow Up Appt 6 months Follow Up Appt 6 months [facility] Work Phone: Start: 11-27-2013 End: 11-27-2013 PFM PFM [facility] Work Phone: Start: 11-27-2013 End: 11-27-2013 Follow Up Appt 6 months Follow Up Appt 6 months [facility] Work Phone: Start: 11-27-2013 End: 11-27-2013 PFM PFM [facility] Work Phone: Start: 07-14-2013 End: 07-18-2013 *Hepatic Function Panel *Hepatic Function Panel [facility] Work Phone: Start: 07-14-2013 End: 07-18-2013 Lipid panel [AGGREGATE] *Lipid Profile [facility] Work Phone: Start: 07-14-2013 End: 07-18-2013 *Hepatic Function Panel *Hepatic Function Panel [facility] Work Phone: Start: 07-14-2013 End: 07-18-2013 Lipid panel [AGGREGATE] *Lipid Profile [facility] Work Phone: Start: 01-02-2013 End: 01-11-2013 *Hepatic Function Panel *Hepatic Function Panel [facility] Work Phone: Start: 01-02-2013 End: 01-11-2013 Lipid panel [AGGREGATE] *Lipid Profile [facility] Work Phone: Start: 01-02-2013 End: 01-11-2013 *Hepatic Function Panel *Hepatic Function Panel [facility] Work Phone: Start: 01-02-2013 End: 01-11-2013 Lipid panel [AGGREGATE] *Lipid Profile [facility] Work Phone: Start: 10-13-2012 End: 05-10-2012 *Hepatic Function Panel *Hepatic Function Panel [facility] Work Phone: Start: 10-13-2012 End: 05-10-2012 Lipid panel [AGGREGATE] *Lipid Profile [facility] Work Phone: Start: 10-13-2012 End: 05-10-2012 *Hepatic Function Panel *Hepatic Function Panel [facility] Work Phone: Start: 10-13-2012 End: 05-10-2012 Lipid panel [AGGREGATE] *Lipid Profile [facility] Work Phone: Start: 10-12-2012 End: 10-12-2012 Follow Up Appt 1 year Follow Up Appt 1 year [facility] Work Phone: Start: 10-12-2012 End: 10-12-2012 Follow Up Appt 1 year Follow Up Appt 1 year [facility] Work Phone: Start: 08-15-2012 End: 05-08-2012 *Hepatic Function Panel *Hepatic Function Panel [facility] Work Phone: Start: 08-15-2012 End: 05-08-2012 Lipid panel [AGGREGATE] *Lipid Profile [facility] Work Phone: Start: 08-15-2012 End: 05-08-2012 *Hepatic Function Panel *Hepatic Function Panel [facility] Work Phone: Start: 08-15-2012 End: 05-08-2012 Lipid panel [AGGREGATE] *Lipid Profile [facility] Work Phone: Start: 04-13-2012 End: 05-08-2012 INR Coag RelTime (PPP) *PT/INR - Standing Order [facility] Work Phone: Start: 04-13-2012 End: 05-08-2012 Coagulation factor induced.INR assay in platelet poor plasma *PT/INR - Standing Order [facility] [employer] Phone: Start: 03-08-2012 End: 03-08-2012 Follow Up Appt 6 months Follow Up Appt 6 months [facility] [employer] Phone: Start: 03-08-2012 End: 03-08-2012 Follow Up Appt 6 months Follow Up Appt 6 months [facility] [employer] Work Phone: Start: 02-15-2012 End: 03-08-2012 *Hepatic Function Panel *Hepatic Function Panel [facility] [employer] Phone: Start: 02-15-2012 End: 03-08-2012 Lipid panel [AGGREGATE] *Lipid Profile [facility] Work Phone: Start: 02-15-2012 End: 03-08-2012 *Hepatic Function Panel *Hepatic Function Panel [facility] [employer] Work Phone: Start: 02-15-2012 End: 03-08-2012 Lipid panel [AGGREGATE] *Lipid Profile [facility] Work Phone: Start: 11-24-2011 End: 11-24-2011 Ecg routine ecg w/least 12 lds w/i&r EKG (In office) [facility] [employer] Work Phone: Start: 11-24-2011 End: 11-24-2011 Follow Up Appt 3 months Follow Up Appt 3 months [facility] [employer] Phone: Start: 11-24-2011 End: 11-24-2011 Electrocardiogram, complete EKG (In office) [facility] Work Phone: Start: 11-24-2011 End: 11-24-2011 Follow Up Appt 3 months Follow Up Appt 3 months [facility] [facility] Work Phone: Start: 09-30-2011 End: 09-30-2011 Ecg routine ecg w/least 12 lds w/i&r EKG (In office) [facility] Work Phone: Start: 09-30-2011 End: 09-30-2011 Follow Up Appt 6 weeks Follow Up Appt 6 weeks [facility] Work Phone: Start: 09-30-2011 End: 09-30-2011 Electrocardiogram, complete EKG (In office) [facility] Work Phone: Start: 09-30-2011 End: 09-30-2011 Follow Up Appt 6 weeks Follow Up Appt 6 weeks [facility] Work Phone: Patient Education [facility] Work Phone: Additional Source Comments FOR RECORDS PERTAINING TO PATIENTS WHO ARE OR HAVE BEEN ENROLLED IN A CHEMICAL DEPENDENCY/SUBSTANCEABUSE PROGRAM, SOME INFORMATION MAY BE OMITTED. This clinical summary was aggregated from multiple sources. Caution should be exercised in using it in the provision of clinical care. This summary normalizes information from multiple sources, and as a consequence, information in this document may materially change the coding, format and clinical context of patient data. In addition, data may be omitted in some cases. CLINICAL DECISIONS SHOULD BE BASED ON THE PRIMARY CLINICAL RECORDS. [facility]. provides no warranty or guarantee of the accuracy or completeness of information in this document.
== END | disposition home or self-care (01) ==
PROVIDERS: PCP Family Medicine; Referring Provider Nurse Practitioner Gerontology; Visit Provider Nurse Practitioner Gerontology
DX: Z79.899 Other long term (current) drug therapy (principal)
CPT/HCPCS: 36415; 71046; 80076; 84439; 84443; 84481

== ENCOUNTER 2024-02-09 09:27 | Outpatient (RCR) | payer MEDICARE, SELFPAY ==
[2023-11-12 20:58] VITALS: BMI 29.5
[2024-02-09 10:33] LABS: International Normalized Ratio 1.8; Prothrombin Time (Protime)PT. 21.2 SECONDS (11.7-14.9)
[2024-02-09 11:21] LABS: Thyroid Stim Hormone (TSH) 5.13 uIU/mL (0.358-3.74)
== END 2024-02-10 18:00 | disposition home or self-care (01) ==
LOC: LAB 09:27
PROVIDERS: Family Provider Family Medicine; PCP Family Medicine; Referring Provider Nurse Practitioner Gerontology; Visit Provider Nurse Practitioner Gerontology
DX: Z79.01 Long term (current) use of anticoagulants (principal); Z79.899 Other long term (current) drug therapy
CPT/HCPCS: 36415; 84443; 85610

== ENCOUNTER 2024-02-26 08:10 | Outpatient (RCR) | payer MEDICARE, SELFPAY ==
[2024-02-10 22:05] VITALS: BMI 29.5
[2024-02-26 08:52] LABS: International Normalized Ratio 1.7; Prothrombin Time (Protime)PT. 20.1 SECONDS (11.7-14.9)
[2024-02-26 09:24] LABS: T4 Free Direct 1.34 ng/dL (0.76-1.46); Thyroid Stim Hormone (TSH) 3.38 uIU/mL (0.358-3.74)
== END 2024-03-12 22:39 | disposition home or self-care (01) ==
LOC: LAB 08:10
PROVIDERS: Family Provider Family Medicine; PCP Family Medicine; Referring Provider Nurse Practitioner Gerontology; Visit Provider Nurse Practitioner Gerontology
DX: Z79.01 Long term (current) use of anticoagulants (principal); E03.9 Hypothyroidism, unspecified
CPT/HCPCS: 36415; 84439; 84443; 85610

== ENCOUNTER 2024-03-19 07:14 | Inpatient (IN) | payer MEDICARE, SELFPAY ==
[2024-03-19] VITALS (25 sets, daily range): BP systolic 80–110; BP diastolic 35–93; PULSE 71–143; RESP 13–22; TEMP 36.1–36.6; O2SAT 95–100; BMI 28.2; BMI 28.5
--- NOTE | 2024-03-19 07:22 | EKG12_ITS ---
Test Reason : AFIB Blood Pressure : / mmHG Vent. Rate : 143 BPM Atrial Rate : 000 BPM P-R Int : 000 ms QRS Dur : 110 ms QT Int : 338 ms P-R-T Axes : 000 -50 102 degrees QTc Int : 521 ms Critical Test Result: High HR ATRIAL FLUTTER WITH 2:1 Left axis deviation Nonspecific ST and T wave abnormality Abnormal ECG Confirmed by SALBADOR JANG, LEATHA ([id number]), editor sound TAYLOR ABRAHAM ([id number]) on 03/21/2024 10:11:44 AM Referred By: Confirmed By:LEATHA SIU MD
--- NOTE | 2024-03-19 07:31 | ED.VIS.CHEST ---
HPI History of Present Illness Chief Complaint: Chest Pain Informant: patient and spouse/S.O. Onset/Context/Timing Onset: Today and Yesterday Activity at onset: sudden Timing: Intermittent Quality: Positive for Aching Location: Substernal Current Severity: Mild Maximum Severity: Mild Worsened By: Nothing Relieved By: Nothing Associated Symptoms: Negative for Nausea, Vomiting, Diaphoresis, Dyspnea, Cough, Fever, Lightheadedness, Acid Reflux or Palpitations Narrative Narrative: 78-year-old male history of CAD, A-fib and hypertension. He is on Coumadin 2.5 mg daily. Says he just has not felt well and last night around 6:00 he has had intermittent midsternal chest pain. No radiation. Denies nausea, vomiting, diaphoresis or shortness of breath. He did not know that is A-fib causing him to have an accelerated heart rate at this time he said he really did not feel any palpitations accelerated heart rate. Denies any leg pain or swelling. Denies recent admission. He did have a cardiac ablation years ago for A-fib. Prior Similar Symptoms: Yes Recent Illness/Hospitalization: No CVD Risk Factors: Positive for Hypertension PE Risk Factors: Negative for Recent Travel/Surgery, Recent Immobilization, Prior DVT or PE, Cancer or OCP + Smoking + >/=35 TAD Risk Factors: Negative for Marfan's Syndrome [facility] Medical History Atherosclerotic heart disease of [place] coronary artery without angina pectoris Atrial fibrillation with RVR Coronary arteriosclerosis in [place] artery Encounter for cardioversion procedure Essential hypertension History of cardioversion (~08/21/19) Hyperlipidemia Hypertension 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, 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 Paroxysmal atrial fibrillation Pure hypercholesterolemia Sleep-disordered breathing Home Medications aspirin 81 mg chewable tablet 81 mg PO DAILY prevention 10/18/13 [History Last Taken 03/18/24] lisinopril 20 mg tablet 20 mg PO DAILY BP 10/18/13 [History Last Taken 03/18/24] metformin 750 mg tablet,extended release 24 hr 750 mg PO DAILY DM 10/18/13 [History Last Taken 03/18/24] terazosin 5 mg capsule 5 mg PO DAILY BP 10/18/13 [History Last Taken 03/18/24] atorvastatin 40 mg tablet 40 mg PO QHS HLD #90 tabs 03/28/23 [Rx Last Taken 03/18/24] metoprolol tartrate 50 mg tablet 50 mg PO BID BP #180 tabs 03/28/23 [Rx Last Taken 03/18/24] empagliflozin 25 mg tablet (Jardiance) 25 mg PO DAILY 12/21/23 [History Last Taken 03/18/24] acetaminophen 325 mg tablet 650 mg PO Q6H PRN Pain Score 1-10/Temp > 100.7 F 03/19/24 [History Last Taken Unknown] antiarthritic combination no.2 900 mg tablet (glucosamine-chondroitin) 900 mg PO BID 03/19/24 [History Last Taken 03/18/24] levothyroxine 75 mcg tablet 75 mcg PO DAILY 03/19/24 [History Last Taken 03/18/24] warfarin 2.5 mg tablet 2.5 mg PO DAILY 03/19/24 [History Last Taken 03/18/24] Allergy/AdvReac Type Severity Reaction Status Date / Time dabigatran etexilate AdvReac Severe GI Bleed Verified 03/19/24 07:15 [From Pradaxa] niacin AdvReac Severe Hot flashes Verified 03/19/24 07:15 [From Niaspan Extended-Release] Family History Father Myocardial infarction Hypertension Mother Hina Gehrigs disease Brother MVA (motor vehicle accident) Hypertension Kidney stones Hypercholesterolemia Surgical History History of bilateral cataract extraction History of cardiac radiofrequency ablation (RFA) (~09/21/11) History of endoscopy History of esophagogastroduodenoscopy (EGD) History of left heart catheterization (~08/21/19) History of release of tendon History of tonsillectomy Social History Smoking Status: Never smoker alcohol intake: never substance use type: does not use caffeine: Yes Type: carbonated beverages, coffee and tea what type of physical activity do you participate in: none seatbelt use: always do you feel safe at home: Yes ROS ROS ED ROS Narrative Chest pain. Review of Systems ROS Unobtainable: Denies due to encephalopathy Constitutional Constitutional ED: Denies chills or fever(s) Eyes Eyes: Reports none ENT ENT ED: Denies ear pain Cardiovascular Cardiovascular: Reports as per HPI and chest pain Respiratory/Chest Respiratory/Chest: Denies cough or dyspnea Gastrointestinal Gastrointestinal: Denies abdominal pain, constipation, diarrhea, melena, nausea or vomiting Genitourinary Genitourinary ED: Denies dysuria or hematuria Musculoskeletal Musculoskeletal: Denies arthralgias, back pain, myalgias or neck pain Integumentary Denies abscess, Abrasions or rash Neurologic Neurologic: Denies headache(s) or paresthesias Psychiatric Psychiatric: Denies anxiety, depression or suicidal ideation Endocrine Endocrinology: Denies cold intolerance Hematologic/Lymphatic Hematologic/Lymphatic: Reports easy bleeding, easy bruising and other Details: Patient on Coumadin. ; Denies lymphadenopathy Allergic/Immunologic Allergic/Immunologic ED: Denies mouth swelling, tongue swelling or urticaria EXAM Physical Exam Narrative Exam Narrative: 78-year-old male he is in A-fib heart rate in 140s. Initial blood pressure 97/75. But he is awake alert. Talking. He is tolerating it well. He is sitting upright in bed. at bedside. H EENT exam unremarkable. No droop. Normal speech. Neck nontender. Lungs clear to auscultation bilaterally. Heart tachycardic irregular. Rate around 140. Irregular. Abdomen soft, nontender. Moving all 4 extremities. Normal strength. No edema. Neurologically is awake and alert no focal motor deficits. Answering questions and following commands. Const Vital Signs: 03/19/24 07:14 03/19/24 07:14 03/19/24 07:18 Temperature 98 F Temperature Source Temporal Pulse Rate 143 H 71 138 H Respiratory Rate 18 16 Blood Pressure 97/75 104/71 Blood Pressure Mean 82 82 Pulse Ox 97 97 Oxygen Delivery Method Room Air Room Air 03/19/24 07:49 03/19/24 07:45 03/19/24 09:14 Temperature Temperature Source Pulse Rate 139 H 78 Respiratory Rate 16 Blood Pressure 95/66 87/60 L Blood Pressure Mean 75 69 Pulse Ox 97 98 Oxygen Delivery Method Room Air Room Air Positive well nourished and well developed; Negative for obese, cachectic, contractures or unkempt General Appearance ED: well developed and NAD; Negative for unkempt, cachectic, contractures or pallor Nutritional Appearance: Negative for cachectic or obese HEENT Reports moist mucous membranes; Denies dry mucous membranes normocephalic and atraumatic; Negative for trauma or tenderness Mouth ED: No dry mucous membranes Mouth: No dry mucous membranes Eyes PERRL and EOMs intact bilaterally General Eye ED: Negative for pale conjunctiva or scleral icterus Neck no lymphadenopathy, supple and no JVD General: Negative for tenderness Chest Wall inspection of chest normal and palpation of chest normal Chest: Negative for tenderness Resp normal respiratory effort and clear to auscultation bilaterally Effort and Inspection: Negative for respiratory distress Auscultation: Negative for rales, rhonchi or wheezes Cardio regular rate, regular rhythm, S1 normal heart sound, S2 normal heart sound and no murmurs Rate: Negative for bradycardia or tachycardic Peripheral Pulses: pulses 2+ throughout GI normal to inspection, nondistended, normoactive bowel sounds, soft to palpation, non-tender, non-distended and no masses Auscultation: Negative for hyperactive bowel sounds Back/Spine no CVA tenderness and no thoracic nor lumbar tenderness General Back: Negative for CVA tenderness Cervical Spine: Negative for cervical spine tenderness Extremity normal to inspection General Extremety ED: Negative for edema, pulses abnormal or tenderness General Extremity: Negative for edema or pulses abnormal Neuro oriented x3 and CN's II-XII intact bilaterally Sensorium / Orientation: awake, alert, oriented to person, oriented to place and oriented to time; Negative for confused, lethargic or stuporous Motor Exam: strength 5/5 throughout Psych mental status grossly normal Appearance: Negative for unkempt Attitude: No agitated Mood & Affect: Negative for depressed, anxious or tearful Skin no rashes or lesions noted and no wounds General Skin Exam: Negative for jaundice or pallor Rashes: No rashes noted Trauma: Negative for abrasion or laceration MDM MDM MDM Narrative Medical decision making narrative: 78-year-old male A-fib RVR with hypotension. Treated with IV fluids. Cardiac workup. IV Cardizem and reassess. Patient treated with Cardizem bolus 25 mg. Initially his heart rate was in the 80s. However on repeat exam 10/02/1986 been consistently in A-fib the whole time now is between 109 and 30 again. His pressures in the 90s. He has received a liter of fluid and is receiving a second. He will be started on a Cardizem drip. I have the hospitalist on page for admission. Patient understands the plan. History & Record Review Discussion w/independent historian: Patient and Family Lab Data Attestation: I reviewed the patient's lab results. Lab results narrative: CBC shows a white count of 7. H&H 12.8 and 39.9. Platelets 166. Consistent with prior labs. Electrolytes show gap 5. BUN 28 creatinine 1.21 consistent with mild dehydration. Troponin is 58. PT/INR was 18 and 1.5. Chest x-ray cardiomegaly. Chronic changes. Labs: Laboratory Results - last 24 hr 03/19/24 07:35 WBC 7.4 RBC 4.48 L Hgb 12.8 L Hct 39.9 L MCV 89.1 MCH 28.6 MCHC 32.1 RDW Std Deviation 45.0 H RDW Coeff of Katarzyna 13.8 Plt Count 166 MPV 10.1 Immature Gran % (Auto) 0.300 Neut % (Auto) 64.0 Lymph % (Auto) 24.8 [place] % (Auto) 8.4 Eos % (Auto) 2.0 Baso % (Auto) 0.5 Absolute Neuts (auto) 4.7 Absolute Lymphs (auto) 1.83 Nucleated RBC % 0 PT 18.1 H INR 1.5 Sodium 141 Potassium 3.7 Chloride 112 H Carbon Dioxide 24.0 Anion Gap 5 BUN 28 H Creatinine 1.21 Estim Creat Clear Calc 55.73 Est GFR (MDRD) Af Amer 75 Est GFR (MDRD) Non-Af 62 BUN/Creatinine Ratio 23.1 H Glucose 136 H Calcium 9.0 Troponin I High Sens 58 Radiography Chest X-Ray - ED: 1 View, Read by ED Physician, Read by Radiologist, Lungs, Mediastinum, Bony Structures, No Acute Disease, Chronic Changes and Cardiomegaly Diagnostic Testing: Clinical Impression(s) from Imaging Studies Chest X-Ray 03/19/24 08:15 IMPRESSION: Moderate cardiomegaly. Stable elevation of the right hemidiaphragm. The lungs are clear. Electronically Signed: Efrain Bardales MD at 8:31 EDT , Chest x-ray, portable, 6 2 views interpreted by by myself and the radiologist shows cardiomegaly and chronic changes no acute process. Rhythm Strip Rhythm Strip: A-fib Rate: 143 Ectopy: None EKG Initial EKG: Attestation: I personally reviewed and interpreted this EKG as follows: Interpretation: No Acute Injury Pattern and Atrial Fibrillation Comments: A flutter A-fib rate of 143 no acute signs of OH or ischemia. Follow-up EKG: Attestation: I personally reviewed and interpreted this EKG as follows: Interpretation: No Acute Injury Pattern and Atrial Fibrillation Comments: A-fib rate of 80 no acute signs of OH or ischemia. Critical Care Time Critical Care Time: Yes Critical care time (excluding procedures): 30-74 minutes, Including time spent:, Discussing w/Patient &/or Family/Medical Field Representative, Discussing w/Consultants, Arranging Admission or Transfer, Performing Direct Patient Care at Bedside and - (35 minutes.) Discharge Plan Dx/Rx/DC Orders Clinical Impression: Atrial fibrillation with rapid ventricular response, Chronic anticoagulation, Acute hypotension, Acute dehydration, Chest pain Disposition Disposition: Acute Care Hospital [facility]
[2024-03-19 07:41] LABS: Absolute Lymphocyte Count 1.83 X10^3/uL (0.83-4.51); Absolute Neutrophil Count 4.7 X10^3/uL (2.0-7.7); Basophil# 0.04 X10^3/uL; Basophil% 0.5 % (0-1); Eosinophil# 0.15 X10^3/uL; Hematocrit 39.9 % (40-54); Hemoglobin 12.8 g/dL (13.0-16.5); Lymphocyte # 1.83 X10^3/ul (0.83-4.51); Lymphocyte % 24.8 % (19-41); Mean Corp Hgb Conc 32.1 g/dL (32-36); Mean Corpuscular Hgb 28.6 pg (27.0-32.0); Mean Corpuscular Volume 89.1 fL (80-94); Mean Platelet Vol. 10.1 fl (6.2-12.0); Monocyte# 0.62 X10^3/uL; Monocyte% 8.4 % (0-10); NRBC Flagged by Analyzer 0 % (0-5); Neutrophil # 4.73 X10^3/uL (2.7-7.7); Platelet Count 166 K/mm3 (150-450); RBC Distribution Width CV 13.8 % (11.6-14.6); Red Blood Count 4.48 M/mm3 (4.6-6.2); White Blood Count 7.4 K/mm3 (4.4-11.0)
[2024-03-19] MEDS: dilTIAZem 25 MG/5 ML Vial IV BOLUS (07:46)
[2024-03-19] MEDS: 0.9% Normal Saline (1000mL) 1,000 ML 999 ML IV (07:46)
--- NOTE | 2024-03-19 07:57 | ED.RN ---
Dr. Lee advises to admin Cardizem slowly d/t soft blood pressures. administered over 10 minutes, pt denies complaints, bp unchanged during admin.
[2024-03-19 07:59] LABS: Anion Gap 5 (5-15); BUN 28 mg/dL (7-18); BUN/Creat Ratio 23.1 RATIO (10-20); Chloride 112 mmol/L (98-107); Creatinine, Serum 1.21 mg/dL (0.70-1.30); EST Glomerular Filtration Rate 62 mL/min (>60); Est Glom Filt Rate - Afr Amer 75 mL/min (>60); Estimated Creatinine Clearance 55.73 ml/min; Glucose 136 mg/dL (74-106); Potassium 3.7 mmol/L (3.5-5.1); Sodium Level 141 mmol/L (136-145); Troponin-I HS 58 pg/mL (3.0-78.0)
--- NOTE | 2024-03-19 08:05 | EKG12_ITS ---
Test Reason : REPEAT Blood Pressure : / mmHG Vent. Rate : 080 BPM Atrial Rate : 000 BPM P-R Int : 000 ms QRS Dur : 114 ms QT Int : 412 ms P-R-T Axes : 000 -43 101 degrees QTc Int : 475 ms Atrial fibrillation Left axis deviation Abnormal QRS-T angle, consider primary T wave abnormality Abnormal ECG Confirmed by SALBADOR JANG, LEATHA ([id number]), digital editor TAYLOR ABRAHAM ([id number]) on 03/21/2024 10:11:59 AM Referred By: Confirmed By:LEATHA SIU MD
[2024-03-19 08:11] LABS: International Normalized Ratio 1.5; Prothrombin Time (Protime)PT. 18.1 SECONDS (11.7-14.9)
--- NOTE | 2024-03-19 08:15 | RAD_ITS ---
STUDY: X-RAY CHEST REASON FOR EXAM: Male, 78 years old. Chest pain TECHNIQUE: Single AP portable view of the chest. COMPARISON: Comparison is made with prior study dated December 21, 2023. FINDINGS: EKG electrodes are seen. Stable elevation of the right hemidiaphragm. There is no demonstrated pleural abnormality. There is moderate cardiac enlargement. Normal mediastinum and igor. Normal visualized pulmonary arteries. There is atherosclerotic calcification of the aortic arch with tortuosity. There are degenerative changes of the visualized thoracic spine. Normal visualized ribs, clavicles, and shoulders. There is no demonstrated abnormality of the visualized soft tissue structures of the upper abdomen. RAD/Chest 1 View (Portable) IMPRESSION: Moderate cardiomegaly. Stable elevation of the right hemidiaphragm. The lungs are clear. Electronically Signed: Efrain Bardales MD at 8:31 EDT ,
--- NOTE | 2024-03-19 11:41 | PCM.HP.STD ---
HPI - General General Date of Admission: 03/19/24 HPI Narrative MICHAELA MARTIN, is a 78 M who presents to the hospital with chest pain/just feeling unwell. He was at a car show yesterday next to the hospital when he first noticed the uneasy feeling in his chest he does not quite describe it as a chest pain or pressure, he did not think that he could be in A-fib as it has been 20 years since he has been in A-fib after his ablation. Do not notice any radiation of pain or increase shortness of breath. When he woke up this morning the pain had continued and therefore he presented to the ER. In the ER he was found to be a little bit hypotensive as well as being in A-fib with RVR. He had had an ablation several years ago and was unaware that he was currently in A-fib. He was started on Cardizem which did cause his pressures to soften a little bit however it did improve his heart rate. His last echocardiogram was in March 2021 as was a stress test, and he had a cardiac catheterization in 2018. 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 Paroxysmal atrial fibrillation Pure hypercholesterolemia Sleep-disordered breathing Home Medications aspirin 81 mg chewable tablet 81 mg PO DAILY prevention 10/18/13 [History Last Taken 03/18/24] lisinopril 20 mg tablet 20 mg PO DAILY BP 10/18/13 [History Last Taken 03/18/24] metformin 750 mg tablet,extended release 24 hr 750 mg PO DAILY DM 10/18/13 [History Last Taken 03/18/24] terazosin 5 mg capsule 5 mg PO DAILY BP 10/18/13 [History Last Taken 03/18/24] atorvastatin 40 mg tablet 40 mg PO QHS HLD #90 tabs 03/28/23 [Rx Last Taken 03/18/24] metoprolol tartrate 50 mg tablet 50 mg PO BID BP #180 tabs 03/28/23 [Rx Last Taken 03/18/24] empagliflozin 25 mg tablet (Jardiance) 25 mg PO DAILY 12/21/23 [History Last Taken 03/18/24] acetaminophen 325 mg tablet 650 mg PO Q6H PRN Pain Score 1-10/Temp > 100.7 F 03/19/24 [History Last Taken Unknown] antiarthritic combination no.2 900 mg tablet (glucosamine-chondroitin) 900 mg PO BID 03/19/24 [History Last Taken 03/18/24] levothyroxine 75 mcg tablet 75 mcg PO DAILY 03/19/24 [History Last Taken 03/18/24] warfarin 2.5 mg tablet 2.5 mg PO DAILY 03/19/24 [History Last Taken 03/18/24] Allergy/AdvReac Type Severity Reaction Status Date / Time dabigatran etexilate AdvReac Severe GI Bleed Verified 03/19/24 07:15 [From Pradaxa] niacin AdvReac Severe Hot flashes Verified 03/19/24 07:15 [From Niaspan Extended-Release] Family History Father Myocardial infarction Hypertension Mother Hina Gehrigs disease Brother MVA (motor vehicle accident) Hypertension Kidney stones Hypercholesterolemia Surgical History History of bilateral cataract extraction History of cardiac radiofrequency ablation (RFA) (~09/21/11) History of endoscopy History of esophagogastroduodenoscopy (EGD) History of left heart catheterization (~08/21/19) History of release of tendon History of tonsillectomy Social History Smoking Status: Never smoker alcohol intake: never substance use type: does not use caffeine: Yes Type: carbonated beverages, coffee and tea what type of physical activity do you participate in: none seatbelt use: always do you feel safe at home: Yes ROS Constitutional Constitutional: Denies chills, fatigue, fever(s) or malaise Eyes Eyes: Denies blurry vision ENT HEENT: Denies headache(s) or nasal discharge Cardiovascular Cardiovascular: Reports chest pain; Denies dyspnea on exertion or syncope Respiratory/Chest Respiratory/Chest: Denies cough, shortness of breath at rest or shortness of breath with exertion Gastrointestinal Gastrointestinal: Denies constipation, diarrhea, nausea or vomiting Genitourinary Genitourinary: Denies dysuria Neurologic Neurologic: Denies focal weakness, numbness or tremor(s) Psychiatric Psychiatric: Denies anxiety or depression Vital Signs Vital Signs Vital Signs: 03/19/24 07:14 03/19/24 07:14 03/19/24 07:18 Temperature 98 F Temperature Source Temporal Pulse Rate 143 H 71 138 H Respiratory Rate 18 16 Blood Pressure 97/75 104/71 Blood Pressure Mean 82 82 Pulse Ox 97 97 Oxygen Delivery Method Room Air Room Air 03/19/24 07:49 03/19/24 07:45 03/19/24 09:14 Temperature Temperature Source Pulse Rate 139 H 78 Respiratory Rate 16 Blood Pressure 95/66 87/60 L Blood Pressure Mean 75 69 Pulse Ox 97 98 Oxygen Delivery Method Room Air Room Air Weight Weight: 190 lb 14.725 oz Body Mass Index (BMI) 28.2 Physical Exam Narrative General: Alert, Oriented x3, Cooperative, No apparent distress HEENT: Atraumatic, PERRLA, EOMI, Normocephalic Oral: Moist Mucosa Neck: Supple, No JVD Lungs: Diminished, Normal air movement, No rhonchi, No wheeze, No rales Cardiovascular: Irregular rate and rhythm, Normal S1, Normal S2, No murmurs Abdomen: Soft, Non Tender, Non-Distended, No Hepato-splenomegaly Extremities: No edema, Capillary Refill Less than 3 Seconds Skin: No rashes, No breakdown Musculoskeletal: No Tenderness to Palpation of Joints or Extremities Neurological: No focal neurological deficits, Motor Exam 5/5 strength throughout, Sensory exam intact to light touch and pain Psych/Mental Status: Normal Affect, Appropriate Results Lab / Micro Data 03/19/24 07:35 03/19/24 07:35 Labs: Laboratory Results - last 24 hr 03/19/24 07:35: WBC 7.4, RBC 4.48 L, Hgb 12.8 L, Hct 39.9 L, MCV 89.1, MCH 28.6, MCHC 32.1, RDW Std Deviation 45.0 H, RDW Coeff of Katarzyna 13.8, Plt Count 166, MPV 10.1, Immature Gran % (Auto) 0.300, Neut % (Auto) 64.0, Lymph % (Auto) 24.8, [place] % (Auto) 8.4, Eos % (Auto) 2.0, Baso % (Auto) 0.5, Absolute Neuts (auto) 4.7, Absolute Lymphs (auto) 1.83, Nucleated RBC % 0, PT 18.1 H, INR 1.5, Sodium 141, Potassium 3.7, Chloride 112 H, Carbon Dioxide 24.0, Anion Gap 5, BUN 28 H, Creatinine 1.21, Estim Creat Clear Calc 55.73, Est GFR (MDRD) Af Amer 75, Est GFR (MDRD) Non-Af 62, BUN/Creatinine Ratio 23.1 H, Glucose 136 H, Calcium 9.0, Troponin I High Sens 58 Rhythm Strip Rhythm Strip: A-fib Rate: 143 Ectopy: None Imaging Radiology Impression Chest X-Ray 03/19/24 08:15 IMPRESSION: Moderate cardiomegaly. Stable elevation of the right hemidiaphragm. The lungs are clear. Electronically Signed: Efrain Bardales MD at 8:31 EDT , Assessment & Plan Assessment/Plan (1) Chest pain: (2) Atrial fibrillation with rapid ventricular response: PLAN: Plan 1. Chest pain secondary to A-fib with RVR status post ablation/essential HTN/HLD ? Had a cardiac catheterization in 2018 with very minimal disease ? Echo in 2020 with an EF of 55% and moderate concentric left ventricular hypertrophy with an RVSP of 41 mmHg and moderately enlarged left atrium ? Will repeat echo ? Continue with Cardizem drip, given his soft pressures in the ER will hold his other blood pressure medications. If his heart rate remained stable this evening can discontinue the Cardizem drip and continue with his p.o. metoprolol and increased dose as necessary ? Continue with Coumadin ? Continue with Lipitor and aspirin 2. DM2 ? Will hold his metformin and Jardiance ? Continue sliding scale insulin ? Accu-Cheks ACHS ? Will monitor and make adjustments as necessary 3. Hypothyroidism ? Stable ? Will check a TSH given his A-fib with RVR ? Continue with Synthroid 4. BPH ? Stable ? Continue with terazosin DVT: Coumadin 75 minutes was spent on direct patient care, including documentation as well as chart review and collaboration with colleagues Charges/Coding Visit Charges Inpatient E&M: 20976 Init Hosp L3
[2024-03-19] MEDS: Diltiazem 125 MG in Dextrose 5%-Water (100mL Bag) 100 ML CONT INF (11:43)
[2024-03-19] MEDS: 0.9% Normal Saline (1000mL) 1,000 ML 75 ML IV (14:00)
[2024-03-19 16:38] LABS: Thyroid Stim Hormone (TSH) 0.42 uIU/mL (0.358-3.74); Troponin-I HS 56 pg/mL (3.0-78.0)
[2024-03-19] MEDS: Insulin Lispro 100 UNIT/ML INSULN.PEN SC (18:11)
[2024-03-19 18:21] LABS: Bedside Glucose 151 mg/dL (74-106)
[2024-03-19] MEDS: Metoprolol Tartrate 50 MG Tablet PO (20:27)
[2024-03-19] MEDS: Atorvastatin Calcium 40 MG Tablet PO (20:27)
[2024-03-19 20:53] LABS: Bedside Glucose 141 mg/dL (74-106)
[2024-03-20] VITALS (23 sets, daily range): BP systolic 88–122; BP diastolic 53–93; PULSE 79–126; RESP 10–22; TEMP 36.1–36.6; O2SAT 91–105
[2024-03-20] MEDS: 0.9% Normal Saline (1000mL) 1,000 ML 75 ML IV ×2 (03:18→14:26)
[2024-03-20] MEDS: Levothyroxine 75 MCG Tablet PO (05:16)
[2024-03-20 08:28] LABS: Absolute Lymphocyte Count 1.54 X10^3/uL (0.83-4.51); Absolute Neutrophil Count 5.1 X10^3/uL (2.0-7.7); Basophil# 0.04 X10^3/uL; Basophil% 0.5 % (0-1); Eosinophil# 0.14 X10^3/uL; Eosinophils% 1.9 % (0-5); Hematocrit 39.2 % (40-54); Hemoglobin 12.4 g/dL (13.0-16.5); Lymphocyte # 1.54 X10^3/ul (0.83-4.51); Mean Corp Hgb Conc 31.6 g/dL (32-36); Mean Corpuscular Hgb 28.8 pg (27.0-32.0); Mean Platelet Vol. 10.9 fl (6.2-12.0); Monocyte# 0.52 X10^3/uL; Monocyte% 7.1 % (0-10); NRBC Flagged by Analyzer 0 % (0-5); Neutrophil # 5.08 X10^3/uL (2.7-7.7); Neutrophil % 69.2 % (47-70); Platelet Count 156 K/mm3 (150-450); RBC Distribution Width CV 13.8 % (11.6-14.6); RBC Distribution Width SD 46.4 fl (35.1-43.9); Red Blood Count 4.31 M/mm3 (4.6-6.2); White Blood Count 7.3 K/mm3 (4.4-11.0)
[2024-03-20] MEDS: Aspirin 81 MG TAB.CHEW PO (08:48)
[2024-03-20] MEDS: Metoprolol Tartrate 50 MG Tablet 75 MG PO ×2 (08:49→18:20)
[2024-03-20 09:00] LABS: Bedside Glucose 139 mg/dL (74-106)
[2024-03-20 09:08] LABS: International Normalized Ratio 1.6; Prothrombin Time (Protime)PT. 19.4 SECONDS (11.7-14.9)
[2024-03-20 09:50] LABS: Anion Gap 6 (5-15); BUN 26 mg/dL (7-18); BUN/Creat Ratio 26.8 RATIO (10-20); Calcium,Total 8.4 mg/dL (8.5-10.1); Chloride 116 mmol/L (98-107); Creatinine, Serum 0.97 mg/dL (0.70-1.30); EST Glomerular Filtration Rate 80 mL/min (>60); Est Glom Filt Rate - Afr Amer 96 mL/min (>60); Estimated Creatinine Clearance 69.87 ml/min; Glucose 122 mg/dL (74-106); Sodium Level 141 mmol/L (136-145)
--- NOTE | 2024-03-20 11:04 | ECHOCS_ITS ---
Reason For Study: Afib, Aflutter Procedure This was a 2D Doppler, Color Flow transthoracic echocardiogram. Myocardial strain analysis was performed in this exam to aid in the assessment of cardiac function. Contrast injection was performed. Exam performed portable in ICU/CCU. Left Ventricle Normal LV size. Severe concentric left ventricular hypertrophy. The left ventricular ejection fraction is 20 %. There is severe global hypokinesis of the left ventricle. Atria The left atrium is mildly enlarged. Normal right atrium. Mitral Valve Normal mitral valve. Tricuspid Valve Normal tricuspid valve. Mild (1+) tricuspid valve insufficiency. Pulmonary artery systolic pressure is 38 mmHg. Aortic Valve Trisinus/trileaflet aortic valve. Mild (1+) aortic valve insufficiency. Pulmonic Valve Normal pulmonic valve. Great Vessels Normal aortic root. The pulmonary artery is normal size. Normal inferior vena cava. Pericardium/Pleural No pericardial effusion. Medication Diluted definity 2ml given slow IV push to enhance endocardial definition. MMode/2D Measurements & Calculations LVIDd: 3.8 cm IVSd: 2.0 cm Ao root diam: 3.8 cm LVIDs: 3.2 cm LVPWd: 1.8 cm RVDd: 4.1 cm FS: 15.5 % LAV(MOD-bp): 73.7 ml LVAd ap4: 36.5 cm2 SV(MOD-sp4): 52.1 ml LAV(MOD-bp) Indexed: 36.2 ml/m2 LVLd ap4: 8.4 cm LAV(MOD-sp2): 68.9 ml EDV(MOD-sp4): 130.9 ml LAV(MOD-sp4): 75.7 ml EDV(sp4-el): 134.7 ml LVAs ap4: 26.5 cm2 LVLs ap4: 7.5 cm ESV(MOD-sp4): 78.8 ml ESV(sp4-el): 80.2 ml EF(MOD-sp4): 39.8 % EF(sp4-el): 40.4 % SV(sp4-el): 54.5 ml LA A4 area: 23.1 cm2 LA dimension(2D): 5.2 cm RA A4 area: 17.7 cm2 TAPSE: 1.7 cm Doppler Measurements & Calculations MV E max derrick: 74.7 cm/sec Lat Peak E' Derrick: 3.6 cm/sec Med Peak E' Derrick: 3.9 cm/sec E/E' lat: 20.9 E/E' med: 19.0 Ao V2 max: 97.6 cm/sec AI max derrick: 328.7 cm/sec LV V1 max: 63.7 cm/sec Ao max P.8 mmHg AI max P.2 mmHg LV V1 max P.6 mmHg Ao V2 mean: 72.7 cm/sec Ao mean P.3 mmHg AI dec slope: 152.7 cm/sec2 Ao V2 VTI: 14.1 cm AI P1/2t: 630.6 msec PA V2 max: 59.3 cm/sec TR max derrick: 284.9 cm/sec TR max P.5 mmHg ECHO/Echo Complete W/ Contrast Interpretation Summary Normal LV size. Severe concentric left ventricular hypertrophy. The left ventricular ejection fraction is 20 %. There is severe global hypokinesis of the left ventricle. The global longitudinal strain is severely abnormal. The global longitudinal st rain = -6.1% (abnormal). Ordering Physician: Alessio Flood Referring Physician: Seth Aguila Performed By: Nany Green, JOSE CARLOS, RVT
--- NOTE | 2024-03-20 11:26 | PN.HOSP_ITS ---
Subjective Subjective Doing well, does not notice his palpitations or his A-fib denies any chest pain. Objective Data Objective Data Vital Signs: Vital Signs Temp Pulse Resp BP Pulse Ox O2 Del Method 97.2 F L 110 H 16 97/72 98 Room Air 03/20/24 09:00 03/20/24 09:00 03/20/24 09:00 03/20/24 09:00 03/20/24 09:00 03/20/24 09:00 Oxygen Delivery Method Room Air Weight: 193 lb 1.999 oz Body Mass Index (BMI) 28.5 Intake & Output: Intake and Output for Last 24 Hours 03/19/24 03/20/24 03/21/24 03:59 03:59 03:59 Intake Total 2042.67 / 2042.67 0 / 0 Output Total 900 / 900 250 / 250 Balance 1142.67 / 1142.67 -250 / -250 Lab / Micro Data 03/20/24 07:55 03/20/24 07:55 Labs: Laboratory Results - last 24 hr 03/19/24 16:00: Troponin I High Sens 56, TSH 0.42 03/19/24 17:31: POC Glucose 151 H 03/19/24 20:30: POC Glucose 141 H 03/20/24 07:55: WBC 7.3, RBC 4.31 L, Hgb 12.4 L, Hct 39.2 L, MCV 91.0, MCH 28.8, MCHC 31.6 L, RDW Std Deviation 46.4 H, RDW Coeff of Katarzyna 13.8, Plt Count 156, MPV 10.9, Immature Gran % (Auto) 0.300, Neut % (Auto) 69.2, Lymph % (Auto) 21.0, [place] % (Auto) 7.1, Eos % (Auto) 1.9, Baso % (Auto) 0.5, Absolute Neuts (auto) 5.1, Absolute Lymphs (auto) 1.54, Nucleated RBC % 0, PT 19.4 H, INR 1.6, Sodium 141, Potassium 4.0, Chloride 116 H, Carbon Dioxide 19.0 L, Anion Gap 6, BUN 26 H , Creatinine 0.97, Estim Creat Clear Calc 69.87, Est GFR (MDRD) Af Amer 96, Est GFR (MDRD) Non-Af 80, BUN/Creatinine Ratio 26.8 H, Glucose 122 H, Calcium 8.4 L 03/20/24 08:42: POC Glucose 139 H Rhythm Strip Rhythm Strip: A-fib Rate: 143 Ectopy: None Physical Exam Narrative General: Alert, Oriented x3, Cooperative, No apparent distress HEENT: Atraumatic, PERRLA, EOMI, Normocephalic Oral: Moist Mucosa Neck: Supple, No JVD Lungs: Diminished, Normal air movement, No rhonchi, No wheeze, No rales Cardiovascular: Irregular rate and rhythm, Normal S1, Normal S2, No murmurs Abdomen: Soft, Non Tender, Non-Distended, No Hepato-splenomegaly Extremities: No edema, Capillary Refill Less than 3 Seconds Skin: No rashes, No breakdown Musculoskeletal: No Tenderness to Palpation of Joints or Extremities Neurological: No focal neurological deficits, Motor Exam 5/5 strength throughout, Sensory exam intact to light touch and pain Psych/Mental Status: Normal Affect, Appropriate Assessment & Plan Assessment/Plan (1) Chest pain: (2) Atrial fibrillation with rapid ventricular response: PLAN: Plan 1. Chest pain secondary to A-fib with RVR status post ablation/essential HTN/HLD ? Had a cardiac catheterization in 2018 with very minimal disease ? Echo in 2020 with an EF of 55% and moderate concentric left ventricular hypertrophy with an RVSP of 41 mmHg and moderately enlarged left atrium ? Will repeat echo ?His Cardizem has been on hold secondary to hypertension, will increase his metoprolol from 50 mg twice daily to 75 mg p.o. twice daily and see if this c onverts into normal sinus ? Continue with Coumadin ? Continue with Lipitor and aspirin 2. DM2 ? Will hold his metformin and Jardiance ? Continue sliding scale insulin ? Accu-Cheks ACHS ? Will monitor and make adjustments as necessary 3. Hypothyroidism ? Stable ?TSH on recheck is 0.42 ? Continue with Synthroid 4. BPH ? Stable ? Continue with terazosin DVT: Coumadin Charges/Coding Visit Charges Inpatient E&M: 22746 Subs Hosp L2
[2024-03-20] MEDS: Insulin Lispro 100 UNIT/ML INSULN.PEN SC (11:56)
--- NOTE | 2024-03-20 12:12 | CASEMGMT ---
MADHAVI FLORENTINO Assessment Face to Face with patient for initial transition planning/care coordination assessment. MDAHAVI FLORENTINO introduced self and role at [facility], pt voices understanding. Pt is A&Ox4 and is resting comfortably in bed and is calm. Care providers, pharmacy, and demographics verified. Admitting dx: AFIB with RVR LACE Strata: 2 PCP: Ayla Specialists: [facility] Preferred Pharmacy: [facility] Insurance: [facility] MCR[facility] Prescription Benefit: Yes LNOK: Juli Lopes (W) Living Arrangements: Pt lives with his in a single story home with 4 steps to enter ADLs/IADLs: Ind Transportation: Self, DME: Working BGM monitor and enough supplies to check BS. Shower GB. Denies all other DME uses or needs HHC/SNF: Denies history or needs Pt?s goal: Home and f/u with the [facility] Cardiac Rehab Program Plan: Pt states that he wishes to return home once medically ready and denies the need for HHC or OP PT/OT. Pt states that he was given information regarding the [facility] Cardiac [facility]hab [facility] and that he plans to make an appt himself. Pt denies further needs at this time. CM to follow for safe DC from [facility]. Marta Fermin RN, CM
[2024-03-20 12:24] LABS: Bedside Glucose 197 mg/dL (74-106)
[2024-03-20 16:41] LABS: Bedside Glucose 115 mg/dL (74-106)
[2024-03-20] MEDS: Metoprolol Tartrate 25 MG Tablet PO (18:47)
--- NOTE | 2024-03-20 18:47 | CON.PCM.CA_ITS ---
Assessment & Plan Assessment/Plan (1) Atrial fibrillation with rapid ventricular response: PLAN: He presents with atrial fibrillation with rapid ventricular response rate. The exact duration is unclear because he does not really feel the atrial fibrillation. I suspect that he presented because he was getting hypotensive. * My recommendation will be to aggressively slow his heart rate by increasing the metoprolol to 100 mg twice a day * Will suggest discontinuing warfarin and putting him on Eliquis * Continue SGLT2 inhibitor (2) History of cardiac radiofrequency ablation (RFA): PLAN: He does have a history of radiofrequency ablation but it appears that he has reverted back to atrial fibrillation Continue plans as noted above (3) Atherosclerotic heart disease of [place] coronary artery without angina pectoris: QUALIFIERS: [place] vs. transplanted heart: [place] heart Qualified Code(s): I25.10 - Atherosclerotic heart disease of [place] coronary artery without angina pectoris PLAN: He does have mild atherosclerotic cardiovascular disease with no angina (4) LV dysfunction: PLAN: He does have severe left ventricular systolic dysfunction which is a significant decline from before. His myocardial strain pattern is suggestive of amyloid and I will recommend that we pursue a technetium pyrophosphate scan. Urine and serum protein electrophoresis will also be obtained And at some point a cardiac MRI should be obtained Thank you for allowing me to participate in the care of your patient. Please don't hesitate to call if any issues arise. HPI Consult Data Date of Consult: 03/20/24 HPI Narrative HPI Narrative: MICHAELA MARTIN, is a 78 M who presents to the hospital with mild chest discomfort and not feeling well. He says that he has had a history of atrial fibrillation status post ablation 20 years ago or so. He was at a car showed near the hospital he woke up and was not feeling very well so presented to the emergency room in the emergency room he was noted to be hypotensive and noted to be in atrial fibrillation with a rapid ventricular response rate. He was put in the intensive care unit started on Cardizem which resulted in a further drop in his blood pressure. Cardiology was asked to see the patient on account of continued elevation in the heart rate. His last echocardiogram was in 2020 and at that time demonstrated preserved ejection fraction with moderate concentric left ventricular hypertrophy and stage II diastolic dysfunction. 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 He has had a history of bilateral Dupuytren's contraction but no spinal stenosis or spinal problems. Previous cardiac catheterization in 2019 demonstrated nonobstructive coronary disease with preserved ejection fraction. 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 Paroxysmal atrial fibrillation Pure hypercholesterolemia Sleep-disordered breathing Home Medications aspirin 81 mg chewable tablet 81 mg PO DAILY prevention 10/18/13 [History Last Taken 03/18/24] lisinopril 20 mg tablet 20 mg PO DAILY BP 10/18/13 [History Last Taken 03/18/24] metformin 750 mg tablet,extended release 24 hr 750 mg PO DAILY DM 10/18/13 [History Last Taken 03/18/24] terazosin 5 mg capsule 5 mg PO DAILY BP 10/18/13 [History Last Taken 03/18/24] atorvastatin 40 mg tablet 40 mg PO QHS HLD #90 tabs 03/28/23 [Rx Last Taken 03/18/24] metoprolol tartrate 50 mg tablet 50 mg PO BID BP #180 tabs 03/28/23 [Rx Last Taken 03/18/24] empagliflozin 25 mg tablet (Jardiance) 25 mg PO DAILY 12/21/23 [History Last Taken 03/18/24] acetaminophen 325 mg tablet 650 mg PO Q6H PRN Pain Score 1-10/Temp > 100.7 F 03/19/24 [History Last Taken Unknown] antiarthritic combination no.2 900 mg tablet (glucosamine-chondroitin) 900 mg PO BID 03/19/24 [History Last Taken 03/18/24] levothyroxine 75 mcg tablet 75 mcg PO DAILY 03/19/24 [History Last Taken 03/18/24] warfarin 2.5 mg tablet 2.5 mg PO DAILY 03/19/24 [History Last Taken 03/18/24] Allergy/AdvReac Type Severity Reaction Status Date / Time dabigatran etexilate AdvReac Severe GI Bleed Verified 03/19/24 07:15 [From Pradaxa] niacin AdvReac Severe Hot flashes Verified 03/19/24 07:15 [From Niaspan Extended-Release] Family History Father Myocardial infarction Hypertension Mother Hina Gehrigs disease Brother MVA (motor vehicle accident) Hypertension Kidney stones Hypercholesterolemia Surgical History History of bilateral cataract extraction History of cardiac radiofrequency ablation (RFA) (~09/21/11) History of endoscopy History of esophagogastroduodenoscopy (EGD) History of left heart catheterization (~08/21/19) History of release of tendon History of tonsillectomy Social History Smoking Status: Never smoker alcohol intake: never substance use type: does not use caffeine: Yes Type: carbonated beverages, coffee and tea what type of physical activity do you participate in: none seatbelt use: always do you feel safe at home: Yes ROS Constitutional Constitutional: Denies fever(s) or weight loss Eyes Eyes: Reports systems reviewed and no addt'l complaints, except as documented ENT HEENT: Reports systems reviewed and no addt'l complaints, except as documented Cardiovascular Cardiovascular: Reports dyspnea at rest, dyspnea on exertion and palpitations; Denies chest pain at rest, chest pain with activity, edema or paroxysmal nocturnal dyspnea Respiratory/Chest Respiratory/Chest: Denies dyspnea on exertion, productive cough, shortness of breath at rest or shortness of breath with exertion Gastrointestinal Gastrointestinal: Denies change in bowel habits, nausea, vomiting or weight changes Genitourinary Genitourinary: Denies difficulty urinating Musculoskeletal Musculoskeletal: Denies joint stiffness or muscle weakness Integumentary Integumentary: Denies lesions Neurologic Neurologic: Denies dizziness or syncope Psychiatric Psychiatric: Denies anxiety Endocrine Endocrinology: Denies excessive sweating or fatigue Hematologic/Lymphatic Hematologic/Lymphatic: Denies anemia Allergic/Immunologic Allergic/Immunologic: Denies seasonal rhinorrhea Physical Exam Const alert, oriented x3 and no apparent distress General Appearance: cooperative HEENT hearing grossly normal bilaterally Head and Scalp: atraumatic Eyes EOMs intact bilaterally Neck General: normal visual inspection Chest inspection of chest normal and palpation of chest normal Resp normal respiratory effort Auscultation: clear to auscultation bilaterally Cardio S1 normal heart sound and S2 normal heart sound Jugular Venous Distention: JVD Rhythm: abnormal rhythm irregularly irregular GI normal to inspection, nondistended, normoactive bowel sounds Extremity normal capillary refill and no pedal edema Peripheral Pulses: Yes pulses 2+ throughout and femoral pulses present Skin no rashes or lesions noted Neuro oriented x3 and CN's II-XII intact bilaterally Psych Appearance: grossly normal and appropriate Risk Stratification Risk Stratification Applicable: No Objective Data Vital Signs: Vital Signs Temp Pulse Resp BP Pulse Ox O2 Del Method 97.1 F L 126 H 20 H 114/54 L 97 Room Air 03/20/24 17:00 03/20/24 18:20 03/20/24 17:00 03/20/24 18:20 03/20/24 17:00 03/20/24 17:00 Oxygen Delivery Method Room Air Weight: 193 lb 1.999 oz Body Mass Index (BMI) 28.5 Intake & Output: Intake and Output for Last 24 Hours 03/18/24 03/19/24 03/20/24 23:59 23:59 23:59 Intake Total 1045.17 / 1045.17 3432.5 / 3432.5 Output Total 450 / 900 1050 / 1050 Balance 595.17 / 145.17 2382.5 / 2382.5 Lab / Micro Data 03/20/24 07:55 03/20/24 07:55 Labs: Laboratory Results - last 24 hr 03/19/24 20:30: POC Glucose 141 H 03/20/24 07:55: WBC 7.3, RBC 4.31 L, Hgb 12.4 L, Hct 39.2 L, MCV 91.0, MCH 28.8, MCHC 31.6 L, RDW Std Deviation 46.4 H, RDW Coeff of Katarzyna 13.8, Plt Count 156, MPV 10.9, Immature Gran % (Auto) 0.300, Neut % (Auto) 69.2, Lymph % (Auto) 21.0, [place] % (Auto) 7.1, Eos % (Auto) 1.9, Baso % (Auto) 0.5, Absolute Neuts (auto) 5.1, Absolute Lymphs (auto) 1.54, Nucleated RBC % 0, PT 19.4 H, INR 1.6, Sodium 141, Potassium 4.0, Chloride 116 H, Carbon Dioxide 19.0 L, Anion Gap 6, BUN 26 H , Creatinine 0.97, Estim Creat Clear Calc 69.87, Est GFR (MDRD) Af Amer 96, Est GFR (MDRD) Non-Af 80, BUN/Creatinine Ratio 26.8 H, Glucose 122 H, Calcium 8.4 L 03/20/24 08:42: POC Glucose 139 H 03/20/24 11:54: POC Glucose 197 H 03/20/24 16:22: POC Glucose 115 H Rhythm Strip Rhythm Strip: A-fib Rate: 143 Ectopy: None Cardiology Labs/Tests 03/20/24 07:55: WBC 7.3, RBC 4.31 L, Hgb 12.4 L, Hct 39.2 L, MCV 91.0, MCH 28.8, MCHC 31.6 L, Plt Count 156, MPV 10.9, Immature Gran % (Auto) 0.300, Neut % (Auto ) 69.2, Lymph % (Auto) 21.0, [place] % (Auto) 7.1, Eos % (Auto) 1.9, Baso % (Auto) 0.5, Absolute Neuts (auto) 5.1, Nucleated RBC % 0, PT 19.4 H, INR 1.6, Sodium 141, Potassium 4.0, Chloride 116 H, Carbon Dioxide 19.0 L, Anion Gap 6, BUN 26 H , Creatinine 0.97, Est GFR (MDRD) Af Amer 96, Est GFR (MDRD) Non-Af 80, BUN/Creatinine Ratio 26.8 H, Glucose 122 H, Calcium 8.4 L Rhythm: EKG: ECHO: Stress Test: Cardiac Cath: PCI: CT Surgery: Holter monitor: EPS: PPM: CXR: Chest CT Scan: Radiography Diagnostic Testing: Radiology Impression Echocardiogram 03/20/24 11:04 Interpretation Summary Normal LV size. Severe concentric left ventricular hypertrophy. The left ventricular ejection fraction is 20 %. There is severe global hypokinesis of the left ventricle. The global longitudinal strain is severely abnormal. The global longitudinal strain = -6.1% (abnormal). Ordering Physician: Alessio Flood Referring Physician: Seth Aguila Performed By: Nany Green, JOSE CARLOS, RVT
--- NOTE | 2024-03-20 18:55 | NM_ITS ---
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 99m Tc PYROPHOSPHATE CARDIAC AMYLOID EXAMINATION COMPARISON: None available FINDINGS: Following the intravenous administration of 24.0 mCi of 99m Tc pyrophosphate, anterior acquisitions of the thorax reveal: 1. Planar projections demonstrate increased pharmaceutical concentration within the context of the left ventricular myocardium (greater than rib) for a Perugini score of 3. The heart to contralateral ratio was calculated to be 1.53 (normal < 1.5:1). NM/PYP SPECT for Cardiac Amyloid IMPRESSION: 1. ABNORMAL EXAMINATION. 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 (Mayela et al, Diagnostics 11: [id number]). Electronically Signed: Jeffery Fernandez DO at 11:33 EDT ,
[2024-03-20] MEDS: Atorvastatin Calcium 40 MG Tablet PO (22:26)
[2024-03-20 22:48] LABS: Bedside Glucose 129 mg/dL (74-106)
[2024-03-21 03:00] VITALS: BP 126/88; PULSE 110; RESP 18; TEMP 36.1; O2SAT 97
[2024-03-21] MEDS: 0.9% Normal Saline (1000mL) 1,000 ML 75 ML IV (04:10)
[2024-03-21] MEDS: Levothyroxine 75 MCG Tablet PO (06:50)
[2024-03-21 07:12] LABS: Bedside Glucose 122 mg/dL (74-106)
[2024-03-21 07:47] LABS: Absolute Lymphocyte Count 1.71 X10^3/uL (0.83-4.51); Absolute Neutrophil Count 5.1 X10^3/uL (2.0-7.7); Basophil# 0.05 X10^3/uL; Basophil% 0.7 % (0-1); Eosinophil# 0.14 X10^3/uL; Eosinophils% 1.8 % (0-5); Hemoglobin 12.1 g/dL (13.0-16.5); Lymphocyte # 1.71 X10^3/ul (0.83-4.51); Lymphocyte % 22.4 % (19-41); Mean Corpuscular Hgb 28.3 pg (27.0-32.0); Mean Corpuscular Volume 91.1 fL (80-94); Mean Platelet Vol. 10.9 fl (6.2-12.0); Monocyte# 0.64 X10^3/uL; Monocyte% 8.4 % (0-10); NRBC Flagged by Analyzer 0 % (0-5); Neutrophil # 5.09 X10^3/uL (2.7-7.7); Neutrophil % 66.4 % (47-70); Platelet Count 162 K/mm3 (150-450); RBC Distribution Width SD 46.5 fl (35.1-43.9); Red Blood Count 4.28 M/mm3 (4.6-6.2); White Blood Count 7.7 K/mm3 (4.4-11.0)
[2024-03-21 08:17] LABS: Anion Gap 4 (5-15); BUN 21 mg/dL (7-18); BUN/Creat Ratio 21.8 RATIO (10-20); Calcium,Total 7.9 mg/dL (8.5-10.1); Chloride 113 mmol/L (98-107); Creatinine, Serum 0.96 mg/dL (0.70-1.30); EST Glomerular Filtration Rate 80 mL/min (>60); Est Glom Filt Rate - Afr Amer 97 mL/min (>60); Glucose 123 mg/dL (74-106); Potassium 3.9 mmol/L (3.5-5.1); Sodium Level 140 mmol/L (136-145)
[2024-03-21 08:43] LABS: International Normalized Ratio 1.9; Prothrombin Time (Protime)PT. 21.6 SECONDS (11.7-14.9)
[2024-03-21 08:45] VITALS: BP 105/68; PULSE 112; RESP 16; TEMP 36.7; O2SAT 95
[2024-03-21 08:59] VITALS: BP 105/68; PULSE 112
[2024-03-21] MEDS: Metoprolol Tartrate 100 MG Tablet PO (08:59)
[2024-03-21] MEDS: Aspirin 81 MG TAB.CHEW PO (08:59)
--- NOTE | 2024-03-21 10:55 | PN.HOSP_ITS ---
Subjective Subjective Doing well, no issues overnight Objective Data Objective Data Vital Signs: Vital Signs Temp Pulse Resp BP Pulse Ox O2 Del Method 98.0 F 112 H 16 105/68 95 Room Air 03/21/24 08:45 03/21/24 08:59 03/21/24 08:45 03/21/24 08:59 03/21/24 08:45 03/21/24 09:11 Oxygen Delivery Method Room Air Weight: 193 lb 1.999 oz Body Mass Index (BMI) 28.5 Intake & Output: Intake and Output for Last 24 Hours 03/20/24 03/21/24 03/22/24 03:59 03:59 03:59 Intake Total 2042.67 / 2042.67 2835 / 2835 1590 / 1590 Output Total 900 / 900 1100 / 1100 350 / 350 Balance 1142.67 / 1142.67 1735 / 1735 1240 / 1240 Lab / Micro Data 03/21/24 06:53 03/21/24 06:53 Labs: Laboratory Results - last 24 hr 03/20/24 11:54: POC Glucose 197 H 03/20/24 16:22: POC Glucose 115 H 03/20/24 22:19: POC Glucose 129 H 03/21/24 06:52: POC Glucose 122 H 03/21/24 06:53: WBC 7.7, RBC 4.28 L, Hgb 12.1 L, Hct 39.0 L, MCV 91.1, MCH 28.3, MCHC 31.0 L, RDW Std Deviation 46.5 H, RDW Coeff of Katarzyna 14.0, Plt Count 162, MPV 10.9, Immature Gran % (Auto) 0.300, Neut % (Auto) 66.4, Lymph % (Auto) 22.4, [place] % (Auto) 8.4, Eos % (Auto) 1.8, Baso % (Auto) 0.7, Absolute Neuts (auto) 5.1, Absolute Lymphs (auto) 1.71, Nucleated RBC % 0, PT 21.6 H, INR 1.9, Sodium 140, Potassium 3.9, Chloride 113 H, Carbon Dioxide 23.0, Anion Gap 4 L, BUN 21 H , Creatinine 0.96, Estim Creat Clear Calc 70.60, Est GFR (MDRD) Af Amer 97, Est GFR (MDRD) Non-Af 80, BUN/Creatinine Ratio 21.8 H, Glucose 123 H, Calcium 7.9 L Radiography Diagnostic Testing: Radiology Impression Echocardiogram 03/20/24 11:04 Interpretation Summary Normal LV size. Severe concentric left ventricular hypertrophy. The left ventricular ejection fraction is 20 %. There is severe global hypokinesis of the left ventricle. The global longitudinal strain is severely abnormal. The global longitudinal strain = -6.1% (abnormal). Ordering Physician: Alessio Flood Referring Physician: Seth Aguila Performed By: Nany Green, JOSE CARLOS, RVT Rhythm Strip Rhythm Strip: A-fib Rate: 143 Ectopy: None Physical Exam Narrative General: Alert, Oriented x3, Cooperative, No apparent distress HEENT: Atraumatic, PERRLA, EOMI, Normocephalic Oral: Moist Mucosa Neck: Supple, No JVD Lungs: Diminished, Normal air movement, No rhonchi, No wheeze, No rales Cardiovascular: Irregular rate and rhythm, Normal S1, Normal S2, No murmurs Abdomen: Soft, Non Tender, Non-Distended, No Hepato-splenomegaly Extremities: No edema, Capillary Refill Less than 3 Seconds Skin: No rashes, No breakdown Musculoskeletal: No Tenderness to Palpation of Joints or Extremities Neurological: No focal neurological deficits, Motor Exam 5/5 strength throughout, Sensory exam intact to light touch and pain Psych/Mental Status: Normal Affect, Appropriate Assessment & Plan Assessment/Plan (1) Chest pain: (2) Atrial fibrillation with rapid ventricular response: PLAN: Plan 1. Chest pain secondary to A-fib with RVR status post ablation/essential HTN/HLD/chronic systolic CHF ? Had a cardiac catheterization in 2018 with very minimal disease ? Echo in 2020 with an EF of 55% and moderate concentric left ventricular hypertrophy with an RVSP of 41 mmHg and moderately enlarged left atrium ? Echo with an EF of 20% appreciate cardiology's assistance, pursuing diagnostic studies for possible amyloidosis ? Metoprolol has been increased to 100 mg p.o. twice daily, given his systolic dysfunction will restart low-dose lisinopril ? Continue with Eliquis ? Continue with Lipitor and aspirin 2. DM2 ? Will hold his metformin and Jardiance ? Continue sliding scale insulin ? Accu-Cheks ACHS ? Will monitor and make adjustments as necessary 3. Hypothyroidism ? Stable ?TSH on recheck is 0.42 ? Continue with Synthroid 4. BPH ? Stable ? Continue with terazosin DVT: Eliquis Charges/Coding Visit Charges Inpatient E&M: 99194 Subs Hosp L2
--- NOTE | 2024-03-21 11:25 | CASEMGMT ---
MADHAVI FLORENTINO NOTE: Pt being discharged home today. MADHAVI FLORENTINO to room. Introduced self and role. Pt discharging home on Eliquis and he would like to get his medications from [facility] in [place]. Eliquis 30-day savings card given to pt and instructed on use. Pt made aware if refills are not affordable, to discuss other possible affordable options w/mobile security architect. He voices understanding. Pt denies having other discharge planning needs/concerns. Chidi CEE RN, CM
[2024-03-21 12:06] LABS: Bedside Glucose 133 mg/dL (74-106)
[2024-03-21] MEDS: APIXABAN 5 MG TABLET PO (12:41)
[2024-03-21] MEDS: Lisinopril 5 MG Tablet PO (13:20)
[2024-03-21] MEDS: Empagliflozin 25 MG Tablet PO (13:20)
--- NOTE | 2024-03-21 14:43 | PN.CARD_ITS ---
Subjective Subjective Patient seen and evaluated. Objective Data Vital Signs: Vital Signs Temp Pulse Resp BP Pulse Ox O2 Del Method 98.0 F 112 H 16 105/68 95 Room Air 03/21/24 08:45 03/21/24 08:59 03/21/24 08:45 03/21/24 08:59 03/21/24 08:45 03/21/24 09:11 Oxygen Delivery Method Room Air Weight: 193 lb 1.999 oz Body Mass Index (BMI) 28.5 Intake & Output: Intake and Output for Last 24 Hours 03/19/24 03/20/24 03/21/24 23:59 23:59 23:59 Intake Total 1045.17 / 1045.17 3432.5 / 3832.5 1989 Output Total 450 / 900 1050 / 1350 850 / 850 Balance 595.17 / 145.17 2382.5 / 2482.5 1140 / 1140 Lab / Micro Data 03/21/24 06:53 03/21/24 06:53 Labs: Laboratory Results - last 24 hr 03/20/24 16:22: POC Glucose 115 H 03/20/24 22:19: POC Glucose 129 H 03/21/24 06:52: POC Glucose 122 H 03/21/24 06:53: WBC 7.7, RBC 4.28 L, Hgb 12.1 L, Hct 39.0 L, MCV 91.1, MCH 28.3, MCHC 31.0 L, RDW Std Deviation 46.5 H, RDW Coeff of Katarzyna 14.0, Plt Count 162, MPV 10.9, Immature Gran % (Auto) 0.300, Neut % (Auto) 66.4, Lymph % (Auto) 22.4, [place] % (Auto) 8.4, Eos % (Auto) 1.8, Baso % (Auto) 0.7, Absolute Neuts (auto) 5.1, Absolute Lymphs (auto) 1.71, Nucleated RBC % 0, PT 21.6 H, INR 1.9, Sodium 140, Potassium 3.9, Chloride 113 H, Carbon Dioxide 23.0, Anion Gap 4 L, BUN 21 H , Creatinine 0.96, Estim Creat Clear Calc 70.60, Est GFR (MDRD) Af Amer 97, Est GFR (MDRD) Non-Af 80, BUN/Creatinine Ratio 21.8 H, Glucose 123 H, Calcium 7.9 L 03/21/24 11:48: POC Glucose 133 H Rhythm Strip Rhythm Strip: A-fib Rate: 143 Ectopy: None Cardiology Labs/Tests 03/21/24 06:53: WBC 7.7, RBC 4.28 L, Hgb 12.1 L, Hct 39.0 L, MCV 91.1, MCH 28.3, MCHC 31.0 L, Plt Count 162, MPV 10.9, Immature Gran % (Auto) 0.300, Neut % (Auto) 66.4, Lymph % (Auto) 22.4, [place] % (Auto) 8.4, Eos % (Auto) 1.8, Baso % ( Auto) 0.7, Absolute Neuts (auto) 5.1, Nucleated RBC % 0, PT 21.6 H, INR 1.9, Sodium 140, Potassium 3.9, Chloride 113 H, Carbon Dioxide 23.0, Anion Gap 4 L, BUN 21 H, Creatinine 0.96, Est GFR (MDRD) Af Amer 97, Est GFR (MDRD) Non-Af 80, BUN/Creatinine Ratio 21.8 H, Glucose 123 H, Calcium 7.9 L Rhythm: EKG: ECHO: Stress Test: Cardiac Cath: PCI: CT Surgery: Holter monitor: EPS: PPM: CXR: Chest CT Scan: Radiography Diagnostic Testing: Radiology Impression Echocardiogram 03/20/24 11:04 Interpretation Summary Normal LV size. Severe concentric left ventricular hypertrophy. The left ventricular ejection fraction is 20 %. There is severe global hypokinesis of the left ventricle. The global longitudinal strain is severely abnormal. The global longitudinal strain = -6.1% (abnormal). Ordering Physician: Alessio Flood Referring Physician: eSth Aguila Performed By: Nany Green, RDCS, RVT T Scan-Cardiac NM 03/20/24 18:55 IMPRESSION: 1. ABNORMAL EXAMINATION. 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 (Mayela et al, Diagnostics 11: [id number]). Electronically Signed: Jeffery Fernandez, at 11:33 EDT , Physical Exam Const alert, oriented x3 and no apparent distress General Appearance: cooperative HEENT hearing grossly normal bilaterally Head and Scalp: atraumatic Eyes EOMs intact bilaterally Neck General: normal visual inspection Chest inspection of chest normal and palpation of chest normal Resp normal respiratory effort Auscultation: clear to auscultation bilaterally Cardio S1 normal heart sound and S2 normal heart sound Jugular Venous Distention: JVD Rhythm: abnormal rhythm irregularly irregular GI normal to inspection, nondistended, normoactive bowel sounds Extremity normal capillary refill and no pedal edema Peripheral Pulses: Yes pulses 2+ throughout and femoral pulses present Skin no rashes or lesions noted Neuro oriented x3 and CN's II-XII intact bilaterally Psych Appearance: grossly normal and appropriate Assessment & Plan Assessment/Plan (1) Atrial fibrillation with rapid ventricular response: PLAN: He presents with atrial fibrillation with rapid ventricular response rate. The exact duration is unclear because he does not really feel the atrial fibrillation. I suspect that he presented because he was getting hypotensive. * My recommendation will be to aggressively slow his heart rate by increasing the metoprolol to 100 mg twice a day * Will suggest discontinuing warfarin and putting him on Eliquis * Continue SGLT2 inhibitor (2) History of cardiac radiofrequency ablation (RFA): PLAN: He does have a history of radiofrequency ablation but it appears that he has reverted back to atrial fibrillation Continue plans as noted above (3) Atherosclerotic heart disease of [place] coronary artery without angina pectoris: QUALIFIERS: [place] vs. transplanted heart: [place] heart Qualified Code(s): I25.10 - Atherosclerotic heart disease of [place] coronary artery without angina pectoris PLAN: He does have mild atherosclerotic cardiovascular disease with no angina (4) LV dysfunction: PLAN: He does have severe left ventricular systolic dysfunction which is a significant decline from before. 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 Urine and serum protein electrophoresis will also be obtained And at some point a cardiac MRI should be obtained He will be considered for tafamidis as an outpatient. Thank you for allowing me to participate in the care of your patient. Please don't hesitate to call if any issues arise.
--- NOTE | 2024-03-21 14:52 | DCINST_ITS ---
Discharge Instructions Diet Discharge Diet: Low fat / Low cholesterol Activity Discharge Activity: Return to Normal Activity Dressing / Incision Call your doctor if you observe: Fever of 101 or Higher, Shortness of breath, Dizziness, Fainting spells, Swelling in the ankles, Chest pain and Increased palpitations (irregular heartbeat) Follow Up Care Test Results: Test results from this visit will be discussed in further detail at your follow- up appointment, if applicable. Discharge Plan Admission Admit Date/Time: 03/19/24 11:38 Attending Provider: Alessio Flood Primary Care Provider: Seth Aguila Consulting Providers: Erick Noriega Instructions Additional Instructions / Restrictions: Follow-up with your PCP in 1 week to obtain lab work to monitor your renal function. Discharge Orders/Prescriptions Prescriptions: New metoprolol tartrate 100 mg Tablet 100 mg PO BID 30 Days Qty: 60 2RF Eliquis 5 mg Tablet 5 mg PO BID 30 Days Qty: 60 0RF furosemide 40 mg Tablet 40 mg PO DAILY 30 Days Qty: 30 2RF Continued Jardiance 25 mg tablet 25 mg PO DAILY terazosin 5 MG capsule 5 mg PO DAILY aspirin 81 MG tablet,chewable 81 mg PO DAILY metformin 750 MG tablet extended release 24 hr 750 mg PO DAILY levothyroxine 75 mcg tablet 75 mcg PO DAILY glucosamine-chondroitin 900 mg tablet 900 mg PO BID acetaminophen 325 MG tablet 650 mg PO Q6H PRN (Reason: Pain Score 1-10/Temp > 100.7 F) Patient Comments: pt states he very rarely takes med atorvastatin 40 mg tablet 40 mg PO QHS Qty: 90 3RF Discontinued lisinopril 20 MG tablet 20 mg PO DAILY warfarin 2.5 mg tablet 2.5 mg PO DAILY Protocol: Dose Management Condition: Monday Dose/Route: 2.5 mg Instruction: 1 x 2.5 mg tablet Condition: Monday Dose/Route: 2.5 mg Instruction: 1 x 2.5 mg tablet Condition: Monday Dose/Route: 2.5 mg Instruction: 1 x 2.5 mg tablet Condition: Monday Dose/Route: 2.5 mg Instruction: 1 x 2.5 mg tablet Condition: Dose/Route: 2.5 mg Instruction: 1 x 2.5 mg tablet Condition: Monday Dose/Route: 2.5 mg Instruction: 1 x 2.5 mg tablet Condition: Monday Dose/Route: 2.5 mg Instruction: 1 x 2.5 mg tablet Protocol Text: Adjustment Start Date: Monday02/09/24 INR Value: 1.8 INR Date: 02/09/24 Recheck Date: 02/23/24 metoprolol tartrate 50 mg tablet 50 mg PO BID Qty: 180 3RF Referrals / Follow Up: Erick Noriega MD [Med Staff - Active Staff] - Within 1 Month Seth Aguila MD [Primary Care Provider] - Within 1 Week Disposition Disposition (needs filled in before D/C Order can be placed): Home, Self Care
[2024-03-21 16:07] VITALS: BP 113/83; PULSE 94; RESP 16; TEMP 36.4; O2SAT 96
[2024-03-21 16:58] LABS: Bedside Glucose 166 mg/dL (74-106)
--- NOTE | 2024-03-21 17:41 | DS.PCM_ITS ---
Providers Date of Admission: 03/19/24 Primary Care Physician: Dr. Seth Aguila MD Consultations 03/20/24 18:40 Consult: Cardiology Routine Consulting Provider: Erick Noriega Reason for Consult: abnormal echo/afib EMERGENT Consult: No MD Notified: Yes Date Notified: 03/20/24 Time Notified: 18:40 Method of Notification: Verbal Reason For Visit: AFIB WITH RVR Diagnosis Discharge Diagnosis (1) Atrial fibrillation with rapid ventricular response: Status: Acute Code(s): I48.91 - Unspecified atrial fibrillation (2) History of cardiac radiofrequency ablation (RFA): Status: Chronic Code(s): Z98.890 - Other specified postprocedural states (3) Atherosclerotic heart disease of [place] coronary artery without angina pectoris: Status: Chronic Code(s): I25.10 - Atherosclerotic heart disease of [place] coronary artery without angina pectoris Qualifiers: [place] vs. transplanted heart: [place] heart Qualified Code(s): I25.10 - Atherosclerotic heart disease of [place] coronary artery without angina pectoris (4) LV dysfunction: Status: Acute Code(s): I51.9 - Heart disease, unspecified Medications at Discharge Home Medications aspirin 81 mg chewable tablet 81 mg PO DAILY prevention 10/18/13 metformin 750 mg tablet,extended release 24 hr 750 mg PO DAILY DM 10/18/13 terazosin 5 mg capsule 5 mg PO DAILY BP 10/18/13 atorvastatin 40 mg tablet 40 mg PO QHS HLD #90 tabs 03/28/23 empagliflozin 25 mg tablet (Jardiance) 25 mg PO DAILY 12/21/23 acetaminophen 325 mg tablet 650 mg PO Q6H PRN Pain Score 1-10/Temp > 100.7 F 03/19/24 antiarthritic combination no.2 900 mg tablet (glucosamine-chondroitin) 900 mg PO BID 03/19/24 levothyroxine 75 mcg tablet 75 mcg PO DAILY 03/19/24 apixaban 5 mg tablet (Eliquis) 5 mg PO BID 30 days #60 tabs 03/21/24 furosemide 40 mg tablet 40 mg PO DAILY 30 days #30 tabs 03/21/24 metoprolol tartrate 100 mg tablet 100 mg PO BID 30 days #60 tabs 03/21/24 Hospital Course Operations None Procedures 2-D Echocardiogram Summary of Care Provided Minutes Spent on Discharge: 39 Hospital Course: Per HPI: MICHAELA MARTIN, is a 78 M who presents to the hospital with chest pain/just feeling unwell. He was at a car show yesterday next to the hospital when he first noticed the uneasy feeling in his chest he does not quite describe it as a chest pain or pressure, he did not think that he could be in A-fib as it has been 20 years since he has been in A-fib after his ablation. Do not notice any radiation of pain or increase shortness of breath. When he woke up this morning the pain had continued and therefore he presented to the ER. In the ER he was found to be a little bit hypotensive as well as being in A-fib with RVR. He had had an ablation several years ago and was unaware that he was currently in A-fib. He was started on Cardizem which did cause his pressures to soften a little bit however it did improve his heart rate. His last echocardiogram was in March 2021 as was a stress test, and he had a cardiac catheterization in 2019. Hospital Course: 1. Cardiac amyloidosis and A-fib with RVR status post ablation/essential HTN/HLD/chronic systolic CHF?78-year-old male presented to the hospital not feeling well, not quite chest pain was found to be in A-fib with RVR. Echocardiogram was performed that showed an acute change in his EF from 55% in 2021 down to 20% on this admission. Cardiology was consulted and felt that the echocardiogram pattern indicated the possibility of amyloidosis, light chain studies are still pending however a pyrophosphate cardiac amyloid examination was ordered by cardiology which did demonstrate cardiac amyloidosis. He was continued on his Jardiance and started on Lasix 40 mg daily. His metoprolol was ultimately increased from 50 mg twice daily to 100 mg twice daily. 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 He was also transitioned to Eliquis from Coumadin and will need to follow-up with cardiology as an outpatient for further evaluation and follow-up on the rest of his lab work. There may be experimental treatment for his amyloidosis. I discussed with him the plan for discharge today he expressed understanding of the risks and benefits of going home and is okay with going home today. 2. Type 2 diabetes, hypothyroidism, BPH are chronic medical conditions which complicate his care. His home medications were continued where appropriate Physical Exam Narrative General: Alert, Oriented x3, Cooperative, No apparent distress HEENT: Atraumatic, PERRLA, EOMI, Normocephalic Oral: Moist Mucosa Neck: Supple, No JVD Lungs: Diminished, Normal air movement, No rhonchi, No wheeze, No rales Cardiovascular: Irregular rate and rhythm, Normal S1, Normal S2, No murmurs Abdomen: Soft, Non Tender, Non-Distended, No Hepato-splenomegaly Extremities: No edema, Capillary Refill Less than 3 Seconds Skin: No rashes, No breakdown Musculoskeletal: No Tenderness to Palpation of Joints or Extremities Neurological: No focal neurological deficits, Motor Exam 5/5 strength througho ut, Sensory exam intact to light touch and pain Psych/Mental Status: Normal Affect, Appropriate Weight / BMI Weight Weight: 193 lb 1.999 oz Body Mass Index (BMI) 28.5 ABG / Lab / Microbiology Data 03/21/24 06:53 03/21/24 06:53 Laboratory: Laboratory Results - last 24 hr 03/20/24 22:19: POC Glucose 129 H 03/21/24 06:52: POC Glucose 122 H 03/21/24 06:53: WBC 7.7, RBC 4.28 L, Hgb 12.1 L, Hct 39.0 L, MCV 91.1, MCH 28.3, MCHC 31.0 L, RDW Std Deviation 46.5 H, RDW Coeff of Katarzyna 14.0, Plt Count 162, MPV 10.9, Immature Gran % (Auto) 0.300, Neut % (Auto) 66.4, Lymph % (Auto) 22.4, [place] % (Auto) 8.4, Eos % (Auto) 1.8, Baso % (Auto) 0.7, Absolute Neuts (auto) 5.1, Absolute Lymphs (auto) 1.71, Nucleated RBC % 0, PT 21.6 H, INR 1.9, Sodium 140, Potassium 3.9, Chloride 113 H, Carbon Dioxide 23.0, Anion Gap 4 L, BUN 21 H , Creatinine 0.96, Estim Creat Clear Calc 70.60, Est GFR (MDRD) Af Amer 97, Est GFR (MDRD) Non-Af 80, BUN/Creatinine Ratio 21.8 H, Glucose 123 H, Calcium 7.9 L 03/21/24 11:48: POC Glucose 133 H 03/21/24 16:14: POC Glucose 166 H Radiography Diagnostic Testing: Radiology Impression Echocardiogram 03/20/24 11:04 Interpretation Summary Normal LV size. Severe concentric left ventricular hypertrophy. The left ventricular ejection fraction is 20 %. There is severe global hypokinesis of the left ventricle. The global longitudinal strain is severely abnormal. The global longitudinal strain = -6.1% (abnormal). Ordering Physician: Alessio Flood Referring Physician: Seth Aguila Performed By: Nany Green, JOSE CARLOS, RVT T Scan-Cardiac NM 03/20/24 18:55 IMPRESSION: 1. ABNORMAL EXAMINATION. 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 (Li et al, Diagnostics 11: 996, 2020). Electronically Signed: Jeffery Fernandez DO at 11:33 EDT , D/C Instructions Discharge Diet: Low fat / Low cholesterol Call your doctor if you observe: Fever of 101 or Higher, Shortness of breath, Dizziness, Fainting spells, Swelling in the ankles, Chest pain and Increased palpitations (irregular heartbeat) Meaningful Use Info Meaningful Use Meaningful Use Diagnoses (Choose all that apply): None applicable Ischemic Stroke Statin Dosing Therapy Reference: STATIN DOSE THERAPY REFERENCE: * Patients > 75 years receive moderate or high dose statin therapy. * Patients 75 years or YOUNGER should receive HIGH intensity statin dose unless contraindicated. You will be required to document reason for non-treatment if statin daily dose does not meet guidelines. HIGH DOSE STATIN THERAPY DAILY Atorvastatin > than or = to 40 mg Rosuvastatin > than or = to 20 mg Amlodipine + Atorvastatin > than or = to 2.5/40 mg Ezetimibe + Simvastatin 10/80 mg Simvastatin 80mg Discharge Plan Admission Admit Date/Time: 03/19/24 11:38 Attending Provider: Alessio Flood Primary Care Provider: Seth Aguila Consulting Providers: Erick Noriega Instructions Additional Instructions / Restrictions: Follow-up with your PCP in 1 week to obtain lab work to monitor your renal function. Discharge Orders/Prescriptions Prescriptions: New metoprolol tartrate 100 mg Tablet 100 mg PO BID 30 Days Qty: 60 2RF Eliquis 5 mg Tablet 5 mg PO BID 30 Days Qty: 60 0RF furosemide 40 mg Tablet 40 mg PO DAILY 30 Days Qty: 30 2RF Continued Jardiance 25 mg tablet 25 mg PO DAILY terazosin 5 MG capsule 5 mg PO DAILY aspirin 81 MG tablet,chewable 81 mg PO DAILY metformin 750 MG tablet extended release 24 hr 750 mg PO DAILY levothyroxine 75 mcg tablet 75 mcg PO DAILY glucosamine-chondroitin 900 mg tablet 900 mg PO BID acetaminophen 325 MG tablet 650 mg PO Q6H PRN (Reason: Pain Score 1-10/Temp > 100.7 F) Patient Comments: pt states he very rarely takes med atorvastatin 40 mg tablet 40 mg PO QHS Qty: 90 3RF Discontinued lisinopril 20 MG tablet 20 mg PO DAILY warfarin 2.5 mg tablet 2.5 mg PO DAILY Protocol: Dose Management Condition: Monday Dose/Route: 2.5 mg Instruction: 1 x 2.5 mg tablet Condition: Monday Dose/Route: 2.5 mg Instruction: 1 x 2.5 mg tablet Condition: Monday Dose/Route: 2.5 mg Instruction: 1 x 2.5 mg tablet Condition: Monday Dose/Route: 2.5 mg Instruction: 1 x 2.5 mg tablet Condition: Dose/Route: 2.5 mg Instruction: 1 x 2.5 mg tablet Condition: Monday Dose/Route: 2.5 mg Instruction: 1 x 2.5 mg tablet Condition: Monday Dose/Route: 2.5 mg Instruction: 1 x 2.5 mg tablet Protocol Text: Adjustment Start Date: Monday02/09/24 INR Value: 1.8 INR Date: 02/09/24 Recheck Date: 02/23/24 metoprolol tartrate 50 mg tablet 50 mg PO BID Qty: 180 3RF Referrals / Follow Up: Erick Noriega MD [Med Staff - Active Staff] - 05/03/24 11:30 am Lani Gonzalez NP, [facility] [Non-Staff -Ordering Privileges] - 03/28/24 8:50 am Disposition Disposition (needs filled in before D/C Order can be placed): Home, Self Care Charges/Coding Visit Charges Inpatient E&M: 72354 Disch Hosp >30min
[2024-03-22 17:07] LABS: Free Kappa Light Chains 25.1 mg/L (3.3-19.4); Free Lambda Light Chains 21.3 mg/L (5.7-26.3)
== END 2024-03-21 16:53 | disposition home or self-care (01) | DRG 546 ==
LOC: ED 11:23 → ICU 12:25 → PCU 03-21 02:16
PROVIDERS: Internal Medicine Cardiovascular Disease; Admitting Provider Family Medicine; Emergency Provider Emergency Medicine; PCP Family Medicine; Visit Provider Family Medicine
DX: E85.4 Organ-limited amyloidosis (principal); I50.22 Chronic systolic (congestive) heart failure; I43 Cardiomyopathy in diseases classified elsewhere; I11.0 Hypertensive heart disease with heart failure; I95.9 Hypotension, unspecified; E11.9 Type 2 diabetes mellitus without complications; I48.0 Paroxysmal atrial fibrillation; E03.9 Hypothyroidism, unspecified; E86.0 Dehydration; I25.10 Atherosclerotic heart disease of native coronary artery without angina pectoris; E78.00 Pure hypercholesterolemia, unspecified; N40.0 Benign prostatic hyperplasia without lower urinary tract symptoms; Z79.82 Long term (current) use of aspirin; Z79.84 Long term (current) use of oral hypoglycemic drugs; Z79.01 Long term (current) use of anticoagulants; Z79.890 Hormone replacement therapy; Z79.899 Other long term (current) drug therapy
CPT/HCPCS: 36415; 71045; 78803; 80048; 82962; 83883; 84443; 84484; 85025; 85610; 93005; 93306; 99284; A9538; J7030; Q9957; A4216; C8929

== ENCOUNTER → 2024-03-27 | Outpatient (CLI) | payer MEDICARE, SELFPAY ==
[2024-03-27 18:51] LABS: Anion Gap 6 (5-15); BUN 26 mg/dL (7-18); BUN/Creat Ratio 19.5 RATIO (10-20); Calcium,Total 9.2 mg/dL (8.5-10.1); Chloride 106 mmol/L (98-107); Creatinine, Serum 1.33 mg/dL (0.70-1.30); EST Glomerular Filtration Rate 55 mL/min (>60); Est Glom Filt Rate - Afr Amer 67 mL/min (>60); Glucose 241 mg/dL (74-106); Potassium 3.7 mmol/L (3.5-5.1); Sodium Level 138 mmol/L (136-145)
== END | disposition home or self-care (01) ==
PROVIDERS: PCP Family Medicine; Referring Provider Family Medicine; Visit Provider Family Medicine
DX: I50.9 Heart failure, unspecified (principal)
CPT/HCPCS: 36415; 80048

== ENCOUNTER → 2024-04-16 | Outpatient (CLI) | payer MEDICARE, SELFPAY ==
[2024-04-16 10:31] LABS: Anion Gap 7 (5-15); BUN 33 mg/dL (7-18); BUN/Creat Ratio 25.4 RATIO (10-20); Calcium,Total 9.1 mg/dL (8.5-10.1); Chloride 108 mmol/L (98-107); EST Glomerular Filtration Rate 57 mL/min (>60); Est Glom Filt Rate - Afr Amer 69 mL/min (>60); Glucose 239 mg/dL (74-106); Potassium 5.6 mmol/L (3.5-5.1); Sodium Level 135 mmol/L (136-145); T4 Free Direct 3.22 ng/dL (0.76-1.46); Thyroid Stim Hormone (TSH) < 0.01 uIU/mL (0.358-3.74)
== END | disposition home or self-care (01) ==
PROVIDERS: PCP Family Medicine; Referring Provider Internal Medicine Cardiovascular Disease; Visit Provider Internal Medicine Cardiovascular Disease
DX: I10 Essential (primary) hypertension (principal); E03.9 Hypothyroidism, unspecified
CPT/HCPCS: 36415; 80048; 84439; 84443

== ENCOUNTER → 2024-05-02 | Outpatient (CLI) | payer MEDICARE, SELFPAY ==
[2024-05-02 11:56] LABS: Thyroid Stim Hormone (TSH) < 0.01 uIU/mL (0.358-3.74)
[2024-05-03 09:20] LABS: Free T3 4.5 pg/mL (2.18-3.98); T4 Free Direct 2.52 ng/dL (0.76-1.46)
[2024-05-06 14:08] LABS: Albumin 3.6 g/dL (2.9-4.4); Albumin, Ur 26.5 % (.); Alpha-1-Globulin, Ur 1.9 % (.); Alpha-1-Globulins 0.3 g/dL (0.0-0.4); Alpha-2-Globulins 0.8 g/dL (0.4-1.0); Alpha-2-Globulins, Ur 23.5 % (.); Beta Globulin, Ur 32.6 % (.); Gamma Globulin 1.3 g/dL (0.4-1.8); Gamma Globulin, Ur 15.5 % (.); Immunoglobulin A 424 mg/dL (61-437); Immunoglobulin G 1425 mg/dL (603-1613); Immunoglobulin M 51 mg/dL (15-143); M-Spike, Ur % Not Observed % (Not Observed); Total Protein, Ur < 4.0 mg/dL (Not Estab.)
== END | disposition home or self-care (01) ==
LOC: LAB 10:20
PROVIDERS: PCP Family Medicine; Referring Provider Internal Medicine Cardiovascular Disease; Visit Provider Internal Medicine Cardiovascular Disease
DX: E03.9 Hypothyroidism, unspecified (principal)
CPT/HCPCS: 36415; 82784; 84165; 84166; 84439; 84443; 84481; 86334; 86335; 86376

== ENCOUNTER 2024-06-03 11:02 | Outpatient (RCR) | payer MEDICARE, SELFPAY ==
[2024-03-12 22:40] VITALS: BMI 29.5
[2024-06-03 11:46] LABS: International Normalized Ratio 1.3; Prothrombin Time (Protime)PT. 16.4 SECONDS (11.7-14.9)
[2024-06-03 12:07] LABS: Free T3 2.3 pg/mL (2.18-3.98)
[2024-06-04 04:07] LABS: Thyroid Peroxidase AB < 9 IU/mL (0-34)
== END 2024-06-12 18:00 | disposition home or self-care (01) ==
LOC: LAB 11:02
PROVIDERS: Family Provider Family Medicine; PCP Family Medicine; Referring Provider Nurse Practitioner Gerontology; Visit Provider Nurse Practitioner Gerontology
DX: Z79.01 Long term (current) use of anticoagulants (principal); E03.9 Hypothyroidism, unspecified
CPT/HCPCS: 36415; 84439; 84481; 85610; 86376

== ENCOUNTER 2024-06-12 05:55 | Day surgery (SDC) | payer MEDICARE, SELFPAY ==
[2024-06-12] VITALS (9 sets, daily range): BP systolic 91–118; BP diastolic 57–87; PULSE 77–106; RESP 16–18; TEMP 36.1–37.1; O2SAT 92–99; BMI 26.6
[2024-06-12 06:06] LABS: INR Fingerstick 1.2; Prothrombin Time Fingerstick 13.6 SEC (11.7-14.9)
[2024-06-12] MEDS: Lactated Ringers 1,000 ML 15 ML IV (06:32)
[2024-06-12 06:56] LABS: Bedside Glucose 168 mg/dL (74-106)
--- NOTE | 2024-06-12 07:17 | PCM.PRE.AN2 ---
ASA Classification* ASA Classification ASA Classification: 3 Assessment & Plan Anesthesia* Anesthesia Assessment Anesthesia Assessment: Discussed sedation and/or anesthesia options, risks, benefits, and alternatives with patient/parents/legal guardian/POA. Questions invited. The patient/parents/legal guardian/POA seems to understand and agrees to proceed with anesthesia plan. Reviewed the physical assessment, medical history, allergy history and patient home medications list prior to surgery/procedure/anesthetic and documented any changes. Performed airway and anesthesia risk assessments. Anesthesia Type Anesthesia Type: General (No sux, k=5.6) Anesthesia Focused Assessment* Temperature: 98 F Pulse Rate: 97 Blood Pressure: 113/67 Respiratory Rate: 18 Pulse Ox: 99 Airway Assessment Mouth opens: >3 cm Mallampati Score: II Focused Labs Anesthesia Preop lab: CBC WBC 7.7 K/mm3 (4.4-11.0) 03/21/24 06:53 RBC 4.28 M/mm3 (4.6-6.2) L 03/21/24 06:53 Hgb 12.1 g/dL (13.0-16.5) L 03/21/24 06:53 Hct 39.0 % (40-54) L 03/21/24 06:53 Plt Count 162 K/mm3 (150-450) 03/21/24 06:53 CHEMISTRY Potassium 5.6 mmol/L (3.5-5.1) H 04/16/24 08:48 Sodium 135 mmol/L (136-145) L 04/16/24 08:48 Magnesium 1.9 mg/dL (1.6-2.6) 08/24/19 05:54 Phosphorus 1.7 mg/dL (2.5-4.9) L 08/21/19 06:00 BUN 33 mg/dL (7-18) H 04/16/24 08:48 Creatinine 1.30 mg/dL (0.70-1.30) 04/16/24 08:48 Glucose 239 mg/dL (74-106) H 04/16/24 08:48 POC Glucose 168 mg/dL (74-106) H 06/12/24 06:25 TSH < 0.01 uIU/mL (0.358-3.74) L 05/02/24 10:28 COAG PT 16.4 SECONDS (11.7-14.9) H 06/03/24 11:09 INR 3.0 09/08/23 10:28 Pre-Assessment Diagnosis/Proposed Procedure Planned Operative Procedure(s): Cystoscopy, Urethroplasty Anesthesia History 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 When Was Last Pacemaker Check QUESTION #4 FULL TEXT: You/Your Family Experience fever (hyperthermia) with Anesthesia Last Oral Intake Last Oral intake: Last Oral Intake NPO since 22:00 06/12/24 06:24 Meds taken in AM with sips of No 06/12/24 06:24 water? Meds patient instructed to take am of surgery PONV PONV - organ installer: PONV - organ installer Female No 06/05/24 08:47 HX of Motion Sickness Yes 06/05/24 08:47 HX of N/V After Surgery No 06/05/24 08:47 Non-Smoker Yes 06/05/24 08:47 Duration of Surgery greater No 06/05/24 08:47 than 60 minutes Number of Risk Factors 2 06/05/24 08:47 PONV Score Moderate Risk 06/05/24 08:47 Height & Weight Height & Weight: Anesthesia: Height & Weight Height 5 ft 9 in 06/12/24 06:24 Weight: 82 kg 06/12/24 06:24 Body Mass Index (BMI) 26.6 06/12/24 06:24 Respiratory Assessment Respiratory Assessment - organ installer: Respiratory Tract Infection Hx - organ installer Hx Respiratory Tract Infection No 06/05/24 08:47 STOP Sleep Apnea STOP Sleep Apnea - organ installer: STOP Sleep Apnea - organ installer Hx Hypertension Yes: CONTROLLED WITH MED 06/05/24 08:47 Hx Sleep Apnea No 06/05/24 08:47 CPAP BIPAP Do you snore loudly (louder No 06/05/24 08:47 than talking or can be heard Do you often feel tired/ No 06/05/24 08:47 fatigued/ sleepy during daytime? Has anyone observed you stop No 06/05/24 08:47 breathing during sleep? STOP Results Negative 06/05/24 08:47 QUESTION #5 FULL TEXT : Do you snore loudly (louder than talking or can be heard through closed doors)? 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 Specify any problems Hx of Preganancy in last 3 N/A 06/05/24 08:47 Months Nurse Filling Out Transfusion NBUCHER 06/05/24 08:47 & Questions: Date: 06/05/24 06/05/24 08:47 Time: 08:50 06/05/24 08:47 Patient unable to answer at this time (ie. confused, unrespo /Reproduction History /Reproductive History - organ installer: /Reproductive Hx- organ installer Hx Now No 06/05/24 08:47 Gestational Age (in weeks): EDC: Hx Hx Para Hx Section SAB No 06/05/24 08:47 Active Medications Active Medications: Current Medications Generic Name Dose Route Start Last Admin Trade Name Freq PRN Reason Stop Dose Admin Cefazolin Sodium 2 gm/ Sodium 110 mls @ 150 mls/hr 06/12/24 07:30 Chloride IV 06/12/24 08:13 PREOP ONE Lactated Ringer's 1,000 mls @ 15 mls/hr 06/12/24 06:15 06/12/24 06:32 IV 15 mls/hr .Q48H ACE Administration PFSH Medical History (Updated 06/05/24 @ 08:54 by Jing Billingsley) Wears glasses High cholesterol Non-smoker History of echocardiogram History of stress test Cardiology follow-up encounter Atherosclerotic heart disease of [place] coronary artery without angina pectoris Encounter for cardioversion procedure Leg cramps, sleep related Sleep-disordered breathing Atrial fibrillation with RVR History of cardioversion (~08/21/19) Pure hypercholesterolemia Essential hypertension Hyperlipidemia Hypertension Coronary arteriosclerosis in [place] artery residential current use of anticoagulant Paroxysmal atrial fibrillation Home Medications ?Medication ?Instructions ?Recorded ?Last Taken ?Type aspirin 81 mg chewable tablet 81 mg PO DAILY prevention 10/18/13 06/11/24 History metformin 750 mg tablet,extended 750 mg PO DAILY DM 10/18/13 06/11/24 History release 24 hr terazosin 5 mg capsule 5 mg PO QHS BP 10/18/13 06/11/24 History empagliflozin 25 mg tablet 25 mg PO DAILY 12/21/23 06/11/24 History (Jardiance) acetaminophen 325 mg tablet 650 mg PO Q6H PRN Pain Score 03/19/24 Unknown History 1-10/Temp > 100.7 F antiarthritic combination no.2 900 900 mg PO BID 03/19/24 06/11/24 History mg tablet (glucosamine-chondroitin) levothyroxine 75 mcg tablet 75 mcg PO DAILY 03/19/24 06/11/24 History atorvastatin 40 mg tablet 40 mg PO QHS HLD #90 tabs 03/22/24 06/11/24 Rx metoprolol tartrate 100 mg tablet 100 mg PO BID #180 tabs 03/22/24 06/11/24 Rx diltiazem HCl 120 mg 120 mg PO DAILY #60 caps 05/02/24 06/11/24 Rx capsule,extended release 24 hr warfarin 2.5 mg tablet 2.5 mg PO DAILY #90 tabs 05/02/24 06/06/24 Rx tafamidis 61 mg capsule 61 mg PO DAILY #60 caps 05/15/24 Unknown Rx furosemide 40 mg tablet 40 mg PO DAILY #90 tabs 06/05/24 06/11/24 Rx Allergy/AdvReac Type Severity Reaction Status Date / Time dabigatran etexilate (From AdvReac Severe GI Bleed Verified 06/12/24 06:18 Pradaxa) niacin (From Niaspan AdvReac Severe Hot flashes Verified 06/12/24 06:18 Extended-Release) Family History Father Myocardial infarction Hypertension Mother Hina Gehrigs disease Brother MVA (motor vehicle accident) Hypertension Kidney stones Hypercholesterolemia Surgical History (Updated 06/05/24 @ 08:54 by Jing Billingsley) History of cardiac catheterization History of colonoscopy History of bilateral cataract extraction History of release of tendon History of endoscopy History of esophagogastroduodenoscopy (EGD) History of tonsillectomy History of cardiac radiofrequency ablation (RFA) (~09/21/11) History of left heart catheterization (~08/21/19) Social History Smoking Status: Never smoker alcohol intake: never substance use type: does not use caffeine: Yes Type: carbonated beverages, coffee and tea what type of physical activity do you participate in: none seatbelt use: always do you feel safe at home: Yes Review of Systems (Anesthesia) ROS Narrative System reviewed and no additional complaints, except as documented.
[2024-06-12] MEDS: Cefazolin 2 GM in 0.9% Normal Saline (100mL Bag) 100 ML IV (07:22)
[2024-06-12] MEDS: Lidocaine 1% /Epi 1:100 (20ml) 20 ML Vial (07:40)
--- NOTE | 2024-06-12 08:13 | PCM.HP.STD ---
HPI - General General Date of Service: 06/12/24 Chief Complaint: Urethral stricture HPI Narrative MICHAELA MARTIN, is a 79 M who presents for a urethroplasty for urethral stricture [facility] Medical History (Updated 06/12/24 @ 08:[address] 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 Paroxysmal atrial fibrillation Home Medications ?Medication ?Instructions ?Recorded ?Last Taken ?Type aspirin 81 mg chewable tablet 81 mg PO DAILY prevention 10/18/13 06/11/24 History metformin 750 mg tablet,extended 750 mg PO DAILY DM 10/18/13 06/11/24 History release 24 hr terazosin 5 mg capsule 5 mg PO QHS BP 10/18/13 06/11/24 History empagliflozin 25 mg tablet 25 mg PO DAILY 12/21/23 06/11/24 History (Jardiance) acetaminophen 325 mg tablet 650 mg PO Q6H PRN Pain Score 03/19/24 Unknown History 1-10/Temp > 100.7 F antiarthritic combination no.2 900 900 mg PO BID 03/19/24 06/11/24 History mg tablet (glucosamine-chondroitin) levothyroxine 75 mcg tablet 75 mcg PO DAILY 03/19/24 06/11/24 History atorvastatin 40 mg tablet 40 mg PO QHS HLD #90 tabs 03/22/24 06/11/24 Rx metoprolol tartrate 100 mg tablet 100 mg PO BID #180 tabs 03/22/24 06/11/24 Rx diltiazem HCl 120 mg 120 mg PO DAILY #60 caps 05/02/24 06/11/24 Rx capsule,extended release 24 hr warfarin 2.5 mg tablet 2.5 mg PO DAILY #90 tabs 05/02/24 06/06/24 Rx tafamidis 61 mg capsule 61 mg PO DAILY #60 caps 05/15/24 Unknown Rx furosemide 40 mg tablet 40 mg PO DAILY #90 tabs 06/05/24 06/11/24 Rx ciprofloxacin HCl 250 mg tablet 250 mg PO BID #20 tabs 06/12/24 Unknown Rx (Cipro) tramadol 50 mg tablet 50 mg PO Q6H PRN pain #14 tabs 06/12/24 Unknown Rx Allergy/AdvReac Type Severity Reaction Status Date / Time dabigatran etexilate (From AdvReac Severe GI Bleed Verified 06/12/24 06:18 Pradaxa) niacin (From Niaspan AdvReac Severe Hot flashes Verified 06/12/24 06:18 Extended-Release) Family History Father Myocardial infarction Hypertension Mother Hina Gehrigs disease Brother MVA (motor vehicle accident) Hypertension Kidney stones Hypercholesterolemia Surgical History (Updated 06/05/24 @ 08:54 by Jing Billingsley) History of cardiac catheterization History of colonoscopy History of bilateral cataract extraction History of release of tendon History of endoscopy History of esophagogastroduodenoscopy (EGD) History of tonsillectomy History of cardiac radiofrequency ablation (RFA) (~09/21/11) History of left heart catheterization (~08/21/19) Social History Smoking Status: Never smoker alcohol intake: never substance use type: does not use caffeine: Yes Type: carbonated beverages, coffee and tea what type of physical activity do you participate in: none seatbelt use: always do you feel safe at home: Yes Vital Signs Vital Signs Vital Signs: 06/12/24 06:24 06/12/24 06:24 06/12/24 07:18 Temperature 98 F 98 F Temperature Source Temporal Pulse Rate 97 97 Respiratory Rate 18 18 Respiratory Pattern Normal Blood Pressure 113/67 113/67 Blood Pressure Mean 82 Blood Pressure Source Monitor Blood Pressure Position Sitting Blood Pressure Location Left Arm Pulse Ox 99 99 Oxygen Delivery Method Room Air Weight Weight: 82 kg Body Mass Index (BMI) 26.6 Results Lab / Micro Data Labs: Laboratory Results - last 24 hr 06/12/24 06:03: POC PT 13.6, INR 1.2 06/12/24 06:25: POC Glucose 168 H
--- NOTE | 2024-06-12 08:14 | DCINST_ITS ---
Discharge Instructions Diet Discharge Diet: Light diet - advance as tolerated and Soft diet Activity Discharge Activity: May Not Drive and May Shower Dressing / Incision Catheter: Castro to leg bag and Castro to large bag Drain: [place] Follow Up Care Please Follow Up With: Regan Spring MD When: 2 weeks Test Results: Test results from this visit will be discussed in further detail at your follow- up appointment, if applicable. Discharge Plan Admission Primary Reason for Your Visit: urethroplasty, castro, cysto Attending Provider: Regan Spring Primary Care Provider: Seth Aguila Instructions Print Language: Georgian Discharge Orders/Prescriptions Prescriptions: New ciprofloxacin HCl [Cipro] 250 mg tablet 250 mg PO BID Qty: 20 0RF tramadol 50 mg tablet 50 mg PO Q6H PRN (Reason: pain) Qty: 14 0RF Continued Jardiance 25 mg tablet 25 mg PO DAILY diltiazem HCl 120 mg capsule,extended release 24hr 120 mg PO DAILY Qty: 60 3RF terazosin 5 MG capsule 5 mg PO QHS aspirin 81 MG tablet,chewable 81 mg PO DAILY metformin 750 MG tablet extended release 24 hr 750 mg PO DAILY levothyroxine 75 mcg tablet 75 mcg PO DAILY glucosamine-chondroitin 900 mg tablet 900 mg PO BID acetaminophen 325 MG tablet 650 mg PO Q6H PRN (Reason: Pain Score 1-10/Temp > 100.7 F) Patient Comments: pt states he very rarely takes med atorvastatin 40 mg tablet 40 mg PO QHS Qty: 90 3RF metoprolol tartrate 100 mg tablet 100 mg PO BID Qty: 180 3RF tafamidis 61 mg capsule 61 mg PO DAILY Qty: 60 3RF furosemide 40 mg tablet 40 mg PO DAILY Qty: 90 3RF Held warfarin 2.5 mg tablet 2.5 mg PO DAILY Qty: 90 3RF Hold Instructions: Resume on 06/17/24. Protocol: Dose Management Condition: Monday Dose/Route: 2.5 mg Instruction: 1 x 2.5 mg tablet Condition: Monday Dose/Route: 2.5 mg Instruction: 1 x 2.5 mg tablet Condition: Monday Dose/Route: 2.5 mg Instruction: 1 x 2.5 mg tablet Condition: Monday Dose/Route: 2.5 mg Instruction: 1 x 2.5 mg tablet Condition: Dose/Route: 0 mg Instruction: 0 tablets Condition: Monday Dose/Route: 0 mg Instruction: 0 tablets Condition: Monday Dose/Route: 0 mg Instruction: 0 tablets Protocol Text: Adjustment Start Date: Monday06/03/24 INR Value: 1.3 INR Date: 06/03/24 Recheck Date: 06/20/24 Referrals / Follow Up: Seth Aguila MD [Primary Care Provider] - Regan Spring MD [Med Staff - Active Staff] - Disposition Disposition (needs filled in before D/C Order can be placed): Home, Self Care
--- NOTE | 2024-06-12 08:14 | PCM.OPRPT ---
Report of Operation Date of Procedure: 06/12/24 Pre-Operative Diagnosis: Urethral stricture Post-Operative Diagnosis: The same Surgery/Procedure Performed:: Cystoscopy, urethroplasty, Castro placement Description of Surgical Findings:: Patient was taken back to the operating room at this with induction of anesthesia he was placed in dorsolithotomy position. The penis and testicles were prepped and draped in usual sterile fashion, I then infiltrated the -year-old the urethra with lidocaine with epi, I then made a ventral incision in the anterior urethral area carried that down to the urethra with unable to dissect underneath the urethra circumferentially and then off the needle tip there was significant scar tissue at the urethra and this was cut out and could in the midline fashion working away way back on the urethra until the mid urethra. I then a flap was created. And then with this flap then I sutured the flap back up to the skin area circumferentially and then after it was circumferentially sutured then a cystoscopy was done I worked my way into the urethra in the mid urethra there was a scar tissue was able to get through this quite easily and then once I got through that scar tissue then I went to the bladder we put a wire through the cystoscope and then backed out 66 open I put a 16 [place] tip catheter over the wire is a little tight gain past the mid urethral stricture but it was difficult to get through the anterior stricture quite easily that was repaired and then after the repair was completed then we left a Casrto catheter in place he will go home 2 weeks of the Castro catheter I will see him back to have the catheter removed in 2 weeks and he will then resume intermittent catheterization to keep the mid urethral stricture open. Surgeon: Regan Spring Type of Anesthesia: General Drains: 16 fr castro Estimated Blood Loss (mL): 5 Admit VTE Documentation VTE Present on Admission: No VTE Mechan Device Prophylaxis: SCD's VTE Pharm Prophylaxis ordered?: No
--- NOTE | 2024-06-12 08:15 | PCM.POST.ANE ---
Anesthesia: Postop Eval I Current Vital Signs Temperature: 98.7 F Pulse Rate: 102 Blood Pressure: 118/87 Respiratory Rate: 18 Pulse Ox: 94 Oxygen Delivery Method: Room Air Assessment Airway patent: Yes Spontaneous unlabored respirations: Yes Mental status: Awake and Calm nausea: No Vomiting: No Anesthesia Complication: No Fluid Hydration Crystalloid volume administer (ml): 700 Total IV fluid infused: 700 Progress Note Anesthesia document: Postop Eval 1 completed: Yes
--- NOTE | 2024-06-12 08:36 | POSTOPAN2_ITS ---
Anesthesia Postop Eval I Sum Postop Eval Completion status Anesthesia document: Postop Eval 1 completed: Yes Anesthesia Postop Eval I Summary Anesthesia Postop Eval I Summary: Anesthesia Postop Eval I: Assessment Summary Airway patent Yes 06/12/24 08:16 PATIENT ADMITTING REPRESENTATIVE.LEILAOBFern Spontaneous unlabored Yes 06/12/24 08:16 PATIENT ADMITTING REPRESENTATIVEKAYLIN respirations Mental status Awake,Calm 06/12/24 08:16 PATIENT ADMITTING REPRESENTATIVE.FLOYD nausea No 06/12/24 08:16 PATIENT ADMITTING REPRESENTATIVE.FLOYD Vomiting No 06/12/24 08:16 PATIENT ADMITTING REPRESENTATIVEKAYLIN Anesthesia Postop Eval I: Fluid Summary Crystalloid volume administer 700 06/12/24 08:16 PATIENT ADMITTING REPRESENTATIVE.FLOYD (ml) Colloids volume administered ( ml) Blood Product volume administered (ml) Total IV fluid infused 700 06/12/24 08:16 PATIENT ADMITTING REPRESENTATIVEKAYLIN Anesthesia Postop Eval I: Summary Notes Anesthesia Complication No 06/12/24 08:16 SAHRA Anesthesia Complication Comment: Post-operative progress note Anesthesia: Postop Eval II Evaluation Mental status: Awake Pain Level: 0 nausea: No Vomiting: No
--- NOTE | 2024-06-12 08:36 | PCM.POSTANE2 ---
Anesthesia Postop Eval I Sum Postop Eval Completion status Anesthesia document: Postop Eval 1 completed: Yes Anesthesia Postop Eval I Summary Anesthesia Postop Eval I Summary: Anesthesia Postop Eval I: Assessment Summary Airway patent Yes 06/12/24 08:16 THREAD PULLER.LEILAOBFern Spontaneous unlabored Yes 06/12/24 08:16 THREAD PULLERKAYLIN respirations Mental status Awake,Calm 06/12/24 08:16 THREAD PULLER.FLOYD nausea No 06/12/24 08:16 THREAD PULLER.FLOYD Vomiting No 06/12/24 08:16 THREAD PULLERKAYLIN Anesthesia Postop Eval I: Fluid Summary Crystalloid volume administer 700 06/12/24 08:16 THREAD PULLER.FLOYD (ml) Colloids volume administered ( ml) Blood Product volume administered (ml) Total IV fluid infused 700 06/12/24 08:16 THREAD PULLERKAYLIN Anesthesia Postop Eval I: Summary Notes Anesthesia Complication No 06/12/24 08:16 SAHRA Anesthesia Complication Comment: Post-operative progress note Anesthesia: Postop Eval II Evaluation Mental status: Awake Pain Level: 0 nausea: No Vomiting: No
[2024-06-12] MEDS: Ketorolac 15 MG/ML Vial IV (09:15)
== END 2024-06-12 09:30 | disposition home or self-care (01) ==
LOC: SDC 05:55 → AC 05:56
PROVIDERS: PCP Family Medicine; Referring Provider Urology; Visit Provider Urology
PROC: (CPT 52290; principal; 2024-06-12 07:20)
DX: N35.919 Unspecified urethral stricture, male, unspecified site (principal); I48.0 Paroxysmal atrial fibrillation; I25.10 Atherosclerotic heart disease of native coronary artery without angina pectoris; I10 Essential (primary) hypertension; E78.00 Pure hypercholesterolemia, unspecified; Z79.82 Long term (current) use of aspirin; Z79.84 Long term (current) use of oral hypoglycemic drugs; Z79.899 Other long term (current) drug therapy; Z79.01 Long term (current) use of anticoagulants
CPT/HCPCS: 53410; 36416; 82962; 85610; J7120; C1769; J2405

== ENCOUNTER → 2024-07-25 | Outpatient (CLI) | payer MEDICARE, SELFPAY ==
[2024-07-25 10:38] LABS: International Normalized Ratio 1.6; Prothrombin Time (Protime)PT. 18.7 SECONDS (11.7-14.9)
== END | disposition home or self-care (01) ==
PROVIDERS: Internal Medicine Cardiovascular Disease; PCP Family Medicine; Visit Provider Family Medicine
DX: I48.91 Unspecified atrial fibrillation (principal); Z79.01 Long term (current) use of anticoagulants; E03.9 Hypothyroidism, unspecified
CPT/HCPCS: 36415; 84443; 85610

== ENCOUNTER 2024-09-04 11:16 | Outpatient (RCR) | payer MEDICARE, SELFPAY ==
[2024-06-12 20:43] VITALS: BMI 29.5
[2024-09-04 12:04] LABS: International Normalized Ratio 1.6; Prothrombin Time (Protime)PT. 18.5 SECONDS (11.7-14.9)
[2024-09-04 12:53] LABS: AST(SGOT) 16 U/L (15-37); Alanine Aminotransfer ALT/SGPT 16 U/L (16-61); Albumin, Serum 3.5 g/dL (3.2-5.0); Alkaline Phosphatase 67 U/L (45-117); Anion Gap 4 (5-15); BUN 42 mg/dL (7-18); BUN/Creat Ratio 26.8 RATIO (10-20); Calcium,Total 8.8 mg/dL (8.5-10.1); Chloride 106 mmol/L (98-107); Creatinine, Serum 1.57 mg/dL (0.70-1.30); EST Glomerular Filtration Rate 46 mL/min (>60); Est Glom Filt Rate - Afr Amer 55 mL/min (>60); Globulin 3.6 g/dL (2.2-4.2); Glucose 204 mg/dL (74-106); Potassium 4.4 mmol/L (3.5-5.1); Protein, Total 7.1 g/dL (6.4-8.2); Sodium Level 135 mmol/L (136-145)
== END 2024-09-04 18:00 | disposition home or self-care (01) ==
LOC: LAB 11:16
PROVIDERS: Family Provider Family Medicine; PCP Family Medicine; Referring Provider Nurse Practitioner Gerontology; Visit Provider Nurse Practitioner Gerontology
DX: Z79.01 Long term (current) use of anticoagulants (principal); I48.0 Paroxysmal atrial fibrillation; E03.9 Hypothyroidism, unspecified
CPT/HCPCS: 36415; 80053; 84439; 84443; 85610

== ENCOUNTER 2024-09-07 12:00 | Inpatient (IN) | payer MEDICARE, SELFPAY ==
[2024-09-07] VITALS (12 sets, daily range): BP systolic 83–109; BP diastolic 52–70; PULSE 99–122; RESP 17–22; TEMP 36.1–36.7; O2SAT 92–100; BMI 25.3; BMI 25.4
--- NOTE | 2024-09-07 12:05 | EX.ED.DYSGE1 ---
HPI History of Present Illness Chief Complaint: Weakness [facility] Medical History (Updated 09/06/24 @ 13:51 by Shae Keenan) Amyloid heart disease Wears glasses High cholesterol Non-smoker History of echocardiogram History of stress test Cardiology follow-up encounter Atherosclerotic heart disease of [place] coronary artery without angina pectoris Encounter for cardioversion procedure Leg cramps, sleep related Sleep-disordered breathing Atrial fibrillation with RVR History of cardioversion (~08/21/19) Pure hypercholesterolemia Essential hypertension Hyperlipidemia Hypertension Coronary arteriosclerosis in [place] artery intermediate current use of anticoagulant Paroxysmal atrial fibrillation Home Medications ?Medication ?Instructions ?Recorded ?Last Taken ?Type aspirin 81 mg chewable tablet 81 mg PO DAILY prevention 10/18/13 06/11/24 History metformin 750 mg tablet,extended 750 mg PO DAILY DM 10/18/13 06/11/24 History release 24 hr terazosin 5 mg capsule 5 mg PO QHS BP 10/18/13 06/11/24 History empagliflozin 25 mg tablet 25 mg PO DAILY 12/21/23 06/11/24 History (Jardiance) acetaminophen 325 mg tablet 650 mg PO Q6H PRN Pain Score 03/19/24 Unknown History 1-10/Temp > 100.7 F antiarthritic combination no.2 900 900 mg PO BID 03/19/24 06/11/24 History mg tablet (glucosamine-chondroitin) levothyroxine 75 mcg tablet 75 mcg PO DAILY 03/19/24 06/11/24 History metoprolol tartrate 100 mg tablet 100 mg PO BID #180 tabs 03/22/24 06/11/24 Rx furosemide 40 mg tablet 40 mg PO DAILY #90 tabs 06/05/24 06/11/24 Rx tramadol 50 mg tablet 50 mg PO Q6H PRN pain #14 tabs 06/12/24 Unknown Rx apixaban 5 mg tablet (Eliquis) 5 mg PO .COMPLEX 06/14/24 Unknown History amiodarone 100 mg tablet 200 mg PO QDAY 09/04/24 Unknown History Allergy/AdvReac Type Severity Reaction Status Date / Time dabigatran etexilate (From AdvReac Severe GI Bleed Verified 09/07/24 12:05 Pradaxa) niacin (From Niaspan AdvReac Severe Hot flashes Verified 09/07/24 12:05 Extended-Release) Family History Father Myocardial infarction Hypertension Mother Hina Gehrigs disease Brother MVA (motor vehicle accident) Hypertension Kidney stones Hypercholesterolemia Surgical History (Reviewed 09/04/24 @ 11:01 by Carolyn Telles WARNING COORDINATION METEOROLOGIST, WARNING COORDINATION METEOROLOGIST-C) History of cardiac catheterization History of colonoscopy History of bilateral cataract extraction History of release of tendon History of endoscopy History of esophagogastroduodenoscopy (EGD) History of tonsillectomy History of cardiac radiofrequency ablation (RFA) (~09/21/11) History of left heart catheterization (~08/21/19) Social History Smoking Status: Never smoker alcohol intake: never substance use type: does not use caffeine: Yes Type: carbonated beverages, coffee and tea what type of physical activity do you participate in: none seatbelt use: always do you feel safe at home: Yes EXAM Physical Exam Const Vital Signs: 09/07/24 12:01 09/07/24 12:06 09/07/24 12:16 Temperature 97.4 F L Temperature Source Oral Pulse Rate 101 H 122 H Respiratory Rate 17 22 H Respiratory Effort Normal Non-Labored Respiratory Pattern Normal Blood Pressure 90/62 98/52 L Blood Pressure Mean 71 67 Pulse Ox 98 97 Oxygen Delivery Method Room Air Room Air MDM MDM MDM Narrative Medical decision making narrative: HISTORY OF PRESENT ILLNESS: 79-year-old male past history remarkable for Hyperlipidemia, hypertension, CAD, A-fib on Eliquis, type 2 diabetes presents with concern for weakness. The patient states he is having increasing fatigue/diffuse weakness for the greater part of the past week. Notes over this time he developed dark stools. Notes he is compliant with his home Eliquis last dose was within the last 24 hours. He notes history of A-fib and his heart rate typically fluctuate from the upper 90s to low 100. Notes some shortness of breath that is chronic. Does note a dry chronic cough as well. Denies fever or productive cough. Denies chest pain. Denies syncope. Denies focal weakness, lateralizing weakness, slurred speech or difficulty moving or talking. He notes increasing dyspnea on exertion over the last week as well. Denies leg swelling orthopnea or paroxysmal nocturnal dyspnea REVIEW OF SYSTEMS: Pertinent positives: Weakness, fatigue, shortness of breath, melena Pertinent negatives: Chest pain, focal weakness PHYSICAL EXAM: Nursing triage notes reviewed, Vital signs reviewed Constitutional: please see mdm HENT: MMM Eyes: Pupils equal round and reactive to light, Extraocular muscles intact Neck: No stridor, no JVD, full neck ROM Lungs: Clear to auscultation, No wheezing or rales. No increased work of breathing, no conversational dyspnea, no accessory muscle use, no nasal flaring. No respiratory distress noted Heart: Regular rate and rhythm, No murmurs, No rubs and No gallops, 2+ distal pulses (radial, femoral, posterior tibial) in all extremities Abdomen: Soft, there is no tenderness, rigidity, rebound or guarding, no obvious peritoneal signs, no palpable pulsatile abdominal masses, no auscultated abdominal bruit : No CVAT Extremities: No edema Neuro: No focal neurological deficits, cranial nerves II through XII intact, 5/5 strength in all extremities. Intact sensation to light touch in all extremities, 2+ reflexes bilateral patella tendons. No ataxia. Skin: No rash or lesions noted MEDICAL DECISION MAKING: Chief Complaint: Weakness External records reviewed: Reviewed prior echocardiogram from March 2024 shows ejection fraction of 20%. Baseline blood pressure typically in the lower range typically in the 90s to low 100 Factors affecting care: as per HPI Social determinants of health: none History obtained from others: none Consults: GI (Dr. Vargas) who agreed to evaluate the patient, Hospitalist Dr. Riddle who agreed to meet the patient [facility] Narrative: Patient was initially hypotensive with blood pressure 90/62 and slightly tachycardic with a pulse of 101, saturate 98% room air. Initial cardiopulmonary exam was remarkable for A-fib, no focal lung findings such as rales or focal consolidative processes. Abdomen was soft nontender. Neurologic exam was nonfocal. Rectal exam performed with tax intern in the room showed dark stool concerning for GI bleed I considered the following differential diagnosis: Arrhythmia, anemia, GI bleed, electro disturbance, dehydration, COVID, pneumonia, CVA While considered CVA as potential etiology the patient no focal neurologic deficits to suggest acute CVA. No indication for imaging at this time as his weakness is likely better explained from anemia given dark stools, diffuse weakness, dyspnea exertion concern for GI bleed on Eliquis. I obtained a broad lab and imaging workup to further elucidate the etiology of the patient's complaints. ALL IMAGES (IF OBTAINED) HAVE BEEN PERSONALLY REVIEWED AND INTERPRETED BY MYSELF. Initial EKG showed A-fib with RVR at a rate of 123, left axis deviation, no obvious STEMI or ischemic changes, similar morphology when compared to prior EKG from January 2024, while the patient's heart rate was elevated he would alternate between A-fib with RVR normal heart rate. Given melena and concern for anemia I did not immediately treat his A-fib with RVR as this is likely a side effect of what I am presuming is a GI bleed and significant anemia. Will continue to assess and treat during the patient's ED course. High-sensitivity troponin is negative, no evidence of myocardial ischemia CBC with leukocytosis concerning for stimulation, severe anemia with a hemoglobin of 6.7 down by 5.6 g/dL since March 2024 PT/INR negative BMP with signs of metabolic acidosis with a bicarb of 18, no other significant electrolyte normalities, no acute kidney injury LFTs show no evidence of hepatobiliary pathology. BNP slightly elevated consistent with slight volume overload Urinalysis shows no evidence of urinary inflammation suggestive of UTI The amalgamation of the patient's history, physical exam, labs images suggest likely acute GI bleed on Eliquis. Given patient's hypotension, tachycardia, GI bleed on Eliquis will need admission. Did discuss with GI specialist Dr. Vargas who agreed he will see the patient despite him not being on-call. Discussed with hospitalist who recommended PCU admission. The patient and/or family, caregivers express understanding. The patient and/or family, caregivers agrees with the plan. Shared decision making: I will have a discussion with the patient and or visitors regarding risk/benefits of further testing or admission. They will be made aware of of the risk/benefits inherent in this decision they will be given the opportunity to voice understanding. Total critical care time today provided was at least 35 minutes. This excludes separately billable procedures. Critical care time (if documented) is secondary to the patient having high probability of clinically significant/life threatening deterioration in the patient's condition which required my urgent intervention. Impression: 1. Weakness 2. A-fib with RVR 3. Hypotension 4. Acute GI bleed 5. History of Anticoagulation Dispo: Admit to PCU This note was generated with [employer] dictation software. It may contain incorrect words, spelling, and punctuation that were not noted in review of the chart prior to signing. Discharge Plan Triage Chief Complaint: Weakness ED Provider: Diego Irving Dx/Rx/DC Orders Prescriptions: No Action Jardiance 25 mg tablet 25 mg PO DAILY amiodarone 100 mg tablet 200 mg PO QDAY terazosin 5 MG capsule 5 mg PO QHS aspirin 81 MG tablet,chewable 81 mg PO DAILY metformin 750 MG tablet extended release 24 hr 750 mg PO DAILY levothyroxine 75 mcg tablet 75 mcg PO DAILY glucosamine-chondroitin 900 mg tablet 900 mg PO BID acetaminophen 325 MG tablet 650 mg PO Q6H PRN (Reason: Pain Score 1-10/Temp > 100.7 F) Patient Comments: pt states he very rarely takes med tramadol 50 mg tablet 50 mg PO Q6H PRN (Reason: pain) Qty: 14 0RF metoprolol tartrate 100 mg tablet 100 mg PO BID Qty: 180 3RF furosemide 40 mg tablet 40 mg PO DAILY Qty: 90 3RF Eliquis 5 mg tablet 5 mg PO .COMPLEX Rx Instructions: 5 mg orally twice daily, [facility]; Primary Care Provider: Seth Aguila Referrals: Seth Aguila MD [Primary Care Provider] - Print Language: Bulgarian
--- NOTE | 2024-09-07 12:15 | EKG12_ITS ---
Test Reason : weakness Blood Pressure : / mmHG Vent. Rate : 123 BPM Atrial Rate : 000 BPM P-R Int : 000 ms QRS Dur : 114 ms QT Int : 366 ms P-R-T Axes : 000 -56 106 degrees QTc Int : 523 ms Atrial fibrillation with rapid ventricular response Left axis deviation Nonspecific ST and T wave abnormality Abnormal ECG Confirmed by SALBADOR JANG, LEATHA ([id number]), city editor TAYLOR ABRAHAM ([id number]) on 09/09/2024 9:40:12 AM Referred By: Jhonny/guillermo Confirmed By:LEATHA SIU MD
--- NOTE | 2024-09-07 12:25 | RAD_ITS ---
INDICATION: weakness EXAMINATION/TECHNIQUE: X-RAY - XR Chest 1 View COMPARISON: FINDINGS: LINES/DEVICES: None. LUNGS: No consolidation, edema or effusion. No pneumothorax. MEDIASTINUM AND CARDIOVASCULAR STRUCTURES: Borderline cardiac silhouette. BONES AND SOFT TISSUES: Unremarkable. RAD/Chest 1 View (Portable) IMPRESSION: No radiographic evidence of acute cardiopulmonary disease. Electronically Signed: Osiel Junior MD at 13:32 EDT ,
[2024-09-07 12:44] LABS: Absolute Lymphocyte Count 2.63 X10^3/uL (0.83-4.51); Absolute Neutrophil Count 8.3 X10^3/uL (2.0-7.7); Basophil# 0.04 X10^3/uL; Basophil% 0.3 % (0-1); Eosinophil# 0.05 X10^3/uL; Eosinophils% 0.4 % (0-5); Hematocrit 22.3 % (40-54); Hemoglobin 6.7 g/dL (13.0-16.5); Lymphocyte # 2.63 X10^3/ul (0.83-4.51); Lymphocyte % 22.6 % (19-41); Mean Corpuscular Volume 89.9 fL (80-94); Mean Platelet Vol. 10.3 fl (6.2-12.0); Monocyte# 0.51 X10^3/uL; Monocyte% 4.4 % (0-10); NRBC Flagged by Analyzer 0.2 % (0-5); Neutrophil # 8.34 X10^3/uL (2.7-7.7); Neutrophil % 71.8 % (47-70); Platelet Count 231 K/mm3 (150-450); RBC Distribution Width CV 17.7 % (11.6-14.6); RBC Distribution Width SD 56.9 fl (35.1-43.9); Red Blood Count 2.48 M/mm3 (4.6-6.2); White Blood Count 11.6 K/mm3 (4.4-11.0)
[2024-09-07 12:54] LABS: International Normalized Ratio 1.4; Prothrombin Time (Protime)PT. 16.9 SECONDS (11.7-14.9)
[2024-09-07 12:55] LABS: Partial Thromboplast Time 27.4 Seconds (24.1-36.2)
[2024-09-07 12:56] LABS: Mucous, Urine 0 SEEN /hpf (<or=2+); Red Blood Cells-Urine 0 SEEN /hpf (0-5)
[2024-09-07 13:03] LABS: AST(SGOT) 12 U/L (15-37); Alanine Aminotransfer ALT/SGPT 15 U/L (16-61); Alkaline Phosphatase 58 U/L (45-117); Anion Gap 9 (5-15); BUN 60 mg/dL (7-18); BUN/Creat Ratio 48.4 RATIO (10-20); Bilirubin, Direct 0.23 mg/dL (0.00-0.30); Chloride 108 mmol/L (98-107); Creatinine, Serum 1.24 mg/dL (0.70-1.30); EST Glomerular Filtration Rate 60 mL/min (>60); Est Glom Filt Rate - Afr Amer 73 mL/min (>60); Globulin 3.2 g/dL (2.2-4.2); Glucose 245 mg/dL (74-106); Potassium 4.4 mmol/L (3.5-5.1); Protein, Total 6.2 g/dL (6.4-8.2); Sodium Level 136 mmol/L (136-145); Troponin-I HS 23 pg/mL (3.0-78.0)
[2024-09-07 13:06] LABS: Color, Urine Yellow (Yellow); Glucose, Dipstick 1000 mg/dl (Normal); Ketone-Dipstick 15 mg/dl (Negative); Leukocyte Esterase-Dipstick 25 /ul (Negative); Nitrite-Dipstick Negative (Negative); Occult Blood-Urine Negative /ul (Negative); Protein-Dipstick Negative (Negative); Specific Gravity, Urine 1.015 (1.002-1.030); Urine Bilirubin Dipstick Negative (Negative); Urine Clarity Clear (Clear); Urine Urobilinogen Normal (Normal)
[2024-09-07 13:07] LABS: BNP,B-Type NATRIURETIC PEPTIDE 241.7 pg/mL (0-100)
--- NOTE | 2024-09-07 13:38 | NURSING ---
DR ARBEN WALKER
--- NOTE | 2024-09-07 13:43 | NURSING ---
Concent for blood signed.
[2024-09-07 13:52] LABS: Bacteria 1+ /hpf (None Seen); Squamous Epithelial Cells - UA 0-5 SEEN /hpf (0-5); White Blood Cells 0-5 SEEN /hpf (0-5)
--- NOTE | 2024-09-07 14:07 | HP.PCM.HOS_ITS ---
HPI - General General Date of Admission: 09/07/24 Date of Service: 09/07/24 Chief Complaint: melena. weakness. HPI Narrative MICHAELA MARTIN, is a 79 M with atrial fibrillation on apixaban who presents with weakness. Over the past couple weeks, patient has been noticing melena and during this period time he has been weaker. He is having some wheeziness when he stands and dyspnea on exertion when he walks. Denies chest pain. He presents to the emergency room and his hemoglobin was noted to be 6.7. He was ordered 1 unit packed red blood cells. Dr. Coronado, gastroenterology, was contacted and is told the emergency room physician that he be willing to see the patient in consultation. The hospitalist service was contacted for admission. 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 Paroxysmal atrial fibrillation Home Medications ?Medication ?Instructions ?Recorded ?Last Taken ?Type aspirin 81 mg chewable tablet 81 mg PO DAILY prevention 10/18/13 06/11/24 History metformin 750 mg tablet,extended 750 mg PO DAILY DM 10/18/13 06/11/24 History release 24 hr terazosin 5 mg capsule 5 mg PO QHS BP 10/18/13 06/11/24 History empagliflozin 25 mg tablet 25 mg PO DAILY 12/21/23 06/11/24 History (Jardiance) acetaminophen 325 mg tablet 650 mg PO Q6H PRN Pain Score 03/19/24 Unknown History 1-10/Temp > 100.7 F antiarthritic combination no.2 900 900 mg PO BID 03/19/24 06/11/24 History mg tablet (glucosamine-chondroitin) levothyroxine 75 mcg tablet 75 mcg PO DAILY 03/19/24 06/11/24 History metoprolol tartrate 100 mg tablet 100 mg PO BID #180 tabs 03/22/24 06/11/24 Rx furosemide 40 mg tablet 40 mg PO DAILY #90 tabs 06/05/24 06/11/24 Rx tramadol 50 mg tablet 50 mg PO Q6H PRN pain #14 tabs 06/12/24 Unknown Rx apixaban 5 mg tablet (Eliquis) 5 mg PO .COMPLEX 06/14/24 Unknown History amiodarone 100 mg tablet 200 mg PO QDAY 09/04/24 Unknown History Allergy/AdvReac Type Severity Reaction Status Date / Time dabigatran etexilate (From AdvReac Severe GI Bleed Verified 09/07/24 12:05 Pradaxa) niacin (From Niaspan AdvReac Severe Hot flashes Verified 09/07/24 12:05 Extended-Release) Family History Father Myocardial infarction Hypertension Mother Hina Gehrigs disease Brother MVA (motor vehicle accident) Hypertension Kidney stones Hypercholesterolemia Surgical History History of cardiac catheterization History of colonoscopy History of bilateral cataract extraction History of release of tendon History of endoscopy History of esophagogastroduodenoscopy (EGD) History of tonsillectomy History of cardiac radiofrequency ablation (RFA) (~09/21/11) History of left heart catheterization (~08/21/19) Social History Smoking Status: Never smoker alcohol intake: never substance use type: does not use caffeine: Yes Type: carbonated beverages, coffee and tea what type of physical activity do you participate in: none seatbelt use: always do you feel safe at home: Yes ROS ROS Narrative Chronic easy bruising. No abdominal pain. All review of systems were negative except as mentioned above in the history of present illness and the other review of systems. Vital Signs Vital Signs Vital Signs: 09/07/24 12:01 09/07/24 12:06 09/07/24 12:16 Temperature 36.3 C L Temperature Source Oral Pulse Rate 101 H 122 H Respiratory Rate 17 22 H Respiratory Effort Normal Non-Labored Respiratory Pattern Normal Blood Pressure 90/62 98/52 L Blood Pressure Mean 71 67 Blood Pressure Source Blood Pressure Position Blood Pressure Location Pulse Ox 98 97 Oxygen Delivery Method Room Air Room Air 09/07/24 13:31 09/07/24 13:54 Temperature 36.5 C L 36.1 C L Temperature Source Temporal Pulse Rate 100 111 H Respiratory Rate 18 19 H Respiratory Effort Respiratory Pattern Blood Pressure 85/62 L 89/57 L Blood Pressure Mean 69 67 Blood Pressure Source Monitor Blood Pressure Position Semi-Fowlers Blood Pressure Location Left Arm Pulse Ox 92 98 Oxygen Delivery Method Room Air Weight Weight: 77.746 kg Body Mass Index (BMI) 25.3 Physical Exam Narrative - Physical Exam General: Alert, Oriented x3, Cooperative HEENT: Atraumatic, PERRLA, EOMI, Normocephalic Oral: Moist Mucosa, No Gingival or Mucosal Lesions/ Ulcerations Neck: Supple, No JVD, Negative Carotid Bruits Lungs: Clear to auscultation, Normal air movement Cardiovascular: Regular rate, Normal S1, Normal S2, No murmurs Abdomen: Bowel Sounds Present, Soft, Non Tender, Non-Distended, No Hepato- splenomegaly Extremities: No clubbing, No cyanosis, No edema, Capillary Refill Less than 3 Seconds Skin: No rashes, No breakdown Musculoskeletal: No Tenderness to Palpation of Joints or Extremities Neurological: Neuro grossly intact Psych/Mental Status: Normal Affect, Appropriate Results Lab / Micro Data Attestation: I reviewed the patient's lab results. 09/07/24 12:00 09/07/24 12:00 Labs: Laboratory Results - last 24 hr 09/07/24 12:00: WBC 11.6 H, RBC 2.48 L, Hgb 6.7 L, Hct 22.3 L, MCV 89.9, MCH 27.0, MCHC 30.0 L, RDW Std Deviation 56.9 H, RDW Coeff of Katarzyna 17.7 H, Plt Count 231, MPV 10.3, Immature Gran % (Auto) 0.500, Neut % (Auto) 71.8 H, Lymph % (Auto) 22.6, Bacon % (Auto) 4.4, Eos % (Auto) 0.4, Baso % (Auto) 0.3, Absolute Neuts (auto) 8.3 H, Absolute Lymphs (auto) 2.63, Nucleated RBC % 0.2, PT 16.9 H, INR 1.4, APTT 27.4, Sodium 136, Potassium 4.4, Chloride 108 H, Carbon Dioxide 18.0 L, Anion Gap 9, BUN 60 H, Creatinine 1.24, Estim Creat Clear Calc 49.10, Est GFR (MDRD) Af Amer 73, Est GFR (MDRD) Non-Af 60, BUN/Creatinine Ratio 48.4 H , Glucose 245 H, Calcium 9.0, Total Bilirubin 0.80, Direct Bilirubin 0.23, AST 12 L, ALT 15 L, Alkaline Phosphatase 58, Troponin I High Sens 23, B-Natriuretic Peptide 241.7 H, Total Protein 6.2 L, Albumin 3.0 L, Globulin 3.2 09/07/24 12:22: Blood Type B POSITIVE, Antibody Screen NEGATIVE, Crossmatch See Detail 09/07/24 12:46: Urine Color Yellow, Urine Clarity Clear, Urine pH 5.0, Ur Specific [place] 1.015, Urine Protein Negative, Urine Glucose (UA) 1000 H, Urine Ketones 15 H, Urine Occult Blood Negative, Urine Nitrite Negative, Urine Bilirubin Negative, Urine Urobilinogen Normal, Ur Leukocyte Esterase 25 H, Urine RBC 0 SEEN, Urine WBC 0-5 SEEN, Ur Squamous Epith Cells 0-5 SEEN, Urine Bacteria 1+, Urine Mucus 0 SEEN Micro: Microbiology 09/07/24 12:49 Stool Stool Occult Blood (HERB) - Final EKG Initial EKG: Attestation: I personally reviewed and interpreted this EKG as follows: Prior EKG tracings: available for review EKG Rhythm Intrepretation: Atrial Fibrillation Imaging Radiology Impression Chest X-Ray 09/07/24 12:25 IMPRESSION: No radiographic evidence of acute cardiopulmonary disease. Electronically Signed: Osiel Junior MD at 13:32 EDT , Assessment & Plan Assessment/Plan (1) Acute blood loss anemia: PLAN: Been ongoing for the past couple weeks due to GI bleed. Patient's hemoglobin 6.7 and ordered 1 unit of prior blood cells. Hemoglobin back in March (which was last available test we have) was 12.1. Will monitor hemoglobin. (2) GI bleed: PLAN: Unclear etiology but patient will be on pantoprazole IV twice daily. Will consult gastroenterology for input and endoscopy. Hold apixaban and aspirin. May need to consider bleeding scan if patient starts having james hematochezia. (3) Weakness: PLAN: She improved with transfusions but will monitor. 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 Caution in regards to use of IV fluids if necessary. Will monitor the patient particularly after he receives a unit of blood to make sure he is not developing any heart failure. * Atrial fibrillation: Continue with metoprolol tartrate, amiodarone. Apixaban on hold given the anemia and GI bleed. Heart rate appears to be chronically elevated. But overall appears to be well-controlled. No change to medications at this point in time nor do I feel addition of diltiazem drip would be necessary. * BPH: Continue with terazosin. * Diabetes mellitus type 2: Hold Jardiance and metformin for now. Sliding scale insulin. VTE prophylaxis with SCDs CODE STATUS: Addressed with the patient. Patient wishes to be full code. Charges/Coding Visit Charges Inpatient E&M: 30373 Init Hosp L3
[2024-09-07] MEDS: Insulin Lispro 100 UNIT/ML INSULN.PEN SC (16:57)
[2024-09-07] MEDS: Pantoprazole Sodium 40 MG in 0.9% Normal Saline (100mL MB+) 100 ML 330 MG IV ×2 (17:06→22:17)
[2024-09-07 17:41] LABS: Bedside Glucose 151 mg/dL (74-106)
[2024-09-07] MEDS: Metoprolol Tartrate 100 MG Tablet PO (20:09)
[2024-09-07] MEDS: Amiodarone 200 MG Tablet PO (20:14)
[2024-09-07 22:37] LABS: Bedside Glucose 164 mg/dL (74-106)
[2024-09-08 04:15] VITALS: BP 92/72; PULSE 62; RESP 18; TEMP 36.1; O2SAT 99
[2024-09-08] MEDS: Levothyroxine 75 MCG Tablet PO (04:45)
[2024-09-08 06:47] LABS: Absolute Lymphocyte Count 1.28 X10^3/uL (0.83-4.51); Absolute Neutrophil Count 5.9 X10^3/uL (2.0-7.7); Basophil# 0.04 X10^3/uL; Basophil% 0.5 % (0-1); Eosinophil# 0.11 X10^3/uL; Eosinophils% 1.4 % (0-5); Hematocrit 23.6 % (40-54); Hemoglobin 7.4 g/dL (13.0-16.5); Lymphocyte # 1.28 X10^3/ul (0.83-4.51); Lymphocyte % 16.3 % (19-41); Mean Corp Hgb Conc 31.4 g/dL (32-36); Mean Corpuscular Hgb 26.6 pg (27.0-32.0); Mean Corpuscular Volume 84.9 fL (80-94); Mean Platelet Vol. 9.8 fl (6.2-12.0); Monocyte# 0.52 X10^3/uL; Monocyte% 6.6 % (0-10); NRBC Flagged by Analyzer 0 % (0-5); Neutrophil # 5.86 X10^3/uL (2.7-7.7); Neutrophil % 74.8 % (47-70); Platelet Count 207 K/mm3 (150-450); RBC Distribution Width SD 59.4 fl (35.1-43.9); Red Blood Count 2.78 M/mm3 (4.6-6.2); White Blood Count 7.8 K/mm3 (4.4-11.0)
[2024-09-08 06:51] LABS: Bedside Glucose 130 mg/dL (74-106)
[2024-09-08 07:14] LABS: Anion Gap 4 (5-15); BUN 44 mg/dL (7-18); BUN/Creat Ratio 43.1 RATIO (10-20); Calcium,Total 8.2 mg/dL (8.5-10.1); Chloride 113 mmol/L (98-107); Creatinine, Serum 1.02 mg/dL (0.70-1.30); EST Glomerular Filtration Rate 75 mL/min (>60); Est Glom Filt Rate - Afr Amer 91 mL/min (>60); Estimated Creatinine Clearance 59.69 ml/min; Glucose 134 mg/dL (74-106); Potassium 4.2 mmol/L (3.5-5.1); Sodium Level 139 mmol/L (136-145)
[2024-09-08 09:03] VITALS: BP 107/63; PULSE 100; RESP 18; TEMP 36.7; O2SAT 94
--- NOTE | 2024-09-08 09:03 | PN.HOSP_ITS ---
Reason for Visit Reason for Visit: Diagnoses Acute posthemorrhagic anemia (09/07/24) Gastrointestinal hemorrhage, unspecified (09/07/24) Weakness (09/07/24) Subjective Subjective No further melena. Objective Data Objective Data Vital Signs: Vital Signs Temp Pulse Resp BP Pulse Ox O2 Del Method 36.1 C L 62 18 92/72 99 Room Air 09/08/24 04:15 09/08/24 04:15 09/08/24 04:15 09/08/24 04:15 09/08/24 04:15 09/08/24 07:40 Oxygen Delivery Method Room Air Weight: 78.018 kg Body Mass Index (BMI) 25.4 Intake & Output: Intake and Output for Last 24 Hours 09/06/24 09/07/24 09/08/24 23:59 23:59 23:59 Intake Total 720 / 720 Output Total 0 / 0 700 / 700 Balance 720 / 720 -700 / -700 Lab / Micro Data 09/08/24 06:08 09/08/24 06:08 Labs: Laboratory Results - last 24 hr 09/07/24 12:00: WBC 11.6 H, RBC 2.48 L, Hgb 6.7 L, Hct 22.3 L, MCV 89.9, MCH 27.0, MCHC 30.0 L, RDW Std Deviation 56.9 H, RDW Coeff of Katarzyna 17.7 H, Plt Count 231, MPV 10.3, Immature Gran % (Auto) 0.500, Neut % (Auto) 71.8 H, Lymph % (Auto) 22.6, [place] % (Auto) 4.4, Eos % (Auto) 0.4, Baso % (Auto) 0.3, Absolute Neuts (auto) 8.3 H, Absolute Lymphs (auto) 2.63, Nucleated RBC % 0.2, PT 16.9 H, INR 1.4, APTT 27.4, Sodium 136, Potassium 4.4, Chloride 108 H, Carbon Dioxide 18.0 L, Anion Gap 9, BUN 60 H, Creatinine 1.24, Estim Creat Clear Calc 49.10, Est GFR (MDRD) Af Amer 73, Est GFR (MDRD) Non-Af 60, BUN/Creatinine Ratio 48.4 H , Glucose 245 H, Calcium 9.0, Total Bilirubin 0.80, Direct Bilirubin 0.23, AST 12 L, ALT 15 L, Alkaline Phosphatase 58, Troponin I High Sens 23, B-Natriuretic Peptide 241.7 H, Total Protein 6.2 L, Albumin 3.0 L, Globulin 3.2 09/07/24 12:22: Blood Type B POSITIVE, Antibody Screen NEGATIVE, Crossmatch See Detail 09/07/24 12:46: Urine Color Yellow, Urine Clarity Clear, Urine pH 5.0, Ur Specific [place] 1.015, Urine Protein Negative, Urine Glucose (UA) 1000 H, Urine Ketones 15 H, Urine Occult Blood Negative, Urine Nitrite Negative, Urine Bilirubin Negative, Urine Urobilinogen Normal, Ur Leukocyte Esterase 25 H, Urine RBC 0 SEEN, Urine WBC 0-5 SEEN, Ur Squamous Epith Cells 0-5 SEEN, Urine Bacteria 1+, Urine Mucus 0 SEEN 09/07/24 16:56: POC Glucose 151 H 09/07/24 20:08: POC Glucose 164 H 09/08/24 06:08: WBC 7.8, RBC 2.78 L, Hgb 7.4 L, Hct 23.6 L, MCV 84.9 D, MCH 26.6 L, MCHC 31.4 L, RDW Std Deviation 59.4 H, RDW Coeff of Katarzyna 19.0 H, Plt Count 207, MPV 9.8, Immature Gran % (Auto) 0.400, Neut % (Auto) 74.8 H, Lymph % (Auto) 16.3 L, Sherman % (Auto) 6.6, Eos % (Auto) 1.4, Baso % (Auto) 0.5, Absolute Neuts (auto) 5.9, Absolute Lymphs (auto) 1.28, Nucleated RBC % 0, Sodium 139, Potassium 4.2, Chloride 113 H, Carbon Dioxide 22.0, Anion Gap 4 L, BUN 44 H, Creatinine 1.02, Estim Creat Clear Calc 59.69, Est GFR (MDRD) Af Amer 91, Est GFR (MDRD) Non-Af 75, BUN/Creatinine Ratio 43.1 H, Glucose 134 H, Calcium 8.2 L 09/08/24 06:27: POC Glucose 130 H Micro: Microbiology 09/07/24 12:49 Stool Stool Occult Blood (HERB) - Final Radiography Diagnostic Testing: Radiology Impression Chest X-Ray 09/07/24 12:25 IMPRESSION: No radiographic evidence of acute cardiopulmonary disease. Electronically Signed: Osiel Junior MD at 13:32 EDT , Physical Exam Const alert and no apparent distress HEENT head/scalp atraumatic and moist oral mucous membranes Resp normal respiratory effort, no retractions, no use of accessory muscles and clear to auscultation bilaterally Cardio regular rate, regular rhythm, S1 normal heart sound and S2 normal heart sound GI normal to inspection, nondistended, normoactive bowel sounds, soft to palpation, non-tender and non-distended Neuro Sensorium / Orientation: awake and alert Assessment & Plan Assessment/Plan (1) Acute blood loss anemia: PLAN: Been ongoing for the past couple weeks due to GI bleed. Patient's hemoglobin 6.7 and ordered 1 unit of prior blood cells. Hemoglobin back in March (which was last available test we have) was 12.1. Hemoglobin post transfusion 7.4. (2) GI bleed: PLAN: Unclear etiology but patient will be on pantoprazole IV twice daily. Will consult gastroenterology for input and endoscopy. Hold apixaban and aspirin. May need to consider bleeding scan if patient starts having james hematochezia. (3) Weakness: PLAN: She improved with transfusions but will monitor. 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 Caution in regards to use of IV fluids if necessary. Will monitor the patient particularly after he receives a unit of blood to make sure he is not developing any heart failure. * Atrial fibrillation: Continue with metoprolol tartrate, amiodarone. Apixaban on hold given the anemia and GI bleed. Heart rate appears to be chronically elevated. But overall appears to be well-controlled. No change to medications at this point in time nor do I feel addition of diltiazem drip would be necessary. * BPH: Continue with terazosin. * Diabetes mellitus type 2: Hold Jardiance and metformin for now. Sliding scale insulin. VTE prophylaxis with SCDs CODE STATUS: Addressed with the patient. Patient wishes to be full code. Charges/Coding Visit Charges Inpatient E&M: 06154 Subs Hosp L2
[2024-09-08 09:06] VITALS: PULSE 100
[2024-09-08] MEDS: Pantoprazole Sodium 40 MG in 0.9% Normal Saline (100mL MB+) 100 ML 330 MG IV ×2 (09:06→21:13)
[2024-09-08] MEDS: Metoprolol Tartrate 100 MG Tablet PO (09:06)
[2024-09-08] MEDS: Amiodarone 200 MG Tablet PO (09:06)
[2024-09-08] MEDS: Insulin Lispro 100 UNIT/ML INSULN.PEN SC ×2 (11:49→16:44)
[2024-09-08 14:47] VITALS: BP 94/63; PULSE 95; RESP 16; TEMP 36.6; O2SAT 100
--- NOTE | 2024-09-08 16:30 | EX.PCM.CON.G ---
HPI Consult Data Date of Consult: 09/08/24 HPI Narrative Reason for Consultation: GI bleed HPI Narrative: MICHAELA MARTIN, is a 79 M with atrial fibrillation on apixaban who presents with weakness. Over the past couple weeks, patient has been noticing melena and during this period time he has been weaker. He is having some wheeziness when he stands and dyspnea on exertion when he walks. Denies chest pain. He presents to the emergency room and his hemoglobin was noted to be 6.7. He was ordered 1 unit packed red blood cells. He has a history of CAD (non-angiographically significant), paroxysmal atrial fibrillation with pulmonary vein isolation that was complicated by a microperforation, hyperlipidemia, hypertension. The patient was recently admitted to the hospital with atrial fibrillation with rapid ventricular response rate. An echocardiogram was done which demonstrated significantly reduced ejection fraction estimated at 20% with global hypokinesis the global longitudinal strain was severely abnormal at -6.1 with a short spot and apical sparing. This was consistent with amyloid. 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 He also had a serum free light chain assay which was mildly elevated. [facility] Medical History Amyloid heart disease Wears glasses High cholesterol Non-smoker History of echocardiogram History of stress test Cardiology follow-up encounter Atherosclerotic heart disease of [place] coronary artery without angina pectoris Encounter for cardioversion procedure Leg cramps, sleep related Sleep-disordered breathing Atrial fibrillation with RVR History of cardioversion (~08/21/19) Pure hypercholesterolemia Essential hypertension Hyperlipidemia Hypertension Coronary arteriosclerosis in [place] artery skilled nursing current use of anticoagulant Paroxysmal atrial fibrillation Home Medications ?Medication ?Instructions ?Recorded ?Last Taken ?Type aspirin 81 mg chewable tablet 81 mg PO DAILY prevention 10/18/13 06/11/24 History metformin 750 mg tablet,extended 750 mg PO DAILY DM 10/18/13 06/11/24 History release 24 hr terazosin 5 mg capsule 5 mg PO QHS BP 10/18/13 06/11/24 History empagliflozin 25 mg tablet 25 mg PO DAILY 12/21/23 06/11/24 History (Jardiance) acetaminophen 325 mg tablet 650 mg PO Q6H PRN Pain Score 03/19/24 Unknown History 1-10/Temp > 100.7 F antiarthritic combination no.2 900 900 mg PO BID 03/19/24 06/11/24 History mg tablet (glucosamine-chondroitin) levothyroxine 75 mcg tablet 75 mcg PO DAILY 03/19/24 06/11/24 History metoprolol tartrate 100 mg tablet 100 mg PO BID #180 tabs 03/22/24 09/09/24 Rx furosemide 40 mg tablet 40 mg PO DAILY #90 tabs 06/05/24 06/11/24 Rx tramadol 50 mg tablet 50 mg PO Q6H PRN pain #14 tabs 06/12/24 Unknown Rx apixaban 5 mg tablet (Eliquis) 5 mg PO .COMPLEX 06/14/24 Unknown History amiodarone 100 mg tablet 200 mg PO QDAY 09/04/24 Unknown History Allergy/AdvReac Type Severity Reaction Status Date / Time dabigatran etexilate (From AdvReac Severe GI Bleed Verified 09/07/24 12:05 Pradaxa) niacin (From Niaspan AdvReac Severe Hot flashes Verified 09/07/24 12:05 Extended-Release) Family History Father Myocardial infarction Hypertension Mother Hina Gehrigs disease Brother MVA (motor vehicle accident) Hypertension Kidney stones Hypercholesterolemia Surgical History History of cardiac catheterization History of colonoscopy History of bilateral cataract extraction History of release of tendon History of endoscopy History of esophagogastroduodenoscopy (EGD) History of tonsillectomy History of cardiac radiofrequency ablation (RFA) (~09/21/11) History of left heart catheterization (~08/21/19) Social History Smoking Status: Never smoker alcohol intake: never substance use type: does not use caffeine: Yes Type: carbonated beverages, coffee and tea what type of physical activity do you participate in: none seatbelt use: always do you feel safe at home: Yes ROS ROS Narrative Chronic easy bruising. No abdominal pain. All review of systems were negative except as mentioned above in the history of present illness and the other review of systems. Physical Exam Const alert, oriented x3 and no apparent distress General Appearance: cooperative and well developed HEENT normocephalic, head/scalp atraumatic and moist oral mucous membranes Mouth: dry mucous membranes Eyes PERRL and EOMs intact bilaterally Neck no lymphadenopathy, supple and no JVD Lymph Lymphatic: no lymphadenopathy noted and no lymphedema noted Resp normal respiratory effort, normal air movement and clear to auscultation bilaterally Cardio regular rate, regular rhythm, S1 normal heart sound, S2 normal heart sound and no murmurs GI normal to inspection, nondistended, normoactive bowel sounds, soft to palpation, non-tender and non-distended Extremity normal capillary refill, no clubbing, cyanosis or edema and no calf tenderness General Extremity: no tenderness to palpation of joints or extremities Skin General Skin Exam: no breakdown Neuro CN's II-XII intact bilaterally and no focal motor deficits Motor Exam: strength 5/5 throughout and general weakness Psych thought process normal, cooperative and affect normal Appearance: appropriate Lab / Micro Data 09/09/24 06:46 09/09/24 06:46 Labs: Laboratory Results - last 24 hr 09/08/24 06:08: Hgb Cancelled, Hct Cancelled, Diff Path Review Cancelled 09/08/24 11:40: POC Glucose 162 H 09/08/24 16:43: POC Glucose 168 H 09/08/24 17:03: Hgb 7.3 L, Hct 22.9 L 09/08/24 21:15: POC Glucose 135 H 09/09/24 06:35: POC Glucose 130 H 09/09/24 06:46: WBC 7.2, RBC 2.88 L, Hgb 7.8 L, Hct 24.5 L, MCV 85.1, MCH 27.1, MCHC 31.8 L, RDW Std Deviation 57.3 H, RDW Coeff of Katarzyna 18.6 H, Plt Count 216, MPV 9.9, Immature Gran % (Auto) 0.600, Neut % (Auto) 70.0, Lymph % (Auto) 21.2, Bartholomew % (Auto) 6.1, Eos % (Auto) 1.5, Baso % (Auto) 0.6, Absolute Neuts (auto) 5.0, Absolute Lymphs (auto) 1.52, Nucleated RBC % 0.3, APTT 28.1, Sodium 141, Potassium 4.1, Chloride 112 H, Carbon Dioxide 21.0, Anion Gap 8, BUN 26 H, Creatinine 1.04, Estim Creat Clear Calc 58.54, Est GFR (MDRD) Af Amer 89, Est GFR (MDRD) Non-Af 73, BUN/Creatinine Ratio 25.0 H, Glucose 130 H, Hemoglobin A1c 6.7 H, Calcium 8.1 L, TSH 6.040 H 09/09/24 11:09: POC Glucose 145 H Assessment & Plan Assessment/Plan (1) Acute blood loss anemia: PLAN: 79-year-old gentleman who presents to the ED with GI bleed. Patient's hemoglobin 6.7 and ordered 1 unit of prior blood cells. Hemoglobin back in March (which was last available test we have) was 12.1. Hemoglobin post transfusion 7.4. (2) GI bleed: PLAN: Unclear etiology but patient will be on pantoprazole IV twice daily. He will undergo an upper endoscopy to evaluate his upper GI tract. He was explained alternatives, risk, benefits include understanding bleeding, infection, sepsis, perforation, need for emergent urgent . He will have an ASA of 3. Hold apixaban and aspirin. May need to consider bleeding scan if patient starts having james hematochezia. 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 Charges/Coding Visit Charges Inpatient E&M: 10865 Init Hosp L3
[2024-09-08 17:05] LABS: Bedside Glucose 168 mg/dL (74-106)
[2024-09-08 17:21] LABS: Hematocrit 22.9 % (40-54); Hemoglobin 7.3 g/dL (13.0-16.5)
[2024-09-08 19:52] VITALS: BMI 25.4
[2024-09-08 20:09] LABS: Bedside Glucose 162 mg/dL (74-106)
[2024-09-08 21:04] VITALS: BP 109/51; PULSE 94; RESP 18; TEMP 36.3; O2SAT 98
[2024-09-08] MEDS: 0.9% Saline Lock 10 ML Syringe IV (21:13)
[2024-09-08 21:25] VITALS: BP 109/51; PULSE 94
[2024-09-08] MEDS: Doxazosin 4 MG Tablet PO (21:30)
[2024-09-09] VITALS (19 sets, daily range): BP systolic 78–117; BP diastolic 50–75; PULSE 78–130; RESP 13–20; TEMP 35.9–36.7; O2SAT 94–100
[2024-09-09 01:13] LABS: Bedside Glucose 135 mg/dL (74-106)
--- NOTE | 2024-09-09 05:55 | EKG12_ITS ---
Test Reason : PRE-OP Blood Pressure : / mmHG Vent. Rate : 110 BPM Atrial Rate : 000 BPM P-R Int : 000 ms QRS Dur : 116 ms QT Int : 338 ms P-R-T Axes : 000 -44 113 degrees QTc Int : 457 ms Atrial fibrillation with rapid ventricular response Left axis deviation Incomplete left bundle branch block Nonspecific T wave abnormality Abnormal ECG When compared with ECG of 07-SEP-2024 11:58, MANUAL COMPARISON REQUIRED, DATA IS UNCONFIRMED Confirmed by SALBADOR JANG, LEATHA ([id number]), book editor DANNY SOLO ([id number]) on 09/09/2024 1:42:02 PM Referred By: ARBEN Confirmed By:LEATHA SIU MD
[2024-09-09] MEDS: Levothyroxine 75 MCG Tablet PO (06:36)
[2024-09-09 07:04] LABS: Absolute Lymphocyte Count 1.52 X10^3/uL (0.83-4.51); Basophil# 0.04 X10^3/uL; Basophil% 0.6 % (0-1); Eosinophil# 0.11 X10^3/uL; Eosinophils% 1.5 % (0-5); Hematocrit 24.5 % (40-54); Hemoglobin 7.8 g/dL (13.0-16.5); Lymphocyte # 1.52 X10^3/ul (0.83-4.51); Lymphocyte % 21.2 % (19-41); Mean Corp Hgb Conc 31.8 g/dL (32-36); Mean Corpuscular Hgb 27.1 pg (27.0-32.0); Mean Corpuscular Volume 85.1 fL (80-94); Mean Platelet Vol. 9.9 fl (6.2-12.0); Monocyte# 0.44 X10^3/uL; Monocyte% 6.1 % (0-10); NRBC Flagged by Analyzer 0.3 % (0-5); Neutrophil # 5.01 X10^3/uL (2.7-7.7); Platelet Count 216 K/mm3 (150-450); RBC Distribution Width CV 18.6 % (11.6-14.6); RBC Distribution Width SD 57.3 fl (35.1-43.9); Red Blood Count 2.88 M/mm3 (4.6-6.2); White Blood Count 7.2 K/mm3 (4.4-11.0)
[2024-09-09 07:15] LABS: Bedside Glucose 130 mg/dL (74-106)
[2024-09-09 07:20] LABS: Partial Thromboplast Time 28.1 Seconds (24.1-36.2)
[2024-09-09 07:46] LABS: Anion Gap 8 (5-15); BUN 26 mg/dL (7-18); Calcium,Total 8.1 mg/dL (8.5-10.1); Chloride 112 mmol/L (98-107); Creatinine, Serum 1.04 mg/dL (0.70-1.30); EST Glomerular Filtration Rate 73 mL/min (>60); Est Glom Filt Rate - Afr Amer 89 mL/min (>60); Estimated Creatinine Clearance 58.54 ml/min; Glucose 130 mg/dL (74-106); Potassium 4.1 mmol/L (3.5-5.1); Sodium Level 141 mmol/L (136-145)
[2024-09-09] MEDS: Pantoprazole Sodium 40 MG in 0.9% Normal Saline (100mL MB+) 100 ML 330 MG IV (07:49)
[2024-09-09 08:20] LABS: Hemoglobin A1c 6.7 % (3.8-5.6)
[2024-09-09] MEDS: Amiodarone 200 MG Tablet PO (09:37)
[2024-09-09] MEDS: Albumin Human 25% (100 mL) 25 GM/100 ML BAG IV (10:28)
--- NOTE | 2024-09-09 10:58 | PN_ITS ---
Subjective Subjective Patient seen and examined. He had no complaints and had an uneventful night. He has not had any more dark stools. Review of system is otherwise negative. He is for EGD today. Hb today is 7.8. Objective Data Objective Data Vital Signs: Vital Signs Temp Pulse Resp BP Pulse Ox O2 Del Method 97.8 F 78 16 103/75 98 Room Air 09/09/24 07:46 09/09/24 07:46 09/09/24 07:46 09/09/24 07:46 09/09/24 10:10 09/09/24 10:10 Oxygen Delivery Method Room Air Weight: 171 lb 15.722 oz Body Mass Index (BMI) 25.4 Intake & Output: Intake and Output for Last 24 Hours 09/07/24 09/08/24 09/09/24 23:59 23:59 23:59 Intake Total 720 / 720 1280 / 1280 140 / 140 Output Total 0 / 0 2000 / 3200 1200 / 1200 Balance 720 / 720 -720 / -1920 -1060 / -1060 Lab / Micro Data 09/09/24 06:46 09/09/24 06:46 Labs: Laboratory Results - last 24 hr 09/08/24 06:08: Hgb Cancelled, Hct Cancelled, Diff Path Review Cancelled 09/08/24 11:40: POC Glucose 162 H 09/08/24 16:43: POC Glucose 168 H 09/08/24 17:03: Hgb 7.3 L, Hct 22.9 L 09/08/24 21:15: POC Glucose 135 H 09/09/24 06:35: POC Glucose 130 H 09/09/24 06:46: WBC 7.2, RBC 2.88 L, Hgb 7.8 L, Hct 24.5 L, MCV 85.1, MCH 27.1, MCHC 31.8 L, RDW Std Deviation 57.3 H, RDW Coeff of Katarzyna 18.6 H, Plt Count 216, MPV 9.9, Immature Gran % (Auto) 0.600, Neut % (Auto) 70.0, Lymph % (Auto) 21.2, [place] % (Auto) 6.1, Eos % (Auto) 1.5, Baso % (Auto) 0.6, Absolute Neuts (auto) 5.0, Absolute Lymphs (auto) 1.52, Nucleated RBC % 0.3, APTT 28.1, Sodium 141, Potassium 4.1, Chloride 112 H, Carbon Dioxide 21.0, Anion Gap 8, BUN 26 H, Creatinine 1.04, Estim Creat Clear Calc 58.54, Est GFR (MDRD) Af Amer 89, Est GFR (MDRD) Non-Af 73, BUN/Creatinine Ratio 25.0 H, Glucose 130 H, Hemoglobin A1c 6.7 H, Calcium 8.1 L, TSH 6.040 H Micro: Microbiology 09/07/24 12:49 Stool Stool Occult Blood (HERB) - Final Physical Exam Const alert, oriented x3 and no apparent distress General Appearance: cooperative and well developed HEENT normocephalic, head/scalp atraumatic and moist oral mucous membranes Mouth: dry mucous membranes Eyes PERRL and EOMs intact bilaterally Neck no lymphadenopathy, supple and no JVD Lymph Lymphatic: no lymphadenopathy noted and no lymphedema noted Resp normal respiratory effort, normal air movement and clear to auscultation bilaterally Cardio regular rate, regular rhythm, S1 normal heart sound, S2 normal heart sound and no murmurs GI normal to inspection, nondistended, normoactive bowel sounds, soft to palpation, non-tender and non-distended Extremity normal capillary refill, no clubbing, cyanosis or edema and no calf tenderness General Extremity: no tenderness to palpation of joints or extremities Skin General Skin Exam: no breakdown Neuro CN's II-XII intact bilaterally and no focal motor deficits Motor Exam: strength 5/5 throughout and general weakness Psych thought process normal, cooperative and affect normal Appearance: appropriate Assessment & Plan Assessment/Plan (1) GI bleed: (2) Acute blood loss anemia: (3) Weakness: PLAN: Plan #Acute blood loss anemia due to GI bleed * Was admitted with a complaint of dark stools. Hemoglobin was 6.7 on admission. Baseline from March 2024 was 12.1 * On IV pantoprazole 40 mg twice daily. Aspirin and Eliquis on hold. * For EGD today. * Gastroenterology on board * #Debility and weakness * PT/OT on board. fall precautions * #Cardiac amyloidosis with nonischemic cardiomyopathy * EF is 20%. * to be very cautious about hydration with IVF * #Afib * Rate controlled. Eliquis on hold. On amiodarone and metoprolol. * Patient states he is post to have a cardioversion done at the [facility] tomorrow. Patient counseled that this would likely not be able to, due to his current hospitalization. He states his is going to call the [facility] to reschedule. * #BPH, on terazosin #Type 2 diabetes mellitus, on Jardiance and metformin, which are currently on hold. Insulin sliding scale. Accu-Cheks ACHS. #Hypothyroidism: on synthroid DVT prophylaxis: SCDs Charges/Coding Visit Charges Inpatient E&M: 89435 Subs Hosp L2
[2024-09-09 11:26] LABS: Bedside Glucose 145 mg/dL (74-106)
--- NOTE | 2024-09-09 12:44 | CASEMGMT ---
MADHAVI FLORENTINO Assessment Face to Face with patient for initial transition planning/care coordination assessment. MADHAVI FLORENTINO introduced self and role at [facility], pt voices understanding. Pt is A&Ox4 and is resting comfortably in the chair and is calm. Pt at bedside. Care providers, pharmacy, and demographics verified. Admitting dx: GI Bleed PCP: Seth Aguila Specialists: BEVERLY ([facility]). [facility] is consulted during stay Preferred Pharmacy: [facility] Insurance: [place], [facility] Prescription Benefit: Yes LNOK: Juli Jadielulises (W) Living Arrangements: Pt lives with his in a single story home with 4 steps to enter ADLs/IADLs: Ind Transportation: Self, DME: Pt has 2 blood glucose monitors with sufficient supplies. Shower grab bars. Pulse ox. Denies further concerns HHC/SNF: Denies history or needs Pt?s goal: Home Plan: Home no needs. Pt states that he is independent and denies the need for HHC, OP Tx, SNF, CCN, or Pt Link. Pt states that he feels safe returning home with his once he is medically ready and denies further needs or concerns at this time. Follow GI consult. Report given to [employer] CM. Marta Fermin RN, CM
[2024-09-09] MEDS: Metoprolol Tartrate 5 MG/5 ML Vial 2.5 MG IV (14:25)
[2024-09-09] MEDS: 0.9% Saline Lock 10 ML Syringe IV ×2 (14:28→18:19)
--- NOTE | 2024-09-09 15:20 | PRE.ANES_ITS ---
ASA Classification* ASA Classification ASA Classification: 3 Assessment & Plan Anesthesia* Anesthesia Assessment Anesthesia Assessment: Discussed sedation and/or anesthesia options, risks, benefits, and alternatives with patient/parents/legal guardian/POA. Questions invited. The patient/parents/legal guardian/POA seems to understand and agrees to proceed with anesthesia plan. Reviewed the physical assessment, medical history, allergy history and patient home medications list prior to surgery/procedure/anesthetic and documented any changes. Performed airway and anesthesia risk assessments. Anesthesia Type Anesthesia Type: MAC History Source History Obtained from:: Patient and Chart Anesthesia Focused Assessment* Temperature: 97.5 F Pulse Rate: 118 Blood Pressure: 103/57 Respiratory Rate: 13 Pulse Ox: 100 Oxygen Delivery Method: Room Air Airway Assessment Mouth opens: >3 cm Mallampati Score: III Teeth Condition: Missing (Patient is edentulous.) Neck Range of motion (ROM): Limited ROM (Somewhat decreased extension.) Pertinent Findings EKG Pertinent Findings:: September 09, 2024. Atrial fibrillation with rapid ventricular response at 110 bpm left axis nonspecific T wave abnormality Focused Labs Anesthesia Preop lab: CBC WBC 7.2 K/mm3 (4.4-11.0) 09/09/24 06:46 RBC 2.88 M/mm3 (4.6-6.2) L 09/09/24 06:46 Hgb 7.8 g/dL (13.0-16.5) L 09/09/24 06:46 Hct 24.5 % (40-54) L 09/09/24 06:46 Plt Count 216 K/mm3 (150-450) 09/09/24 06:46 CHEMISTRY Potassium 4.1 mmol/L (3.5-5.1) 09/09/24 06:46 Sodium 141 mmol/L (136-145) 09/09/24 06:46 Magnesium 1.9 mg/dL (1.6-2.6) 08/24/19 05:54 Phosphorus 1.7 mg/dL (2.5-4.9) L 08/21/19 06:00 BUN 26 mg/dL (7-18) H 09/09/24 06:46 Creatinine 1.04 mg/dL (0.70-1.30) 09/09/24 06:46 Glucose 130 mg/dL (74-106) H 09/09/24 06:46 POC Glucose 145 mg/dL (74-106) H 09/09/24 11:09 TSH 6.040 uIU/mL (0.358-3.740) H 09/09/24 06:46 COAG PT 16.9 SECONDS (11.7-14.9) H 09/07/24 12:00 INR 3.0 09/08/23 10:28 Pre-Assessment Diagnosis/Proposed Procedure Planned Operative Procedure(s): Esophagogastroduodenoscopy Anesthesia History 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 When Was Last Pacemaker Check QUESTION #4 FULL TEXT: You/Your Family Experience fever (hyperthermia) with Anesthesia Last Oral Intake Last Oral intake: Last Oral Intake NPO since 00:00 09/08/24 19:52 Meds taken in AM with sips of water? Meds patient instructed to take am of surgery Any additional information?: Yes Meds taken in AM with sips of water?: Yes PONV PONV - electronics hardware design engineer: PONV - electronics hardware design engineer Female HX of Motion Sickness HX of N/V After Surgery Non-Smoker Duration of Surgery greater than 60 minutes Number of Risk Factors PONV Score Height & Weight Height & Weight: Anesthesia: Height & Weight Height 5 ft 9 in 09/08/24 19:52 Weight: 78.01 kg 09/08/24 19:52 Body Mass Index (BMI) 25.4 09/08/24 19:52 Respiratory Assessment Respiratory Assessment - electronics hardware design engineer: Respiratory Tract Infection Hx - electronics hardware design engineer Hx Respiratory Tract Infection No 09/08/24 19:51 STOP Sleep Apnea STOP Sleep Apnea - electronics hardware design engineer: STOP Sleep Apnea - electronics hardware design engineer Hx Hypertension Yes 09/07/24 14:44 Hx Sleep Apnea No 09/07/24 14:44 CPAP BIPAP Do you snore loudly (louder No 09/07/24 14:44 than talking or can be heard Do you often feel tired/ No 09/07/24 14:44 fatigued/ sleepy during daytime? Has anyone observed you stop No 09/07/24 14:44 breathing during sleep? STOP Results Negative 09/07/24 14:44 QUESTION #5 FULL TEXT : Do you snore loudly (louder than talking or can be heard through closed doors)? 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 Specify any problems Hx of Preganancy in last 3 N/A 09/07/24 14:44 Months Nurse Filling Out Transfusion [id number] 09/07/24 14:44 & Questions: Date: 09/07/24 09/07/24 14:44 Time: 14:56 09/07/24 14:44 Patient unable to answer at this time (ie. confused, unrespo /Reproduction History /Reproductive History - electronics hardware design engineer: /Reproductive Hx- electronics hardware design engineer Hx Now No 09/08/24 19:51 Gestational Age (in weeks): EDC: Hx Hx Para Hx Section SAB No 09/08/24 19:51 Active Medications Active Medications: Current Medications Generic Name Dose Route Start Last Admin Trade Name Freq PRN Reason Stop Dose Admin Acetaminophen 650 mg 09/07/24 14:50 Acetaminophen 325 Mg Tablet PO Q6H PRN Pain Score 1-10/Temp > 100.7 F Amiodarone HCl 200 mg 09/08/24 10:00 09/09/24 09:37 Amiodarone 200 Mg Tablet PO 200 mg DAILY ACE Administration Doxazosin Mesylate 4 mg 09/07/24 22:00 09/08/24 21:30 Doxazosin 4 Mg Tablet PO 4 mg QHS ACE Administration Glucagon 1 mg 09/07/24 14:50 Glucagon 1 Mg/Ml Syringe IM X1 PRN HYPOGLYCEMIA Protocol Dextrose 250 mls @ 0 mls/hr 09/07/24 14:50 Dextrose 10%-Water IV .Q0M PRN HYPOGLYCEMIA Protocol As Directed Pantoprazole Sodium 40 mg/ 110 mls @ 330 mls/hr 09/07/24 16:00 09/09/24 08:12 Sodium Chloride IV Infused Q12 ACE Infusion Insulin Human Lispro 0 unit 09/07/24 16:00 09/09/24 11:30 Insulin Lispro 100 Unit/Ml Insuln.Pen SC Not Given TIDAC [facility] Protocol Levothyroxine Sodium 75 mcg 09/08/24 06:00 09/09/24 06:36 Levothyroxine 75 Mcg Tablet PO 75 mcg 0600 [facility] Administration Metoprolol Tartrate 100 mg 09/07/24 22:00 09/09/24 08:44 Metoprolol Tartrate 100 Mg Tablet PO Not Given BID [facility] Protocol Ondansetron HCl 4 mg 09/07/24 14:50 Ondansetron 4 Mg/2 Ml Vial IV Q8H PRN PRN NAUSEA/VOMITING Sodium Chloride 10 - 40 ml 09/07/24 15:00 09/09/24 14:28 0.9% Saline Lock 10 Ml Syringe IV 10 ml UD PRN Administration SALINE FLUSH Tramadol HCl 50 mg 09/07/24 14:50 Tramadol 50 Mg Tablet PO Q6H PRN PAIN 1-10 PFSH Medical History Amyloid heart disease Wears glasses High cholesterol Non-smoker History of echocardiogram History of stress test Cardiology follow-up encounter Atherosclerotic heart disease of habematolel coronary artery without angina pectoris Encounter for cardioversion procedure Leg cramps, sleep related Sleep-disordered breathing Atrial fibrillation with RVR History of cardioversion (~08/21/19) Pure hypercholesterolemia Essential hypertension Hyperlipidemia Hypertension Coronary arteriosclerosis in habematolel artery half-way current use of anticoagulant Paroxysmal atrial fibrillation Home Medications ?Medication ?Instructions ?Recorded ?Last Taken ?Type aspirin 81 mg chewable tablet 81 mg PO DAILY prevention 10/18/13 06/11/24 History metformin 750 mg tablet,extended 750 mg PO DAILY DM 10/18/13 06/11/24 History release 24 hr terazosin 5 mg capsule 5 mg PO QHS BP 10/18/13 06/11/24 History empagliflozin 25 mg tablet 25 mg PO DAILY 12/21/23 06/11/24 History (Jardiance) acetaminophen 325 mg tablet 650 mg PO Q6H PRN Pain Score 03/19/24 Unknown His tory 1-10/Temp > 100.7 F antiarthritic combination no.2 900 900 mg PO BID 03/19/24 06/11/24 History mg tablet (glucosamine-chondroitin) levothyroxine 75 mcg tablet 75 mcg PO DAILY 03/19/24 06/11/24 History metoprolol tartrate 100 mg tablet 100 mg PO BID #180 tabs 03/22/24 09/09/24 Rx furosemide 40 mg tablet 40 mg PO DAILY #90 tabs 06/05/24 06/11/24 Rx tramadol 50 mg tablet 50 mg PO Q6H PRN pain #14 tabs 06/12/24 Unknown Rx apixaban 5 mg tablet (Eliquis) 5 mg PO .COMPLEX 06/14/24 Unknown History amiodarone 100 mg tablet 200 mg PO QDAY 09/04/24 Unknown History Allergy/AdvReac Type Severity Reaction Status Date / Time dabigatran etexilate (From AdvReac Severe GI Bleed Verified 09/07/24 12:05 Pradaxa) niacin (From Niaspan AdvReac Severe Hot flashes Verified 09/07/24 12:05 Extended-Release) Family History Father Myocardial infarction Hypertension Mother Hina Gehrigs disease Brother MVA (motor vehicle accident) Hypertension Kidney stones Hypercholesterolemia Surgical History History of cardiac catheterization History of colonoscopy History of bilateral cataract extraction History of release of tendon History of endoscopy History of esophagogastroduodenoscopy (EGD) History of tonsillectomy History of cardiac radiofrequency ablation (RFA) (~09/21/11) History of left heart catheterization (~08/21/19) Social History Smoking Status: Never smoker alcohol intake: never substance use type: does not use caffeine: Yes Type: carbonated beverages, coffee and tea what type of physical activity do you participate in: none seatbelt use: always do you feel safe at home: Yes Review of Systems (Anesthesia) ROS Narrative System reviewed and no additional complaints, except as documented.
--- NOTE | 2024-09-09 17:04 | OP.EGD_ITS ---
Patient Name: Saleem Lopes Procedure Date: 09/09/2024 3:54 PM Date of : 1945 Age: 79 Procedure: Upper GI endoscopy Indications: Melena Providers: Mundo Coronado DO Medicines: Monitored Anesthesia Care Patient Profile: This is a 79 year old male. Refer to note in patient chart for documentation of history and physical. Patient has symptoms of acute vomiting. Complications: No immediate complications. Procedure: Pre-Anesthesia Assessment: - Prior to the procedure, a History and Physical was performed, and patient medications and allergies were reviewed. The patient is competent. The risks and benefits of the procedure and the sedation options and risks were discussed with the patient. All questions were answered and informed consent was obtained. Patient identification and proposed procedure were verified by the physician in the pre-procedure area. Mental Status Examination: alert and oriented. Airway Examination: normal oropharyngeal airway and neck mobility. Respiratory Examination: clear to auscultation. CV Examination: normal. Prophylactic Antibiotics: The patient does not require prophylactic antibiotics. Prior Anticoagulants: The patient has taken no anticoagulant or antiplatelet agents. ASA Grade Assessment: II - A patient with mild systemic disease. After reviewing the risks and benefits, the patient was deemed in satisfactory condition to undergo the procedure. The anesthesia plan was to use monitored anesthesia care (MAC). Immediately prior to administration of medications, the patient was re-assessed for adequacy to receive sedatives. The heart rate, respiratory rate, oxygen saturations, blood pressure, adequacy of pulmonary ventilation, and response to care were monitored throughout the procedure. The physical status of the patient was re-assessed after the procedure. After obtaining informed consent, the endoscope was passed under direct vision. Throughout the procedure, the patient's blood pressure, pulse, and oxygen saturations were monitored continuously. The Endoscope was introduced through the mouth, and advanced to the second part of duodenum. The upper GI endoscopy was accomplished without difficulty. The patient tolerated the procedure well. Scope In: 4:52:07 PM Scope Out: 4:56:58 PM Total Procedure Duration Time 0 hours 4 minutes 51 seconds Findings: The examined esophagus was normal. A large, ulcerated, non-circumferential mass with no bleeding and no stigmata of recent bleeding was found on the greater curvature of the stomach. No gross lesions were noted in the first portion of the duodenum. Impression: - Normal esophagus. 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 - No gross lesions in the first portion of the duodenum. - No specimens collected. - Continue n.p.o. -Continue PPI drip -Ceftriaxone 1 gm IV daily Recommendation: - Transfer patient to another hospital. - Continue present medications. - The patient is not currently taking anticoagulant or antiplatelet agents. Procedure Code(s): --- Professional --- 09401, Esophagogastroduodenoscopy, flexible, transoral; diagnostic, including collection of specimen(s) by brushing or washing, when performed (separate procedure) CPT copyright 2021 [employer]. All rights reserved. The codes documented in this report are preliminary and upon candy separator hard review may be revised to meet current compliance requirements. Mundo Coornado DO 09/09/2024 5:03:53 PM This report has been signed electronically. Number of Addenda: 0 Note Initiated On: 09/09/2024 3:54 PM
--- NOTE | 2024-09-09 17:04 | OP.CCLET_ITS ---
09/09/2024 Sal Aguila [address] [place] [address] Re : Upper GI endoscopy procedure for Saleem Lopes Dear Dr. Aguila This procedure was performed on Monday, September 09, 2024. My impressions and recommendations are as follows: Impressions : - Normal esophagus. 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 - No gross lesions in the first portion of the duodenum. - No specimens collected. - Continue n.p.o. -Continue PPI drip -Ceftriaxone 1 gm IV daily Recommendations : - Transfer patient to another hospital. - Continue present medications. - The patient is not currently taking anticoagulant or antiplatelet agents. My findings are described in the full procedure note, which is enclosed. If I can be of further assistance, please feel free to contact me at . Sincerely, Mundo Coronado, 09/09/2024 5:03:53 PM This report has been signed electronically.
--- NOTE | 2024-09-09 17:23 | PCM.HOSP.N ---
Hospitalist Note Notified at [id number] Coronado of the patient's EGD. Patient noted to have a gastric tumor. Given the patient's cardiomyopathy and amyloidosis, he is recommending transfer to be evaluated by surgery at a tertiary facility. Notified Dr. Cordova, who has assumed Dr. Lopes's care, about Dr. Coronado's recommendation via Backline at [phone].
--- NOTE | 2024-09-09 18:10 | POSTOPAN2_ITS ---
Anesthesia Postop Eval I Sum Postop Eval Completion status Anesthesia document: Postop Eval 1 completed: Yes Anesthesia Postop Eval I Summary Anesthesia Postop Eval I Summary: Anesthesia Postop Eval I: Assessment Summary Airway patent Yes 09/09/24 18:10 [email or web address] Spontaneous unlabored Yes 09/09/24 18:10 [email or web address] respirations Mental status Awake,Calm 09/09/24 18:10 [email or web address] nausea No 09/09/24 18:10 GLOVE [email or web address].MDOT Vomiting No 09/09/24 18:10 GLOVE [email or web address] Anesthesia Postop Eval I: Fluid Summary Crystalloid volume administer 20 09/09/24 18:10 GLOVE CUFFER.MDOT (ml) Colloids volume administered ( ml) Blood Product volume administered (ml) Total IV fluid infused 20 09/09/24 18:10 GLOVE [email or web address] Anesthesia Postop Eval I: Summary Notes Anesthesia Complication No 09/09/24 18:10 GLOVE [email or web address] Anesthesia Complication Comment: Post-operative progress note Anesthesia: Postop Eval II Evaluation Mental status: Awake and Calm Pain Level: 0 nausea: No Vomiting: No Complications Anesthesia Complication: No
--- NOTE | 2024-09-09 18:10 | PCM.POST.ANE ---
Anesthesia: Postop Eval I Current Vital Signs Temperature: 98 F Pulse Rate: 130 Blood Pressure: 82/61 Respiratory Rate: 20 Pulse Ox: 94 Oxygen Delivery Method: Nasal Cannula Oxygen Flow Rate (L/min): 3 Assessment Airway patent: Yes Spontaneous unlabored respirations: Yes Mental status: Awake and Calm nausea: No Vomiting: No Anesthesia Complication: No Fluid Hydration Crystalloid volume administer (ml): 20 Total IV fluid infused: 20 Progress Note Anesthesia document: Postop Eval 1 completed: Yes
--- NOTE | 2024-09-09 18:10 | PCM.POSTANE2 ---
Anesthesia Postop Eval I Sum Postop Eval Completion status Anesthesia document: Postop Eval 1 completed: Yes Anesthesia Postop Eval I Summary Anesthesia Postop Eval I Summary: Anesthesia Postop Eval I: Assessment Summary Airway patent Yes 09/09/24 18:10 DIRECTOR OF [email or web address].[email or web address] Spontaneous unlabored Yes 09/09/24 18:10 DIRECTOR OF [employer].MDOT respirations Mental status Awake,Calm 09/09/24 18:10 DIRECTOR OF [employer].MDOT nausea No 09/09/24 18:10 DIRECTOR OF [employer].MDOT Vomiting No 09/09/24 18:10 DIRECTOR OF [employer].MDOT Anesthesia Postop Eval I: Fluid Summary Crystalloid volume administer 20 09/09/24 18:10 DIRECTOR OF [employer].MDOT (ml) Colloids volume administered ( ml) Blood Product volume administered (ml) Total IV fluid infused 20 09/09/24 18:10 DIRECTOR OF [employer]INO [employer].MDOT Anesthesia Postop Eval I: Summary Notes Anesthesia Complication No 09/09/24 18:10 DIRECTOR OF [employer].MDOT Anesthesia Complication Comment: Post-operative progress note Anesthesia: Postop Eval II Evaluation Mental status: Awake and Calm Pain Level: 0 nausea: No Vomiting: No Complications Anesthesia Complication: No
[2024-09-09] MEDS: Pantoprazole Sodium 80 MG in 0.9% Normal Saline (100mL Bag) 80 ML 10 MG CONT INF (18:19)
[2024-09-09] MEDS: Metoprolol Tartrate 100 MG Tablet PO (21:47)
--- NOTE | 2024-09-09 21:53 | PCM.HOSP.N ---
Hospitalist Note [facility] called me for clinical information regarding transfer. I talked to Dr. Guzman and gave clinical informed that patient came with the melena, GI bleed with severe anemia. Patient has known history of severe heart failure LVEF 20% with cardiac KS lordosis and other comorbidities. Patient accepted in PCU floor there. Transfer papers signed. Patient's attending knows about the possible transfer.
[2024-09-10 00:52] VITALS: BP 93/66; PULSE 102; RESP 16; TEMP 35.9; O2SAT 99
[2024-09-10 00:54] VITALS: BP 93/66; PULSE 102; RESP 16; TEMP 35.9; O2SAT 99
[2024-09-10 00:54] LABS: Bedside Glucose 119 mg/dL (74-106)
[2024-09-10 01:06] LABS: Bedside Glucose 114 mg/dL (74-106)
[2024-09-10 01:54] VITALS: BP 90/58; PULSE 94; RESP 14; TEMP 36.4; O2SAT 98
--- NOTE | 2024-09-10 16:42 | DS.PCM_ITS ---
Providers Date of Admission: 09/07/24 Date of Discharge: 09/10/24 Primary Care Physician: Dr. Seth Aguila MD Consultations 09/07/24 14:50 Consult: Gastroenterology Routine Consulting Provider: [facility] Reason for Consult: GI bleed EMERGENT Consult: No MD Notified: Yes Date Notified: 09/07/24 Time Notified: 13:44 Method of Notification: ED Physician Initiated Reason For Visit: GI BLEED Diagnosis Discharge Diagnosis (1) Acute blood loss anemia: Status: Acute Code(s): D62 - Acute posthemorrhagic anemia (2) GI bleed: Status: Acute Code(s): K92.2 - Gastrointestinal hemorrhage, unspecified (3) Weakness: Status: Acute Code(s): R53.1 - Weakness Plan #Acute blood loss anemia due to GI bleed * Was admitted with a complaint of dark stools. Hemoglobin was 6.7 on admission. Baseline from March 2024 was 12.1 * On IV pantoprazole 40 mg twice daily. Aspirin and Eliquis on hold. * For EGD today. * Gastroenterology on board * #Debility and weakness * PT/OT on board. fall precautions * #Cardiac amyloidosis with nonischemic cardiomyopathy * EF is 20%. * to be very cautious about hydration with IVF * #Afib * Rate controlled. Eliquis on hold. On amiodarone and metoprolol. * Patient states he is post to have a cardioversion done at the [facility] tomorrow. Patient counseled that this would likely not be able to, due to his current hospitalization. He states his is going to call the [facility] to reschedule. * #BPH, on terazosin #Type 2 diabetes mellitus, on Jardiance and metformin, which are currently on hold. Insulin sliding scale. Accu-Cheks ACHS. #Hypothyroidism: on synthroid DVT prophylaxis: SCDs Medications at Discharge Home Medications aspirin 81 mg chewable tablet 81 mg PO DAILY prevention 10/18/13 metformin 750 mg tablet,extended release 24 hr 750 mg PO DAILY DM 10/18/13 terazosin 5 mg capsule 5 mg PO QHS BP 10/18/13 empagliflozin 25 mg tablet (Jardiance) 25 mg PO DAILY 12/21/23 acetaminophen 325 mg tablet 650 mg PO Q6H PRN Pain Score 1-10/Temp > 100.7 F 03/19/24 antiarthritic combination no.2 900 mg tablet (glucosamine-chondroitin) 900 mg PO BID 03/19/24 levothyroxine 75 mcg tablet 75 mcg PO DAILY 03/19/24 metoprolol tartrate 100 mg tablet 100 mg PO BID #180 tabs 03/22/24 furosemide 40 mg tablet 40 mg PO DAILY #90 tabs 06/05/24 tramadol 50 mg tablet 50 mg PO Q6H PRN pain #14 tabs 06/12/24 apixaban 5 mg tablet (Eliquis) 5 mg PO .COMPLEX 06/14/24 amiodarone 100 mg tablet 200 mg PO QDAY 09/04/24 Hospital Course Operations None Procedures EGD Summary of Care Provided Minutes Spent on Discharge: 45 Hospital Course: Patient is a 79-year-old male with a past medical history as outlined was admitted through the ED on 09/07/2024 with a complaint of weakness with melena stools which have been going on for about 2 weeks prior to admission. He also complained of shortness of breath with exertion. He denied any chest pain or any other symptoms. He denied having such symptoms in the past. He was on Eliquis for A-fib. On admission his hemoglobin was 6.7. He was transfused with 1 unit of packed red blood cells. Gastroenterology was consulted. Patient had a known history of chronic heart failure with reduced ejection fraction with known EF of 20% as well as cardiac amyloidosis. 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 Gastroenterology recommended patient be transferred to a tertiary center for evaluation of the mass of his underlying cardiac amyloidosis with HFrEF. Patient was accepted at [facility] on 09/10/2024. He he was transferred to [facility] in the early hours of 09/10/2024. Patient was seen early on 09/09/2024. He had no complaints then. Previous symptoms otherwise negative. Labs and vitals reviewed. Hemoglobin had come up to 7.8. Physical Exam Const alert, oriented x3 and no apparent distress General Appearance: cooperative, comfortable and well developed Orientation / Consciousness: awake Exam Limitations: no limitations HEENT normocephalic, head/scalp atraumatic, hearing grossly normal bilaterally and moist oral mucous membranes Mouth: oral and palatal mucosa normal Eyes PERRL and EOMs intact bilaterally Neck no lymphadenopathy, supple and no JVD Lymph Lymphatic: no lymphadenopathy noted and no lymphedema noted Resp normal respiratory effort, normal air movement, no retractions, no use of accessory muscles and clear to auscultation bilaterally Cardio regular rate, regular rhythm, S1 normal heart sound, S2 normal heart sound and no murmurs GI normal to inspection, nondistended, normoactive bowel sounds, soft to palpation, non-tender and non-distended Extremity normal to inspection, full ROM, normal capillary refill, no clubbing, cyanosis or edema and no calf tenderness General Extremity: no tenderness to palpation of joints or extremities Skin no rashes or lesions noted General Skin Exam: no breakdown Neuro oriented x3, CN's II-XII intact bilaterally, moves all extremities and no focal motor deficits Sensorium / Orientation: awake and alert Motor Exam: strength 5/5 throughout and general weakness Psych thought process normal, cooperative and affect normal Appearance: appropriate Weight / BMI Weight Weight: 171 lb 15.722 oz Body Mass Index (BMI) 25.4 ABG / Lab / Microbiology Data 09/09/24 06:46 09/09/24 06:46 Laboratory: Laboratory Results - last 24 hr 09/07/24 12:22: Crossmatch See Detail 09/09/24 18:15: POC Glucose 119 H 09/09/24 21:45: POC Glucose 114 H Microbiology: Microbiology 09/07/24 12:49 Stool Stool Occult Blood (HERB) - Final D/C Instructions Discharge Diet: Low fat / Low cholesterol Discharge Activity: Return to Normal Activity Meaningful Use Info Meaningful Use Meaningful Use Diagnoses (Choose all that apply): None applicable Ischemic Stroke Statin Dosing Therapy Reference: STATIN DOSE THERAPY REFERENCE: * Patients > 75 years receive moderate or high dose statin therapy. * Patients 75 years or YOUNGER should receive HIGH intensity statin dose unless contraindicated. You will be required to document reason for non-treatment if statin daily dose does not meet guidelines. HIGH DOSE STATIN THERAPY DAILY Atorvastatin > than or = to 40 mg Rosuvastatin > than or = to 20 mg Amlodipine + Atorvastatin > than or = to 2.5/40 mg Ezetimibe + Simvastatin 10/80 mg Simvastatin 80mg Discharge Plan Admission Admit Date/Time: 09/07/24 13:39 Primary Reason for Your Visit: acute on chronic anemia, Upper GI bleed Attending Provider: Koram,Genna Janice Primary Care Provider: Seth Aguila Consulting Providers: Raoul Riddle Discharge Orders/Prescriptions Prescriptions: No Action Jardiance 25 mg tablet 25 mg PO DAILY amiodarone 100 mg tablet 200 mg PO QDAY terazosin 5 MG capsule 5 mg PO QHS aspirin 81 MG tablet,chewable 81 mg PO DAILY metformin 750 MG tablet extended release 24 hr 750 mg PO DAILY levothyroxine 75 mcg tablet 75 mcg PO DAILY glucosamine-chondroitin 900 mg tablet 900 mg PO BID acetaminophen 325 MG tablet 650 mg PO Q6H PRN (Reason: Pain Score 1-10/Temp > 100.7 F) Patient Comments: pt states he very rarely takes med tramadol 50 mg tablet 50 mg PO Q6H PRN (Reason: pain) Qty: 14 0RF metoprolol tartrate 100 mg tablet 100 mg PO BID Qty: 180 3RF furosemide 40 mg tablet 40 mg PO DAILY Qty: 90 3RF Eliquis 5 mg tablet 5 mg PO .COMPLEX Rx Instructions: 5 mg orally twice daily, [facility]; Referrals / Follow Up: Seth Aguila MD [Primary Care Provider] - Disposition Disposition (needs filled in before D/C Order can be placed): Acute Care Hospital Charges/Coding Visit Charges Inpatient E&M: 17189 Disch Hosp >30min
== END 2024-09-10 03:10 | disposition short-term general hospital (02) | DRG 813 ==
LOC: ED 13:43 → PCU 14:00
PROVIDERS: Anesthesiology; Internal Medicine Gastroenterology; Emergency Provider Emergency Medicine; PCP Family Medicine; Visit Provider Student in an Organized Health Care Education/Training Program
PROC: 0DJ08ZZ Inspection of Upper Intestinal Tract, Via Natural or Artificial Opening Endoscopic (ICD-10-PCS; CPT 43235; principal; 2024-09-09 15:55)
DX: D68.32 Hemorrhagic disorder due to extrinsic circulating anticoagulants (principal); E85.9 Amyloidosis, unspecified; K92.2 Gastrointestinal hemorrhage, unspecified; I50.22 Chronic systolic (congestive) heart failure; D62 Acute posthemorrhagic anemia; I42.8 Other cardiomyopathies; E11.9 Type 2 diabetes mellitus without complications; I11.0 Hypertensive heart disease with heart failure; E03.9 Hypothyroidism, unspecified; I48.0 Paroxysmal atrial fibrillation; I95.9 Hypotension, unspecified; I25.10 Atherosclerotic heart disease of native coronary artery without angina pectoris; E78.00 Pure hypercholesterolemia, unspecified; K31.89 Other diseases of stomach and duodenum; Z79.84 Long term (current) use of oral hypoglycemic drugs; Z79.82 Long term (current) use of aspirin; Z79.01 Long term (current) use of anticoagulants; R53.81 Other malaise; Z79.899 Other long term (current) drug therapy; Z98.41 Cataract extraction status, right eye; Z98.42 Cataract extraction status, left eye; N40.0 Benign prostatic hyperplasia without lower urinary tract symptoms; Z79.890 Hormone replacement therapy
CPT/HCPCS: 36415; 71045; 80048; 80053; 80076; 81001; 82274; 82962; 83036; 83880; 84439; 84443; 84484; 85014; 85018; 85025; 85610; 85730; 86850; 86900; 86901; 86920; 93005; 97802; 99285; J7050; P9016; P9047; A4216; J2405

== ENCOUNTER → 2024-09-17 | Outpatient (CLI) | payer MEDICARE, SELFPAY ==
[2024-09-17 17:31] LABS: Absolute Lymphocyte Count 1.34 X10^3/uL (0.83-4.51); Absolute Neutrophil Count 3.9 X10^3/uL (2.0-7.7); Basophil# 0.03 X10^3/uL; Basophil% 0.5 % (0-1); Eosinophils% 1.7 % (0-5); Hematocrit 29.8 % (40-54); Hemoglobin 9.1 g/dL (13.0-16.5); Lymphocyte # 1.34 X10^3/ul (0.83-4.51); Lymphocyte % 23.2 % (19-41); Mean Corp Hgb Conc 30.5 g/dL (32-36); Mean Corpuscular Hgb 25.2 pg (27.0-32.0); Mean Corpuscular Volume 82.5 fL (80-94); Mean Platelet Vol. 10.2 fl (6.2-12.0); Monocyte# 0.43 X10^3/uL; Monocyte% 7.4 % (0-10); NRBC Flagged by Analyzer 0 % (0-5); Neutrophil # 3.87 X10^3/uL (2.7-7.7); Platelet Count 204 K/mm3 (150-450); RBC Distribution Width CV 16.4 % (11.6-14.6); RBC Distribution Width SD 49.8 fl (35.1-43.9); Red Blood Count 3.61 M/mm3 (4.6-6.2); White Blood Count 5.8 K/mm3 (4.4-11.0)
[2024-09-17 18:16] LABS: AST(SGOT) 11 U/L (15-37); Alanine Aminotransfer ALT/SGPT 13 U/L (16-61); Albumin, Serum 3.5 g/dL (3.2-5.0); Alkaline Phosphatase 88 U/L (45-117); Anion Gap 8 (5-15); BUN 33 mg/dL (7-18); BUN/Creat Ratio 22.4 RATIO (10-20); Chloride 103 mmol/L (98-107); Creatinine, Serum 1.47 mg/dL (0.70-1.30); EST Glomerular Filtration Rate 49 mL/min (>60); Est Glom Filt Rate - Afr Amer 60 mL/min (>60); Globulin 3.4 g/dL (2.2-4.2); Glucose 184 mg/dL (74-106); LDH 357 U/L (87-241); Potassium 3.5 mmol/L (3.5-5.1); Protein, Total 6.9 g/dL (6.4-8.2); Sodium Level 138 mmol/L (136-145)
== END | disposition home or self-care (01) ==
PROVIDERS: PCP Family Medicine; Referring Provider Family Medicine; Visit Provider Family Medicine
DX: K92.2 Gastrointestinal hemorrhage, unspecified (principal)
CPT/HCPCS: 36415; 80053; 83615; 85025

== ENCOUNTER 2024-10-18 11:42 | Outpatient (RCR) | payer MEDICARE, SELFPAY ==
[2024-09-12 21:02] VITALS: BMI 29.5
[2024-10-18 12:24] LABS: International Normalized Ratio 1.1; Prothrombin Time (Protime)PT. 14.6 SECONDS (11.7-14.9)
== END 2024-10-18 18:00 | disposition home or self-care (01) ==
LOC: LAB 11:42
PROVIDERS: Internal Medicine Cardiovascular Disease; Family Provider Family Medicine; PCP Family Medicine; Referring Provider Nurse Practitioner Gerontology; Visit Provider Nurse Practitioner Gerontology
DX: Z79.01 Long term (current) use of anticoagulants (principal)
CPT/HCPCS: 36415; 84443; 85610

== ENCOUNTER → 2024-11-11 | Outpatient (CLI) | payer OTHER, SELFPAY ==
--- NOTE | 2024-11-11 12:56 | ECHOD_ITS ---
Reason For Study: CAD, A fib Procedure This was a 2D Doppler, Color Flow transthoracic echocardiogram. Myocardial strain analysis was performed in this exam to aid in the assessment of cardiac function. Exam performed in department. Left Ventricle Normal LV size. Severe concentric left ventricular hypertrophy. Apical false tendon noted. The left ventricular ejection fraction is 35 %. There is moderate global hypokinesis of the left ventricle. Right Ventricle Normal RV size. Normal systolic function. Atria The left atrium is mildly enlarged. Normal right atrium. Mitral Valve Normal mitral valve. Tricuspid Valve Normal tricuspid valve. Mild (1+) tricuspid valve insufficiency. Pulmonary artery systolic pressure is 26 mmHg. Aortic Valve Trisinus/trileaflet aortic valve. Mild (1+) aortic valve insufficiency. Pulmonic Valve Normal pulmonic valve. Mild (1+) pulmonic valve insufficiency. Great Vessels Normal aortic root. The pulmonary artery is normal size. Normal inferior vena cava. Pericardium/Pleural No pericardial effusion. MMode/2D Measurements & Calculations LVIDd: 4.1 cm IVSd: 1.8 cm LAV(MOD-bp): 71.2 ml LVIDs: 3.4 cm LVPWd: 1.7 cm LAV(MOD-bp) Indexed: 37.4 ml/m2 RVDd: 3.6 cm FS: 16.2 % LAV(MOD-sp2): 66.4 ml LAV(MOD-sp4): 69.8 ml SV(MOD-sp4): 42.5 ml LVAd ap4: 29.9 cm2 LVAd ap2: 26.4 cm2 LVLd ap4: 8.5 cm LVLd ap2: 9.1 cm SI(MOD-sp4): 22.3 ml/m2 EDV(MOD-sp4): 90.2 ml EDV(MOD-sp2): 63.9 ml EDV(sp4-el): 89.0 ml EDV(sp2-el): 65.2 ml LVAs ap4: 21.2 cm2 LVAs ap2: 18.3 cm2 LVLs ap4: 8.1 cm LVLs ap2: 8.1 cm ESV(MOD-sp4): 47.7 ml ESV(MOD-sp2): 36.4 ml ESV(sp4-el): 47.2 ml ESV(sp2-el): 34.9 ml EF(MOD-sp4): 47.1 % EF(MOD-sp2): 43.0 % EF(sp4-el): 47.0 % SV(MOD-sp2): 27.5 ml SV(sp4-el): 41.8 ml LA A4 area: 23.4 cm2 SI(MOD-sp2): 14.4 ml/m2 LA dimension(2D): 3.7 cm RA A4 area: 17.1 cm2 Doppler Measurements & Calculations MV E max leticia: 70.2 cm/sec Ao V2 max: 78.2 cm/sec LV V1 max: 62.7 cm/sec Ao max P.5 mmHg LV V1 max P.6 mmHg PA V2 max: 70.8 cm/sec TR max leticia: 242.1 cm/sec TR max P.5 mmHg ECHO/Echo Complete Interpretation Summary Normal LV size. The left ventricular ejection fraction is 35 %. There is moderate global hypokinesis of the left ventricle. Severe concentric left ventricular hypertrophy. Apical false tendon noted. Compared to the previous the ejection fraction has improved but the myocardial strain pattern remains abnormal suggestive of amyloid but has also improved. The global longit udinal strain is severely abnormal. Ordering Physician: James Levy Referring Physician: James Levy Performed By: Sandee Mckoy RDCS
== END | disposition home or self-care (01) ==
LOC: CVS 12:53
PROVIDERS: PCP Family Medicine; Referring Provider Chiropractor; Visit Provider Chiropractor
DX: I25.10 Atherosclerotic heart disease of native coronary artery without angina pectoris (principal)
CPT/HCPCS: 93306

== ENCOUNTER → 2024-12-10 | Outpatient (CLI) | payer MEDICARE, SELFPAY ==
--- NOTE | 2024-12-10 08:18 | CT_ITS ---
PROCEDURE: CHEST WITHOUT CONTRAST REASON FOR EXAM: History of follicular lymphoma. TECHNIQUE: Chest CT without contrast. COMPARISON: None. FINDINGS: Hardware: None. Lymph nodes: Mild enlargement of the axillary lymph nodes bilaterally more prominent on the left side . Mild enlargement of the mediastinal and bilateral hilar lymph nodes. Heart and Vasculature: Normal heart size. No pericardial effusion. Thoracic aorta and pulmonary rhiannon juancarlos have normal contours; noncontrast technique limits evaluation. Coronary Artery Calcifications: Present Lungs and Airways: Minimal linear scarring at the lung bases. Pleura: No pleural effusion. No pneumothorax. Upper Abdomen: Multiple gallstones. Enlarged retroperitoneal lymph nodes. Right renal calcification . Bones: Degenerative changes of the thoracic spine. CT/Chest without Contrast IMPRESSION: Enlarged bilateral axillary and mediastinal lymph nodes. Mild scarring at the lung bases. One or more dose reduction techniques were used (e.g., Automated exposure contr ol, adjustment of the mA and/or kV according to patient size, use of iterative reconstruction technique). Reading Location: [place] [id number]
[2024-12-10 15:16] LABS: Hematocrit 41.5 % (40-54); Hemoglobin 12.2 g/dL (13.0-16.5); Mean Corp Hgb Conc 29.4 g/dL (32-36); Mean Corpuscular Hgb 22.8 pg (27.0-32.0); Mean Corpuscular Volume 77.6 fL (80-94); Mean Platelet Vol. 9.3 fl (6.2-12.0); POSITIVE MORPHOLOGY YES; Platelet Count 305 K/mm3 (150-450); RBC Distribution Width CV 20.8 % (11.6-14.6); RBC Distribution Width SD 56.5 fl (35.1-43.9); Red Blood Count 5.35 M/mm3 (4.6-6.2); White Blood Count 7.3 K/mm3 (4.4-11.0)
[2024-12-10 17:00] LABS: Scan Indicated on CBC? Y/N YES- FLAGS NOTED
== END | disposition home or self-care (01) ==
LOC: CT 08:18
PROVIDERS: PCP Family Medicine; Referring Provider Internal Medicine Critical Care Medicine; Visit Provider Internal Medicine Critical Care Medicine
DX: D64.9 Anemia, unspecified (principal); R91.8 Other nonspecific abnormal finding of lung field
CPT/HCPCS: 36415; 71250; 85027

== ENCOUNTER → 2025-02-11 | Outpatient (CLI) | payer MEDICARE, SELFPAY ==
--- NOTE | 2025-02-11 15:20 | CT_ITS ---
PROCEDURE: ABDOMEN/PELVIS WITH CONTRAST 02/11/2025 REASON FOR EXAM: GIST TECHNIQUE: Abdomen and pelvis CT with intravenous contrast. Coronal and Sagittal reconstruction series were provided. PATIENT PREPARATION: Per protocol ORAL CONTRAST TYPE: Oral contrast was given. CONTRAST: Isovue 370 VOLUME: 97mL One or more dose reduction techniques were used (e.g., Automated exposure control, adjustment of the mA and/or kV according to patient size, use of iterative reconstruction technique. RADIATION DOSE SUMMARY: CTDlvol: 19 mGy DLP: 787.29 mGycm COMPARISON: Comparison is made with prior study dated September 05, 2023. FINDINGS: Lung bases: There is a 8.6 mm noncalcified nodule in the anterior aspect of the left lower lobe. This was not imaged on prior study. Questionable faint 7 mm nodule in the posterior aspect of the right middle lobe. This is seen on axial image 2. coronary artery calcification. Liver: Diffuse fatty infiltration. Gallbladder: Several calcified gallstones. Spleen: Normal size. Pancreas: Normal size without evidence of mass surrounding inflammation or ductal dilation. Adrenals: Unremarkable. Kidneys: Stable cortical thinning of the right kidney with evidence of scarring along the mid and inferior pole of the right kidney. There is a nonobstructive 6 mm calculus in the lower pole calyx of the right kidney. Bladder: Unremarkable. Prostatic enlargement with indentation at the bladder base. Bowel: Colonic diverticulosis without diverticulitis. Appendix: The appendix is not identified. There is no inflammatory process identified in the right lower quadrant to suggest appendicitis. Lymph nodes: Enlarged retroperitoneal and pelvic lymph nodes as well as lymphadenopathy in both groins. Vasculature: Mild diffuse atherosclerotic calcifications of the abdominal aorta and the major visceral branches are noted. 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 Peritoneum / Retroperitoneum: Since prior study, there has been progression of retroperitoneal lymphadenopathy surrounding the aorta and inferior vena cava as compared to prior study. This extends into the pelvic region surrounding the iliac arteries. Multiple small lymph nodes are seen in the inguinal regions bilaterally more prominent on the right side. Bones: Degenerative changes of the spine. Loss of height of the superior endplate of the L1 vertebrae. CT/Abdomen/Pelvis WITH Contrast IMPRESSION: Subcentimeter nodules are seen in the right and left lung as described. Progressive retroperitoneal and inguinal lymphadenopathy as well as pelvic lymp hadenopathy as compared to the prior study. The remainder of the examination is unchanged. Multiple gallstones. Reading Location: [facility]
[2025-02-11 15:39] LABS: CREATININE FINGERSTICK < 1.0 mg/dL (0.70-1.30); EGFR FINGERSTICK > 60.0000 mL/min (>60)
== END | disposition home or self-care (01) ==
LOC: CT 14:55
PROVIDERS: PCP Family Medicine; Referring Provider Internal Medicine Medical Oncology; Visit Provider Internal Medicine Medical Oncology
DX: C49.A2 Gastrointestinal stromal tumor of stomach (principal)
CPT/HCPCS: 74177; Q9967

== ENCOUNTER → 2025-04-22 | Outpatient (CLI) | payer MEDICARE, SELFPAY ==
[2025-04-22 20:02] LABS: Hematocrit 44.8 % (40-54); Hemoglobin 14.6 g/dL (13.0-16.5); Mean Corp Hgb Conc 32.6 g/dL (32-36); Mean Corpuscular Volume 92.2 fL (80-94); Platelet Count 166 K/mm3 (150-450); RBC Distribution Width CV 14.5 % (11.6-14.6); RBC Distribution Width SD 48.7 fl (35.1-43.9); Red Blood Count 4.86 M/mm3 (4.6-6.2); White Blood Count 7.4 K/mm3 (4.4-11.0)
[2025-04-22 20:25] LABS: ALB/GLOB Ratio 1.2 RATIO (0.9-2.4); AST(SGOT) 22 U/L (<=37); Alanine Aminotransfer ALT/SGPT 11 U/L (<=46); Albumin, Serum 4.1 g/dL (3.4-4.8); Alkaline Phosphatase 109 U/L (40-129); Anion Gap 12 (5-15); BUN 24 mg/dL (4-19); Calcium,Total 9.6 mg/dL (7.6-11.0); Carbon Dioxide 23.5 mmol/L (21.0-32.0); Chloride 103 mmol/L (98-108); Creatinine, Serum 1.19 mg/dL (0.70-1.20); EST Glomerular Filtration Rate 63 (>60); Globulin 3.4 g/dL (2.2-4.2); Glucose 179 mg/dL (70-99); Protein, Total 7.5 g/dL (5.9-8.4); Sodium Level 139 mmol/L (133-145); Total Bilirubin 1.01 mg/dL (0.00-1.30)
== END | disposition home or self-care (01) ==
LOC: MFPLAB 11:49
PROVIDERS: PCP Family Medicine; Referring Provider Family Medicine; Visit Provider Family Medicine
DX: R19.8 Other specified symptoms and signs involving the digestive system and abdomen (principal)
CPT/HCPCS: 36415; 80053; 85027

== ENCOUNTER → 2025-09-05 | Outpatient (CLI) | payer MEDICARE, SELFPAY ==
--- NOTE | 2025-09-05 12:45 | ECHODONC_ITS ---
Reason For Study Reason For Study: AFIB Procedure This was a 2D Doppler, Color Flow transthoracic echocardiogram. Exam performed in department. Left Ventricle Normal LV size. Severe concentric left ventricular hypertrophy. The left ventricular ejection fraction is 35 %. There is moderate global hypokinesis of the left ventricle. Right Ventricle Normal RV size. Normal systolic function. Atria The left atrium is moderately enlarged. Normal right atrium. Mitral Valve Normal mitral valve. Tricuspid Valve Normal tricuspid valve. Aortic Valve Normal aortic valve. Trisinus/trileaflet aortic valve. Pulmonic Valve Normal pulmonic valve. Great Vessels Normal aortic root. The pulmonary artery is normal size. Pericardium/Pleural No pericardial effusion. MMode/2D Measurements & Calculations LVIDd: 4.2 cm IVSd: 1.5 cm Ao root diam: 3.8 cm LVIDs: 3.9 cm LVPWd: 1.9 cm RVDd: 4.3 cm FS: 8.3 % LAV(MOD-bp): 73.8 ml LVAd ap4: 28.6 cm2 SV(MOD-sp4): 31.1 ml LAV(MOD-bp) Indexed: 36.9 ml/m2 LVLd ap4: 8.7 cm SI(MOD-sp4): 15.6 ml/m2 LAV(MOD-sp2): 61.3 ml EDV(MOD-sp4): 79.8 ml LAV(MOD-sp4): 75.7 ml EDV(sp4-el): 80.0 ml LVAs ap4: 21.0 cm2 LVLs ap4: 7.7 cm ESV(MOD-sp4): 48.7 ml ESV(sp4-el): 48.8 ml EF(MOD-sp4): 39.0 % EF(sp4-el): 39.1 % SV(sp4-el): 31.3 ml LA A4 area: 24.9 cm2 LA dimension(2D): 4.2 cm RA A4 area: 13.2 cm2 Time Measurements MV dec time: 0.18 sec Doppler Measurements & Calculations MV E max leticia: 68.9 cm/sec Ao V2 max: 83.9 cm/sec AI max leticia: 324.6 cm/sec Ao max P.8 mmHg AI max P.1 mmHg Ao V2 mean: 62.4 cm/sec AI dec slope: 109.4 cm/sec2 Ao mean P.8 mmHg AI P1/2t: 868.8 msec Ao V2 VTI: 17.5 cm AV (velocity ratio): 0.58 LV V1 max: 67.4 cm/sec PA V2 max: 73.2 cm/sec LV V1 max P.8 mmHg PA V2 mean: 52.6 cm/sec LV V1 mean P.1 mmHg LV V1 mean: 47.8 cm/sec LV V1 VTI: 10.2 cm ECHO/Echo Complete Interpretation Summary Normal LV size. Severe concentric left ventricular hypertrophy. The left atrium is moderately enlarged. The left ventricular ejection fraction is 35 %. Ordering Physician: Erick Noriega Referring Physician: Erick Noriega Performed By: Puja Soler RCS
== END | disposition home or self-care (01) ==
LOC: CVS 12:44
PROVIDERS: PCP Family Medicine; Referring Provider Internal Medicine Cardiovascular Disease; Visit Provider Internal Medicine Cardiovascular Disease
DX: I34.0 Nonrheumatic mitral (valve) insufficiency (principal); I48.92 Unspecified atrial flutter
CPT/HCPCS: 93306